=== PATIENT | male | born 1935 | race Caucasian/White ===

== ENCOUNTER 2018-05-24 00:33 | Emergency (ER) | payer MEDICARE, OTHER ==
[~2018-05-24] VITALS: Ht 180.3 cm; Wt 68.0 kg
[2018-05-24 01:12] LABS: HEMATOCRIT 34 % (40-54); HEMOGLOBIN 10.8 G/DL (13.3-17.7); MEAN CORPUSCULAR HEMOGLOBIN 31 PG (25-34); MEAN CORPUSCULAR VOLUME 98 FL (80-99); WHITE BLOOD COUNT 6.6 10^3/uL (4.3-11.0)
[2018-05-24 01:13] LABS: MEAN CORPUSCULAR HGB CONC 32 G/DL (32-36); MEAN PLATELET VOLUME 9.7 FL (7.4-10.4); PLATELET COUNT 209 10^3/uL (130-400); RED CELL DISTRIBUTION WIDTH 14.1 % (10.0-14.5)
[2018-05-24 01:14] LABS: BASOPHILS % (AUTO) 1 % (0-10); EOSINOPHILS % (AUTO) 1 % (0-10); LYMPHOCYTES % (AUTO) 7 % (12-44); MONOCYTES % (AUTO) 6 % (0-12); NEUTROPHILS % (AUTO) 86 % (42-75)
[2018-05-24 01:15] LABS: LYMPHOCYTES # (AUTO) 0.5 X 10^3 (1.0-4.0); MONOCYTES # (AUTO) 0.4 X 10^3 (0.0-1.0); NEUTROPHILS # (AUTO) 5.7 X 10^3 (1.8-7.8)
--- NOTE | 2018-05-24 01:26 | ED General ---
General Chief Complaint: Cough/Cold/Flu Symptoms Stated Complaint: SHAKY Nursing Sepsis Screen: No Definite Risk Source of Information: Patient History of Present Illness Date Seen by Provider: May 24, 2018 Time Seen by Provider: 01:25 Initial Comments 82-year-old male presenting with increasing cough and shortness of breath. He has had worsening symptoms over the last 2-3 weeks. He had gone to urgent care and they gave him a 10 day course of doxycycline presuming it was a respiratory infection. He has not had any fever or chills. he has had worsening cough and dyspnea with exertion. He states that despite the antibiotics he never felt like he improved. He has also been having to sleep on more pillows because of shortness of breath with laying down. He has been feeling dizzy and lightheaded at times. He also has been noticing that his heart feels like it is racing when he is coughing. He feels like his chest is full at times. He has noticed that he is feeling more fatigued and run down. He denies having any nausea or vomiting. Allergies and Home Medications Allergies Coded Allergies: No Known Drug Allergies (Unverified , 05/24/18) Patient Home Medication List Home Medication List Reviewed: Yes Review of Systems Review of Systems Constitutional: No chills; dizziness; No fever; malaise EENTM: No epistaxis, No nose congestion Respiratory: cough, dyspnea on exertion; No hemoptysis; orthopnea; No phlegm; short of breath; No stridor; wheezing Gastrointestinal: No abdominal pain, No nausea, No vomiting Genitourinary: no symptoms reported Musculoskeletal: no symptoms reported Skin: no symptoms reported Psychiatric/Neurological: Anxiety Hematologic/Lymphatic: Easy Bleeding, Easy Bruising Past Rixtbfp-Lqyuzq-Eosnyn Hx Past Med/Social Hx: Reviewed Nursing Past Med/Soc Hx Patient Social History Recent Foreign Travel: No Contact w/Someone Who Travel: No Recent Infectious Disease Expo: No Past Medical History Surgeries: Yes Valve Replacement (Aortic valve replacement 2004) Atrial Fibrillation, Heart Murmur, High Cholesterol, Hypertension Diabetes, Non-Insulin dep Physical Exam Vital Signs Vital Signs - First Documented 05/24/18 05/24/18 01:02 01:09 Temp 98.0 Pulse 117 Resp 20 B/P (MAP) 149/88 (108) Pulse Ox 93 O2 Delivery Room Air O2 Flow Rate 2.00 FiO2 95 Capillary Refill : Less Than 3 Seconds Height, Weight, BMI Height: 5'11.00" Weight: 150lbs. oz. 68.520917uc; BMI Method:Stated General Appearance: No Apparent Distress, WD/WN HEENT: PERRL/EOMI, Normal ENT Inspection, Pharynx Normal Neck: Full Range of Motion, Normal Inspection, Non Tender, Supple; No Carotid Bruit Respiratory: Chest Non Tender, No Accessory Muscle Use, No Respiratory Distress , Crackles, Decreased Breath Sounds Cardiovascular: Normal Peripheral Pulses, Systolic Murmur, Irregularly Irregular, Tachycardia Gastrointestinal: Normal Bowel Sounds, No Organomegaly, No Pulsatile Mass, Non Tender, Soft Extremity: Normal Capillary Refill, Normal Inspection, Normal Range of Motion, Non Tender, No Calf Tenderness Neurologic/Psychiatric: Alert, Oriented x3, Normal Mood/Affect, 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-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 Norm as Tested Skin: Normal Color, Warm/Dry Progress/Results/Core Measures Suspected Sepsis Recent Fever Within 48 Hours: No Infection Criteria Present: None New/Unexplained Altered Menta: No Sepsis Screen: No Definite Risk SIRS Temperature:98.0 Pulse: 117 Respiratory Rate: 20 Laboratory Tests 05/24/18 01:00: White Blood Count 6.6 Blood Pressure 149 /88 Mean: 108 Laboratory Tests 05/24/18 01:00: Creatinine 0.80, INR Comment 4.8H, Platelet Count 209, Total Bilirubin 1.1H Results/Orders Lab Results Laboratory Tests Test 05/24/18 01:00 Range/Units White Blood Count 6.6 4.3-11.0 10^3/uL Red Blood Count 3.50 L 4.35-5.85 10^6/uL Hemoglobin 10.8 L 13.3-17.7 G/DL Hematocrit 34 L 40-54 % Mean Corpuscular Volume 98 80-99 FL Mean Corpuscular Hemoglobin 31 25-34 PG Mean Corpuscular Hemoglobin Concent 32 32-36 G/DL Red Cell Distribution Width 14.1 10.0-14.5 % Platelet Count 209 130-400 10^3/uL Mean Platelet Volume 9.7 7.4-10.4 FL Neutrophils (%) (Auto) 86 H 42-75 % Lymphocytes (%) (Auto) 7 L 12-44 % Monocytes (%) (Auto) 6 0-12 % Eosinophils (%) (Auto) 1 0-10 % Basophils (%) (Auto) 1 0-10 % Neutrophils # (Auto) 5.7 1.8-7.8 X 10^3 Lymphocytes # (Auto) 0.5 L 1.0-4.0 X 10^3 Monocytes # (Auto) 0.4 0.0-1.0 X 10^3 Eosinophils # (Auto) 0.0 0.0-0.3 10^3/uL Basophils # (Auto) 0.0 0.0-0.1 10^3/uL Neutrophils % (Manual) 79 % Lymphocytes % (Manual) 11 % Monocytes % (Manual) 3 % Eosinophils % (Manual) 1 % Basophils % (Manual) 0 % Band Neutrophils 6 % Prothrombin Time 45.5 *H 12.2-14.7 SEC INR Comment 4.8 H 0.8-1.4 Sodium Level 142 135-145 MMOL/L Potassium Level 3.5 L 3.6-5.0 MMOL/L Chloride Level 102 98-107 MMOL/L Carbon Dioxide Level 25 21-32 MMOL/L Anion Gap 15 H 5-14 MMOL/L Blood Urea Nitrogen 11 7-18 MG/DL Creatinine 0.80 0.60-1.30 MG/DL Estimat Glomerular Filtration Rate > 60 BUN/Creatinine Ratio 14 Glucose Level 117 H 70-105 MG/DL Calcium Level 9.4 8.5-10.1 MG/DL Corrected Calcium 9.4 8.5-10.1 MG/DL Total Bilirubin 1.1 H 0.1-1.0 MG/DL Aspartate Amino Transf (AST/SGOT) 26 5-34 U/L Alanine Aminotransferase (ALT/SGPT) 12 0-55 U/L Alkaline Phosphatase 64 40-136 U/L Troponin T 18 H <=15 NG/L Pro-B-Type Natriuretic Peptide 4463.0 H <75.0 PG/ML Total Protein 7.5 6.4-8.2 GM/DL Albumin 4.0 3.2-4.5 GM/DL My Orders Orders - ANGELICA FLOWERS MD Cbc With Automated Diff (05/24/18 00:56) Comprehensive Metabolic Panel (05/24/18 00:56) Chest 1 View Ap/Pa Only (05/24/18 00:56) Ekg Tracing (05/24/18 00:56) O2 (05/24/18 00:56) Monitor-Rhythm Ecg Trace Only (05/24/18 00:56) Manual Differential (05/24/18 01:00) Troponin T (05/24/18 01:30) Probnp Fs (05/24/18 01:30) Diltiazem Injection (Cardizem Injection) (05/24/18 02:15) Furosemide Injection (Lasix Injection) (05/24/18 02:15) Protime With Inr (05/24/18 02:10) Medications Given in ED Current Medications Medications Dose Ordered Sig/John Route Start Time Stop Time Status Last Admin Dose Admin Diltiazem HCl 10 mg ONCE ONCE IVP 05/24/18 02:15 05/24/18 02:16 DC 05/24/18 02:17 10 MG Furosemide 40 mg ONCE ONCE IVP 05/24/18 02:15 05/24/18 02:16 DC 05/24/18 02:17 40 MG Vital Signs/I&O 05/24/18 05/24/18 05/24/18 05/24/18 01:02 01:09 02:59 03:00 Temp 98.0 98.0 Pulse 117 108 Resp 20 22 B/P (MAP) 149/88 (108) 144/87 (106) Pulse Ox 93 95 95 O2 Delivery Room Air Nasal Cannula Nasal Cannula Nasal Cannula O2 Flow Rate 2.00 2.00 2.00 2.00 2.00 FiO2 95 05/24/18 03:13 Temp 98.8 Pulse 115 Resp 24 B/P (MAP) 142/94 (110) Pulse Ox 98 O2 Delivery Nasal Cannula O2 Flow Rate 2.00 Capillary Refill : Less Than 3 Seconds Blood Pressure Mean: 108 Progress Note : Progress Note check labs and ECG with CXR. ECG shows atrial fibrillation with rate at 109. This appears similar to prior tracings in the old [facility] records. CXR shows increased pulmonary vascular congestion with left sided pleural effusion. Labs show mild anemia but no elevated WBC count. Chemistry appears stable other than elevated pro BNP to go with CHF. He also has increased INR of 4.8 since he has warfarin for his valve replacement and chronic A fib. Counseled pt that he needs cardiology eval and treatment as the last echo from 2014 shows normal ejection fraction. He had me speak with his daughter, Anna Us over the phone to get her opinion and she agreed about having him go to the technical support specialist. [facility] 0[address] Dr. Cifuentes the Hospitalist accepted the patient in transfer. ECG Initial ECG Impression Date: May 24, 2018 Initial ECG Impression Time: 01:02 Initial ECG Rate: 109 Initial ECG Rhythm: A Fib/Flutter Initial ECG Intervals QT interval of 302 ms with QTc interval of [address] elevation. occasional PVC. Appears similar to prior tracings. Initial ECG Impression: Atrial Fibrillation Initial ECG Comparisson: Unchanged Departure Impression Primary Impression: New onset of congestive heart failure Additional Impressions: Atrial fibrillation with tachycardic ventricular rate Cough in adult Dyspnea on exertion Disposition: XFER SHT-TRM HOSP Condition: Stable Transfer Time Spoke to Accepting Phy: 03:00 Transfer Progress Notes 0300 D/w Dr. Cifuentes, Hospitalist at [facility], and she accepted the patient for transfer to med/tele bed so that he can see cardiology and have treatment and evaluation for new onset of CHF. Transfer Facility: [facility] Method of Transfer: EMS Departure-Patient Inst. Referrals: FACUNDO GUZMAN MD (PCP/Family) Primary Care Physician ANGELICA FLOWERS MD May 24, 2018 01:25
[2018-05-24 01:34] LABS: BAND NEUTROPHILS 6 %; BASOPHILS % (MANUAL) 0 %; EOSINOPHILS % (MANUAL) 1 %; LYMPHOCYTES % (MANUAL) 11 %; MONOCYTES % (MANUAL) 3 %; NEUTROPHILS % (MANUAL) 79 %
[2018-05-24 02:04] LABS: SODIUM 142 MMOL/L (135-145)
[2018-05-24 02:05] LABS: ALANINE AMINOTRANSFERASE 12 U/L (0-55); ALKALINE PHOSPHATASE 64 U/L (40-136); BILIRUBIN,TOTAL 1.1 MG/DL (0.1-1.0); BUN/CREATININE RATIO 14; CALCIUM 9.4 MG/DL (8.5-10.1); CARBON DIOXIDE 25 MMOL/L (21-32); CHLORIDE 102 MMOL/L (98-107); GFR ESTIMATED > 60; GLUCOSE 117 MG/DL (70-105); POTASSIUM 3.5 MMOL/L (3.6-5.0); TOTAL PROTEIN 7.5 GM/DL (6.4-8.2)
--- NOTE | 2018-05-24 02:10 | NUR ---
pt. is unable to give accurate information on medications, and history. the patient gives bits and pieces of information.
[2018-05-24] MEDS ORDERED: FUROSEMIDE 40 MG/4 ML INJ (LASIX) IVP ONE (02:15)
[2018-05-24] MEDS ORDERED: DILTIAZEM 25 MG/5 ML INJ (CARDIZEM) VIAL IVP ONE (02:15)
[2018-05-24 02:24] LABS: INR 4.8 (0.8-1.4); PROTHROMBIN TIME PATIENT 45.5 SEC (12.2-14.7)
--- NOTE | 2018-05-24 02:37 | NUR ---
DOCTOR LIONEL TALKED TO THE PATIENTS DAUGHTER CORTES AND INFORMED HER ABOUT THE PATIENT NEEDING TRANSFERED TO [facility] AND SHE WAS OK WITH THE TRANSFER.
--- NOTE | 2018-05-24 02:58 | NUR ---
PT. UP TO THE BATHROOM. VOIDED AND STOOLED.
[2018-05-24 02:59] VITALS: BP 144/87
[2018-05-24 03:13] VITALS: BP 142/94
--- NOTE | 2018-05-24 07:12 | Diagnostic Imaging Report ---
EXAMINATION: Chest radiograph, portable AP view. DATE: May 24, 2018] at 0056 hours. INDICATION: 82-year-old male, cough. COMPARISON: None. FINDINGS: There are median sternotomy wires. There is valvular hardware. Heart size and mediastinal contours are grossly unremarkable. There are aortic calcifications. There is no identified pneumothorax. There is no identified large pleural effusion. There are bilateral interstitial opacities. There are areas of opacity along the right lateral lung margin which potentially could be artifactual versus related to peripheral consolidation. IMPRESSION: 1. Bilateral predominantly interstitial opacities which may relate to pulmonary interstitial edema. Atypical infection would also be in the differential diagnosis. Comparison imaging not available to assess for possible stability and chronic lung changes. . 2. Peripheral opacities along the right lateral lung margin which potentially could be artifactual versus relating to peripheral consolidation and/or pleural fluid/thickening. Dictated by: Dictated on workstation # [id number]
== END 2018-05-24 03:38 | disposition other institution (70) ==
LOC: ER FS 00:38
DX: I11.0 Hypertensive heart disease with heart failure (principal); I50.9 Heart failure, unspecified; I48.91 Unspecified atrial fibrillation; R06.09 Other forms of dyspnea; R05 Cough; E78.00 Pure hypercholesterolemia, unspecified; E11.9 Type 2 diabetes mellitus without complications; Z95.2 Presence of prosthetic heart valve
CPT/HCPCS: 36415; 71045; 80053; 83880; 84484; 85007; 85027; 85610; 93005; 93041; 96374; 96375

== ENCOUNTER → 2018-06-01 | Outpatient (CLI) | payer MEDICARE, OTHER ==
--- NOTE | 2018-06-01 15:17 | Diagnostic Imaging Report ---
Indication: Cough. Comparison made with prior examination of 05/24/2018. Findings: There is cardiomegaly. There is venous congestion. There are patchy bibasilar atelectasis and/or pneumonitis. No pleural effusion or pneumothorax. Mediastinum unremarkable. There has been a previous median sternotomy. Impression: Patchy bibasilar atelectasis and/or pneumonitis. Cardiomegaly and some central pulmonary venous congestion. Dictated by: Dictated on workstation # [id number]
== END ==
LOC: RAD FS 14:53
PROVIDERS: ATTEND Nurse Practitioner Family
DX: J90 Pleural effusion, not elsewhere classified (principal); I51.7 Cardiomegaly; I87.8 Other specified disorders of veins
CPT/HCPCS: 71046

== ENCOUNTER 2018-09-01 11:05 | Inpatient (IN) | payer MEDICARE ==
[~2018-09-01] VITALS: Ht 180.3 cm; Wt 74.0 kg
[2018-09-01] VITALS (9 sets, daily range): BP systolic 102–124; BP diastolic 73–102
--- NOTE | 2018-09-01 11:33 | ED Cardiac General ---
History of Present Illness General Chief Complaint: Cardiac/General Problems Stated Complaint: A-FIB; RBR Source: patient, RN notes reviewed, old records Exam Limitations: no limitations History of Present Illness Date Seen by Provider: Sep 01, 2018 Time Seen by Provider: 11:33 Initial Comments Patient sent over here from [facility] clinic p/ noted to be tachycardic. Reports not feeling well for the last week. (+) N/V. (+) worsening weakness. Not aware of any fever. Denies any diarrhea. States he has had a couple episodes of chest discomfort the last couple days. Timing/Duration: 1 week Severity: moderate Location: substernal Activities at Onset: none Modifying Factors: improves with other (none) NTG SL BUSINESS ATTORNEY: No ASA po BUSINESS ATTORNEY: No Associated Systoms: Denies Symptoms (x/ as noted. ), Chest Pain (episodic), Nausea/Vomiting, Weakness Allergies and Home Medications Allergies Coded Allergies: No Known Drug Allergies (Unverified , 05/24/18) Patient Home Medication List Home Medication List Reviewed: Yes Review of Systems Review of Systems Constitutional: see HPI, weakness Gastrointestinal: Abdominal Pain, Nausea, Vomiting All Other Systems Reviewed Negative Unless Noted: Yes (Negative excepted noted.) Past Qmxnixo-Ikpruw-Cqghxy Hx Patient Social History Recent Hopitalizations: No Seasonal Allergies Seasonal Allergies: No Past Medical History Surgeries: Yes Valve Replacement Respiratory: No Currently Using CPAP: No Currently Using BIPAP: No Cardiac: Yes Atrial Fibrillation, Heart Murmur, High Cholesterol, Hypertension Neurological: Yes Stroke Sexually Transmitted Disease: No HIV/AIDS: No Gastrointestinal: No Diabetes, Non-Insulin dep Cancer: No Psychosocial: No Integumentary: No Blood Disorders: No Adverse Reaction/Blood Tranf: No Physical Exam Vital Signs Vital Signs - First Documented 09/01/18 11:08 Temp 98.4 Pulse 133 Resp 21 B/P (MAP) 99/78 (85) Pulse Ox 98 Capillary Refill : Height, Weight, BMI Height: 5'11.00" Weight: 150lbs. oz. 68.603722gf; BMI Method:Stated General Appearance: Thin HEENT: Other (oropharynx is dry) Neck: Non Tender Respiratory: No Respiratory Distress, Decreased Breath Sounds Cardiovascular: Irregularly Irregular, Tachycardia Gastrointestinal: No Rebound; Tenderness (epigastric/RUQ/LUQ) Rectal: Deferred Neurologic/Psychiatric: Alert, Oriented x3, No Motor/Sensory Deficits, Depressed Affect Skin: Warm/Dry Focused Exam Lactate Level 09/01/18 12:07: Lactic Acid Level 3.31*H Lactic Acid Level Laboratory Tests Test 09/01/18 12:07 Lactic Acid Level 3.31 MMOL/L (0.50-2.00) *H Progress/Results/Core Measures Results/Orders Lab Results Laboratory Tests Test 09/01/18 11:19 09/01/18 12:07 09/01/18 14:12 Range/Units White Blood Count 6.0 4.3-11.0 10^3/uL Red Blood Count 3.84 L 4.35-5.85 10^6/uL Hemoglobin 11.4 L 13.3-17.7 G/DL Hematocrit 37 L 40-54 % Mean Corpuscular Volume 96 80-99 FL Mean Corpuscular Hemoglobin 30 25-34 PG Mean Corpuscular Hemoglobin Concent 31 L 32-36 G/DL Red Cell Distribution Width 15.2 H 10.0-14.5 % Platelet Count 74 L 130-400 10^3/uL Mean Platelet Volume 12.6 H 7.4-10.4 FL Neutrophils (%) (Auto) 82 H 42-75 % Lymphocytes (%) (Auto) 11 L 12-44 % Monocytes (%) (Auto) 6 0-12 % Eosinophils (%) (Auto) 0 0-10 % Basophils (%) (Auto) 1 0-10 % Neutrophils # (Auto) 4.9 1.8-7.8 X 10^3 Lymphocytes # (Auto) 0.7 L 1.0-4.0 X 10^3 Monocytes # (Auto) 0.4 0.0-1.0 X 10^3 Eosinophils # (Auto) 0.0 0.0-0.3 10^3/uL Basophils # (Auto) 0.0 0.0-0.1 10^3/uL Prothrombin Time 61.3 *H 12.2-14.7 SEC INR Comment 6.7 *H 0.8-1.4 Activated Partial Thromboplast Time 42 H 24-35 SEC Sodium Level 137 135-145 MMOL/L Potassium Level 3.7 3.6-5.0 MMOL/L Chloride Level 97 L 98-107 MMOL/L Carbon Dioxide Level 23 21-32 MMOL/L Anion Gap 17 H 5-14 MMOL/L Blood Urea Nitrogen 45 H 7-18 MG/DL Creatinine 1.02 0.60-1.30 MG/DL Estimat Glomerular Filtration Rate > 60 BUN/Creatinine Ratio 44 Glucose Level 119 H 70-105 MG/DL Calcium Level 9.2 8.5-10.1 MG/DL Corrected Calcium 9.6 8.5-10.1 MG/DL Magnesium Level 1.8 1.8-2.4 MG/DL Total Bilirubin 3.2 H 0.1-1.0 MG/DL Aspartate Amino Transf (AST/SGOT) 2083 H 5-34 U/L Alanine Aminotransferase (ALT/SGPT) 1393 H 0-55 U/L Alkaline Phosphatase 83 40-136 U/L Troponin I < 0.30 <0.30 NG/ML Pro-B-Type Natriuretic Peptide 4359.0 H <75.0 PG/ML Total Protein 6.6 6.4-8.2 GM/DL Albumin 3.5 3.2-4.5 GM/DL Lipase 62 8-78 U/L Thyroid Stimulating Hormone (TSH) 2.04 0.35-4.94 UIU/ML Urine Color YELLOW Urine Clarity CLEAR Urine pH 6.0 5-9 Urine Specific [place] 1.025 H 1.016-1.022 Urine Protein 1+ H NEGATIVE Urine Glucose (UA) NEGATIVE NEGATIVE Urine Ketones TRACE H NEGATIVE Urine Nitrite NEGATIVE NEGATIVE Urine Bilirubin NEGATIVE NEGATIVE Urine Urobilinogen 0.2 NORMAL MG/DL Urine Leukocyte Esterase NEGATIVE NEGATIVE Urine RBC (Auto) NEGATIVE NEGATIVE Urine RBC NONE /HPF Urine WBC RARE /HPF Urine Squamous Epithelial Cells 2-5 /HPF Urine Crystals NONE /LPF Urine Bacteria NEGATIVE /HPF Urine Casts PRESENT /LPF Urine Hyaline Casts 2-5 H /LPF Urine Mucus SMALL H /LPF Urine Culture Indicated NO Lactic Acid Level 3.31 *H 0.50-2.00 MMOL/L Urine Opiates Screen NEGATIVE NEGATIVE Urine Oxycodone Screen NEGATIVE NEGATIVE Urine Methadone Screen NEGATIVE NEGATIVE Urine Propoxyphene Screen NEGATIVE NEGATIVE Urine Barbiturates Screen NEGATIVE NEGATIVE Ur Tricyclic Antidepressants Screen NEGATIVE NEGATIVE Urine Phencyclidine Screen NEGATIVE NEGATIVE Urine Amphetamines Screen NEGATIVE NEGATIVE Urine Methamphetamines Screen NEGATIVE NEGATIVE Urine Benzodiazepines Screen NEGATIVE NEGATIVE Urine Cocaine Screen NEGATIVE NEGATIVE Urine Cannabinoids Screen NEGATIVE NEGATIVE My Orders Orders - JANY PERAZA DO Ed Iv/Invasive Line Start (09/01/18 11:33) Ekg Tracing (09/01/18 11:33) Cbc With Automated Diff (09/01/18 11:33) Comprehensive Metabolic Panel (09/01/18 11:33) Lactic Acid Analyzer (09/01/18 11:33) Lipase (09/01/18 11:33) Magnesium (09/01/18 11:33) Protime With Inr (09/01/18 11:33) Partial Thromboplastin Time (09/01/18 11:33) Troponin I (09/01/18 11:33) Ua Culture If Indicated (09/01/18 11:33) Probnp Fs (09/01/18 11:33) Chest 1 View Ap/Pa Only (09/01/18 11:33) Lactated Ringers (Lr 1000 Ml Iv Solution (09/01/18 11:45) Thyroid Stimulating Hormone (09/01/18 11:19) Ct Abdomen/Pelvis W (09/01/18 12:22) Diltiazem Injection (Cardizem Injection) (09/01/18 12:30) Iohexol Injection (Omnipaque 350 Mg/Ml 1 (09/01/18 12:45) Received Contrast (Hold Metformin- Contr (09/01/18 12:45) Ns (Ivpb) (Sodium Chloride 0.9% Ivpb Bag (09/01/18 12:45) Sodium Chloride Flush (Catheter Flush Sy (09/01/18 12:45) Blood Culture (09/01/18 12:47) Ed Iv/Invasive Line Start (09/01/18 12:52) Ns Iv 1000 Ml (Sodium Chloride 0.9%) (09/01/18 12:52) Piperacillin/Tazobactam (Bulk) (Zosyn In (09/01/18 13:15) Piperacillin Sodium/Tazobactam (Zosyn Vi (09/01/18 13:10) Ns (Ivpb) (Sodium Chloride 0.9% Ivpb Bag (09/01/18 13:11) Hepatitis Panel Acute (09/01/18 13:48) Ammonia (09/01/18 14:03) Medications Given in ED Current Medications Medications Dose Ordered Sig/John Route Start Time Stop Time Status Last Admin Dose Admin Diltiazem HCl 10 mg ONCE ONCE IVP 09/01/18 12:30 7/2/19 12:31 DC 09/01/18 12:33 10 MG Iohexol 100 ml ONCE ONCE IV 09/01/18 12:45 09/01/18 13:14 DC 09/01/18 13:15 100 ML Piperacillin Sod/ Tazobactam Sod 4.5 gm/Sodium Chloride 120 ml @ 240 mls/hr ONCE ONCE IV 09/01/18 13:15 09/01/18 13:44 DC 09/01/18 13:36 240 MLS/HR Sodium Chloride 10 ml NEEDED PRN IV 09/01/18 12:45 09/01/18 13:15 10 ML Sodium Chloride 100 ml ONCE ONCE IV 09/01/18 12:45 09/01/18 13:14 DC 09/01/18 13:15 100 ML Vital Signs/I&O 09/01/18 11:08 Temp 98.4 Pulse 133 Resp 21 B/P (MAP) 99/78 (85) Pulse Ox 98 Progress Progress Note : Progress Note Does feel a little better p/ the IV fluids. Initial ECG Impression Date: Sep 01, 2018 Initial ECG Impression Time: 11:15 Initial ECG Rate: 138 Initial ECG Rhythm: A Fib/Flutter Initial ECG Impression: Nonspecific Changes (PVC; Anteroseptal infarct, old; Prolonged QT; Nonspecific T abnormal lateral leads), Atrial Fibrillation w/RVR Initial ECG Comparisson: No Previous ECG Available Diagnostic Imaging Diagonstic Imaging: Xray, CT Plain Films/CT/US/NM/MRI: chest (nothing acute), abdomen, pelvis (see report) Departure Impression Primary Impression: Elevated LFT (? shocked liver) Additional Impressions: Elevated lactic acid level Dehydration Atrial fibrillation with RVR Elevated PT/INR N&V (nausea and vomiting) Disposition: ADMITTED INPATIENT Condition: Stable Admissions Decision to Admit Reason: Admit from ER (General) Decision to Admit/Date: Sep 01, 2018 Time/Decision to Admit Time: 14:25 Transfer Time Spoke to Accepting Phy: 14:05 Transfer Progress Notes Discussed the patient c/ both Dr. Orozco and Dr. Suero. Will work on getting him an ICU bed. Transfer Facility: [facility] Method of Transfer: EMS Departure-Patient Inst. Referrals: SELFFACUNDO MD (PCP/Family) Primary Care Physician JANY PERAZA 2, 2019 11:33
--- OUTSIDE RECORDS SUMMARY | 2018-09-01 11:37 | XMS REPORT | Continuity of Care Document ---
Demographics Preferred Language Unknown Marital Status Unknown Hoahaoism Affiliation Unknown Race Unknown Ethnic Group Unknown Author Organization Unknown Address Unknown Allergies There is no data. Medications There is no data. Problems There is no data. Procedures There is no data. Results Test Result Range MICROALBUMIN/CREATININE RATIO, URINE - 06/15/18 12:54 CREATININE, RANDOM URINE 117 mg/dL 20-320 MICROALBUMIN 1.4 mg/dL See Note: MICROALBUMIN/CREATININE RATIO, RANDOM URINE 12 mcg/mg creat <30 CMP - 06/15/18 12:54 GLUCOSE 102 mg/dL 65-99 UREA NITROGEN (BUN) 20 mg/dL 7-25 CREATININE 0.83 mg/dL 0.70-1.11 eGFR NON-AFR. [place] 81 mL/min/1.73m2 > OR=60 eGFR 94 mL/min/1.73m2 > OR=60 BUN/CREATININE RATIO NOT APPLICABLE (calc) 6-22 SODIUM 140 mmol/L 135-146 POTASSIUM 4.0 mmol/L 3.5-5.3 CHLORIDE 104 mmol/L 98-110 CARBON DIOXIDE 30 mmol/L 20-32 CALCIUM 9.3 mg/dL 8.6-10.3 PROTEIN, TOTAL 6.8 g/dL 6.1-8.1 ALBUMIN 3.7 g/dL 3.6-5.1 GLOBULIN 3.1 g/dL (calc) 1.9-3.7 ALBUMIN/GLOBULIN RATIO 1.2 (calc) 1.0-2.5 BILIRUBIN, TOTAL 1.3 mg/dL 0.2-1.2 ALKALINE PHOSPHATASE 64 U/L 40-115 AST 18 U/L 10-35 ALT 14 U/L 9-46 A1C - 06/15/18 12:54 HEMOGLOBIN A1c 6.1 % of total Hgb <5.7 Encounters ACCT No. Visit Date/Time Discharge Status Pt. Type Provider Facility Loc./Unit Complaint [id number] 08/20/2018 16:40:00 08/20/2018 23:59:59 [facility] Outpatient [facility] IN [facility] [id number] 06/15/2018 13:45:00 Document Registration
[2018-09-01 11:45] LABS: BASOPHILS % (AUTO) 1 % (0-10); EOSINOPHILS % (AUTO) 0 % (0-10); HEMATOCRIT 37 % (40-54); HEMOGLOBIN 11.4 G/DL (13.3-17.7); LYMPHOCYTES % (AUTO) 11 % (12-44); MEAN CORPUSCULAR HEMOGLOBIN 30 PG (25-34); MEAN CORPUSCULAR HGB CONC 31 G/DL (32-36); MEAN CORPUSCULAR VOLUME 96 FL (80-99); MEAN PLATELET VOLUME 12.6 FL (7.4-10.4); MONOCYTES % (AUTO) 6 % (0-12); PLATELET COUNT 74 10^3/uL (130-400); RED CELL DISTRIBUTION WIDTH 15.2 % (10.0-14.5)
[2018-09-01] MEDS ORDERED: LACTATED RINGERS 1,000 ML IV SCH (11:45)
[2018-09-01 11:46] LABS: LYMPHOCYTES # (AUTO) 0.7 X 10^3 (1.0-4.0); MONOCYTES # (AUTO) 0.4 X 10^3 (0.0-1.0); NEUTROPHILS # (AUTO) 4.9 X 10^3 (1.8-7.8); NEUTROPHILS % (AUTO) 82 % (42-75)
[2018-09-01 11:55] LABS: PROTHROMBIN TIME PATIENT 61.3 SEC (12.2-14.7)
[2018-09-01 11:56] LABS: INR 6.7 (0.8-1.4)
--- NOTE | 2018-09-01 11:57 | Diagnostic Imaging Report ---
Indication: Shortness of breath, nausea and vomiting. Comparison made with prior examination of 06/01/2018. Findings: There is cardiomegaly. There is mild central venous congestion. There are patchy chronic appearing interstitial infiltrates in the right lung bases. No pneumothorax. Mediastinum is unremarkable. There has been a previous median sternotomy. Impression: Chronic appearing bibasilar interstitial infiltrates. Cardiomegaly. There is mild central pulmonary venous congestion. Dictated by: Dictated on workstation # [id number]
[2018-09-01] MEDS ORDERED: METF500T8 PO (11:59)
[2018-09-01] MEDS ORDERED: WARF7.5T49 PO (11:59)
[2018-09-01 12:15] LABS: SODIUM 137 MMOL/L (135-145)
[2018-09-01 12:16] LABS: ALANINE AMINOTRANSFERASE 1393 U/L (0-55); ALKALINE PHOSPHATASE 83 U/L (40-136); BILIRUBIN,TOTAL 3.2 MG/DL (0.1-1.0); BUN/CREATININE RATIO 44; CALCIUM 9.2 MG/DL (8.5-10.1); CARBON DIOXIDE 23 MMOL/L (21-32); CHLORIDE 97 MMOL/L (98-107); CREATININE SERUM 1.02 MG/DL (0.60-1.30); GFR ESTIMATED > 60; GLUCOSE 119 MG/DL (70-105); MAGNESIUM 1.8 MG/DL (1.8-2.4); POTASSIUM 3.7 MMOL/L (3.6-5.0)
[2018-09-01 12:17] LABS: ALBUMIN 3.5 GM/DL (3.2-4.5); LIPASE 62 U/L (8-78); TOTAL PROTEIN 6.6 GM/DL (6.4-8.2)
[2018-09-01 12:23] LABS: BACTERIA,URINE NEGATIVE /HPF; BILIRUBIN,URINE NEGATIVE (NEGATIVE); CLARITY,URINE CLEAR; COLOR,URINE YELLOW; GLUCOSE, URINE (UA) NEGATIVE (NEGATIVE); KETONES,URINE TRACE (NEGATIVE); LEUKOCYTE ESTERASE ,URINE NEGATIVE (NEGATIVE); NITRITE,URINE NEGATIVE (NEGATIVE); PROTEIN,URINE 1+ (NEGATIVE); UROBILINOGEN,URINE 0.2 MG/DL (NORMAL); WBC,URINE RARE /HPF
[2018-09-01] MEDS ORDERED: DILTIAZEM 25 MG/5 ML INJ (CARDIZEM) VIAL IVP ONE ×2 (12:30→14:30)
[2018-09-01] MEDS ORDERED: CATHETER FLUSH 10 ML SYR IV PRN ×2 (12:45→17:45)
[2018-09-01] MEDS ORDERED: IOHEXOL 350 MG/ML 100 ML (OMNIPAQUE 350) VIAL IV ONE (12:45)
[2018-09-01] MEDS ORDERED: HOLD METFORMIN - RECEIVED CONTRAST 20 ML VIAL IV SCH (12:45)
[2018-09-01] MEDS ORDERED: NS 100 ML (IVPB) BAG IV ONE (12:45)
[2018-09-01] MEDS ORDERED: NS IV 1000 ML 1,000 ML IV STA (12:52)
[2018-09-01] MEDS ORDERED: PIPERACILLIN/TAZO 4.5 GM VIAL (ZOSYN) IV ONE (13:10)
[2018-09-01] MEDS ORDERED: NS (IVPB) 100 ML ONE (13:11)
[2018-09-01] MEDS ORDERED: PIPERACILLIN/TAZOBACTAM (BULK) 4.5 GM in NS (IVPB) 100 ML IV ONE (13:15)
--- NOTE | 2018-09-01 13:26 | Diagnostic Imaging Report ---
PROCEDURE: CT abdomen and pelvis with contrast. TECHNIQUE: Multiple contiguous axial images were obtained through the abdomen and pelvis after administration of intravenous contrast. Auto Exposure Controls were utilized during the CT exam to meet ALARA standards for radiation dose reduction. INDICATION: Nausea and vomiting. FINDINGS: There are bilateral pleural effusions. There is some chronic interstitial scarring in both lung bases. There is cardiomegaly. The liver is normal in size and without focal lesions. There is some perihepatic ascites. Gallbladder is unremarkable. There is no biliary ductal dilatation. Spleen is normal. The pancreas and adrenal glands are unremarkable. The kidneys are normal in appearance. The aorta is nonaneurysmal. Bowel gas pattern is nonspecific. Bladder is normal. There is enlargement of the prostate. There is no pelvic mass or adenopathy. There are moderate degenerative changes in the spine. IMPRESSION: Cardiomegaly and small bilateral pleural effusions with chronic appearing bibasilar interstitial infiltrates. Small amount of perihepatic and perisplenic ascites. Nonspecific bowel gas pattern. Enlargement of the prostate. Degenerative changes in the spine. Dictated by: Dictated on workstation # [id number]
[2018-09-01] MEDS ORDERED: DILTIAZEM IV FOR DRIP 125 MG in NS (IVPB) 100 ML IV SCH (14:30)
[2018-09-01 15:14] LABS: ABG PCO2 34 MMHG (35-45); ABG PH 7.44 (7.37-7.43); ABG PO2 77 MMHG (79-93)
[2018-09-01 15:16] LABS: ABG BASE EXCESS -0.6 MMOL/L (-2.5-2.5); ABG OXYGEN SATURATION 96 % (94-100); ALLENS TEST YES-POS
[2018-09-01 15:17] LABS: INSPIRED O2 ROOM AIR; PATIENT TEMP 98.5; VENTILATOR NO
[2018-09-01 15:21] LABS: AMPHETAMINE SCREEN, URINE NEGATIVE (NEGATIVE); BARBITURATE SCREEN URINE NEGATIVE (NEGATIVE); BENZODIAZEPINES SCREEN URINE NEGATIVE (NEGATIVE); CANNABINOID SCREEN, URINE NEGATIVE (NEGATIVE); COCAINE SCREEN URINE NEGATIVE (NEGATIVE); METHADONE STAT NEGATIVE (NEGATIVE); METHAMPHETAMINE SCREEN URINE S NEGATIVE (NEGATIVE); OPIATE SCREEN URINE NEGATIVE (NEGATIVE); OXYCODONE STAT NEGATIVE (NEGATIVE); PROPOXYPHENE STAT NEGATIVE (NEGATIVE); TRICYCLIC ANTIDEPRESSANTS SCRE NEGATIVE (NEGATIVE)
[2018-09-01] MEDS ORDERED: NS IV 1000 ML 1,000 ML IV SCH (16:15)
--- OUTSIDE RECORDS SUMMARY | 2018-09-01 16:19 | XMS REPORT | Continuity of Care Document ---
Demographics Preferred Language Unknown Marital Status Unknown Anabaptist Affiliation Unknown Race Unknown Ethnic Group Unknown [...] 7-25 CREATININE 0.83 mg/dL 0.70-1.11 eGFR NON-AFR. [place] 81 mL/min/1.73m2 > OR=60 eGFR 94 mL/min/1.73m2 [...] Status Pt. Type Provider Facility Loc./Unit Complaint [id number] 08/20/2018 16:40:00 08/20/2018 23:59:59 [facility] Outpatient [facility] IN [facility] [id number] 06/15/2018 13:45:00 Document Registration
--- NOTE | 2018-09-01 18:31 | Consultation-Cardiology ---
HPI-Cardiology Cardiology Consultation: Date of Consultation 09/01/18 Time Seen by a Provider: 18:20 Date of Admission Attending Physician Taylor Orozco DO Admitting Physician Warren Martinez MD Consulting Physician CORINA ISAAC MD, MA, FACP, FACC, FSCAI, CCDS Physician requesting consult: Dr Orozco HPI: Chief Complaint: Reason for consultation: Atrial fibrillation HPI 83 yo man admitted to Dr Orozco after found to have ac hepatic failure and probable sepsis. We have been asked to see him for A Fib with RVR. He notes slowly progressive exertional shortness of breath for the last several weeks. Has had nausea and vomiting for the past one week. Does not report diarrhea or hematemesis of blood in stools or black stools. Does not report any significant chest pain. Denies fever or chills Review of Systems-Cardiology Review of Systems Constitutional: malaise, tiredness, weight loss (he's not sure if he has recent wgt loss after he has not been able to keep anything down for a week prior to admission); No weight gain Eyes: No vision change Ears/Nose/Throat: No ear discharge, No nasal drainage, No recent hearing loss Respiratory: As described under HPI Cardiovascular: As described under HPI Gastrointestinal: As described under HPI Genitourinary: No dysuria, No hematuria, No urine frequency changes Musculoskeletal: back pain (chronic) Skin: No rash, No ulcerations Psychiatric/Neurological: No seizure, No focal weakness, No syncope Hematologic: No bleeding abnormalities All Other Systems Reviewed Negative Unless Noted: Yes (Negative excepted noted.) YFU-Dfdbzy-Riwitc Hx Patient Social History Alcohol Use: Denies Use Recreational Drug Use: No Smoking Status: Former Smoker 2nd Hand Smoke Exposure: No Recent Foreign Travel: No Recent Infectious Disease Expo: No Hospitalization with Isolation: Unknown Past Medical History PMH As described under Assessment. Family Medical History Family Medical History: He does not report fam h/o early CAD He quit smoking in the 1960s Allergies and Home Medications Allergies Coded Allergies: No Known Drug Allergies (Unverified , 05/24/18) Patient Home Medication List Home Medication List Reviewed: Yes Physical Exam-Cardiology Physical Exam Vital Signs/I&O 09/01/18 09/01/18 09/01/18 09/01/18 11:08 14:47 15:45 16:32 Temp 98.4 98.8 Pulse 133 105 104 110 Resp 21 13 20 B/P (MAP) 99/78 (85) 99/75 110/73 (85) 111/81 (91) Pulse Ox 98 97 98 O2 Delivery Room Air 09/01/18 09/01/18 18:02 18:07 Pulse 117 Pulse Ox 99 O2 Delivery Room Air Capillary Refill : Less Than 3 Seconds Constitutional: AAO x 3, well-developed, well-nourished HEENT: EOMI, hearing is well preserved; No xanthelasmas are seen Neck: carotid pulses are 2 + bilaterally, with good upstrokes Respiratory: No accessory muscle use; other (good bilat air entry) Cardiovascular: regular rate-rhythm, S1 and S2, systolic murmur (2/6 DIANNE at card base) Gastrointestinal: No tender; soft; No guarding, No rebound; audible bowel sounds Extremities: No clubbing, No cyanosis, No significant edema Neurologic/Psychiatric: other (able to move all limbs equally), grossly intact Skin: No rash on exposed areas, No ulcerations on exposed areas Data Review Labs Laboratory Tests 09/01/18 11:19: White Blood Count 6.0, Red Blood Count 3.84L, Hemoglobin 11.4L, Hematocrit 37L, Mean Corpuscular Volume 96, Mean Corpuscular Hemoglobin 30, Mean Corpuscular Hemoglobin Concent 31L, Red Cell Distribution Width 15.2H, Platelet Count 74L, Mean Platelet Volume 12.6H, Neutrophils (%) (Auto) 82H, Lymphocytes (%) (Auto) 11L, Monocytes (%) (Auto) 6, Eosinophils (%) (Auto) 0, Basophils (%) (Auto) 1, Neutrophils # (Auto) 4.9, Lymphocytes # (Auto) 0.7L, Monocytes # (Auto) 0.4, Eosinophils # (Auto) 0.0, Basophils # (Auto) 0.0, Prothrombin Time 61.3*H, INR Comment 6.7*H, Activated Partial Thromboplast Time 42H, Sodium Level 137, Potassium Level 3.7, Chloride Level 97L, Carbon Dioxide Level 23, Anion Gap 17H, Blood Urea Nitrogen 45H, Creatinine 1.02, Estimat Glomerular Filtration Rate > 60, BUN/Creatinine Ratio 44, Glucose Level 119H, Calcium Level 9.2, Corrected Calcium 9.6, Magnesium Level 1.8, Total Bilirubin 3.2H, Aspartate Amino Transf (AST/SGOT) 2083H, Alanine Aminotransferase (ALT/SGPT) 1393H, Alkaline Phosphatase 83, Troponin I < 0.30, Pro-B-Type Natriuretic Peptide 4359.0H, Total Protein 6.6, Albumin 3.5, Lipase 62, Thyroid Stimulating Hormone (TSH) 2.04 09/01/18 12:07: Urine Color YELLOW, Urine Clarity CLEAR, Urine pH 6.0, Urine Specific [place] 1.025H, Urine Protein 1+H, Urine Glucose (UA) NEGATIVE, Urine Ketones TRACEH, Urine Nitrite NEGATIVE, Urine Bilirubin NEGATIVE, Urine Urobilinogen 0.2, Urine Leukocyte Esterase NEGATIVE, Urine RBC (Auto) NEGATIVE, Urine RBC NONE, Urine WBC RARE, Urine Squamous Epithelial Cells 2-5, Urine Crystals NONE, Urine Bacteria NEGATIVE, Urine Casts PRESENT, Urine Hyaline Casts 2-5H, Urine Mucus SMALLH, Urine Culture Indicated NO, Lactic Acid Level 3.31*H, Urine Opiates Screen NEGATIVE, Urine Oxycodone Screen NEGATIVE, Urine Methadone Screen NEGATIVE, Urine Propoxyphene Screen NEGATIVE, Urine Barbiturates Screen NEGATIVE, Ur Tricyclic Antidepressants Screen NEGATIVE, Urine Phencyclidine Screen NEGATIVE, Urine Amphetamines Screen NEGATIVE, Urine Methamphetamines Screen NEGATIVE, Urine Benzodiazepines Screen NEGATIVE, Urine Cocaine Screen NEGATIVE, Urine Cannabinoids Screen NEGATIVE 09/01/18 14:12: 09/01/18 14:55: Blood Gas Puncture Site L WRIST, Blood Gas Patient Temperature 98.5, Arterial Blood pH 7.44H, Arterial Blood Partial Pressure CO2 34L, Arterial Blood Partial Pressure O2 77L, Arterial Blood HCO3 23, Arterial Blood Total CO2 24.0, Arterial Blood Oxygen Saturation 96, Arterial Blood Base Excess -0.6, Sandor Test YES-POS, Blood Gas Ventilator Setting NO, Blood Gas Inspired Oxygen ROOM AIR 09/01/18 15:05: Lactic Acid Level 2.73*H, Acetaminophen Level < 10L Laboratory Tests 09/01/18 11:19 A/P-Cardiology Assessment/Admission Diagnosis Ac hepatic failure and probable sepsis, managed by Dr Orozco Atrial fibrillation, probably chronic, with a somewhat rapid ventricular response Chronic warfarin anticoagulation, currently supra-therapeutic INR H/o bioprosthetic cardiac valve by Dr Matson at [place], [place], several years ago. Pt does not know any details and has not followed with Cardiology Discussion and Recomendations * iv dilt for vent rate control * Hold warfarin until INR falls into the therapeutic range * Management of hepatic failure and sepsis is with Dr Orozco * Echo to eval LVEF and valve status * Monitor labs * Prognosis guarded Clinical Quality Measures AMI/AHF: ASA po Prior to arrival: No DVT/VTE Risk/Contraindication: Risk Factor Score Per Nursin RFS Level Per Nursing on Admit: 2=Moderate CORINA ISAAC MD FACP FAC CCDS Sep 01, 2018 18:31
--- NOTE | 2018-09-01 18:34 | NUR ---
KAYLA MCKAY admitted to room CU1-1, with an admitting diagnosis of N/V, dehydration, on 09/01/18 from ED via [stretcher, accompanied by [EMS]. KAYLA MCKAY introduced to surroundings, call light, bed controls, phone, TV, temperature control, lights, meal times, smoking policy, visitor policy, side rail policy, bathrooms and showers. Patient Rights given to patient in the handbook. KAYLA MCKAY verbalizes understanding that [facility] is not responsible for the loss or damage to any personal effects or valuables that are kept in the patients possession during their hospitalization. The following Patient Care Plans were discussed with the [patient]: Discharge Planning, [medications],[pain management], and [dehydration]. KYALA MCKAY verbalizes understanding of Interdisciplinary Patient Education. Patient and/or family were informed about the Rapid Response Team and its purpose.
[2018-09-01] MEDS: NS IV 1000 ML 1,000 ML IV SCH ×2 (19:47→23:30)
[2018-09-01] MEDS: DILTIAZEM 125 MG/NS 100 ML IV SCH ×2 (19:47)
[2018-09-02] VITALS (23 sets, daily range): BP systolic 86–144; BP diastolic 44–128
[2018-09-02] MEDS: NS IV 1000 ML 1,000 ML IV SCH ×3 (01:22→22:43)
[2018-09-02 03:29] LABS: BASOPHILS % (AUTO) 0 % (0-10); EOSINOPHILS % (AUTO) 1 % (0-10); HEMATOCRIT 34 % (40-54); HEMOGLOBIN 10.7 G/DL (13.3-17.7); LYMPHOCYTES # (AUTO) 0.7 X 10^3 (1.0-4.0); LYMPHOCYTES % (AUTO) 14 % (12-44); MEAN CORPUSCULAR HEMOGLOBIN 30 PG (25-34); MEAN CORPUSCULAR HGB CONC 32 G/DL (32-36); MEAN CORPUSCULAR VOLUME 96 FL (80-99); MEAN PLATELET VOLUME 12.7 FL (7.4-10.4); MONOCYTES # (AUTO) 0.6 X 10^3 (0.0-1.0); MONOCYTES % (AUTO) 11 % (0-12); NEUTROPHILS # (AUTO) 3.8 X 10^3 (1.8-7.8); NEUTROPHILS % (AUTO) 74 % (42-75); PLATELET COUNT 62 10^3/uL (130-400); RED CELL DISTRIBUTION WIDTH 15.4 % (10.0-14.5); WHITE BLOOD COUNT 5.1 10^3/uL (4.3-11.0)
[2018-09-02 03:33] LABS: BUN/CREATININE RATIO 40; CALCIUM 8.1 MG/DL (8.5-10.1); CARBON DIOXIDE 20 MMOL/L (21-32); CHLORIDE 108 MMOL/L (98-107); CREATININE SERUM 0.77 MG/DL (0.60-1.30); GFR ESTIMATED > 60; GLUCOSE 139 MG/DL (70-105); MAGNESIUM 1.4 MG/DL (1.8-2.4); PHOSPHORUS 2.2 MG/DL (2.3-4.7); POTASSIUM 3.4 MMOL/L (3.6-5.0); SODIUM 138 MMOL/L (135-145)
[2018-09-02] MEDS: DILTIAZEM 125 MG/NS 100 ML IV SCH ×4 (03:51→15:47)
[2018-09-02] MEDS: KCL 20 MEQ TAB (K-DUR) PO SCH (04:22)
[2018-09-02] MEDS: MAGNESIUM 1 GM/100 ML IVPB 100 ML IV SCH ×3 (04:22→06:00)
[2018-09-02] MEDS: POTASSIUM CL 10MEQ/50ML IVPB 50 ML IV SCH ×3 (04:22→08:37)
[2018-09-02] MEDS ORDERED: POTASSIUM PHOSPHATE INJ 30 MM in NS (IVPB) 250 ML IV ONE (05:30)
--- NOTE | 2018-09-02 05:30 | Pulmonary Consultation ---
History of Present Illness History of Present Illness Date of Consultation 09/02/18 05:27 Time Seen by Provider: 09:13 Date of Admission History of Present Illness 83yo presented to [facility] ED seocndary to palpitations, fatigue, N/V, and weakness. Denies diarrhea. While in the ED he was noted to have coumadin coagulopathy, hypotension, and shock liver. He was give aggressive IVF and tr ansferred here for ICU care. No prior episodes like this. I am consulted for ICU management. Allergies and Home Medications Allergies Coded Allergies: No Known Drug Allergies (Unverified , 05/24/18) Past Svcvyya-Kxeecl-Eufaac Hx Patient Social History Alcohol Use: Denies Use Recreational Drug Use: No Smoking Status: Former Smoker Former Smoker, Quit: Mar 03, 1959 2nd Hand Smoke Exposure: No Recent Foreign Travel: No Contact w/Someone Who Travel: No Recent Infectious Disease Expo: No Recent Hopitalizations: No Physical Abuse: No Sexual Abuse: No Mistreated: No Fear: No Seasonal Allergies Seasonal Allergies: No Past Medical History Surgeries: Yes (aortic valve replacement; colonoscopy) Valve Replacement Respiratory: No Currently Using CPAP: No Currently Using BIPAP: No Cardiac: Yes Atrial Fibrillation, Heart Murmur, High Cholesterol, Hypertension Neurological: Yes Neuropathy, Stroke, TIA Sexually Transmitted Disease: No HIV/AIDS: No Genitourinary: No Gastrointestinal: No Musculoskeletal: Yes Arthritis Diabetes, Non-Insulin dep HEENT: No Cancer: No Psychosocial: No Integumentary: No 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 Dyspnea, Edema, Other Gastrointestinal: Nausea, Vomiting; No: Diarrhea, Constipation Genitourinary: Dysuria, Retention Sepsis Event Evaluation Height, Weight, BMI Height: 5'11.00" Weight: 149lbs. 7.0oz. 67.329272ep; 20.8 BMI Method:Stated Exam Exam Vital Signs Date Time Temp Pulse Resp B/P (MAP) Pulse Ox O2 Delivery O2 Flow Rate FiO2 09/02/18 04:00 92 105/84 (91) 94 Room Air 09/02/18 04:00 96 Room Air 09/02/18 03:51 97.4 09/02/18 03:51 106/93 09/02/18 03:00 98 22 111/99 (103) 94 Room Air 09/02/18 02:00 90 24 105/72 (83) 92 Room Air 09/02/18 01:00 109 09/02/18 01:00 109 24 105/73 (84) 95 Room Air 09/02/18 00:00 99 Room Air 09/02/18 00:00 106 23 99/62 (74) 93 Room Air 09/01/18 23:37 98.6 09/01/18 23:00 124 16 103/80 (88) 97 Room Air 09/01/18 22:00 101 25 102/77 (85) 91 Room Air 09/01/18 21:00 104 17 108/81 (90) 95 Room Air 09/01/18 20:00 120 24 124/102 (109) 95 Room Air 09/01/18 20:00 99 Room Air 09/01/18 20:00 97.0 09/01/18 19:01 124 23 119/80 (93) 96 Room Air 09/01/18 19:00 112 20 95 Room Air 09/01/18 19:00 112 09/01/18 18:30 125 23 103/78 (86) 94 Room Air 09/01/18 18:13 103 13 103/93 (96) 95 Room Air 09/01/18 18:07 99 Room Air 09/01/18 18:02 117 09/01/18 17:35 100 23 110/73 (85) 98 Room Air 09/01/18 16:32 98.8 110 20 111/81 (91) 98 09/01/18 15:45 104 13 110/73 (85) 97 Room Air 09/01/18 14:47 105 99/75 09/01/18 11:08 98.4 133 21 99/78 (85) 98 I & O 09/02/18 07:00 Intake Total 4645 ml Output Total 851 ml Balance 3794 ml Height & Weight Height: 5'11.00" Weight: 149lbs. 7.0oz. 67.237594sw; 20.8 BMI Method:Stated General Appearance: Anxious, Chronically ill, Thin HEENT: PERRL/EOMI, Pharynx Normal, Other (oropharynx is dry) Neck: Non Tender Respiratory: No Respiratory Distress, Decreased Breath Sounds Cardiovascular: Irregularly Irregular, Tachycardia Capillary Refill: Less Than 3 Seconds Neurologic/Psychiatric: Alert, Oriented x3, No Motor/Sensory Deficits, Depressed Affect Skin: Warm/Dry Results Lab Laboratory Tests 09/01/18 11:19 09/02/18 02:55 Assessment/Plan Assessment/Plan Hepatic shock -Monitor, IVF -Hepatitis panel -UDS is negative -Acetaminophen is negative --Hold Metformin -US of abdomen -Start Zosyn for now -Repeat amylase lipase and LFTs Metabolic lactic acidosis -Hold metformin -IVF-- give liter bolus of LR Hypotension -IVF -GIve a liter bolus of LR Urinary retention -Romero placed Hypomag/hypophos -replace Elevated BNP -Echocardiogram pending Afib RVR -Cardizem gtt -Cardiology following DM Coumadin coagulopathy -Coumadin on hold -Monitor H/o bioprosthetic cardiac valve LUISA CONNOR DO Sep 02, 2018 05:30
--- NOTE | 2018-09-02 08:07 | Diagnostic Imaging Report ---
Portable erect AP chest at 312 hours. INDICATION: Dyspnea. FINDINGS: The cardiomegaly and the sternal wires and surgical clips noted on the prior exam of 09/01/2018 are again evident and not significantly changed. However, the central pulmonary vascularity does seem somewhat more prominent than on the prior study and a small amount of fluid has developed in the right lung base. These findings suggest that there is an element of mild pulmonary congestion present. The mediastinum is not widened. The osseous structures are intact. IMPRESSION: The appearance of the chest has worsened somewhat since the prior study as the central pulmonary vascularity does seem more prominent and there is now small amount of fluid in the right lung base. These findings do suggest that there is now pulmonary congestion present. A followup exam would be recommended for continued evaluation. Dictated by: Dictated on workstation # [id number]
--- NOTE | 2018-09-02 08:32 | Progress Note - Cardiology ---
Cardiology SOAP Progress Note Subjective: Persistent gen malaise and weakness No cp or palp or syncope No shortness of breath at rest. Does have exertional shortness of breath Objective: I&O/Vital Signs 09/01/18 09/01/18 09/01/18 09/01/18 21:00 22:00 23:00 23:37 Temp 98.6 Pulse 104 101 124 Resp 17 25 16 B/P (MAP) 108/81 (90) 102/77 (85) 103/80 (88) Pulse Ox 95 91 97 O2 Delivery Room Air Room Air Room Air 09/02/18 09/02/18 09/02/18 09/02/18 00:00 00:00 01:00 01:00 Pulse 106 109 109 Resp 23 24 B/P (MAP) 99/62 (74) 105/73 (84) Pulse Ox 93 99 95 O2 Delivery Room Air Room Air Room Air 09/02/18 09/02/18 09/02/18 09/02/18 02:00 03:00 03:51 03:51 Temp 97.4 Pulse 90 98 Resp 24 22 B/P (MAP) 105/72 (83) 111/99 (103) 106/93 Pulse Ox 92 94 O2 Delivery Room Air Room Air 09/02/18 09/02/18 09/02/18 09/02/18 04:00 04:00 05:00 06:00 Pulse 92 98 96 B/P (MAP) 105/84 (91) 104/85 (91) 114/89 (97) Pulse Ox 96 94 93 91 O2 Delivery Room Air Room Air Room Air Room Air 09/02/18 09/02/18 09/02/18 09/02/18 07:00 07:00 07:45 08:00 Pulse 89 96 85 B/P (MAP) 117/67 (84) 98/73 (81) Pulse Ox 93 96 94 O2 Delivery Room Air Room Air Room Air 09/02/18 00:00 Intake Total 4520 ml Output Total 51 ml Balance 4469 ml Weight (Pounds): 154 Weight (Ounces): 5.0 Weight (Calculated Kilograms): 69.553242 Constitutional: AAO x 3, well-developed, well-nourished Respiratory: No accessory muscle use; other (good bilat air entry) Cardiovascular: regular rate-rhythm, S1 and S2, systolic murmur (2/6 DIANNE at card base) Gastrointestional: No tender; soft; No guarding, No rebound; audible bowel sounds Extremities: No clubbing, No cyanosis, No significant edema Neurologic/Psychiatric: other (able to move all limbs equally), grossly intact Skin: No rash on exposed areas, No ulcerations on exposed areas Results/Procedures: Labs Laboratory Tests 09/01/18 11:19: White Blood Count 6.0, Red Blood Count 3.84L, Hemoglobin 11.4L, Hematocrit 37L, Mean Corpuscular Volume 96, Mean Corpuscular Hemoglobin 30, Mean Corpuscular Hemoglobin Concent 31L, Red Cell Distribution Width 15.2H, Platelet Count 74L, Mean Platelet Volume 12.6H, Neutrophils (%) (Auto) 82H, Lymphocytes (%) (Auto) 11L, Monocytes (%) (Auto) 6, Eosinophils (%) (Auto) 0, Basophils (%) (Auto) 1, Neutrophils # (Auto) 4.9, Lymphocytes # (Auto) 0.7L, Monocytes # (Auto) 0.4, Eosinophils # (Auto) 0.0, Basophils # (Auto) 0.0, Prothrombin Time 61.3*H, INR Comment 6.7*H, Activated Partial Thromboplast Time 42H, Sodium Level 137, Potassium Level 3.7, Chloride Level 97L, Carbon Dioxide Level 23, Anion Gap 17H, Blood Urea Nitrogen 45H, Creatinine 1.02, Estimat Glomerular Filtration Rate > 60, BUN/Creatinine Ratio 44, Glucose Level 119H, Calcium Level 9.2, Corrected Calcium 9.6, Magnesium Level 1.8, Total Bilirubin 3.2H, Aspartate Amino Transf (AST/SGOT) 2083H, Alanine Aminotransferase (ALT/SGPT) 1393H, Alkaline Phosphatase 83, Troponin I < 0.30, Pro-B-Type Natriuretic Peptide 4359.0H, Total Protein 6.6, Albumin 3.5, Lipase 62, Thyroid Stimulating Hormone (TSH) 2.04 09/01/18 12:07: Urine Color YELLOW, Urine Clarity CLEAR, Urine pH 6.0, Urine Specific [place] 1.025H, Urine Protein 1+H, Urine Glucose (UA) NEGATIVE, Urine Ketones TRACEH, Urine Nitrite NEGATIVE, Urine Bilirubin NEGATIVE, Urine Urobilinogen 0.2, Urine Leukocyte Esterase NEGATIVE, Urine RBC (Auto) NEGATIVE, Urine RBC NONE, Urine WBC RARE, Urine Squamous Epithelial Cells 2-5, Urine Crystals NONE, Urine Bacteria NEGATIVE, Urine Casts PRESENT, Urine Hyaline Casts 2-5H, Urine Mucus SMALLH, Urine Culture Indicated NO, Lactic Acid Level 3.31*H, Urine Opiates Screen NEGATIVE, Urine Oxycodone Screen NEGATIVE, Urine Methadone Screen NEGATIVE, Urine Propoxyphene Screen NEGATIVE, Urine Barbiturates Screen NE GATIVE, Ur Tricyclic Antidepressants Screen NEGATIVE, Urine Phencyclidine Screen NEGATIVE, Urine Amphetamines Screen NEGATIVE, Urine Methamphetamines Screen NEGATIVE, Urine Benzodiazepines Screen NEGATIVE, Urine Cocaine Screen NEGATIVE, Urine Cannabinoids Screen NEGATIVE 09/01/18 14:12: 09/01/18 14:55: Blood Gas Puncture Site L WRIST, Blood Gas Patient Temperature 98.5, Arterial Blood pH 7.44H, Arterial Blood Partial Pressure CO2 34L, Arterial Blood Partial Pressure O2 77L, Arterial Blood HCO3 23, Arterial Blood Total CO2 24.0, Arterial Blood Oxygen Saturation 96, Arterial Blood Base Excess -0.6, Sandor Test YES-POS, Blood Gas Ventilator Setting NO, Blood Gas Inspired Oxygen ROOM AIR 09/01/18 15:05: Lactic Acid Level 2.73*H, Acetaminophen Level < 10L 09/02/18 02:55: Lactic Acid Level 2.33*H, White Blood Count 5.1, Red Blood Count 3.54L, Hemoglobin 10.7L, Hematocrit 34L, Mean Corpuscular Volume 96, Mean Corpuscular Hemoglobin 30, Mean Corpuscular Hemoglobin Concent 32, Red Cell Distribution Width 15.4H, Platelet Count 62L, Mean Platelet Volume 12.7H, Neutrophils (%) (Auto) 74, Lymphocytes (%) (Auto) 14, Monocytes (%) (Auto) 11, Eosinophils (%) (Auto) 1, Basophils (%) (Auto) 0, Neutrophils # (Auto) 3.8, Lymphocytes # (Auto) 0.7L, Monocytes # (Auto) 0.6, Eosinophils # (Auto) 0.0, Basophils # (Auto) 0.0, Sodium Level 138, Potassium Level 3.4L, Chloride Level 108H, Carbon Dioxide Level 20L, Anion Gap 10, Blood Urea Nitrogen 31H, Creatinine 0.77, Estimat Glomerular Filtration Rate > 60, BUN/Creatinine Ratio 40, Glucose Level 139H, Calcium Level 8.1L, Phosphorus Level 2.2L, Magnesium Level 1.4L 09/02/18 04:55: Lactic Acid Level 2.27*H Laboratory Tests 09/01/18 11:19 09/02/18 02:55 A/P: Assessment: Ac hepatic failure and probable sepsis, managed by Dr Orozco Atrial fibrillation, probably chronic, with a somewhat rapid ventricular response Chronic warfarin anticoagulation, currently supra-therapeutic INR H/o bioprosthetic cardiac valve by Dr Matson at [place], [place], several years ago. Pt does not know any details and has not followed with Cardiology Plan: * iv dilt for vent rate control * Hold warfarin until INR falls into the therapeutic range * Management of hepatic failure and sepsis is with Dr Orozco * Echo to eval LVEF and valve status * Replenish lytes and monitor labs * Prognosis guarded Clinical Quality Measures AMI/AHF: ASA po Prior to arrival: CORINA Jarrett MD FACP FAC CCDS Sep 02, 2018 08:32
[2018-09-02] MEDS ORDERED: PIPERACILLIN/TAZOBACTAM (BULK) 4.5 GM in NS (IVPB) 100 ML IV NR (09:10)
[2018-09-02] MEDS ORDERED: LACTATED RINGERS 1,000 ML IV SCH ×2 (09:15→21:00)
--- NOTE | 2018-09-02 09:28 | NUR ---
SPOKE WITH PATIENT ABOUT HIS MEDS ALONG WITH GOING THROUGH THE EXTERNAL HISTORY TO COMPLETE THE MED REC. PATIENT STATES HE IS ONLY ON 2 MEDICATIONS NOW AND ALL THE OTHER MEDICATIONS HAVE BEEN DISCONTINUED BY HIS DR. THE MEDICATIONS THAT THE PT STATES ARE DC'D ARE FOLLOWS: LISINOPRIL POTASSIUM METOPROLOL FUROSEMIDE CARTIA TAMSULOSIN LOVASTATIN OTCS MEDICATIONS: NONE
[2018-09-02 09:51] LABS: ALANINE AMINOTRANSFERASE 1002 U/L (0-55); ALBUMIN 3.2 GM/DL (3.2-4.5); ALKALINE PHOSPHATASE 78 U/L (40-136); AMYLASE 29 U/L (25-125); BILIRUBIN,TOTAL 2.8 MG/DL (0.1-1.0); BUN/CREATININE RATIO 37; CALCIUM 8.3 MG/DL (8.5-10.1); CARBON DIOXIDE 20 MMOL/L (21-32); CHLORIDE 108 MMOL/L (98-107); CREATININE SERUM 0.79 MG/DL (0.60-1.30); GFR ESTIMATED > 60; GLUCOSE 165 MG/DL (70-105); LIPASE 54 U/L (8-78); POTASSIUM 3.6 MMOL/L (3.6-5.0); SODIUM 140 MMOL/L (135-145)
[2018-09-02 10:03] LABS: PROTHROMBIN TIME PATIENT 77.6 SEC (12.2-14.7)
[2018-09-02] MEDS ORDERED: VITAMIN K 1 MG/ML ORAL SOLN 1 ML SYRINGE PO NR (10:15)
[2018-09-02] MEDS: PANTOPRAZOLE 40 MG (PROTONIX) TAB PO SCH (10:35)
--- NOTE | 2018-09-02 11:42 | History & Physical-Hospitalist ---
History of Present Illness HPI/Chief Complaint Chief complaint: Nausea and vomiting with lethargy History of present illness: This is a patient of Dr. rodriguez who has a past medical history of valve replacement in 2004 and maintained on Coumadin for anticoagulation who presented to the [place] [facility] after sent from Dr. rodriguez office due to lethargy and nausea and vomiting. Patient was found to have hypotension and atrial fibrillation with rapid ventricular response requiring Cardizem drip and aggressive IV fluid due to hypotension. Renal insufficiency noted but significantly elevated liver enzymes with coagulopathy from warfarin anticoagulation that he has been taking chronically since [address] scan showed bilateral pleural effusions no evidence of any type of liver mass so he was admitted placed on Cardizem drip and pulmonology and cardiology were both consulted. Abdominal ultrasound was revealed as abnormal gallbladder with a large amount of sludge consistent with the causation of the elevated liver enzymes and total bilirubin. INR is being managed by vitamin K given today. Patient has no pain no shortness of breath at this current time and feels overall very weak but improved. Source: patient, RN/MD Exam Limitations: no limitations Date Seen 09/02/18 Time Seen by a Provider: 10:00 Attending Physician Taylor Matta Maxwell MD Referring Physician Date of Admission Sep 01, 2018 at 14:13 Home Medications & Allergies Home Medications Reviewed patient Home Medication Reconciliation performed by pharmacy medication reconciliations commercial maintenance technician and/or nursing. Patients Allergies have been reviewed. Allergies Allergies Coded Allergies No Known Drug Allergies (Unverified05/24/18) Past Qshntpp-Kcevqf-Pckvlv Hx Past Med/Social Hx: Reviewed Nursing Past Med/Soc Hx, Reviewed and Corrections made Patient Social History Marrital Status: Employed/Student: retired Alcohol Use: Denies Use Recreational Drug Use: No Smoking Status: Former Smoker Former Smoker, Quit: Mar 03, 1959 2nd Hand Smoke Exposure: No Recent Foreign Travel: No Contact w/other who traveled: No Recent Hopitalizations: No Recent Infectious Disease Expo: No Seasonal Allergies Seasonal Allergies: No Past Medical History Surgeries: Valve Replacement Currently Using CPAP: No Currently Using BIPAP: No Cardiac: Atrial Fibrillation, Heart Murmur, High Cholesterol, Hypertension Neurological: Neuropathy, Stroke, TIA Sexually Transmitted Disease: No HIV/AIDS: No Musculoskeletal: Arthritis Endocrine: Diabetes, 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) Adverse Reaction to Blood Winters: No Review of Systems Constitutional: see HPI, dizziness, fever, malaise, weakness EENTM: no symptoms reported Respiratory: dyspnea on exertion Cardiovascular: palpitations Gastrointestinal: abdominal pain Genitourinary: no symptoms reported Musculoskeletal: back pain Skin: no symptoms reported Psychiatric/Neurological: No Symptoms Reported All Other Systems Reviewed Negative Unless Noted: Yes Physical Exam Physical Exam Vital Signs Vital Signs - First Documented 09/01/18 09/01/18 09/02/18 11:08 15:45 15:00 Temp 98.4 Pulse 133 Resp 21 B/P (MAP) 99/78 (85) Pulse Ox 98 O2 Delivery Room Air O2 Flow Rate 1.00 Capillary Refill : Less Than 3 Seconds Height, Weight, BMI Height: 5'11.00" Weight: 154lbs. 5.0oz. [id number]; 20.8 BMI Method:Stated General Appearance: WD/WN, Anxious, Chronically ill, Mild Distress Eyes: Right Eye Normal Inspection, Right Eye PERRL HEENT: PERRL/EOMI, Normal ENT Inspection, Pharynx Normal, Moist Mucous Membranes Neck: Full Range of Motion, Normal Inspection, Non Tender Respiratory: Chest Non Tender, Lungs Clear, Normal Breath Sounds, No Accessory Muscle Use, No Respiratory Distress Cardiovascular: No Edema, No Gallop, No JVD, No Murmur, Normal Peripheral Pulses, Irregularly Irregular, Tachycardia Gastrointestinal: Normal Bowel Sounds, No Organomegaly, No Pulsatile Mass, Soft, Tenderness (generalized) Back: Normal Inspection, No CVA Tenderness, No Vertebral Tenderness Extremity: Normal Capillary Refill, Normal Inspection, Normal Range of Motion, Non Tender, No Calf Tenderness, No Pedal Edema Neurologic/Psychiatric: Alert, Oriented x3, No Motor/Sensory Deficits, Normal Mood/Affect Skin: Normal Color, Warm/Dry Lymphatic: No Adenopathy Results Results/Procedures Labs Laboratory Tests 09/01/18 11:19 09/02/18 02:55 09/02/18 09:25 Patient resulted labs reviewed. Assessment/Plan Admission Diagnosis Assessment: Critical illness AF w/RVR Liver shock Coagulopathy INR 9.0 Valve replacement status 2004 Plan: Dr Valenzuela consultation S[facility] amador Cardiology and Pulmonology appreciated Complex case Supportive care Admission Status: Inpatient Order (span 2 midnights) Reason for Inpatient Admission: Critical illness with AF w/RVR , liver shock, coagulopathy INR 9.0 and now large gallbladder sludge with valve replacement hx Diagnosis/Problems Diagnosis/Problems (1) Atrial fibrillation with RVR Status: Acute (2) Coagulopathy Status: Acute (3) Gallbladder sludge Status: Acute (4) Elevated lactic acid level Status: Acute (5) N&V (nausea and vomiting) Status: Acute Qualifiers: Vomiting Intractability: unspecified (6) Dehydration Status: Acute (7) New onset of congestive heart failure Status: Acute (8) Dyspnea on exertion Status: Acute (9) Shock liver Status: Acute (10) Elevated liver enzymes Status: Acute (11) 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 (12) Warfarin anticoagulation Status: Chronic Clinical Quality Measures AMI/AHF: ASA po Prior to arrival: No DVT/VTE Risk/Contraindication: Risk Factor Score Per Nursin RFS Level Per Nursing on Admit: 2=Moderate TAYLOR MATTA DO Sep 02, 2018 11:42
--- NOTE | 2018-09-02 11:50 | Diagnostic Imaging Report ---
PROCEDURE: US abdomen complete. TECHNIQUE: Multiple real-time grayscale images were obtained over the abdomen in various projections. INDICATION: Liver failure. FINDINGS: Liver has increased echogenicity consistent with fatty infiltration. Bile ducts are not dilated. There is large amount of sludge in the gallbladder. The common duct does not appear dilated. Pancreas is obscured by bowel gas. Right kidney appears normal. Left kidney appears normal. Spleen is not enlarged. Aorta is obscured by bowel gas. IVC is patent. There is ascites present. IMPRESSION: Large amount of sludge within the gallbladder with gallbladder wall thickening. There is a small amount of ascites present. Hepatic steatosis. Dictated by: Dictated on workstation # [id number]
[2018-09-02] MEDS ORDERED: RT-ALBUTEROL/IPRATROPIUM 3 ML (DUONEB) VIAL INH PRN (14:30)
[2018-09-02] MEDS: PIPERACILLIN/TAZOBACTAM (BULK) 4.5 GM in NS (IVPB) 100 ML IV SCH ×2 (14:34→23:34)
--- NOTE | 2018-09-02 14:53 | Diagnostic Imaging Report ---
INDICATION: Shortness of breath. Frontal chest obtained at 2:39 p.m. and compared to same day at 3:12 a.m. FINDINGS: There is post-sternotomy change with cardiomegaly. There is central vascular congestion with diffuse interstitial prominence appearing similar to the prior study. There is some minimal patchy infiltrate in the lung bases laterally. There is no pneumothorax. There appears to be a small right pleural effusion. IMPRESSION: Stable appearance. Cardiomegaly and central vascular congestion with post-sternotomy change. Unchanged diffuse interstitial prominence with some mild patchy bibasilar infiltrates. Minimal right pleural effusion. Dictated by: Dictated on workstation # [id number]
--- NOTE | 2018-09-02 15:11 | NUR ---
1420 PT NOTED TO HAVE AUDIBLE WHEEZING, AND INCREASED SOA, SA02 ON ROOM AIR NOTED AT 91-92% WHEN PT SPEAKS SA02 NOTED TO DECREASE AND TAKES PT A FEW MINUTES TO RECOVER. DR CONNOR NOTIFIED AND NEW ORDERS RECEIVED.
[2018-09-02] MEDS ORDERED: LACTATED RINGERS 1,000 ML IV ONE (17:19)
[2018-09-02] MEDS ORDERED: FUROSEMIDE 40 MG/4 ML INJ (LASIX) IVP NR (18:45)
[2018-09-02] MEDS ORDERED: KCL 20 MEQ TAB (K-DUR) PO NR (18:45)
[2018-09-02] MEDS: RT-ALBUTEROL/IPRATROPIUM 3 ML (DUONEB) VIAL INH SCH (19:00)
[2018-09-03] VITALS (24 sets, daily range): BP systolic 85–135; BP diastolic 41–109
[2018-09-03] MEDS: RT-ALBUTEROL/IPRATROPIUM 3 ML (DUONEB) VIAL INH SCH ×7 (00:15→22:51)
[2018-09-03] MEDS: NS IV 1000 ML 1,000 ML IV SCH (01:34)
[2018-09-03] MEDS: DILTIAZEM 125 MG/NS 100 ML IV SCH ×4 (03:16→14:57)
[2018-09-03 03:24] LABS: BASOPHILS % (AUTO) 0 % (0-10); EOSINOPHILS % (AUTO) 1 % (0-10); HEMATOCRIT 35 % (40-54); HEMOGLOBIN 10.8 G/DL (13.3-17.7); LYMPHOCYTES # (AUTO) 0.8 X 10^3 (1.0-4.0); LYMPHOCYTES % (AUTO) 13 % (12-44); MEAN CORPUSCULAR HEMOGLOBIN 30 PG (25-34); MEAN CORPUSCULAR HGB CONC 31 G/DL (32-36); MEAN CORPUSCULAR VOLUME 95 FL (80-99); MEAN PLATELET VOLUME 11.9 FL (7.4-10.4); MONOCYTES # (AUTO) 0.7 X 10^3 (0.0-1.0); MONOCYTES % (AUTO) 11 % (0-12); NEUTROPHILS # (AUTO) 4.5 X 10^3 (1.8-7.8); NEUTROPHILS % (AUTO) 75 % (42-75); PLATELET COUNT 54 10^3/uL (130-400); RED CELL DISTRIBUTION WIDTH 15.8 % (10.0-14.5)
[2018-09-03 03:45] LABS: INR 7.2 (0.8-1.4); PROTHROMBIN TIME PATIENT 65.3 SEC (12.2-14.7)
[2018-09-03 03:49] LABS: ALANINE AMINOTRANSFERASE 756 U/L (0-55); ALKALINE PHOSPHATASE 73 U/L (40-136); BILIRUBIN,TOTAL 2.7 MG/DL (0.1-1.0); BUN/CREATININE RATIO 31; CALCIUM 8.1 MG/DL (8.5-10.1); CARBON DIOXIDE 20 MMOL/L (21-32); CHLORIDE 106 MMOL/L (98-107); CREATININE SERUM 0.81 MG/DL (0.60-1.30); GFR ESTIMATED > 60; GLUCOSE 115 MG/DL (70-105); MAGNESIUM 1.5 MG/DL (1.8-2.4); PHOSPHORUS 2.5 MG/DL (2.3-4.7); POTASSIUM 3.3 MMOL/L (3.6-5.0); SODIUM 137 MMOL/L (135-145); TOTAL PROTEIN 5.6 GM/DL (6.4-8.2)
[2018-09-03] MEDS: POTASSIUM CL 10MEQ/50ML IVPB 50 ML IV SCH ×5 (04:31→10:40)
[2018-09-03] MEDS: KCL 20 MEQ TAB (K-DUR) PO SCH (04:31)
[2018-09-03] MEDS: MAGNESIUM 1 GM/100 ML IVPB 100 ML IV SCH ×3 (04:31→06:01)
--- NOTE | 2018-09-03 05:09 | Pulmonary Progress Note ---
Subjective Time Seen by a Provider: 05:08 Sepsis Event Evaluation Height, Weight, BMI Height: 5'11.00" Weight: 154lbs. 5.0oz. 69.923630jb; 20.8 BMI Method:Stated Focused Exam Lactate Level 09/02/18 14:37: Lactic Acid Level 4.43*H 09/02/18 16:44: Lactic Acid Level 3.20*H 09/03/18 03:10: Lactic Acid Level 1.78 Lactic Acid Level Laboratory Tests Test 09/03/18 03:10 Lactic Acid Level 1.78 MMOL/L (0.50-2.00) Exam Exam Vital Signs Date Time Temp Pulse Resp B/P (MAP) Pulse Ox O2 Delivery O2 Flow Rate FiO2 09/03/18 05:00 93 18 134/75 (94) 98 Nasal Cannula 2.00 09/03/18 04:00 95 Nasal Cannula 2.00 09/03/18 04:00 92 20 107/41 (63) 96 Nasal Cannula 2.00 09/03/18 03:26 96 Nasal Cannula 2.00 09/03/18 03:16 107/84 09/03/18 03:00 96 16 113/68 (83) 94 Nasal Cannula 2.00 09/03/18 02:00 87 18 119/74 (89) 92 Nasal Cannula 2.00 09/03/18 01:43 Nasal Cannula 2.00 09/03/18 01:00 87 20 112/91 (98) 91 Nasal Cannula 1.00 09/03/18 01:00 90 09/03/18 00:00 95 Nasal Cannula 2.00 09/03/18 00:00 101 32 94/56 (69) 95 Nasal Cannula 1.00 09/03/18 00:00 97.2 09/02/18 23:00 89 27 93/73 (80) 94 Nasal Cannula 1.00 09/02/18 22:00 98 19 115/82 (93) 96 Nasal Cannula 1.00 09/02/18 21:00 103 26 95/79 (84) 98 Nasal Cannula 1.00 09/02/18 20:00 98 22 105/82 (90) 96 Nasal Cannula 1.00 09/02/18 20:00 95 Nasal Cannula 2.00 09/02/18 19:30 98.6 09/02/18 19:00 104 28 134/79 (97) 95 Nasal Cannula 1.00 09/02/18 19:00 104 09/02/18 18:00 107 28 113/97 (102) 96 Nasal Cannula 1.00 09/02/18 17:00 105 25 124/87 (99) 97 Nasal Cannula 1.00 09/02/18 16:25 94 Nasal Cannula 1.50 09/02/18 16:00 112 23 100/61 (74) 94 Nasal Cannula 1.00 09/02/18 15:47 97.6 109 29 126/72 96 Nasal Cannula 1.00 09/02/18 15:30 97.8 09/02/18 15:00 105 29 128/83 (98) 96 Nasal Cannula 1.00 09/02/18 14:00 105 86/44 (58) 95 Room Air 09/02/18 13:00 109 127/62 (83) 94 Room Air 09/02/18 12:59 102 09/02/18 12:35 94 Room Air 09/02/18 12:00 104 127/62 (83) 95 Room Air 09/02/18 12:00 97.6 09/02/18 11:00 102 37 118/48 (71) 98 Room Air 09/02/18 10:00 102 33 144/128 (133) 97 Room Air 09/02/18 09:00 92 21 99 Room Air 09/02/18 08:00 85 98/73 (81) 94 Room Air 09/02/18 07:45 96 Room Air 09/02/18 07:00 96 117/67 (84) 93 Room Air 09/02/18 07:00 89 09/02/18 06:00 96 114/89 (97) 91 Room Air I & O 09/03/18 07:00 Intake Total 4835 ml Output Total 3600 ml Balance 1235 ml Height & Weight Height: 5'11.00" Weight: 154lbs. 5.0oz. 69.353116cu; 20.8 BMI Method:Stated General Appearance: WD/WN, Anxious, Chronically ill, Mild Distress HEENT: PERRL/EOMI, Normal ENT Inspection, Pharynx Normal, Moist Mucous Membranes Neck: Full Range of Motion, Normal Inspection, Non Tender Respiratory: Chest Non Tender, Lungs Clear, Normal Breath Sounds, No Accessory Muscle Use, No Respiratory Distress Cardiovascular: No Edema, No Gallop, No JVD, No Murmur, Normal Peripheral Pulses, Irregularly Irregular, Tachycardia Capillary Refill: Less Than 3 Seconds Extremity: Normal Capillary Refill, Normal Inspection, Normal Range of Motion, Non Tender, No Calf Tenderness, No Pedal Edema Neurologic/Psychiatric: Alert, Oriented x3, No Motor/Sensory Deficits, Normal Mood/Affect Skin: Normal Color, Warm/Dry Lymphatic: No Adenopathy Results Lab Laboratory Tests 09/01/18 11:19 09/02/18 02:55 09/02/18 09:25 09/03/18 03:10 Assessment/Plan Assessment/Plan Hepatic shock -Monitor, IVF -Hepatitis panel -UDS is negative -Acetaminophen is negative --Hold Metformin -US of abdomen -Start Zosyn for now -Repeat amylase lipase and LFTs Metabolic lactic acidosis -Hold metformin -IVF-- give liter bolus of LR Hypotension -IVF -GIve a liter bolus of LR Urinary retention -Romero placed Hypomag/hypophos -replace Elevated BNP -Echocardiogram pending Afib RVR -Cardizem gtt -Cardiology following DM Coumadin coagulopathy -Coumadin on hold -Monitor H/o bioprosthetic cardiac valve LUISA CONNOR DO Sep 03, 2018 05:09
--- NOTE | 2018-09-03 05:15 | Pulmonary Progress Note ---
Subjective Time Seen by a Provider: 05:15 Subjective/Events-last exam No complications noted. Sepsis Event Evaluation Height, Weight, BMI Height: 5'11.00" Weight: 154lbs. 5.0oz. 69.247837mn; 20.8 BMI Method:Stated Focused Exam Lactate Level 09/02/18 14:37: Lactic Acid Level 4.43*H 09/02/18 16:44: Lactic Acid Level 3.20*H 09/03/18 03:10: Lactic Acid Level 1.78 Lactic Acid Level Laboratory Tests Test 09/03/18 03:10 Lactic Acid Level 1.78 MMOL/L (0.50-2.00) Exam Exam Vital Signs Date Time Temp Pulse Resp B/P (MAP) Pulse Ox O2 Delivery O2 Flow Rate FiO2 09/03/18 05:00 93 18 134/75 (94) 98 Nasal Cannula 2.00 09/03/18 04:00 95 Nasal Cannula 2.00 09/03/18 04:00 92 20 107/41 (63) 96 Nasal Cannula 2.00 09/03/18 03:26 96 Nasal Cannula 2.00 09/03/18 03:16 107/84 09/03/18 03:00 96 16 113/68 (83) 94 Nasal Cannula 2.00 09/03/18 02:00 87 18 119/74 (89) 92 Nasal Cannula 2.00 09/03/18 01:43 Nasal Cannula 2.00 09/03/18 01:00 87 20 112/91 (98) 91 Nasal Cannula 1.00 09/03/18 01:00 90 09/03/18 00:00 95 Nasal Cannula 2.00 09/03/18 00:00 101 32 94/56 (69) 95 Nasal Cannula 1.00 09/03/18 00:00 97.2 09/02/18 23:00 89 27 93/73 (80) 94 Nasal Cannula 1.00 09/02/18 22:00 98 19 115/82 (93) 96 Nasal Cannula 1.00 09/02/18 21:00 103 26 95/79 (84) 98 Nasal Cannula 1.00 09/02/18 20:00 98 22 105/82 (90) 96 Nasal Cannula 1.00 09/02/18 20:00 95 Nasal Cannula 2.00 09/02/18 19:30 98.6 09/02/18 19:00 104 28 134/79 (97) 95 Nasal Cannula 1.00 09/02/18 19:00 104 09/02/18 18:00 107 28 113/97 (102) 96 Nasal Cannula 1.00 09/02/18 17:00 105 25 124/87 (99) 97 Nasal Cannula 1.00 09/02/18 16:25 94 Nasal Cannula 1.50 09/02/18 16:00 112 23 100/61 (74) 94 Nasal Cannula 1.00 09/02/18 15:47 97.6 109 29 126/72 96 Nasal Cannula 1.00 09/02/18 15:30 97.8 09/02/18 15:00 105 29 128/83 (98) 96 Nasal Cannula 1.00 09/02/18 14:00 105 86/44 (58) 95 Room Air 09/02/18 13:00 109 127/62 (83) 94 Room Air 09/02/18 12:59 102 09/02/18 12:35 94 Room Air 09/02/18 12:00 104 127/62 (83) 95 Room Air 09/02/18 12:00 97.6 09/02/18 11:00 102 37 118/48 (71) 98 Room Air 09/02/18 10:00 102 33 144/128 (133) 97 Room Air 09/02/18 09:00 92 21 99 Room Air 09/02/18 08:00 85 98/73 (81) 94 Room Air 09/02/18 07:45 96 Room Air 09/02/18 07:00 96 117/67 (84) 93 Room Air 09/02/18 07:00 89 09/02/18 06:00 96 114/89 (97) 91 Room Air I & O 09/03/18 07:00 Intake Total 4835 ml Output Total 3600 ml Balance 1235 ml Height & Weight Height: 5'11.00" Weight: 154lbs. 5.0oz. 69.151767oi; 20.8 BMI Method:Stated General Appearance: No Apparent Distress, WD/WN, Anxious, Chronically ill HEENT: PERRL/EOMI, Normal ENT Inspection, Pharynx Normal, Moist Mucous Membranes Neck: Full Range of Motion, Normal Inspection, Non Tender Respiratory: Chest Non Tender, Lungs Clear, Normal Breath Sounds, No Accessory Muscle Use, No Respiratory Distress Cardiovascular: No Edema, No Gallop, No JVD, No Murmur, Normal Peripheral Pulses, Irregularly Irregular, Tachycardia Capillary Refill: Less Than 3 Seconds Extremity: Normal Capillary Refill, Normal Inspection, Normal Range of Motion, Non Tender, No Calf Tenderness, No Pedal Edema Neurologic/Psychiatric: Alert, Oriented x3, No Motor/Sensory Deficits, Normal Mood/Affect Skin: Normal Color, Warm/Dry Lymphatic: No Adenopathy Results Lab Laboratory Tests 09/01/18 11:19 09/02/18 02:55 09/02/18 09:25 09/03/18 03:10 Assessment/Plan Assessment/Plan Cardiomyopathy EF 15% -20% -Pt is getting lasix -Will D/C IVF Hepatic shock -Monitor, -Hepatitis panel -UDS is negative -Acetaminophen is negative --Hold Metformin -US of abdomen -Zosyn for now -Repeat amylase lipase and LFTs Metabolic lactic acidosis - improved -Hold metformin Urinary retention -Romero placed Hypomag/hypophos -Replace Afib RVR -Cardizem gtt -Cardiology following DM Coumadin coagulopathy -Coumadin on hold -Monitor H/o bioprosthetic cardiac valve LUISA CONNOR DO Sep 03, 2018 05:15
[2018-09-03] MEDS: PIPERACILLIN/TAZOBACTAM (BULK) 4.5 GM in NS (IVPB) 100 ML IV SCH ×3 (06:01→23:39)
[2018-09-03] MEDS ORDERED: KCL 20 MEQ TAB (K-DUR) PO SCH (07:00)
[2018-09-03] MEDS: FUROSEMIDE 40 MG/4 ML INJ (LASIX) IVP SCH (08:07)
[2018-09-03] MEDS: PANTOPRAZOLE 40 MG (PROTONIX) TAB PO SCH (08:07)
--- NOTE | 2018-09-03 09:53 | Diagnostic Imaging Report ---
EXAM: Portable erect AP chest at 3:42 a.m. INDICATION: Dyspnea FINDINGS: The cardiomegaly, pulmonary congestion and patchy bibasilar alveolar/interstitial infiltrates seen on the prior study of 09/02/2018 are again visualized and no different. As on the previous study, there appears to a small amount of fluid in each lung base, as well. The mediastinum is not widened. The osseous structures are intact. The sternotomy wires and surgical clips are again evident and no different. IMPRESSION: Stable chest. There has been no adverse change since the prior exam. A followup study would be recommended for continued evaluation. Dictated by: Dictated on workstation # [id number]
--- NOTE | 2018-09-03 10:47 | Progress Note - Cardiology ---
Cardiology SOAP Progress Note Subjective: Gen malaise No cp Exertional shortness of breath No palp or syncope Objective: I&O/Vital Signs 09/02/18 09/03/18 09/03/18 09/03/18 23:00 00:00 00:00 00:00 Temp 97.2 Pulse 89 101 Resp 27 32 B/P (MAP) 93/73 (80) 94/56 (69) Pulse Ox 94 95 95 O2 Delivery Nasal Cannula Nasal Cannula Nasal Cannula O2 Flow Rate 1.00 1.00 2.00 09/03/18 09/03/18 09/03/18 09/03/18 01:00 01:00 01:43 02:00 Pulse 90 87 87 Resp 20 18 B/P (MAP) 112/91 (98) 119/74 (89) Pulse Ox 91 92 O2 Delivery Nasal Cannula Nasal Cannula Nasal Cannula O2 Flow Rate 1.00 2.00 2.00 09/03/18 09/03/18 09/03/18 09/03/18 03:00 03:16 03:26 04:00 Pulse 96 92 Resp 16 20 B/P (MAP) 113/68 (83) 107/84 107/41 (63) Pulse Ox 94 96 96 O2 Delivery Nasal Cannula Nasal Cannula Nasal Cannula O2 Flow Rate 2.00 2.00 2.00 09/03/18 09/03/18 09/03/18 09/03/18 04:00 05:00 06:00 07:00 Pulse 93 90 86 Resp 18 17 B/P (MAP) 134/75 (94) 122/85 (97) Pulse Ox 95 98 96 O2 Delivery Nasal Cannula Nasal Cannula Nasal Cannula O2 Flow Rate 2.00 2.00 2.00 09/03/18 09/03/18 09/03/18 09/03/18 07:00 07:05 07:52 07:55 Temp 98.0 Pulse 92 Resp 15 B/P (MAP) 101/83 (89) Pulse Ox 97 94 95 O2 Delivery Room Air Nasal Cannula Room Air O2 Flow Rate 2.00 09/03/18 09/03/18 09/03/18 08:00 09:00 10:00 Pulse 96 100 100 Resp 20 24 16 B/P (MAP) 135/98 (110) 119/86 (97) 111/80 (90) Pulse Ox 96 97 94 O2 Delivery Room Air Room Air Room Air 09/03/18 00:00 Intake Total 520 ml Output Total 2725 ml Balance -2205 ml Weight (Pounds): 163 Weight (Ounces): 0.0 Weight (Calculated Kilograms): 73.940603 Constitutional: AAO x 3, well-developed, well-nourished Respiratory: No accessory muscle use; other (good bilat air entry) Cardiovascular: regular rate-rhythm, S1 and S2, systolic murmur (2/6 DIANNE at card base) Gastrointestional: No tender; soft; No guarding, No rebound; audible bowel soun ds Extremities: No clubbing, No cyanosis, No significant edema Neurologic/Psychiatric: other (able to move all limbs equally), grossly intact Skin: No rash on exposed areas, No ulcerations on exposed areas Results/Procedures: Labs Laboratory Tests 09/02/18 14:37: Lactic Acid Level 4.43*H 09/02/18 16:44: Lactic Acid Level 3.20*H 09/03/18 03:10: Lactic Acid Level 1.78, White Blood Count 6.0, Red Blood Count 3.65L, Hemoglobin 10.8L, Hematocrit 35L, Mean Corpuscular Volume 95, Mean Corpuscular Hemoglobin 30, Mean Corpuscular Hemoglobin Concent 31L, Red Cell Distribution Width 15.8H, Platelet Count 54L, Mean Platelet Volume 11.9H, Neutrophils (%) (Auto) 75, Lymphocytes (%) (Auto) 13, Monocytes (%) (Auto) 11, Eosinophils (%) (Auto) 1, Basophils (%) (Auto) 0, Neutrophils # (Auto) 4.5, Lymphocytes # (Auto) 0.8L, Monocytes # (Auto) 0.7, Eosinophils # (Auto) 0.0, Basophils # (Auto) 0.0, Prothrombin Time 65.3*H, INR Comment 7.2*H, Sodium Level 137, Potassium Level 3.3L, Chloride Level 106, Carbon Dioxide Level 20L, Anion Gap 11, Blood Urea Nitrogen 25H, Creatinine 0.81, Estimat Glomerular Filtration Rate > 60, BUN/Creatinine Ratio 31, Glucose Level 115H, Calcium Level 8.1L, Corrected Calcium 8.9, Phosphorus Level 2.5, Magnesium Level 1.5L, Total Bilirubin 2.7H, Aspartate Amino Transf (AST/SGOT) 542H, Alanine Aminotransferase (ALT/SGPT) 756#H, Alkaline Phosphatase 73, Total Protein 5.6L, Albumin 3.0L Microbiology 09/01/18 Blood Culture - Preliminary, Resulted Probable Coag Negative Staph See Comments 09/01/18 MRSA Screen - Final, Complete MRSA not isolated Laboratory Tests 09/01/18 11:19 09/02/18 02:55 09/02/18 09:25 09/03/18 03:10 A/P: Assessment: Acute systolic CHF due to dilated cardiomyopathy Echo of 09/02/18: LVEF 15-20%, biatrial enlargement, mod to sev MR, mod (probably a bioprosthetic valve), RVSP 38 mmHg, markedly dilated IVC Atrial fibrillation, probably chronic, with a somewhat rapid ventricular response Ac hepatic failure vs passive hepatic congestion Probable sepsis, managed by Dr Orozco Chronic warfarin anticoagulation, currently supra-therapeutic INR H/o bioprosthetic cardiac valve by Dr Matson at [place], [place], several years ago. Pt does not know any details and has not followed with Cardiology Plan: * Diuretics added yesterday * Add carvedilol and Entresto * Hold warfarin until INR falls into the therapeutic range * Management of hepatic failure and sepsis is with Dr Orozco * Replenish lytes and monitor labs * Prognosis guarded Clinical Quality Measures AMI/AHF: ASA po Prior to arrival: CORINA Jarrett MD FACP [facility] Sep 03, 2018 10:47
[2018-09-03] MEDS ORDERED: SACUBITRIL/VALSARTAN 24/26 MG (ENTRESTO) TABLET PO ONE (11:00)
[2018-09-03] MEDS ORDERED: CARVEDILOL 3.125 MG (COREG) TABLET PO ONE (11:00)
--- NOTE | 2018-09-03 11:41 | Progress Note - Hospitalist ---
Subjective HPI/CC On Admission Date Seen by Provider: Sep 03, 2018 Time Seen by Provider: 10:00 Chief complaint: Nausea and vomiting with lethargy History of present illness: This is a patient of Dr. rodriguez who has a past medical history of valve replacement in 2004 and maintained on Coumadin for anticoagulation who presented to the [place] [facility] after sent from Dr. rodriguez office due to lethargy and nausea and vomiting. Patient was found to have hypotension and atrial fibrillation with rapid ventricular response requiring Ca rdizem drip and aggressive IV fluid due to hypotension. Renal insufficiency noted but significantly elevated liver enzymes with coagulopathy from warfarin anticoagulation that he has been taking chronically since [address] scan showed bilateral pleural effusions no evidence of any type of liver mass so he was admitted placed on Cardizem drip and pulmonology and cardiology were both consulted. Abdominal ultrasound was revealed as abnormal gallbladder with a large amount of sludge consistent with the causation of the elevated liver enzymes and total bilirubin. INR is being managed by vitamin K given today. Patient has no pain no shortness of breath at this current time and feels overall very weak but improved. Subjective/Events-last exam Patient much better Up in a chair today Social work consult for help with his animals Liver enzymes much improved General surgery consultation for gallbladder sludge INR still elevated no evidence of any bleeding currently Cardiology evaluated the patient to have systolic dysfunction Patient denies any pain Lasix given with good urinary output since he is overloaded Denies any other new issues Review of Systems General: Fatigue Pulmonary: Dyspnea Focused Exam Lactate Level 09/02/18 14:37: Lactic Acid Level 4.43*H 09/02/18 16:44: Lactic Acid Level 3.20*H 09/03/18 03:10: Lactic Acid Level 1.78 Objective Exam Vital Signs Vital Signs Date Time Temp Pulse Resp B/P (MAP) Pulse Ox O2 Delivery O2 Flow Rate FiO2 09/03/18 12:25 97 Room Air 09/03/18 12:00 101 41 120/109 (113) 09/03/18 07:52 98.0 09/03/18 07:05 2.00 Capillary Refill : Less Than 3 Seconds General Appearance: No Apparent Distress, WD/WN, Anxious, Chronically ill HEENT: PERRL/EOMI, Normal ENT Inspection, Pharynx Normal, Moist Mucous M embranes Neck: Full Range of Motion, Normal Inspection, Non Tender Respiratory: Chest Non Tender, No Accessory Muscle Use, No Respiratory Distress, Crackles, Decreased Breath Sounds, Wheezing Cardiovascular: No Edema, No Gallop, No JVD, No Murmur, Normal Peripheral Pulses, Irregularly Irregular, Tachycardia Gastrointestinal: Normal Bowel Sounds, No Organomegaly, No Pulsatile Mass, Soft, Tenderness (generalized) Rectal: Deferred Back: Normal Inspection, No CVA Tenderness, No Vertebral Tenderness Extremity: Normal Capillary Refill, Normal Inspection, Normal Range of Motion, Non Tender, No Calf Tenderness, No Pedal Edema Neurologic/Psychiatric: Alert, Oriented x3, No Motor/Sensory Deficits, Normal Mood/Affect Skin: Normal Color, Warm/Dry Lymphatic: No Adenopathy Results/Procedures Lab Laboratory Tests 09/03/18 03:10 Patient resulted labs reviewed. Assessment/Plan Assessment and Plan Assess & Plan/Chief Complaint Assessment: Critical illness AF w/RVR Liver shock Coagulopathy INR severely elevated Valve replacement status 2004 Gallbladder sludge large amount prompting Dr Valenzuela consultation Plan: Dr Valenzuela consultation Saba amador Cardiology and Pulmonology appreciated Complex case Supportive care Diagnosis/Problems Diagnosis/Problems (1) Atrial fibrillation with RVR Status: Acute (2) Coagulopathy Status: Acute (3) Gallbladder sludge Status: Acute (4) Elevated lactic acid level Status: Acute (5) N&V (nausea and vomiting) Status: Acute Qualifiers: Vomiting Intractability: unspecified (6) Dehydration Status: Acute (7) New onset of congestive heart failure Status: Acute (8) Dyspnea on exertion Status: Acute (9) Shock liver Status: Acute (10) Elevated liver enzymes Status: Acute (11) 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
--- NOTE | 2018-09-03 14:48 | Consultation - Surgery ---
History of Present Illness History of Present Illness Patient Consulted On(jennifer/time) 09/03/18 14:43 Time Seen by Provider: 10:40 History of Present Illness Surgery asked to consult regarding Cholelithiasis possible Cholecystitis. HPI per IM: History of present illness: This is a patient of Dr. rodriguez who has a past medical history of valve replacement in 2004 and maintained on Coumadin for anticoagulation who presented to the [place] ER after sent from Dr. rodriguez office due to lethargy and nausea and vomiting. Patient was found to have hy potension and atrial fibrillation with rapid ventricular response requiring Cardizem drip and aggressive IV fluid due to hypotension. Renal insufficiency noted but significantly elevated liver enzymes with coagulopathy from warfarin anticoagulation that he has been taking chronically since [address] scan showed bilateral pleural effusions no evidence of any type of liver mass so he was admitted placed on Cardizem drip and pulmonology and cardiology were both consulted. Abdominal ultrasound was revealed as abnormal gallbladder with a large amount of sludge consistent with the causation of the elevated liver enzymes and total bilirubin. INR is being managed by vitamin K given today. Patient has no pain no shortness of breath at this current time and feels overall very weak but improved. When I saw pt he denied any abdominal pain, thinks in the pain he might have occasionally had some upper abdominal pain (he points to subxyphoid area). He is not sure if anything really brings the pain on, has been rare and not really associated with food. He stated "maybe this liver and gallbladder thing are why I was admitted to [facility] recently". His main complaint has been lethargy. Denies nausea or vomiting. Allergies and Home Medications Allergies Coded Allergies: No Known Drug Allergies (Unverified , 05/24/18) Home Medications Metformin HCl 500 Mg Tab.er.24h, 500 MG PO 1800, (Reported) Warfarin Sodium 7.5 Mg Tablet, 7.5 MG PO HS, (Reported) Patient Home Medication List Home Medication List Reviewed: Yes Past Lwnyncf-Bmyqtu-Bsiary Hx Patient Social History Alcohol Use: Denies Use Recreational Drug Use: No Smoking Status: Former Smoker Former Smoker, Quit: Mar 03, 1959 2nd Hand Smoke Exposure: No Recent Foreign Travel: No Contact w/Someone Who Travel: No Recent Infectious Disease Expo: No Recent Hopitalizations: No Seasonal Allergies Seasonal Allergies: No Surgeries History of Surgeries: Yes (aortic valve replacement; colonoscopy) Surgeries: Valve Replacement Respiratory History of Respiratory Disorde: No Cardiovascular History of Cardiac Disorders: Yes Cardiac Disorders: Atrial Fibrillation, Heart Murmur, High Cholesterol, Hypertension Neurological History of Neurological Disord: Yes Neurological Disorders: Neuropathy, Stroke, TIA Reproductive System Sexually Transmitted Disease: No HIV/AIDS: No Genitourinary History of Genitourinary Disor: No Gastrointestinal History of Gastrointestinal Di: No Musculoskeletal History of Musculoskeletal Dis: Yes Musculoskeletal Disorders: Arthritis Endocrine Endocrine Disorders: Diabetes, Non-Insulin dep HEENT History of HEENT Disorders: No Cancer History of Cancer: No Psychosocial History of Psychiatric Problem: No Integumentary History of Skin or Integumenta: No Blood Transfusions History of Blood Disorders: 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) Adverse Reaction to a Blood Tr: No Family Medical History Significant Family History: Diabetes, Other Conditions/Hx (His son also has GB problems) Review of Systems-General Constitutional: No chills; malaise, weakness; No weight gain EENTM: No blurred vision, No mouth pain, No mouth swelling, No epistaxis, No throat swelling Respiratory: No cough; dyspnea on exertion; No hemoptysis; short of breath Cardiovascular: No chest pain; Hx of Intervention, palpitations Gastrointestinal: No abdominal pain, No constipation; diarrhea; No dysphagia, No hematemesis, No jaundice Genitourinary: No dysuria; frequency; No hematuria; hesitancy, nocturia Musculoskeletal: joint pain, joint swelling, muscle stiffness Skin: No change in color, No change in hair/nails Psychiatric/Neurological: Denies Anxiety, Denies Depressed, Denies Seizure; Weakness Other pt is on Coumadin and occasionally sees some bruising and/or bleeding. Pt denies heat or cold intolerance Physical Exam-General Problems Physical Exam Vital Signs Vital Signs - First Documented 09/01/18 09/01/18 09/02/18 11:08 15:45 15:00 Temp 98.4 Pulse 133 Resp 21 B/P (MAP) 99/78 (85) Pulse Ox 98 O2 Delivery Room Air O2 Flow Rate 1.00 Capillary Refill : Less Than 3 Seconds General Appearance: no apparent distress, cachetic Eyes: Bilateral Eye PERRL, Bilateral Eye EOMI HEENT: pharynx normal; No scleral icterus (R), No scleral icterus (L); other (poor dentition) Neck: supple, normal inspection; No thyromegaly Respiratory: lungs clear, decreased breath sounds (at the bases), accessory muscle use, other (speech related dyspnea) Cardiovascular: tachycardia, systolic murmur, irregularly irregular Gastrointestinal: normal bowel sounds, non tender, soft, no pulsatile mass; No rebound; hepatomegaly; No spleenomegaly Rectal: deferred Back: no CVA tenderness, no vertebral tenderness Extremities: normal range of motion, non-tender, normal inspection, no pedal edema, no calf tenderness, normal capillary refill Neurologic/Psychiatric: track grinder II-XII nml as tested, no motor/sensory deficits, alert, normal mood/affect, oriented x 3 Skin: normal color, warm/dry Lymphatic: no adenopathy (neck, axilla or groin) Data Review Labs Laboratory Tests 09/02/18 16:44: Lactic Acid Level 3.20*H 09/03/18 03:10: Lactic Acid Level 1.78, White Blood Count 6.0, Red Blood Count 3.65L, Hemoglobin 10.8L, Hematocrit 35L, Mean Corpuscular Volume 95, Mean Corpuscular Hemoglobin 30, Mean Corpuscular Hemoglobin Concent 31L, Red Cell Distribution Width 15.8H, Platelet Count 54L, Mean Platelet Volume 11.9H, Neutrophils (%) (Auto) 75, Lymphocytes (%) (Auto) 13, Monocytes (%) (Auto) 11, Eosinophils (%) (Auto) 1, Basophils (%) (Auto) 0, Neutrophils # (Auto) 4.5, Lymphocytes # (Auto) 0.8L, Monocytes # (Auto) 0.7, Eosinophils # (Auto) 0.0, Basophils # (Auto) 0.0, Prothrombin Time 65.3*H, INR Comment 7.2*H, Sodium Level 137, Potassium Level 3.3L, Chloride Level 106, Carbon Dioxide Level 20L, Anion Gap 11, Blood Urea Nitrogen 25H, Creatinine 0.81, Estimat Glomerular Filtration Rate > 60, BUN/Creatinine Ratio 31, Glucose Level 115H, Calcium Level 8.1L, Corrected Calcium 8.9, Phosphorus Level 2.5, Magnesium Level 1.5L, Total Bilirubin 2.7H, Aspartate Amino Transf (AST/SGOT) 542H, Alanine Aminotransferase (ALT/SGPT) 756#H, Alkaline Phosphatase 73, Total Protein 5.6L, Albumin 3.0L Microbiology 09/01/18 Blood Culture - Preliminary, Resulted Staph, 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 He has multiple medical problems and lab studies we have to correct first; like Abnormal Coagulation and electrolyte abnormalities. However, he may benefit from having his Gallbladder removed. I think he is correct it is possible this was same reason he was admitted to [facility]; if he had more abdominal pain I would probably more strongly recommend surgery. I gave him his options of surgery vs no surgery and discussed the procedure. His first instinct is to say no to surgery (which is not wrong), but he wants to talk to the rest of his kids. I told him we couldn't move forward with anything until his INR is under control anyway. I will talk again with him tomorrow. In the meantime he is getting fluids and has Cardiology managing his heart and Pulmonary on consult as well. Clinical Quality Measures AMI/AHF: ASA po Prior to arrival: No DVT/VTE Risk/Contraindication: Risk Factor Score Per Nursin RFS Level Per Nursing on Admit: 2=Moderate SHASHI NICHOLS DO Sep 03, 2018 14:48
[2018-09-03 15:43] LABS: HEPATITIS C ANTIBODY C Non-Reactive (Non-Reactive)
[2018-09-03] MEDS: SACUBITRIL/VALSARTAN 24/26 MG (ENTRESTO) TABLET PO SCH (20:31)
[2018-09-03] MEDS: CARVEDILOL 3.125 MG (COREG) TABLET PO SCH (20:32)
[2018-09-04] VITALS (12 sets, daily range): BP systolic 87–125; BP diastolic 46–91
[2018-09-04] MEDS: RT-ALBUTEROL/IPRATROPIUM 3 ML (DUONEB) VIAL INH SCH ×6 (02:21→21:45)
[2018-09-04 03:24] LABS: BASOPHILS % (AUTO) 0 % (0-10); EOSINOPHILS # (AUTO) 0.2 10^3/uL (0.0-0.3); EOSINOPHILS % (AUTO) 4 % (0-10); HEMATOCRIT 34 % (40-54); HEMOGLOBIN 10.5 G/DL (13.3-17.7); LYMPHOCYTES # (AUTO) 0.8 X 10^3 (1.0-4.0); LYMPHOCYTES % (AUTO) 14 % (12-44); MEAN CORPUSCULAR HEMOGLOBIN 30 PG (25-34); MEAN CORPUSCULAR HGB CONC 31 G/DL (32-36); MEAN CORPUSCULAR VOLUME 95 FL (80-99); MEAN PLATELET VOLUME 12.5 FL (7.4-10.4); MONOCYTES # (AUTO) 0.6 X 10^3 (0.0-1.0); MONOCYTES % (AUTO) 10 % (0-12); NEUTROPHILS # (AUTO) 4.1 X 10^3 (1.8-7.8); NEUTROPHILS % (AUTO) 72 % (42-75); PLATELET COUNT 47 10^3/uL (130-400); RED CELL DISTRIBUTION WIDTH 15.5 % (10.0-14.5); WHITE BLOOD COUNT 5.6 10^3/uL (4.3-11.0)
[2018-09-04 03:41] LABS: BUN/CREATININE RATIO 29; CALCIUM 8.1 MG/DL (8.5-10.1); CARBON DIOXIDE 23 MMOL/L (21-32); CHLORIDE 102 MMOL/L (98-107); CREATININE SERUM 0.95 MG/DL (0.60-1.30); GFR ESTIMATED > 60; GLUCOSE 132 MG/DL (70-105); MAGNESIUM 1.5 MG/DL (1.8-2.4); PHOSPHORUS 2.6 MG/DL (2.3-4.7); POTASSIUM 3.5 MMOL/L (3.6-5.0); SODIUM 136 MMOL/L (135-145)
[2018-09-04 03:51] LABS: INR 7.9 (0.8-1.4); PROTHROMBIN TIME PATIENT 69.8 SEC (12.2-14.7)
[2018-09-04] MEDS: POTASSIUM CL 10MEQ/50ML IVPB 50 ML IV SCH (04:20)
[2018-09-04] MEDS: MAGNESIUM 1 GM/100 ML IVPB 100 ML IV SCH ×3 (04:20→05:57)
--- NOTE | 2018-09-04 05:55 | Pulmonary Progress Note ---
Subjective Time Seen by a Provider: 05:54 Subjective/Events-last exam Pt is still on Cardizem gtt. Sepsis Event Evaluation Height, Weight, BMI Height: 5'11.00" Weight: 163lbs. 0.0oz. 73.374480xi; 20.8 BMI Method:Stated Focused Exam Lactate Level 09/02/18 14:37: Lactic Acid Level 4.43*H 09/02/18 16:44: Lactic Acid Level 3.20*H 09/03/18 03:10: Lactic Acid Level 1.78 Exam Exam Vital Signs Date Time Temp Pulse Resp B/P (MAP) Pulse Ox O2 Delivery O2 Flow Rate FiO2 09/04/18 05:00 80 114/78 (90) 94 Room Air 09/04/18 04:00 82 91/73 (79) 93 Room Air 09/04/18 04:00 92 Room Air 09/04/18 03:00 92 96/66 (76) 96 Room Air 09/04/18 02:21 93 Room Air 09/04/18 02:00 90 19 119/74 (89) 94 Room Air 09/04/18 01:00 82 15 112/91 (98) 92 Room Air 09/04/18 01:00 85 09/04/18 00:00 91 107/65 (79) 92 Room Air 09/04/18 00:00 92 Room Air 09/03/18 23:39 97.1 09/03/18 23:00 84 24 91/63 (72) 95 Room Air 09/03/18 22:51 94 Room Air 09/03/18 22:00 87 22 114/76 (89) 95 Room Air 09/03/18 21:00 82 23 85/65 (72) 95 Room Air 09/03/18 20:00 97 Room Air 09/03/18 20:00 87 23 113/95 (101) 95 Room Air 09/03/18 19:55 98.3 09/03/18 19:18 96 Room Air 09/03/18 19:00 87 09/03/18 19:00 90 23 92/68 (76) 96 Room Air 09/03/18 18:00 82 29 89/56 (67) 98 Room Air 09/03/18 17:00 85 25 112/75 (87) 93 Room Air 09/03/18 16:39 97 Room Air 09/03/18 16:00 92 17 117/76 (90) 94 Room Air 09/03/18 15:45 97.5 09/03/18 15:00 107 15 104/94 (97) 96 Room Air 09/03/18 14:57 97.6 96 20 104/94 96 Room Air 09/03/18 14:05 96 Room Air 09/03/18 14:00 107 20 120/73 (89) 95 Room Air 09/03/18 13:00 112 30 125/67 (86) 97 Room Air 09/03/18 12:56 105 09/03/18 12:25 97 Room Air 09/03/18 12:00 101 41 120/109 (113) 98 Room Air 09/03/18 11:30 97.6 09/03/18 11:00 103 24 124/105 (111) 97 Room Air 09/03/18 10:39 97 Room Air 09/03/18 10:00 100 16 111/80 (90) 94 Room Air 09/03/18 09:00 100 24 119/86 (97) 97 Room Air 09/03/18 08:00 96 20 135/98 (110) 96 Room Air 09/03/18 07:55 95 Room Air 09/03/18 07:52 98.0 09/03/18 07:05 94 Nasal Cannula 2.00 09/03/18 07:00 92 15 101/83 (89) 97 Room Air 09/03/18 07:00 86 09/03/18 06:00 90 17 122/85 (97) 96 Nasal Cannula 2.00 I & O 09/04/18 07:00 Intake Total 1360 ml Output Total 3825 ml Balance -2465 ml Height & Weight Height: 5'11.00" Weight: 163lbs. 0.0oz. 73.885382up; 20.8 BMI Method:Stated General Appearance: No Apparent Distress, WD/WN, Anxious, Chronically ill HEENT: PERRL/EOMI, Normal ENT Inspection, Pharynx Normal, Moist Mucous Membranes Neck: Full Range of Motion, Normal Inspection, Non Tender Respiratory: Chest Non Tender, No Accessory Muscle Use, No Respiratory Distress, Crackles, Decreased Breath Sounds, Wheezing Cardiovascular: No Edema, No Gallop, No JVD, No Murmur, Normal Peripheral Pulses, Irregularly Irregular, Tachycardia Capillary Refill: Less Than 3 Seconds Gastrointestinal: normal bowel sounds, non tender, soft, no pulsatile mass; No rebound; hepatomegaly; No spleenomegaly Extremity: Normal Capillary Refill, Normal Inspection, Normal Range of Motion, Non Tender, No Calf Tenderness, No Pedal Edema Neurologic/Psychiatric: Alert, Oriented x3, No Motor/Sensory Deficits, Normal Mood/Affect Skin: Normal Color, Warm/Dry Lymphatic: No Adenopathy Results Lab Laboratory Tests 09/02/18 09:25 09/03/18 03:10 09/04/18 02:55 Assessment/Plan Assessment/Plan Cardiomyopathy EF 15% -20% -Pt is getting lasix -Will D/C IVF Hepatic shock - improving -Monitor, -Hepatitis panel -UDS is negative -Acetaminophen is negative --Hold Metformin -Zosyn- Will D/C -Repeat amylase lipase and LFTs Cholelithiasis with possible Chronic Cholecystitis -Surgery following Metabolic lactic acidosis - improved -Hold metformin Urinary retention -Romero placed Afib RVR -Cardizem gtt -Cardiology following DM Coumadin coagulopathy -Coumadin on hold -Monitor H/o bioprosthetic cardiac valve To 4th floor when pt is off Cardizem gtt. LUISA CONNOR DO Sep 04, 2018 05:54
[2018-09-04] MEDS: PIPERACILLIN/TAZOBACTAM (BULK) 4.5 GM in NS (IVPB) 100 ML IV SCH (06:33)
[2018-09-04] MEDS: KCL 20 MEQ TAB (K-DUR) PO SCH (06:33)
[2018-09-04] MEDS ORDERED: KCL 20 MEQ TAB (K-DUR) PO ONE (07:00)
--- NOTE | 2018-09-04 07:58 | Diagnostic Imaging Report ---
Indication: Shortness of breath, nausea, vomiting and dehydration. Comparison made with prior examination of 09/03/2018. Findings: There is cardiomegaly. There is moderate central pulmonary venous congestion. There are patchy bibasilar infiltrates. There is a right pleural effusion. No pneumothorax. Mediastinum is unremarkable. There has been a previous median sternotomy. Impression: Bibasilar infiltrates and right pleural effusion. Cardiomegaly and moderate central pulmonary venous congestion. Dictated by: Dictated on workstation # [id number]
--- NOTE | 2018-09-04 08:35 | Progress Note - Cardiology ---
Cardiology SOAP Progress Note Subjective: Sitting up in a chair at the bedside. States he feels "a little better" today. No c/o CP, palpitations, syncope or near syncope. Feels his breathing is better today. Objective: I&O/Vital Signs 09/04/18 09/04/18 09/04/18 09/04/18 07:00 07:00 08:00 08:00 Pulse 92 86 74 Resp 22 B/P (MAP) 105/46 (65) Pulse Ox 98 92 94 O2 Delivery Room Air Room Air Room Air 09/04/18 09/04/18 09/04/18 09/04/18 09:00 09:00 11:18 12:00 Temp 96.8 Pulse 81 Resp 21 B/P (MAP) 87/63 (71) Pulse Ox 97 93 92 O2 Delivery Room Air Room Air Room Air 09/04/18 09/04/18 09/04/18 09/04/18 12:00 12:37 14:51 16:00 Pulse 112 77 Resp 30 B/P (MAP) 125/67 (86) Pulse Ox 97 94 92 O2 Delivery Room Air Room Air Room Air 09/04/18 16:00 Temp 97.6 Pulse 76 Resp 20 B/P (MAP) 96/79 (85) Pulse Ox 98 O2 Delivery Room Air 09/04/18 00:00 Intake Total 480 ml Output Total 2450 ml Balance -1970 ml Weight (Pounds): 160 Weight (Ounces): 0.0 Weight (Calculated Kilograms): 72.305966 Constitutional: AAO x 3, well-developed, well-nourished Respiratory: No accessory muscle use; crackles (bi-basilar crackles), other (good bilat air entry) Cardiovascular: regular rate-rhythm, S1 and S2, systolic murmur (2/6 DIANNE at card base) Gastrointestional: No tender; soft; No guarding, No rebound; audible bowel sounds Extremities: No clubbing, No cyanosis, No significant edema Neurologic/Psychiatric: other (able to move all limbs equally), grossly intact Skin: No rash on exposed areas, No ulcerations on exposed areas Results/Procedures: Labs Laboratory Tests 09/04/18 02:55: White Blood Count 5.6, Red Blood Count 3.56L, Hemoglobin 10.5L, Hematocrit 34L, Mean Corpuscular Volume 95, Mean Corpuscular Hemoglobin 30, Mean Corpuscular Hemoglobin Concent 31L, Red Cell Distribution Width 15.5H, Platelet Count 47L, Mean Platelet Volume 12.5H, Neutrophils (%) (Auto) 72, Lymphocytes (%) (Auto) 14, Monocytes (%) (Auto) 10, Eosinophils (%) (Auto) 4, Basophils (%) (Auto) 0, Neutrophils # (Auto) 4.1, Lymphocytes # (Auto) 0.8L, Monocytes # (Auto) 0.6, Eosinophils # (Auto) 0.2, Basophils # (Auto) 0.0, Prothrombin Time 69.8*H, INR Comment 7.9*H, Sodium Level 136, Potassium Level 3.5L, Chloride Level 102, Carbon Dioxide Level 23, Anion Gap 11, Blood Urea Nitrogen 28H, Creatinine 0.95, Estimat Glomerular Filtration Rate > 60, BUN/Creatinine Ratio 29, Glucose Level 132H, Calcium Level 8.1L, Phosphorus Level 2.6, Magnesium Level 1.5L Microbiology 09/01/18 Blood Culture - Preliminary, Resulted Staph, 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 Comparison made with prior examination of 09/03/2018. Findings: There is cardiomegaly. There is moderate central pulmonary venous congestion. There are patchy bibasilar infiltrates. There is a right pleural effusion. No pneumothorax. Mediastinum is unremarkable. There has been a previous median sternotomy. Impression: Bibasilar infiltrates and right pleural effusion. Cardiomegaly and moderate central pulmonary venous congestion. Dictated by: Dictated on workstation # [id number] Dict: 09/04/18 0714 Trans: 09/04/18 0821 Interpreted by: SAAD MATSON MD Electronically signed by: SAAD MATSON MD 09/04/18 0821 A/P: Assessment: Acute systolic CHF due to dilated cardiomyopathy Echo of 09/02/18: LVEF 15-20%, biatrial enlargement, mod to sev MR, mod (probably a bioprosthetic valve), RVSP 38 mmHg, markedly dilated IVC Atrial fibrillation, probably chronic, with a somewhat rapid ventricular response Ac hepatic failure vs passive hepatic congestion Probable sepsis, managed by Dr Matta Chronic warfarin anticoagulation, currently supra-therapeutic INR H/o bioprosthetic cardiac valve by Dr Matson at [place], [place], several years ago. Pt does not know any details and has not followed with Cardiology Plan: * Continue diuretics * Continue carvedilol and Entresto * Hold warfarin until INR falls into the therapeutic range * Thrombocytopenia - management per medical services * Management of hepatic failure and sepsis is with Dr Matta * Change IV Cardizem to p.o. * Replenish lytes and monitor labs * Prognosis guarded Physician Assessment Physician Assessment Please refer to my separate note of the same date Clinical Quality Measures AMI/AHF: ASA po Prior to arrival: ROLANDO Matos [facility] Sep 04, 2018 08:35 CORINA ISAAC MD [facility] Sep 04, 2018 18:02
[2018-09-04] MEDS: CARVEDILOL 3.125 MG (COREG) TABLET PO SCH ×2 (08:59→20:22)
[2018-09-04] MEDS: PANTOPRAZOLE 40 MG (PROTONIX) TAB PO SCH (08:59)
[2018-09-04] MEDS: SACUBITRIL/VALSARTAN 24/26 MG (ENTRESTO) TABLET PO SCH ×2 (08:59→20:22)
[2018-09-04] MEDS: FUROSEMIDE 40 MG/4 ML INJ (LASIX) IVP SCH (08:59)
[2018-09-04] MEDS: DILTIAZEM 240 MG (CARDIZEM CD) CAP PO SCH (09:00)
--- NOTE | 2018-09-04 11:24 | Progress Note - Hospitalist ---
Subjective HPI/CC On Admission Date Seen by Provider: Sep 04, 2018 Time Seen by Provider: 10:30 Chief complaint: Nausea and vomiting with lethargy History of present illness: This is a patient of Dr. rodriguez who has a past medical history of valve replacement in 2004 and maintained on Coumadin for anticoagulation who presented to the [facility] after sent from Dr. rodriguez office due to lethargy and nausea and vomiting. Patient was found to have hypotension and atrial fibrillation with rapid ventricular response requiring Ca rdizem drip and aggressive IV fluid due to hypotension. Renal insufficiency noted but significantly elevated liver enzymes with coagulopathy from warfarin anticoagulation that he has been taking chronically since [address] scan showed bilateral pleural effusions no evidence of any type of liver mass so he was admitted placed on Cardizem drip and pulmonology and cardiology were both consulted. Abdominal ultrasound was revealed as abnormal gallbladder with a large amount of sludge consistent with the causation of the elevated liver enzymes and total bilirubin. INR is being managed by vitamin K given today. Patient has no pain no shortness of breath at this current time and feels overall very weak but improved. 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 Valenzuela in his consultation since he really needs a cholecystectomy once stable Maintain on Zosyn Bowels are moving Beginning to eat a little bit Cardiology wants him in stepdown so we will transition orders for that Overall has very complex cardiac issues Review of Systems General: Fatigue Pulmonary: Dyspnea Focused Exam Lactate Level 09/02/18 14:37: Lactic Acid Level 4.43*H 09/02/18 16:44: Lactic Acid Level 3.20*H 09/03/18 03:10: Lactic Acid Level 1.78 Objective Exam Vital Signs Vital Signs Date Time Temp Pulse Resp B/P (MAP) Pulse Ox O2 Delivery O2 Flow Rate FiO2 09/04/18 14:51 94 Room Air 09/04/18 12:37 77 09/04/18 12:00 30 125/67 (86) 09/04/18 09:00 96.8 09/03/18 07:05 2.00 Capillary Refill : Less Than 3 Seconds General Appearance: No Apparent Distress, WD/WN, Anxious, Chronically ill HEENT: PERRL/EOMI, Normal ENT Inspection, Pharynx Normal, Moist Mucous Membranes Neck: Full Range of Motion, Normal Inspection, Non Tender Respiratory: Chest Non Tender, Lungs Clear, No Accessory Muscle Use, No Respiratory Distress, Decreased Breath Sounds Cardiovascular: No Edema, No Gallop, No JVD, No Murmur, Normal Peripheral Pulses, Irregularly Irregular, Tachycardia Gastrointestinal: Normal Bowel Sounds, No Organomegaly, No Pulsatile Mass, Soft, Tenderness (generalized) Rectal: Deferred Back: Normal Inspection, No CVA Tenderness, No Vertebral Tenderness Extremity: Normal Capillary Refill, Normal Inspection, Normal Range of Motion, Non Tender, No Calf Tenderness, No Pedal Edema Neurologic/Psychiatric: Alert, Oriented x3, No Motor/Sensory Deficits, Normal Mood/Affect Skin: Normal Color, Warm/Dry Lymphatic: No Adenopathy Results/Procedures Lab Laboratory Tests 09/04/18 02:55 Patient resulted labs reviewed. Assessment/Plan Assessment and Plan Assess & Plan/Chief Complaint Assessment: Critical illness AF w/RVR Liver shock Dilated cardiomyopathy EF 20% Coagulopathy INR severely elevated Valve replacement status 2004 Gallbladder sludge large amount prompting Dr Valenzuela consultation Plan: Dr Valenzuela consultation is appreciated [facility] for rate control Cardiology and Pulmonology appreciated Complex case Supportive care Diagnosis/Problems Diagnosis/Problems (1) Atrial fibrillation with RVR Status: Acute (2) Coagulopathy Status: Acute (3) Gallbladder sludge Status: Acute (4) Elevated lactic acid level Status: Acute (5) N&V (nausea and vomiting) Status: Acute Qualifiers: Vomiting Intractability: unspecified (6) Dehydration Status: Acute (7) New onset of congestive heart failure Status: Acute (8) Dyspnea on exertion Status: Acute (9) Shock liver Status: Acute (10) Elevated liver enzymes Status: Acute (11) 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 (12) Warfarin anticoagulation Status: Chronic (13) Dilated cardiomyopathy Status: Acute Clinical Quality Measures AMI/AHF: ASA po Prior to arrival: No DVT/VTE Risk/Contraindication: Risk Factor Score Per Nursin RFS Level Per Nursing on Admit: 2=Moderate BEN MATTA DO Sep 04, 2018 11:24
--- NOTE | 2018-09-04 13:48 | Physical Therapy Evaluation ---
PT Evaluation-General Medical Diagnosis Admission Date Sep 01, 2018 at 14:13 Medical Diagnosis: N/V/dehydration/elevated liver enzymes Onset Date: Sep 01, 2018 Therapy Diagnosis Therapy Diagnosis: debility/weakness Height/Weight Height (Feet): 5 Height (Inches): 11.00 Weight (Pounds): 160 Weight (Ounces): 0.0 Precautions Precautions/Isolations: Fall Prevention, Standard Precautions Referral Physician: Ernesto Reason for Referral: Evaluation/Treatment Medical History Pertinent Medical History: Atrial Fib, DM, HTN Current History EMS from [facility] secondary to tachycardia and weakness Reviewed History: Yes Social History Home: Single Level Current Living Status: Alone Entry Into Home: Stairs With Railing PT Steps Into Home: 2 Prior/Core FIM Prior Level of Function Therapy Code Descriptions/Definitions Functional [place] Measure: 0=Not Assessed/NA 4=Minimal Assistance 1=Total Assistance 5=Supervision or Setup 2=Maximal Assistance 6=Modified [place] 3=Moderate Assistance 7=Complete [place] Therapy Quality Codes: 6 Independent with activity with or without an assistive device 5 Patient requires set up or clean up by helper. Patient completes activity by themselves 4 Supervision or touching assist (CGA). [place] provide cues , steadying assist 3 The helper provides less than half the effort to complete the activity 2 The helper provides more than half the effort to complete the activity 1 Dependent. The helper does all the effort to complete an activity 7 Patient refused to complete or attempt activity 9 The patient did not perform the activity before the current illness or injury 88 Not attempted due to Medical conditions or safety concerns Functional Abilities and Goals: Independent: Patient completed the activities by him/herself, with or without an assistive device, with no assistance from a helper. Needed Some Help: Patient needed partial assistance from another person to complete activities. Dependent: A helper completed the activities for the patient. Unknown: Not Applicable: Bed Mobility: 7 Transfers (B,C,W/C) (FIM): 7 Gait: 7 Stairs: 7 Indoor Mobility (Ambulation): Independent Stairs: Independent Prior Devices Use: None PT Evaluation-Current Subjective Patient agrees to PT. No c/o. Pain Numeric Pain Scale: 0-No Pain Location: No Pain Reported Objective Patient Orientation: Normal For Age Problem Solving: Fair Attachments: Romero Catheter ROM/Strength ROM Lower Extremities bilateral LE WFL Strength Lower Extremities 4-/5 grossly bilaterally Integumentary/Posture Integumentary refer to nursing notes Bowel Incontinence: No Bladder Incontinence: Romero Cath Posture WFL Neuromuscular (Tone, Coordination, Reflexes) grossly intact Sensory Vision: Functional Hearing: Functional Sensation Right Lower Extremit: Impaired Sensation Left Lower Extremity: Impaired Transfers Therapy Code Descriptions/Definitions Functional [place] Measure: 0=Not Assessed/NA 4=Minimal Assistance 1=Total Assistance 5=Supervision or Setup 2=Maximal Assistance 6=Modified [place] 3=Moderate Assistance 7=Complete [place] Transfers (B, C, W/C) (FIM): 7 Scootin Rollin Supine to/from Sit: 7 Sit to/from Stand: 7 Gait Mode of Locomotion: Walk Anticipated Mode of Locomotion: Walk Gait (FIM): 7 Distance (FIM): 3=150 ft Distance: 325' Gait Level of Assist: 7 Gait Assistive Device: None Comments/Gait Description functional,safe, steady Balance Sitting Static: Normal Sitting Dynamic: Normal Standing Static: Good Standing Dynamic: Good Assessment/Needs 83 y.o. male, is currently at [facility] with all gross motor skills and does not require skilled therapy intervention. Rehab Potential: Fair PT Plan Treatment/Plan Treatment Plan: Discontinue PT, goals met Treatment Plan: Other Treatment Duration: Sep 04, 2018 Frequency: 1 time per week Estimated Hrs Per Day: .25 hour per day Patient and/or Family Agrees t: Yes Discharge Recommendations Therapy D/C Recommendations: Home Independently Time/GCodes Time In: 1317 Time Out: 1335 Total Billed Treatment Time: 18 Total Billed Treatment 1 visit EVModC 18 min SUSHIL AYOUB PT Sep 04, 2018 13:47
--- NOTE | 2018-09-04 14:00 | NUR ---
Pastoral care visit.
--- NOTE | 2018-09-04 14:41 | Occupational Therapy Eval ---
OT Evaluation-General/PLF Medical Diagnosis Admission Date Sep 01, 2018 at 14:13 Medical Diagnosis: N/V/dehydration/elevated liver enzymes Onset Date: Sep 01, 2018 Therapy Diagnosis Therapy Diagnosis: IMPAIRED ADLs AND FUNCTIONAL TRANSFERS Height/Weight Height (Feet): 5 Height (Inches): 11.00 Weight (Pounds): 160 Weight (Ounces): 0.0 Precautions Precautions/Isolations: Fall Prevention, Standard Precautions Safety Interventions: None Weight Bear Status Weight Bearing Restriction: Weight Bearing/Tolerated Referral Physician: Ernesto Referral Reason: Activity Tolerance, Evaluation/Treatment, Strengthening/ROM Medical History Pertinent Medical History: Atrial Fib, DM, HTN Additional Medical History Atrial Fib, DM, HTN Current History per H&P: "History of present illness: This is a patient of Dr. rodriguez who has a past medical history of valve replacement in 2004 and maintained on Coumadin for anticoagulation who presented to the [place] ER after sent from Dr. rodriguez office due to lethargy and nausea and vomiting. Patient was found to have hypotension and atrial fibrillation with rapid ventricular response requiring Cardizem drip and aggressive IV fluid due to hypotension. Renal insufficiency noted but significantly elevated liver enzymes with coagulopathy from warfarin anticoagulation that he has been taking chronically since [address] scan showed bilateral pleural effusions no evidence of any type of liver mass so he was admitted placed on Cardizem drip and pulmonology and cardiology were both consulted. Abdominal ultrasound was revealed as abnormal gallbladder with a large amount of sludge consistent with the causation of the elevated liver enzymes and total bilirubin. INR is being managed by vitamin K given today. Patient has no pain no shortness of breath at this current time and feels overall very weak but improved." Reviewed History: Yes Social History Home: Single Level Current Living Status: Alone Entry Into Home: Stairs With Railing Steps Into Home: 2 ADL-Prior Level of Function Therapy Code Descriptions/Definitions Functional [place] Measure: 0=Not Assessed/NA 4=Minimal Assistance 1=Total Assistance 5=Supervision or Setup 2=Maximal Assistance 6=Modified [place] 3=Moderate Assistance 7=Complete [place] Therapy Quality Codes: 6 Independent with activity with or without an assistive device 5 Patient requires set up or clean up by helper. Patient completes activity by themselves 4 Supervision or touching assist (CGA). [place] provide cues , steadying assist 3 The helper provides less than half the effort to complete the activity 2 The helper provides more than half the effort to complete the activity 1 Dependent. The helper does all the effort to complete an activity 7 Patient refused to complete or attempt activity 9 The patient did not perform the activity before the current illness or injury 88 Not attempted due to Medical conditions or safety concerns Functional Abilities and Goals: Independent: Patient completed the activities by him/herself, with or without an assistive device, with no assistance from a helper. Needed Some Help: Patient needed partial assistance from another person to complete activities. Dependent: A helper completed the activities for the patient. Unknown: Not Applicable: ADL PLOF Comments independent PLOF using no AD Self Care: Independent Functional Cognition: Independent DME/Equipment: Bath Chair, Tub/Shower Drive Self: Yes OT Current Status Subjective pt sitting in recliner chair upon OT arrival in no apparent distress. pt agreed to OT evaluation session. pt reports no pain. Pain Numeric Pain Scale: 0-No Pain Mental Status/Objective Patient Orientation: Person, Place, Time, Situation Attachments: Romero Catheter Current Glasses/Contacts: Yes Hearing Aids: No Dentures/Partials: Yes Hand Dominance: Right Upper Extremity ROM WFL Upper Extremity Coordination WFL finger to nose and opposition test Upper Extremity Sensation WFL Upper Extremity Strength 5/5 MMT Edema: noted slight edema in emili LE ADL-Treatment Therapy Code Descriptions/Definitions Functional [place] Measure: 0=Not Assessed/NA 4=Minimal Assistance 1=Total Assistance 5=Supervision or Setup 2=Maximal Assistance 6=Modified [place] 3=Moderate Assistance 7=Complete [place] Therapy Quality Codes: 6 Independent with activity with or without an assistive device 5 Patient requires set up or clean up by helper. Patient completes activity by themselves 4 Supervision or touching assist (CGA). [place] provide cues , steadying assist 3 The helper provides less than half the effort to complete the activity 2 The helper provides more than half the effort to complete the activity 1 Dependent. The helper does all the effort to complete an activity 7 Patient refused to complete or attempt activity 9 The patient did not perform the activity before the current illness or injury 88 Not attempted due to Medical conditions or safety concerns OT Short Term Goals Short Term Goals 1=Demonstrate adherence to instructed precautions during ADL tasks. 2=Patient will verbalize/demonstrate understanding of assistive devices/modifications for ADL. 3=Patient will improve strength/tolerance for activity to enable patient to perform ADL's. OT Mcfp Goals Information Technology Security Manager Goals 1=Demonstrate adherence to instructed precautions during ADL tasks. 2=Patient will verbalize/demonstrate understanding of assistive devices/modifications for ADL. 3=Patient will improve strength/tolerance for activity to enable patient to perform ADL's. OT Education/Plan Problem List/Assessment Assessment: No Skilled OT Needs ID'd pt demo ability to perform ADLS (LB dressing, toileting, grooming, bathing) and functional transfer including picking items up from floor maintaining good balance independently using no AD. OT services no indicated secondary to pt being at [facility]. pt agreed he is at [facility] and does not required therapy intervention. d/c OT orders at this time Discharge Recommendations Plan/Recommendations: Discontinue OT Therapy D/C Recommendations: Home w/ Family Support Equpiment Recommendations-D/C: None Treatment Plan/Plan of Care Treatment,Training & Education: Yes Patient would benefit from OT for education, treatment and training to promote independence in ADL's, mobility, safety and/or upper extremity function for ADL's. Treatment Duration: Sep 04, 2018 Frequency: 1 time per week Estimated Hrs Per Day: .25 hour per day Agreement: Yes Rehab Potential: Fair Time/GCodes Start Time: 13:46 Stop Time: 14:00 Billed Treatment Time EVL 14 minutes ANTOINETTE DAUGHERTY OT Sep 04, 2018 14:41
--- NOTE | 2018-09-04 15:13 | Progress Note - Surgery ---
Subjective Time Seen by a Provider: 14:34 Subjective/Events-last exam Pt seen and examined, sitting up in chair and doing breathing treatment. Pt appears very comfortable, denies abdominal pain. He states he has talked to his family and is still deciding about surgery; although, he didn't realize it could be done "with small incisions". Review of Systems Pulmonary: Dyspnea Cardiovascular: Palpitations; No: Chest Pain Gastrointestinal: No: Nausea, Vomiting, Abdominal Pain Focused Exam Lactate Level 09/02/18 14:37: Lactic Acid Level 4.43*H 09/02/18 16:44: Lactic Acid Level 3.20*H 09/03/18 03:10: Lactic Acid Level 1.78 Objective Exam Vital Signs Date Time Temp Pulse Resp B/P (MAP) Pulse Ox O2 Delivery O2 Flow Rate FiO2 09/04/18 14:51 94 Room Air 09/04/18 12:37 77 09/04/18 12:00 112 30 125/67 (86) 97 Room Air 09/04/18 12:00 92 Room Air 09/04/18 11:18 93 Room Air 09/04/18 09:00 96.8 09/04/18 09:00 81 21 87/63 (71) 97 Room Air 09/04/18 08:00 74 22 94 Room Air 09/04/18 08:00 92 Room Air 09/04/18 07:00 86 105/46 (65) 98 Room Air 09/04/18 07:00 92 09/04/18 06:00 84 117/73 (88) 96 Room Air 09/04/18 05:00 80 114/78 (90) 94 Room Air 09/04/18 04:00 82 91/73 (79) 93 Room Air 09/04/18 04:00 92 Room Air 09/04/18 03:00 92 96/66 (76) 96 Room Air 09/04/18 02:21 93 Room Air 09/04/18 02:00 90 19 119/74 (89) 94 Room Air 09/04/18 01:00 82 15 112/91 (98) 92 Room Air 09/04/18 01:00 85 09/04/18 00:00 91 107/65 (79) 92 Room Air 09/04/18 00:00 92 Room Air 09/03/18 23:39 97.1 09/03/18 23:00 84 24 91/63 (72) 95 Room Air 09/03/18 22:51 94 Room Air 09/03/18 22:00 87 22 114/76 (89) 95 Room Air 09/03/18 21:00 82 23 85/65 (72) 95 Room Air 09/03/18 20:00 97 Room Air 09/03/18 20:00 87 23 113/95 (101) 95 Room Air 09/03/18 19:55 98.3 09/03/18 19:18 96 Room Air 09/03/18 19:00 87 09/03/18 19:00 90 23 92/68 (76) 96 Room Air 09/03/18 18:00 82 29 89/56 (67) 98 Room Air 09/03/18 17:00 85 25 112/75 (87) 93 Room Air 09/03/18 16:39 97 Room Air 09/03/18 16:00 92 17 117/76 (90) 94 Room Air 09/03/18 15:45 97.5 I & O 09/04/18 07:00 Intake Total 1360 ml Output Total 4100 ml Balance -2740 ml Capillary Refill : Less Than 3 Seconds General Appearance: No Apparent Distress, WD/WN, Anxious, Chronically ill HEENT: PERRL/EOMI, Normal ENT Inspection, Pharynx Normal, Moist Mucous Membranes Neck: Full Range of Motion, Normal Inspection, Non Tender Respiratory: Chest Non Tender, No Accessory Muscle Use, No Respiratory Distress, Crackles, Decreased Breath Sounds, Wheezing Cardiovascular: No Edema, No Gallop, No JVD, No Murmur, Normal Peripheral Pulses, Irregularly Irregular, Tachycardia Gastrointestinal: normal bowel sounds, non tender, soft, no pulsatile mass; No rebound; hepatomegaly; No spleenomegaly Extremity: Normal Capillary Refill, Normal Inspection, Normal Range of Motion, Non Tender, No Calf Tenderness, No Pedal Edema Neurologic/Psychiatric: Alert, Oriented x3, No Motor/Sensory Deficits, Normal Mood/Affect Skin: Normal Color, Warm/Dry Lymphatic: No Adenopathy Results Lab Laboratory Tests 09/04/18 02:55: White Blood Count 5.6, Red Blood Count 3.56L, Hemoglobin 10.5L, Hematocrit 34L, Mean Corpuscular Volume 95, Mean Corpuscular Hemoglobin 30, Mean Corpuscular Hemoglobin Concent 31L, Red Cell Distribution Width 15.5H, Platelet Count 47L, Mean Platelet Volume 12.5H, Neutrophils (%) (Auto) 72, Lymphocytes (%) (Auto) 14, Monocytes (%) (Auto) 10, Eosinophils (%) (Auto) 4, Basophils (%) (Auto) 0, Neutrophils # (Auto) 4.1, Lymphocytes # (Auto) 0.8L, Monocytes # (Auto) 0.6, Eosinophils # (Auto) 0.2, Basophils # (Auto) 0.0, Prothrombin Time 69.8*H, INR Comment 7.9*H, Sodium Level 136, Potassium Level 3.5L, Chloride Level 102, Carbon Dioxide Level 23, Anion Gap 11, Blood Urea Nitrogen 28H, Creatinine 0.95, Estimat Glomerular Filtration Rate > 60, BUN/Creatinine Ratio 29, Glucose Level 132H, Calcium Level 8.1L, Phosphorus Level 2.6, Magnesium Level 1.5L Microbiology 09/01/18 Blood Culture - Preliminary, Resulted Staph, Coag Neg (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 He will continue discussing with his family; we still can't move forward with anything until his INR is under control. I will talk again with him tomorrow. In the meantime he is getting fluids, replacing electrolytes and has Cardiology managing his heart and a Pulmonary consult. Clinical Quality Measures AMI/AHF: ASA po Prior to arrival: No DVT/VTE Risk/Contraindication: Risk Factor Score Per Nursin RFS Level Per Nursing on Admit: 2=Moderate SHASHI NICHOLS DO Sep 04, 2018 15:13
--- NOTE | 2018-09-04 16:54 | Progress Note - Cardiology ---
Cardiology SOAP Progress Note Subjective: Shortness of breath better Malaise persistent No cp or palp or syncope Objective: I&O/Vital Signs 09/04/18 09/04/18 09/04/18 09/04/18 05:00 06:00 07:00 07:00 Pulse 80 84 92 86 B/P (MAP) 114/78 (90) 117/73 (88) 105/46 (65) Pulse Ox 94 96 98 O2 Delivery Room Air Room Air Room Air 09/04/18 09/04/18 09/04/18 09/04/18 08:00 08:00 09:00 09:00 Temp 96.8 Pulse 74 81 Resp 22 21 B/P (MAP) 87/63 (71) Pulse Ox 92 94 97 O2 Delivery Room Air Room Air Room Air 09/04/18 09/04/18 09/04/18 09/04/18 11:18 12:00 12:00 12:37 Pulse 112 77 Resp 30 B/P (MAP) 125/67 (86) Pulse Ox 93 92 97 O2 Delivery Room Air Room Air Room Air 09/04/18 09/04/18 09/04/18 14:51 16:00 16:00 Temp 97.6 Pulse 76 Resp 20 B/P (MAP) 96/79 (85) Pulse Ox 94 92 98 O2 Delivery Room Air Room Air Room Air 09/04/18 00:00 Intake Total 480 ml Output Total 2450 ml Balance -1970 ml Weight (Pounds): 160 Weight (Ounces): 0.0 Weight (Calculated Kilograms): 72.912181 Constitutional: AAO x 3, well-developed, well-nourished Respiratory: No accessory muscle use; crackles (bi-basilar crackles), other (good bilat air entry) Cardiovascular: regular rate-rhythm, S1 and S2, systolic murmur (2/6 DIANNE at card base) Gastrointestional: No tender; soft; No guarding, No rebound; audible bowel sounds Extremities: No clubbing, No cyanosis, No significant edema Neurologic/Psychiatric: other (able to move all limbs equally), grossly intact Skin: No rash on exposed areas, No ulcerations on exposed areas Results/Procedures: Labs Laboratory Tests 09/04/18 02:55: White Blood Count 5.6, Red Blood Count 3.56L, Hemoglobin 10.5L, Hematocrit 34L, Mean Corpuscular Volume 95, Mean Corpuscular Hemoglobin 30, Mean Corpuscular Hemoglobin Concent 31L, Red Cell Distribution Width 15.5H, Platelet Count 47L, Mean Platelet Volume 12.5H, Neutrophils (%) (Auto) 72, Lymphocytes (%) (Auto) 14, Monocytes (%) (Auto) 10, Eosinophils (%) (Auto) 4, Basophils (%) (Auto) 0, Neutrophils # (Auto) 4.1, Lymphocytes # (Auto) 0.8L, Monocytes # (Auto) 0.6, Eosinophils # (Auto) 0.2, Basophils # (Auto) 0.0, Prothrombin Time 69.8*H, INR Comment 7.9*H, Sodium Level 136, Potassium Level 3.5L, Chloride Level 102, Carbon Dioxide Level 23, Anion Gap 11, Blood Urea Nitrogen 28H, Creatinine 0.95, Estimat Glomerular Filtration Rate > 60, BUN/Creatinine Ratio 29, Glucose Level 132H, Calcium Level 8.1L, Phosphorus Level 2.6, Magnesium Level 1.5L Microbiology 09/01/18 Blood Culture - Preliminary, Resulted Staph, Coag Neg ([employer]) 09/01/18 MRSA Screen - Final, Complete MRSA not isolated A/P: Assessment: Acute systolic CHF due to dilated cardiomyopathy Echo of 09/02/18: LVEF 15-20%, biatrial enlargement, mod to sev MR, mod (probably a bioprosthetic valve), RVSP 38 mmHg, markedly dilated IVC Atrial fibrillation, probably chronic, with a somewhat rapid ventricular response Ac hepatic failure vs passive hepatic congestion Probable sepsis, managed by Dr Orozco Chronic warfarin anticoagulation, currently supra-therapeutic INR Thrombocytopenia H/o bioprosthetic cardiac valve by Dr Matson at [place], [place], several years ago. Pt does not know any details and has not followed with Cardiology Cholelithiasis with possible chronic cholecystitis, being managed by Dr Valenzuela Plan: * Keep on cardiac stepdown, given markedly elevated INR and thrombocytopenia * Hematology consult recommended * Continue heart-failure meds that have been initiated during this hospitalization * Replenish lytes and monitor labs * Prognosis guarded Clinical Quality Measures AMI/AHF: ASA po Prior to arrival: CORINA Jarrett MD [facility] CCDS Sep 04, 2018 16:54
[2018-09-05] VITALS (7 sets, daily range): BP systolic 96–115; BP diastolic 49–75
[2018-09-05] MEDS: RT-ALBUTEROL/IPRATROPIUM 3 ML (DUONEB) VIAL INH SCH ×6 (01:54→21:58)
[2018-09-05 03:24] LABS: BASOPHILS % (AUTO) 0 % (0-10); EOSINOPHILS # (AUTO) 0.5 10^3/uL (0.0-0.3); EOSINOPHILS % (AUTO) 8 % (0-10); HEMATOCRIT 35 % (40-54); HEMOGLOBIN 10.7 G/DL (13.3-17.7); LYMPHOCYTES # (AUTO) 1.2 X 10^3 (1.0-4.0); LYMPHOCYTES % (AUTO) 21 % (12-44); MEAN CORPUSCULAR HEMOGLOBIN 29 PG (25-34); MEAN CORPUSCULAR HGB CONC 31 G/DL (32-36); MEAN CORPUSCULAR VOLUME 94 FL (80-99); MEAN PLATELET VOLUME 12.7 FL (7.4-10.4); MONOCYTES # (AUTO) 0.6 X 10^3 (0.0-1.0); MONOCYTES % (AUTO) 10 % (0-12); NEUTROPHILS # (AUTO) 3.3 X 10^3 (1.8-7.8); NEUTROPHILS % (AUTO) 60 % (42-75); PLATELET COUNT 58 10^3/uL (130-400); RED CELL DISTRIBUTION WIDTH 15.6 % (10.0-14.5); WHITE BLOOD COUNT 5.5 10^3/uL (4.3-11.0)
[2018-09-05 03:35] LABS: INR 4.9 (0.8-1.4)
[2018-09-05 03:40] LABS: PROTHROMBIN TIME PATIENT 48.3 SEC (12.2-14.7)
[2018-09-05 03:50] LABS: ALANINE AMINOTRANSFERASE 458 U/L (0-55); ALBUMIN 2.8 GM/DL (3.2-4.5); ALKALINE PHOSPHATASE 94 U/L (40-136); BILIRUBIN,TOTAL 2.2 MG/DL (0.1-1.0); BUN/CREATININE RATIO 28; CALCIUM 8.3 MG/DL (8.5-10.1); CARBON DIOXIDE 23 MMOL/L (21-32); CHLORIDE 103 MMOL/L (98-107); CREATININE SERUM 0.81 MG/DL (0.60-1.30); GFR ESTIMATED > 60; GLUCOSE 154 MG/DL (70-105); POTASSIUM 3.6 MMOL/L (3.6-5.0); SODIUM 135 MMOL/L (135-145); TOTAL PROTEIN 5.3 GM/DL (6.4-8.2)
[2018-09-05] MEDS ORDERED: KCL 20 MEQ TAB (K-DUR) PO ONE (06:30)
--- NOTE | 2018-09-05 06:32 | Pulmonary Progress Note ---
Subjective Time Seen by a Provider: 06:29 Subjective/Events-last exam Pt is off cardizem gtt now. HR and BP is stable. Sepsis Event Evaluation Height, Weight, BMI Height: 5'11.00" Weight: 160lbs. 0.0oz. 72.084641xz; 20.8 BMI Method:Stated Focused Exam Lactate Level 09/02/18 14:37: Lactic Acid Level 4.43*H 09/02/18 16:44: Lactic Acid Level 3.20*H 09/03/18 03:10: Lactic Acid Level 1.78 Exam Exam Vital Signs Date Time Temp Pulse Resp B/P (MAP) Pulse Ox O2 Delivery O2 Flow Rate FiO2 09/05/18 04:15 Room Air 09/05/18 04:05 97.4 87 20 113/75 (88) 96 Room Air 09/05/18 01:54 Room Air 09/05/18 01:00 92 09/05/18 00:13 Room Air 09/05/18 00:12 98.0 94 22 115/60 (78) 95 Room Air 09/04/18 21:45 93 Room Air 09/04/18 20:20 98.0 83 20 106/71 (83) 96 Room Air 09/04/18 20:00 Room Air 09/04/18 19:00 96 09/04/18 16:00 97.6 76 20 96/79 (85) 98 Room Air 09/04/18 16:00 92 Room Air 09/04/18 14:51 94 Room Air 09/04/18 12:37 77 09/04/18 12:00 112 30 125/67 (86) 97 Room Air 09/04/18 12:00 92 Room Air 09/04/18 11:18 93 Room Air 09/04/18 09:00 96.8 09/04/18 09:00 81 21 87/63 (71) 97 Room Air 09/04/18 08:00 74 22 94 Room Air 09/04/18 08:00 92 Room Air 09/04/18 07:00 86 105/46 (65) 98 Room Air 09/04/18 07:00 92 I & O 09/05/18 07:00 Intake Total 2770 ml Output Total 2175 ml Balance 595 ml Height & Weight Height: 5'11.00" Weight: 160lbs. 0.0oz. 72.554882ks; 20.8 BMI Method:Stated General Appearance: No Apparent Distress, WD/WN, Anxious, Chronically ill HEENT: PERRL/EOMI, Normal ENT Inspection, Pharynx Normal, Moist Mucous Membranes Neck: Full Range of Motion, Normal Inspection, Non Tender Respiratory: Chest Non Tender, Lungs Clear, No Accessory Muscle Use, No Respiratory Distress, Decreased Breath Sounds Cardiovascular: No Edema, No Gallop, No JVD, No Murmur, Normal Peripheral Pulses, Irregularly Irregular, Tachycardia Capillary Refill: Less Than 3 Seconds Gastrointestinal: normal bowel sounds, non tender, soft, no pulsatile mass; No rebound; hepatomegaly; No spleenomegaly Extremity: Normal Capillary Refill, Normal Inspection, Normal Range of Motion, Non Tender, No Calf Tenderness, No Pedal Edema Neurologic/Psychiatric: Alert, Oriented x3, No Motor/Sensory Deficits, Normal Mood/Affect Skin: Normal Color, Warm/Dry Lymphatic: No Adenopathy Results Lab Laboratory Tests 09/04/18 02:55 09/05/18 02:55 Assessment/Plan Assessment/Plan Cardiomyopathy EF 15% -20% -Pt is getting lasix Atelectasis and bilateral small pleural effusions - secondary to CHF -- NO PNEUMONIA COPD/emphysema -Pt needs out pt testing Hepatic shock - improving -Monitor, -Hepatitis panel -- neg -UDS is negative -Acetaminophen is negative --Hold Metformin -Zosyn- d/c'd yesterday -Repeat amylase lipase and LFTs -- normal -TSH normal Cholelithiasis with possible Chronic Cholecystitis -Surgery following -I initially started pt on Zosyn until acute cholangitis and SBP was r/o. I d/c'd Zosyn yesterday Metabolic lactic acidosis - improved -- secondary to decreased perfusion and dehydration on admission . Now improved -Hold metformin -No signs of sepsis. No leukocytosis, no fever Hypokalemia -replace Urinary retention -Romero placed Afib RVR -Cardizem gtt -Cardiology following DM Coumadin coagulopathy -Coumadin on hold -Monitor H/o bioprosthetic cardiac valve Pt is off cardizem gtt. Transfer to 4th floor when ok with Cardiology. Plan is for ECF placement. LUISA CONNOR DO Sep 05, 2018 06:32
[2018-09-05 06:50] LABS: MAGNESIUM 1.5 MG/DL (1.8-2.4); PHOSPHORUS 2.4 MG/DL (2.3-4.7)
[2018-09-05] MEDS: KCL 20 MEQ TAB (K-DUR) PO SCH (07:09)
[2018-09-05] MEDS: FUROSEMIDE 40 MG/4 ML INJ (LASIX) IVP SCH (08:02)
[2018-09-05] MEDS: DILTIAZEM 240 MG (CARDIZEM CD) CAP PO SCH (08:03)
[2018-09-05] MEDS: PANTOPRAZOLE 40 MG (PROTONIX) TAB PO SCH (08:03)
[2018-09-05] MEDS: SACUBITRIL/VALSARTAN 24/26 MG (ENTRESTO) TABLET PO SCH ×2 (08:03→19:48)
[2018-09-05] MEDS: CARVEDILOL 3.125 MG (COREG) TABLET PO SCH ×2 (08:03→19:48)
[2018-09-05] MEDS: inSUlin ASPART (NovoLOG) 1 UNIT/0.01 ML (CHARGE PER UNIT) SC SCH ×3 (11:31→21:34)
--- NOTE | 2018-09-05 12:34 | Progress Note - Cardiology ---
Cardiology SOAP Progress Note Subjective: Feels much better compared to time of admission Shortness of breath improved No cp or palp or syncope Objective: I&O/Vital Signs 09/05/18 09/05/18 09/05/18 09/05/18 01:00 01:54 04:05 04:15 Temp 97.4 Pulse 92 87 Resp 20 B/P (MAP) 113/75 (88) Pulse Ox 96 O2 Delivery Room Air Room Air Room Air 09/05/18 09/05/18 09/05/18 09/05/18 07:00 07:14 08:00 08:00 Temp 97.6 Pulse 91 92 Resp 18 B/P (MAP) 96/49 (65) Pulse Ox 93 97 O2 Delivery Room Air Room Air Room Air 09/05/18 09/05/18 10:47 11:30 Temp 97.4 Pulse 68 Resp 14 B/P (MAP) 98/70 (79) Pulse Ox 96 93 O2 Delivery Room Air Room Air 09/05/18 00:00 Intake Total 1850 ml Output Total 1500 ml Balance 350 ml Weight (Pounds): 166 Weight (Ounces): 1.0 Weight (Calculated Kilograms): 75.138464 Constitutional: AAO x 3, well-developed, well-nourished Respiratory: No accessory muscle use; crackles (bi-basilar crackles), other (good bilat air entry) Cardiovascular: regular rate-rhythm, S1 and S2, systolic murmur (2/6 DIANNE at card base) Gastrointestional: No tender; soft; No guarding, No rebound; audible bowel sounds Extremities: No clubbing, No cyanosis, No significant edema Neurologic/Psychiatric: other (able to move all limbs equally), grossly intact Skin: No rash on exposed areas, No ulcerations on exposed areas Results/Procedures: Labs Laboratory Tests 09/05/18 02:55: White Blood Count 5.5, Red Blood Count 3.70L, Hemoglobin 10.7L, Hematocrit 35L, Mean Corpuscular Volume 94, Mean Corpuscular Hemoglobin 29, Mean Corpuscular Hemoglobin Concent 31L, Red Cell Distribution Width 15.6H, Platelet Count 58L, Mean Platelet Volume 12.7H, Neutrophils (%) (Auto) 60, Lymphocytes (%) (Auto) 21, Monocytes (%) (Auto) 10, Eosinophils (%) (Auto) 8, Basophils (%) (Auto) 0, Neutrophils # (Auto) 3.3, Lymphocytes # (Auto) 1.2, Monocytes # (Auto) 0.6, Eosinophils # (Auto) 0.5H, Basophils # (Auto) 0.0, Prothrombin Time 48.3*H, INR Comment 4.9H, Sodium Level 135, Potassium Level 3.6, Chloride Level 103, Carbon Dioxide Level 23, Anion Gap 9, Blood Urea Nitrogen 23H, Creatinine 0.81, Estimat Glomerular Filtration Rate > 60, BUN/Creatinine Ratio 28, Glucose Level 154H, Calcium Level 8.3L, Corrected Calcium 9.3, Phosphorus Level 2.4, Magnesium Level 1.5L, Total Bilirubin 2.2H, Aspartate Amino Transf (AST/SGOT) 238H, Alanine Aminotransferase (ALT/SGPT) 458H, Alkaline Phosphatase 94, Total Protein 5.3L, A lbumin 2.8L 09/05/18 11:11: Glucometer 170H Microbiology 09/01/18 Blood Culture - Preliminary, Resulted Staph, Coag Neg ([employer]ER) 09/01/18 MRSA Screen - Final, Complete MRSA not isolated Laboratory Tests 09/04/18 02:55 09/05/18 02:55 A/P: Assessment: Acute systolic CHF due to dilated cardiomyopathy Echo of 09/02/18: LVEF 15-20%, biatrial enlargement, mod to sev MR, mod (probably a bioprosthetic valve), RVSP 38 mmHg, markedly dilated IVC Atrial fibrillation, probably chronic, with a somewhat rapid ventricular response Ac hepatic failure vs passive hepatic congestion Probable sepsis, managed by Dr Orozco Chronic warfarin anticoagulation, currently supra-therapeutic INR Thrombocytopenia, managed by Dr Orozco H/o bioprosthetic cardiac valve by Dr Matson at [place], [place], several years ago. Pt does not know any details and has not followed with Cardiology Cholelithiasis with possible chronic cholecystitis, being managed by Dr Valenzuela Plan: * Hematology consult recommended * Continue heart-failure meds that have been initiated during this hospitalization * Replenish lytes as needed and monitor labs * Ok to transfer to floor with tele * Prognosis guarded Clinical Quality Measures AMI/AHF: ASA po Prior to arrival: CORINA Jarrett MD FACP [facility] CCDS Sep 05, 2018 12:34
--- NOTE | 2018-09-05 12:46 | Progress Note - Hospitalist ---
Subjective HPI/CC On Admission Date Seen by Provider: Sep 05, 2018 Time Seen by Provider: 11:00 Chief complaint: Nausea and vomiting with lethargy History of present illness: This is a patient of Dr. rodriguez who has a past medical history of valve replacement in 2004 and maintained on Coumadin for anticoagulation who presented to the [facility] after sent from Dr. rodriguez office due to lethargy and nausea and vomiting. Patient was found to have hypotension and atrial fibrillation with rapid ventricular response requiring Ca rdizem drip and aggressive IV fluid due to hypotension. Renal insufficiency noted but significantly elevated liver enzymes with coagulopathy from warfarin anticoagulation that he has been taking chronically since [address] scan showed bilateral pleural effusions no evidence of any type of liver mass so he was admitted placed on Cardizem drip and pulmonology and cardiology were both consulted. Abdominal ultrasound was revealed as abnormal gallbladder with a large amount of sludge consistent with the causation of the elevated liver enzymes and total bilirubin. INR is being managed by vitamin K given today. Patient has no pain no shortness of breath at this current time and feels overall very weak but improved. Subjective/Events-last exam Patient is much improved Overall eating and drinking much better Metformin was discontinued due to acidosis And cardiac stepdown status Atrial fibrillation seems to be stable Liver enzymes dramatically improved INR is 4.2 dramatic improvement Ultimately needs cholecystectomy Review of Systems General: Fatigue Focused Exam Lactate Level 09/03/18 03:10: Lactic Acid Level 1.78 Objective Exam Vital Signs Vital Signs Date Time Temp Pulse Resp B/P (MAP) Pulse Ox O2 Delivery O2 Flow Rate FiO2 09/05/18 16:07 97.8 60 20 105/61 (76) 96 Room Air 09/03/18 07:05 2.00 Capillary Refill : Less Than 3 Seconds General Appearance: No Apparent Distress, WD/WN, Anxious, Chronically ill HEENT: PERRL/EOMI, Normal ENT Inspection, Pharynx Normal, Moist Mucous Membranes Neck: Full Range of Motion, Normal Inspection, Non Tender Respiratory: Chest Non Tender, Lungs Clear, No Accessory Muscle Use, No Respiratory Distress, Decreased Breath Sounds Cardiovascular: No Edema, No Gallop, No JVD, No Murmur, Normal Peripheral Pulses, Irregularly Irregular, Tachycardia Gastrointestinal: Normal Bowel Sounds, No Organomegaly, No Pulsatile Mass, Soft, Tenderness (generalized) Rectal: Deferred Back: Normal Inspection, No CVA Tenderness, No Vertebral Tenderness Extremity: Normal Capillary Refill, Normal Inspection, Normal Range of Motion, Non Tender, No Calf Tenderness, No Pedal Edema Neurologic/Psychiatric: Alert, Oriented x3, No Motor/Sensory Deficits, Normal Mood/Affect Skin: Normal Color, Warm/Dry Lymphatic: No Adenopathy Results/Procedures Lab Laboratory Tests 09/05/18 02:55 Patient resulted labs reviewed. Assessment/Plan Assessment and Plan Assess & Plan/Chief Complaint Assessment: Critical illness AF w/RVR Liver shock Dilated cardiomyopathy EF 20% Coagulopathy INR severely elevated Valve replacement status 2004 Gallbladder sludge large amount prompting Dr Valenzuela consultation Plan: Dr Valenzuela consultation is appreciated [facility] for rate control Cardiology and Pulmonology appreciated Complex case Supportive care Diagnosis/Problems Diagnosis/Problems (1) Atrial fibrillation with RVR Status: Acute (2) Coagulopathy Status: Acute (3) Gallbladder sludge Status: Acute (4) Elevated lactic acid level Status: Acute (5) N&V (nausea and vomiting) Status: Acute Qualifiers: Vomiting Intractability: unspecified (6) Dehydration Status: Acute (7) New onset of congestive heart failure Status: Acute (8) Dyspnea on exertion Status: Acute (9) Shock liver Status: Acute (10) Elevated liver enzymes Status: Acute (11) 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 (12) Warfarin anticoagulation Status: Chronic (13) Dilated cardiomyopathy Status: Acute Clinical Quality Measures AMI/AHF: ASA po Prior to arrival: No DVT/VTE Risk/Contraindication: Risk Factor Score Per Nursin RFS Level Per Nursing on Admit: 2=Moderate BEN MATTA DO Sep 05, 2018 12:46
--- NOTE | 2018-09-05 13:38 | Progress Note - Surgery ---
Subjective Time Seen by a Provider: 12:24 Subjective/Events-last exam Pt seen and examined, denies abdominal pain. He states he just feels weak, but was told he may get to go home friday. Review of Systems General: No Chills, No Night Sweats; Fatigue, Malaise Pulmonary: Dyspnea Cardiovascular: No: Chest Pain, Palpitations Gastrointestinal: No: Nausea, Vomiting, Abdominal Pain Focused Exam Lactate Level 09/02/18 14:37: Lactic Acid Level 4.43*H 09/02/18 16:44: Lactic Acid Level 3.20*H 09/03/18 03:10: Lactic Acid Level 1.78 Objective Exam Vital Signs Date Time Temp Pulse Resp B/P (MAP) Pulse Ox O2 Delivery O2 Flow Rate FiO2 09/05/18 11:30 97.4 68 14 98/70 (79) 93 Room Air 09/05/18 10:47 96 Room Air 09/05/18 08:00 Room Air 09/05/18 08:00 97.6 92 18 96/49 (65) 97 Room Air 09/05/18 07:14 93 Room Air 09/05/18 07:00 91 09/05/18 04:15 Room Air 09/05/18 04:05 97.4 87 20 113/75 (88) 96 Room Air 09/05/18 01:54 Room Air 09/05/18 01:00 92 09/05/18 00:13 Room Air 09/05/18 00:12 98.0 94 22 115/60 (78) 95 Room Air 09/04/18 21:45 93 Room Air 09/04/18 20:20 98.0 83 20 106/71 (83) 96 Room Air 09/04/18 20:00 Room Air 09/04/18 19:00 96 09/04/18 16:00 97.6 76 20 96/79 (85) 98 Room Air 09/04/18 16:00 92 Room Air 09/04/18 14:51 94 Room Air I & O 09/05/18 07:00 Intake Total 2870 ml Output Total 2450 ml Balance 420 ml Capillary Refill : Less Than 3 Seconds General Appearance: No Apparent Distress, Chronically ill HEENT: PERRL/EOMI, Moist Mucous Membranes, Other (poor dentition) Respiratory: Chest Non Tender, Lungs Clear, No Accessory Muscle Use, No Respiratory Distress, Decreased Breath Sounds Cardiovascular: No Edema, Irregularly Irregular, Tachycardia Gastrointestinal: normal bowel sounds, non tender, soft, no pulsatile mass; No rebound; hepatomegaly; No spleenomegaly Extremity: No Calf Tenderness, No Pedal Edema Neurologic/Psychiatric: Alert, Oriented x3, Depressed Affect Results Lab Laboratory Tests 09/05/18 02:55: White Blood Count 5.5, Red Blood Count 3.70L, Hemoglobin 10.7L, Hematocrit 35L, Mean Corpuscular Volume 94, Mean Corpuscular Hemoglobin 29, Mean Corpuscular Hemoglobin Concent 31L, Red Cell Distribution Width 15.6H, Platelet Count 58L, Mean Platelet Volume 12.7H, Neutrophils (%) (Auto) 60, Lymphocytes (%) (Auto) 21, Monocytes (%) (Auto) 10, Eosinophils (%) (Auto) 8, Basophils (%) (Auto) 0, Neutrophils # (Auto) 3.3, Lymphocytes # (Auto) 1.2, Monocytes # (Auto) 0.6, Eosinophils # (Auto) 0.5H, Basophils # (Auto) 0.0, Prothrombin Time 48.3*H, INR Comment 4.9H, Sodium Level 135, Potassium Level 3.6, Chloride Level 103, Carbon Dioxide Level 23, Anion Gap 9, Blood Urea Nitrogen 23H, Creatinine 0.81, Estimat Glomerular Filtration Rate > 60, BUN/Creatinine Ratio 28, Glucose Level 154H, Calcium Level 8.3L, Corrected Calcium 9.3, Phosphorus Level 2.4, Magnesium Level 1.5L, Total Bilirubin 2.2H, Aspartate Amino Transf (AST/SGOT) 238H, Alanine Aminotransferase (ALT/SGPT) 458H, Alkaline Phosphatase 94, Total Protein 5.3L, Albumin 2.8L 09/05/18 11:11: Glucometer 170H Microbiology 09/01/18 Blood Culture - Preliminary, Resulted Staph, Coag Neg ([employer]) 09/01/18 MRSA Screen - Final, Complete MRSA not isolated Assessment/Plan Assessment/Plan Assessment/Plan Cholelithiasis with possible Chronic Cholecystitis Hepatic shock with Elevated LFT's Afib with RVR Hypomagnesemia Hyperbilirubinemia Anemia Pt still has Abnormal Coagulation; INR down to 4.9 today. He is most likely in Hepatic shock and not having abdominal pain; he does not want surgery. I will sign off and can reconsult if anything changes or pt changes his mind. Clinical Quality Measures AMI/AHF: ASA po Prior to arrival: No DVT/VTE Risk/Contraindication: Risk Factor Score Per Nursin RFS Level Per Nursing on Admit: 2=Moderate SHASHI NICHOLS DO Sep 05, 2018 13:38
--- NOTE | 2018-09-05 16:00 | NUR ---
PT TRANSFERRED TO ROOM 422 VIA WC ACCOMPANIED BY PT FAMILY AND STAFF. REPORT GIVEN TO STACIE FOR CONTINUING CARE.
[2018-09-05] MEDS: TAMSULOSIN 0.4 MG (FLOMAX) CAP PO SCH (18:10)
[2018-09-06] VITALS: BP 97/68
[2018-09-06] MEDS: RT-ALBUTEROL/IPRATROPIUM 3 ML (DUONEB) VIAL INH SCH ×6 (02:06→21:53)
[2018-09-06 04:00] VITALS: BP 83/53
[2018-09-06 05:28] LABS: BASOPHILS % (AUTO) 0 % (0-10); EOSINOPHILS # (AUTO) 0.3 10^3/uL (0.0-0.3); EOSINOPHILS % (AUTO) 5 % (0-10); HEMATOCRIT 36 % (40-54); HEMOGLOBIN 11.1 G/DL (13.3-17.7); LYMPHOCYTES # (AUTO) 1.3 X 10^3 (1.0-4.0); LYMPHOCYTES % (AUTO) 21 % (12-44); MEAN CORPUSCULAR HEMOGLOBIN 29 PG (25-34); MEAN CORPUSCULAR HGB CONC 31 G/DL (32-36); MEAN CORPUSCULAR VOLUME 94 FL (80-99); MEAN PLATELET VOLUME 12.3 FL (7.4-10.4); MONOCYTES # (AUTO) 0.5 X 10^3 (0.0-1.0); MONOCYTES % (AUTO) 9 % (0-12); NEUTROPHILS # (AUTO) 3.9 X 10^3 (1.8-7.8); NEUTROPHILS % (AUTO) 65 % (42-75); PLATELET COUNT 63 10^3/uL (130-400); RED CELL DISTRIBUTION WIDTH 15.2 % (10.0-14.5)
[2018-09-06 05:38] LABS: INR 3.2 (0.8-1.4); PROTHROMBIN TIME PATIENT 34.5 SEC (12.2-14.7)
[2018-09-06 05:45] LABS: ALANINE AMINOTRANSFERASE 356 U/L (0-55); ALBUMIN 2.8 GM/DL (3.2-4.5); ALKALINE PHOSPHATASE 100 U/L (40-136); BILIRUBIN,TOTAL 1.7 MG/DL (0.1-1.0); BUN/CREATININE RATIO 25; CALCIUM 8.8 MG/DL (8.5-10.1); CARBON DIOXIDE 21 MMOL/L (21-32); CHLORIDE 103 MMOL/L (98-107); CREATININE SERUM 0.81 MG/DL (0.60-1.30); GFR ESTIMATED > 60; GLUCOSE 152 MG/DL (70-105); MAGNESIUM 1.5 MG/DL (1.8-2.4); PHOSPHORUS 3.4 MG/DL (2.3-4.7); POTASSIUM 4.4 MMOL/L (3.6-5.0); SODIUM 134 MMOL/L (135-145); TOTAL PROTEIN 5.6 GM/DL (6.4-8.2)
[2018-09-06] MEDS: inSUlin ASPART (NovoLOG) 1 UNIT/0.01 ML (CHARGE PER UNIT) SC SCH ×4 (06:10→20:51)
[2018-09-06] MEDS: KCL 20 MEQ TAB (K-DUR) PO SCH (06:18)
--- NOTE | 2018-09-06 07:56 | Pulmonary Progress Note ---
Subjective Time Seen by a Provider: 14:19 Subjective/Events-last exam SOB improved Sepsis Event Evaluation Height, Weight, BMI Height: 5'11.00" Weight: 180lbs. 0.0oz. 81.213928nj; 20.8 BMI Method:Stated Exam Exam Vital Signs Date Time Temp Pulse Resp B/P (MAP) Pulse Ox O2 Delivery O2 Flow Rate FiO2 09/06/18 07:00 86 09/06/18 06:54 94 Room Air 09/06/18 04:00 98.3 64 18 83/53 (63) 95 Room Air 09/06/18 02:06 92 Room Air 09/06/18 01:00 90 09/06/18 00:00 97.9 93 20 97/68 (78) 95 Room Air 09/05/18 21:58 94 Room Air 09/05/18 20:24 Room Air 09/05/18 19:23 98.4 66 20 106/59 (75) 96 Room Air 09/05/18 19:00 92 09/05/18 16:07 97.8 60 20 105/61 (76) 96 Room Air 09/05/18 15:52 97.4 71 14 102/67 (79) 96 Room Air 09/05/18 14:59 95 Room Air 09/05/18 13:00 81 09/05/18 12:00 Room Air 09/05/18 11:30 97.4 68 14 98/70 (79) 93 Room Air 09/05/18 10:47 96 Room Air 09/05/18 08:00 Room Air 09/05/18 08:00 97.6 92 18 96/49 (65) 97 Room Air I & O 09/06/18 07:00 Intake Total 1740 ml Output Total 2525 ml Balance -785 ml Height & Weight Height: 5'11.00" Weight: 180lbs. 0.0oz. 81.047005sl; 20.8 BMI Method:Stated General Appearance: No Apparent Distress, WD/WN, Anxious, Chronically ill HEENT: PERRL/EOMI, Normal ENT Inspection, Pharynx Normal, Moist Mucous Membranes Neck: Full Range of Motion, Normal Inspection, Non Tender Respiratory: Chest Non Tender, Lungs Clear, No Accessory Muscle Use, No Respiratory Distress, Decreased Breath Sounds Cardiovascular: No Edema, No Gallop, No JVD, No Murmur, Normal Peripheral Pulses, Irregularly Irregular, Tachycardia Capillary Refill: Less Than 3 Seconds Gastrointestinal: normal bowel sounds, non tender, soft, no pulsatile mass; No rebound; hepatomegaly; No spleenomegaly Extremity: Normal Capillary Refill, Normal Inspection, Normal Range of Motion, Non Tender, No Calf Tenderness, No Pedal Edema Neurologic/Psychiatric: Alert, Oriented x3, No Motor/Sensory Deficits, Normal Mood/Affect Skin: Normal Color, Warm/Dry Lymphatic: No Adenopathy Results Lab Laboratory Tests 09/05/18 02:55 09/06/18 05:14 Assessment/Plan Assessment/Plan Cardiomyopathy EF 15% -20% -Pt is getting lasix Atelectasis and bilateral small pleural effusions - secondary to CHF -- NO PNEUMONIA COPD/emphysema -Pt needs out pt testing Hepatic shock - improving -Monitor, -Hepatitis panel -- neg -UDS is negative -Acetaminophen is negative --Hold Metformin -Zosyn- d/c'd yesterday -Repeat amylase lipase and LFTs -- normal -TSH normal Cholelithiasis with possible Chronic Cholecystitis -Surgery following -I initially started pt on Zosyn until acute cholangitis and SBP was r/o. I d/c'd Zosyn yesterday Metabolic lactic acidosis - improved -- secondary to decreased perfusion and dehydration on admission . Now improved -Hold metformin -No signs of sepsis. No leukocytosis, no fever Hypokalemia -replace Urinary retention -Romero placed Afib RVR -Cardizem gtt -Cardiology following DM Coumadin coagulopathy -Coumadin on hold -Monitor H/o bioprosthetic cardiac valve LUISA CONNOR DO Sep 06, 2018 07:56
[2018-09-06 08:00] VITALS: BP 114/76
[2018-09-06] MEDS: FUROSEMIDE 40 MG/4 ML INJ (LASIX) IVP SCH (10:00)
[2018-09-06] MEDS: CARVEDILOL 3.125 MG (COREG) TABLET PO SCH ×2 (10:00→19:29)
[2018-09-06] MEDS: DILTIAZEM 240 MG (CARDIZEM CD) CAP PO SCH (10:00)
[2018-09-06] MEDS: SACUBITRIL/VALSARTAN 24/26 MG (ENTRESTO) TABLET PO SCH ×2 (10:00→19:28)
[2018-09-06] MEDS: PANTOPRAZOLE 40 MG (PROTONIX) TAB PO SCH (10:00)
[2018-09-06 12:00] VITALS: BP 114/70
--- NOTE | 2018-09-06 13:31 | Progress Note - Hospitalist ---
Subjective HPI/CC On Admission Date Seen by Provider: Sep 06, 2018 Time Seen by Provider: 12:45 Chief complaint: Nausea and vomiting with lethargy History of present illness: This is a patient of Dr. rodriguez who has a past medical history of valve replacement in 2004 and maintained on Coumadin for anticoagulation who presented to the [facility] after sent from Dr. rodriguez office due to lethargy and nausea and vomiting. Patient was found to have hypotension and atrial fibrillation with rapid ventricular response requiring Ca rdizem drip and aggressive IV fluid due to hypotension. Renal insufficiency noted but significantly elevated liver enzymes with coagulopathy from warfarin anticoagulation that he has been taking chronically since [address] scan showed bilateral pleural effusions no evidence of any type of liver mass so he was admitted placed on Cardizem drip and pulmonology and cardiology were both consulted. Abdominal ultrasound was revealed as abnormal gallbladder with a large amount of sludge consistent with the causation of the elevated liver enzymes and total bilirubin. INR is being managed by vitamin K given today. Patient has no pain no shortness of breath at this current time and feels overall very weak but improved. Subjective/Events-last exam Patient doing much better No BM yet so we will aggressively start treating that We will discontinue the catheter No pain is reported Out of bed with physical therapy has been ordered Liver enzymes much improved INR 3.2 Review of Systems General: Fatigue Objective Exam Vital Signs Vital Signs Date Time Temp Pulse Resp B/P (MAP) Pulse Ox O2 Delivery O2 Flow Rate FiO2 09/06/18 18:54 97 Room Air 09/06/18 16:16 96.8 109 20 119/72 (88) 09/03/18 07:05 2.00 Capillary Refill : Less Than 3 Seconds General Appearance: No Apparent Distress, WD/WN, Anxious, Chronically ill HEENT: PERRL/EOMI, Normal ENT Inspection, Pharynx Normal, Moist Mucous Membranes Neck: Full Range of Motion, Normal Inspection, Non Tender Respiratory: Chest Non Tender, Lungs Clear, No Accessory Muscle Use, No Respiratory Distress, Decreased Breath Sounds Cardiovascular: No Edema, No Gallop, No JVD, No Murmur, Normal Peripheral Pulses, Irregularly Irregular, Tachycardia Gastrointestinal: Normal Bowel Sounds, No Organomegaly, No Pulsatile Mass, Soft, Tenderness (generalized) Rectal: Deferred Back: Normal Inspection, No CVA Tenderness, No Vertebral Tenderness Extremity: Normal Capillary Refill, Normal Inspection, Normal Range of Motion, Non Tender, No Calf Tenderness, No Pedal Edema Neurologic/Psychiatric: Alert, Oriented x3, No Motor/Sensory Deficits, Normal Mood/Affect Skin: Normal Color, Warm/Dry Lymphatic: No Adenopathy Results/Procedures Lab Laboratory Tests 09/06/18 05:14 Patient resulted labs reviewed. Assessment/Plan Assessment and Plan Assess & Plan/Chief Complaint Assessment: Critical illness AF w/RVR Liver shock Dilated cardiomyopathy EF 20% Coagulopathy INR severely elevated Valve replacement status 2004 Gallbladder sludge large amount prompting Dr Valenzuela consultation Plan: Dr Valenzuela consultation is appreciated [facility] for rate control Cardiology and Pulmonology appreciated Complex case Supportive care Diagnosis/Problems Diagnosis/Problems (1) Atrial fibrillation with RVR Status: Acute (2) Coagulopathy Status: Acute (3) Gallbladder sludge Status: Acute (4) Elevated lactic acid level Status: Acute (5) N&V (nausea and vomiting) Status: Acute Qualifiers: Vomiting Intractability: unspecified (6) Dehydration Status: Acute (7) New onset of congestive heart failure Status: Acute (8) Dyspnea on exertion Status: Acute (9) Shock liver Status: Acute (10) Elevated liver enzymes Status: Acute (11) 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 (12) Warfarin anticoagulation Status: Chronic (13) Dilated cardiomyopathy Status: Acute Clinical Quality Measures AMI/AHF: ASA po Prior to arrival: No DVT/VTE Risk/Contraindication: Risk Factor Score Per Nursin RFS Level Per Nursing on Admit: 2=Moderate BEN MATTA DO Sep 06, 2018 13:31
--- NOTE | 2018-09-06 16:12 | Progress Note - Cardiology ---
Cardiology SOAP Progress Note Subjective: Feels better compared to time of admission Much less short of breath Gen malaise No cp or palp or syncope Objective: I&O/Vital Signs 09/06/18 09/06/18 09/06/18 09/06/18 06:54 07:00 08:00 08:00 Temp 98.2 Pulse 86 79 Resp 20 B/P (MAP) 114/76 (89) Pulse Ox 94 97 O2 Delivery Room Air Room Air Room Air 09/06/18 09/06/18 09/06/18 10:57 12:00 13:00 Temp 99.0 Pulse 81 95 Resp 20 B/P (MAP) 114/70 (85) Pulse Ox 96 96 O2 Delivery Room Air Room Air 09/06/18 00:00 Intake Total 790 ml Output Total 1025 ml Balance -235 ml Weight (Pounds): 180 Weight (Ounces): 0.0 Weight (Calculated Kilograms): 81.785317 Constitutional: AAO x 3, well-developed, well-nourished Respiratory: No accessory muscle use; crackles (bi-basilar crackles), other (good bilat air entry) Cardiovascular: regular rate-rhythm, S1 and S2, systolic murmur (2/6 DIANNE at card base) Gastrointestional: No tender; soft; No guarding, No rebound; audible bowel sounds Extremities: No clubbing, No cyanosis, No significant edema Neurologic/Psychiatric: other (able to move all limbs equally), grossly intact Skin: No rash on exposed areas, No ulcerations on exposed areas Results/Procedures: Labs Laboratory Tests 09/05/18 20:48: Glucometer 135H 09/06/18 05:14: White Blood Count 6.0, Red Blood Count 3.82L, Hemoglobin 11.1L, Hematocrit 36L, Mean Corpuscular Volume 94, Mean Corpuscular Hemoglobin 29, Mean Corpuscular Hemoglobin Concent 31L, Red Cell Distribution Width 15.2H, Platelet Count 63L, Mean Platelet Volume 12.3H, Neutrophils (%) (Auto) 65, Lymphocytes (%) (Auto) 21, Monocytes (%) (Auto) 9, Eosinophils (%) (Auto) 5, Basophils (%) (Auto) 0, Neutrophils # (Auto) 3.9, Lymphocytes # (Auto) 1.3, Monocytes # (Auto) 0.5, Eosinophils # (Auto) 0.3, Basophils # (Auto) 0.0, Prothrombin Time 34.5H, INR Comment 3.2H, Sodium Level 134L, Potassium Level 4.4, Chloride Level 103, Carbon Dioxide Level 21, Anion Gap 10, Blood Urea Nitrogen 20H, Creatinine 0.81, Estimat Glomerular Filtration Rate > 60, BUN/Creatinine Ratio 25, Glucose Level 152H, Calcium Level 8.8, Corrected Calcium 9.8, Phosphorus Level 3.4, Magnesium Level 1.5L, Total Bilirubin 1.7H, Aspartate Amino Transf (AST/SGOT) 151H, Alanine Aminotransferase (ALT/SGPT) 356H, Alkaline Phosphatase 100, Total Pr otein 5.6L, Albumin 2.8L 09/06/18 11:20: Glucometer 196H Microbiology 09/01/18 Blood Culture - Preliminary, Resulted Staph, Coag Neg (PATHOLOGY LABORATORY TECHNOLOGIST) 09/01/18 MRSA Screen - Final, Complete MRSA not isolated Laboratory Tests 09/05/18 02:55 09/06/18 05:14 A/P: Assessment: Acute systolic CHF due to dilated cardiomyopathy Echo of 09/02/18: LVEF 15-20%, biatrial enlargement, mod to sev MR, mod (probably a bioprosthetic valve), RVSP 38 mmHg, markedly dilated IVC Atrial fibrillation, probably chronic, with a somewhat rapid ventricular response Passive hepatic congestion, improving Probable sepsis, managed by Dr Orozco Chronic warfarin anticoagulation, currently supra-therapeutic INR Thrombocytopenia, managed by Dr Orozco H/o bioprosthetic cardiac valve by Dr Matson at [place], [place], several years ago. Pt does not know any details and has not followed with Cardiology Cholelithiasis with possible chronic cholecystitis, being managed by Dr Valenzuela Plan: * Hematology consult recommended * Continue heart-failure meds that have been initiated during this hospitalization * Replenish Mg and monitor labs * Resume warfarin after it falls back into the therapeutic range Clinical Quality Measures AMI/AHF: ASA po Prior to arrival: CORINA Jarrett MD FACP [facility] CCDS Sep 06, 2018 16:12
[2018-09-06 16:16] VITALS: BP 119/72
[2018-09-06] MEDS: MAGNESIUM 1 GM/100 ML IVPB 100 ML IV SCH ×2 (17:15→18:44)
[2018-09-06] MEDS: DOCUSATE SODIUM 100 MG (COLACE) CAP PO SCH ×2 (17:17→22:15)
[2018-09-06] MEDS: SENNA W/DOCUSATE (SENOKOT S) TABLET PO SCH ×2 (17:17→22:15)
[2018-09-06] MEDS: POLYETHYLENE GLYCOL 17 GM (MIRALAX) PACK PO SCH ×2 (17:18→22:15)
[2018-09-06] MEDS: LACTULOSE SYRUP 10GM/15ML (ENULOSE) 30ML UDC PO SCH ×2 (17:18→22:15)
[2018-09-06] MEDS: TAMSULOSIN 0.4 MG (FLOMAX) CAP PO SCH (18:44)
[2018-09-06 19:50] VITALS: BP 110/74
[2018-09-07] VITALS: BP 96/52
[2018-09-07 04:00] VITALS: BP 109/57
[2018-09-07] MEDS: RT-ALBUTEROL/IPRATROPIUM 3 ML (DUONEB) VIAL INH SCH ×6 (04:19→22:14)
[2018-09-07 05:59] LABS: BASOPHILS % (AUTO) 0 % (0-10); EOSINOPHILS # (AUTO) 0.2 10^3/uL (0.0-0.3); EOSINOPHILS % (AUTO) 3 % (0-10); HEMATOCRIT 37 % (40-54); HEMOGLOBIN 11.3 G/DL (13.3-17.7); LYMPHOCYTES # (AUTO) 0.9 X 10^3 (1.0-4.0); LYMPHOCYTES % (AUTO) 15 % (12-44); MEAN CORPUSCULAR HEMOGLOBIN 29 PG (25-34); MEAN CORPUSCULAR HGB CONC 31 G/DL (32-36); MEAN CORPUSCULAR VOLUME 95 FL (80-99); MEAN PLATELET VOLUME 11.7 FL (7.4-10.4); MONOCYTES # (AUTO) 0.7 X 10^3 (0.0-1.0); MONOCYTES % (AUTO) 12 % (0-12); NEUTROPHILS # (AUTO) 4.1 X 10^3 (1.8-7.8); NEUTROPHILS % (AUTO) 70 % (42-75); PLATELET COUNT 90 10^3/uL (130-400); RED CELL DISTRIBUTION WIDTH 15.5 % (10.0-14.5); WHITE BLOOD COUNT 5.8 10^3/uL (4.3-11.0)
[2018-09-07] MEDS: KCL 20 MEQ TAB (K-DUR) PO SCH (06:12)
[2018-09-07] MEDS: inSUlin ASPART (NovoLOG) 1 UNIT/0.01 ML (CHARGE PER UNIT) SC SCH ×4 (06:13→21:00)
[2018-09-07 06:15] LABS: INR 2.1 (0.8-1.4); PROTHROMBIN TIME PATIENT 24.3 SEC (12.2-14.7)
[2018-09-07 06:28] LABS: ALANINE AMINOTRANSFERASE 284 U/L (0-55); ALBUMIN 2.9 GM/DL (3.2-4.5); ALKALINE PHOSPHATASE 121 U/L (40-136); BILIRUBIN,TOTAL 1.9 MG/DL (0.1-1.0); BUN/CREATININE RATIO 22; CALCIUM 8.9 MG/DL (8.5-10.1); CARBON DIOXIDE 25 MMOL/L (21-32); CHLORIDE 102 MMOL/L (98-107); CREATININE SERUM 0.88 MG/DL (0.60-1.30); GFR ESTIMATED > 60; GLUCOSE 196 MG/DL (70-105); MAGNESIUM 1.6 MG/DL (1.8-2.4); PHOSPHORUS 3.2 MG/DL (2.3-4.7); POTASSIUM 4.2 MMOL/L (3.6-5.0); SODIUM 137 MMOL/L (135-145); TOTAL PROTEIN 6.1 GM/DL (6.4-8.2)
[2018-09-07 08:00] VITALS: BP 107/66
[2018-09-07] MEDS: FUROSEMIDE 40 MG/4 ML INJ (LASIX) IVP SCH (08:47)
[2018-09-07] MEDS: SACUBITRIL/VALSARTAN 24/26 MG (ENTRESTO) TABLET PO SCH ×2 (08:47→21:23)
[2018-09-07] MEDS: SENNA W/DOCUSATE (SENOKOT S) TABLET PO SCH ×2 (08:48→21:22)
[2018-09-07] MEDS: PANTOPRAZOLE 40 MG (PROTONIX) TAB PO SCH (08:48)
[2018-09-07] MEDS: DOCUSATE SODIUM 100 MG (COLACE) CAP PO SCH ×2 (08:48→21:22)
[2018-09-07] MEDS: DILTIAZEM 240 MG (CARDIZEM CD) CAP PO SCH (08:48)
[2018-09-07] MEDS: POLYETHYLENE GLYCOL 17 GM (MIRALAX) PACK PO SCH ×2 (08:52→21:23)
[2018-09-07] MEDS: LACTULOSE SYRUP 10GM/15ML (ENULOSE) 30ML UDC PO SCH ×2 (08:53→21:22)
[2018-09-07] MEDS: CARVEDILOL 3.125 MG (COREG) TABLET PO SCH ×2 (09:03→21:23)
[2018-09-07 12:00] VITALS: BP 104/69
--- NOTE | 2018-09-07 14:20 | NUR ---
Notified Dr. Dave's office of consultation in for this patient
--- NOTE | 2018-09-07 14:21 | Progress Note ---
Subjective Subjective/Events-last exam Initially patient appeared very uncomfortable and stated that he has not been able to pee. Bladder scan ordered and patient had >999 present. Straight cath ordered. After cath patient felt much better. States that he has been breathing and feeling better every day. Still has some abdominal pain but it has improved. Tolerating PO diet and ambulation. Review of Systems Date Seen by Provider: Sep 07, 2018 Time Seen by Provider: 12:35 Pulmonary: Dyspnea; No Cough Gastrointestinal: Abdominal Pain; No: Nausea, Vomiting Genitourinary: Retention Objective Exam Last Set of Vital Signs Vital Signs Date Time Temp Pulse Resp B/P (MAP) Pulse Ox O2 Delivery O2 Flow Rate FiO2 09/07/18 12:56 88 09/07/18 12:00 97.0 20 104/69 (81) 97 Room Air 09/03/18 07:05 2.00 Capillary Refill : Less Than 3 Seconds I&O Intake and Output 09/07/18 00:00 Intake Total 2160 ml Output Total 5950 ml Balance -3790 ml Intake Oral 2060 ml IV Total 100 ml Output Urine Total 5950 ml # Bowel Movements 1 General: Alert, Oriented X3, Cooperative, No Acute Distress Lungs: Clear to Auscultation, Normal Air Movement Heart: Regular Rate, No Murmurs Abdomen: Normal Bowel Sounds, Soft, Other (+supra pubic tenderness and able to palpate bladder prior to cath) Extremities: No Edema, No Tenderness/Swelling Neuro: Normal Speech, Strength at 5/5 X4 Ext, Cranial Nerves 3-12 NL Psych/Mental Status: Mental Status NL, Mood NL Results/Procedures Lab Laboratory Tests 09/06/18 16:18: Glucometer 198H 09/06/18 20:50: Glucometer 162H 09/07/18 05:05: White Blood Count 5.8, Red Blood Count 3.87L, Hemoglobin 11.3L, Hematocrit 37L, Mean Corpuscular Volume 95, Mean Corpuscular Hemoglobin 29, Mean Corpuscular Hemoglobin Concent 31L, Red Cell Distribution Width 15.5H, Platelet Count 90L, Mean Platelet Volume 11.7H, Neutrophils (%) (Auto) 70, Lymphocytes (%) (Auto) 15, Monocytes (%) (Auto) 12, Eosinophils (%) (Auto) 3, Basophils (%) (Auto) 0, Neutrophils # (Auto) 4.1, Lymphocytes # (Auto) 0.9L, Monocytes # (Auto) 0.7, Eosinophils # (Auto) 0.2, Basophils # (Auto) 0.0, Prothrombin Time 24.3H, INR Comment 2.1H, Sodium Level 137, Potassium Level 4.2, Chloride Level 102, Carbon Dioxide Level 25, Anion Gap 10, Blood Urea Nitrogen 19H, Creatinine 0.88, Estimat Glomerular Filtration Rate > 60, BUN/Creatinine Ratio 22, Glucose Level 196H, Calcium Level 8.9, Corrected Calcium 9.8, Phosphorus Level 3.2, Magnesium Level 1.6L, Total Bilirubin 1.9H, Aspartate Amino Transf (AST/SGOT) 104H, Alanine Aminotransferase (ALT/SGPT) 284H, Alkaline Phosphatase 121, Total Protein 6.1L, Albumin 2.9L 09/07/18 05:59: Glucometer 191H 09/07/18 11:29: Glucometer 166H Microbiology 09/01/18 Blood Culture - Final, Complete Staph, Coag Neg (DECORATING EQUIPMENT SETTER) 09/01/18 MRSA Screen - Final, Complete MRSA not isolated Assessment/Plan Assessment/Plan (1) Acute systolic congestive heart failure Status: Acute Assessment & Plan: 09/07: Cardiology consulted, patient on Lasix 80 mg IV, Maximize medical management, started on Entresto, EF 15-20% (2) Acute urinary retention Status: Acute Assessment & Plan: 09/07: Continue flomax, Straight cath x1 with 1100cc out, consult for Dr Dave in AM (3) Atrial fibrillation with RVR Status: Acute Assessment & Plan: 09/07: Rate controlled, Cardiology managing (4) Shock liver Status: Acute Assessment & Plan: 09/07: Improving with Diuresis, Will continue to monitor (5) Elevated liver enzymes Status: Acute (6) Warfarin anticoagulation Status: Chronic Assessment & Plan: 09/07: Restart Warfarin today at lower dose 5 mg daily, INR 2.1 (7) Gallbladder sludge Status: Acute Assessment & Plan: 09/07: Dr Valenzuela consulted, patient does not desire surgery at this time (8) Dilated cardiomyopathy Status: Acute (9) 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
[2018-09-07 16:11] VITALS: BP 113/69
--- NOTE | 2018-09-07 17:21 | Pulmonary Progress Note ---
Subjective Time Seen by a Provider: 14:18 Subjective/Events-last exam No complications noted. Sepsis Event Evaluation Height, Weight, BMI Height: 5'11.00" Weight: 175lbs. 0.0oz. 79.407175pk; 20.8 BMI Method:Stated Exam Exam Vital Signs Date Time Temp Pulse Resp B/P (MAP) Pulse Ox O2 Delivery O2 Flow Rate FiO2 09/07/18 16:11 98.4 70 18 113/69 (84) 98 Room Air 09/07/18 15:01 96 Room Air 09/07/18 12:56 88 09/07/18 12:00 97.0 79 20 104/69 (81) 97 Room Air 09/07/18 08:00 97.2 93 20 107/66 (80) 93 Room Air 09/07/18 08:00 Room Air 09/07/18 07:54 96 Room Air 09/07/18 07:00 70 09/07/18 04:00 98.6 96 18 109/57 (74) 94 Room Air 09/07/18 01:00 87 09/07/18 00:00 99.2 92 20 96/52 (67) 92 Room Air 09/06/18 20:07 Room Air 09/06/18 19:50 98.9 85 20 110/74 (86) 96 Room Air 09/06/18 19:00 93 09/06/18 18:54 97 Room Air I & O 09/07/18 06:59 Intake Total 1560 ml Output Total 5425 ml Balance -3865 ml Height & Weight Height: 5'11.00" Weight: 175lbs. 0.0oz. 79.910819sl; 20.8 BMI Method:Stated General Appearance: No Apparent Distress, WD/WN, Anxious, Chronically ill HEENT: PERRL/EOMI, Normal ENT Inspection, Pharynx Normal, Moist Mucous Membranes Neck: Full Range of Motion, Normal Inspection, Non Tender Respiratory: Chest Non Tender, Lungs Clear, No Accessory Muscle Use, No Respiratory Distress, Decreased Breath Sounds Cardiovascular: No Edema, No Gallop, No JVD, No Murmur, Normal Peripheral Pul ses, Irregularly Irregular, Tachycardia Capillary Refill: Less Than 3 Seconds Gastrointestinal: normal bowel sounds, non tender, soft, no pulsatile mass, he patomegaly Extremity: Normal Capillary Refill, Normal Inspection, Normal Range of Motion, Non Tender, No Calf Tenderness, No Pedal Edema Neurologic/Psychiatric: Alert, Oriented x3, No Motor/Sensory Deficits, Normal Mood/Affect Skin: Normal Color, Warm/Dry Lymphatic: No Adenopathy Results Lab Laboratory Tests 09/06/18 05:14 09/07/18 05:05 Assessment/Plan Assessment/Plan Cardiomyopathy EF 15% -20% -Pt is getting lasix Atelectasis and bilateral small pleural effusions - secondary to CHF -- NO PNEUMONIA COPD/emphysema -Pt needs out pt testing Hepatic shock - improving -Monitor, -Hepatitis panel -- neg -UDS is negative -Acetaminophen is negative -Zosyn- d/c'd yesterday -Repeat amylase lipase and LFTs -- normal -TSH normal Cholelithiasis with possible Chronic Cholecystitis -Surgery following -I initially started pt on Zosyn until acute cholangitis and SBP was r/o. I d/c'd Zosyn yesterday Metabolic lactic acidosis - improved -- secondary to decreased perfusion and dehydration on admission . Now improved -No signs of sepsis. No leukocytosis, no fever Hypokalemia -replace Urinary retention -Romero placed Afib RVR -Cardizem gtt -Cardiology following DM Coumadin coagulopathy -Coumadin on hold -Monitor H/o bioprosthetic cardiac valve LUISA CONNOR DO Sep 07, 2018 17:21
[2018-09-07] MEDS: TAMSULOSIN 0.4 MG (FLOMAX) CAP PO SCH (17:22)
[2018-09-07] MEDS: warFARin 5 MG (COUMADIN) TAB PO SCH (17:22)
--- NOTE | 2018-09-07 18:50 | NUR ---
Pt c/o bladder pain, has voided 150 ml this afternoon, bladder scan shows >999 ml, received order from Dr. Marie to place indwelling shanks
[2018-09-07 20:02] VITALS: BP 107/68
--- NOTE | 2018-09-07 20:23 | Progress Note - Cardiology ---
Cardiology SOAP Progress Note Subjective: Couldn't urinate today. This caused a lot of discomfort and pain. Improved after Romero No cp or palp or syncope Shortness of breath has improved Objective: I&O/Vital Signs 09/07/18 09/07/18 09/07/18 09/07/18 12:00 12:56 15:01 16:11 Temp 97.0 98.4 Pulse 79 88 70 Resp 20 18 B/P (MAP) 104/69 (81) 113/69 (84) Pulse Ox 97 96 98 O2 Delivery Room Air Room Air Room Air 09/07/18 09/07/18 19:25 20:02 Temp 98.5 Pulse 80 Resp 22 B/P (MAP) 107/68 (81) Pulse Ox 95 95 O2 Delivery Room Air Room Air 09/07/18 00:00 Intake Total 1460 ml Output Total 5100 ml Balance -3640 ml Weight (Pounds): 175 Weight (Ounces): 0.0 Weight (Calculated Kilograms): 79.866466 Constitutional: AAO x 3, well-developed, well-nourished Respiratory: No accessory muscle use; crackles (bi-basilar crackles), other (good bilat air entry) Cardiovascular: regular rate-rhythm, S1 and S2, systolic murmur (2/6 DIANNE at card base) Gastrointestional: No tender; soft; No guarding, No rebound; audible bowel sounds Extremities: No clubbing, No cyanosis, No significant edema Neurologic/Psychiatric: other (able to move all limbs equally), grossly intact Skin: No rash on exposed areas, No ulcerations on exposed areas Results/Procedures: Labs Laboratory Tests 09/06/18 20:50: Glucometer 162H 09/07/18 05:05: White Blood Count 5.8, Red Blood Count 3.87L, Hemoglobin 11.3L, Hematocrit 37L, Mean Corpuscular Volume 95, Mean Corpuscular Hemoglobin 29, Mean Corpuscular Hemoglobin Concent 31L, Red Cell Distribution Width 15.5H, Platelet Count 90L, Mean Platelet Volume 11.7H, Neutrophils (%) (Auto) 70, Lymphocytes (%) (Auto) 15, Monocytes (%) (Auto) 12, Eosinophils (%) (Auto) 3, Basophils (%) (Auto) 0, Neutrophils # (Auto) 4.1, Lymphocytes # (Auto) 0.9L, Monocytes # (Auto) 0.7, Eosinophils # (Auto) 0.2, Basophils # (Auto) 0.0, Prothrombin Time 24.3H, INR Comment 2.1H, Sodium Level 137, Potassium Level 4.2, Chloride Level 102, Carbon Dioxide Level 25, Anion Gap 10, Blood Urea Nitrogen 19H, Creatinine 0.88, Estimat Glomerular Filtration Rate > 60, BUN/Creatinine Ratio 22, Glucose Level 196H, Calcium Level 8.9, Corrected Calcium 9.8, Phosphorus Level 3.2, Magnesium Level 1.6L, Total Bilirubin 1.9H, Aspartate Amino Transf (AST/SGOT) 104H, Alanine Aminotransferase (ALT/SGPT) 284H, Alkaline Phosphatase 121, Total Protein 6.1L, Albumin 2.9L 09/07/18 05:59: Glucometer 191H 09/07/18 11:29: Glucometer 166H 09/07/18 15:53: Glucometer 158H Microbiology 09/01/18 Blood Culture - Final, Complete Staph, Coag Neg (PRESS READER) 09/01/18 MRSA Screen - Final, Complete MRSA not isolated A/P: Assessment: Ac urinary retention on 09/07/18 Acute systolic CHF due to dilated cardiomyopathy, improved Echo of 09/02/18: LVEF 15-20%, biatrial enlargement, mod to sev MR, mod (probably a bioprosthetic valve), RVSP 38 mmHg, markedly dilated IVC Atrial fibrillation, probably chronic, with a somewhat rapid ventricular response Passive hepatic congestion, improving Probable sepsis, managed by the Med Svce Chronic warfarin anticoagulation, currently supra-therapeutic INR Thrombocytopenia, improving H/o bioprosthetic cardiac valve by Dr Matson at [place], [place], several years ago. Pt does not know any details and has not followed with Cardiology Cholelithiasis with possible chronic cholecystitis, being managed by Dr Valenzuela Plan: * Continue heart-failure meds that have been initiated during this hospitalization * Resume warfarin after the issue of urinary retention has been addressed * Monitor labs Clinical Quality Measures AMI/AHF: ASA po Prior to arrival: CORINA Jarrett MD [facility] CCDS Sep 07, 2018 20:23
[2018-09-08] VITALS (7 sets, daily range): BP systolic 94–114; BP diastolic 47–68
--- NOTE | 2018-09-08 01:30 | NUR ---
ASSUMED CARE OF PT AT THIS TIME. PT RESTING COMFORTABLE. WILL CONTINUE TO MONITOR.
[2018-09-08] MEDS: RT-ALBUTEROL/IPRATROPIUM 3 ML (DUONEB) VIAL INH SCH ×6 (02:15→21:59)
[2018-09-08 03:57] LABS: BASOPHILS % (AUTO) 0 % (0-10); EOSINOPHILS # (AUTO) 0.1 10^3/uL (0.0-0.3); EOSINOPHILS % (AUTO) 2 % (0-10); HEMATOCRIT 38 % (40-54); HEMOGLOBIN 11.4 G/DL (13.3-17.7); LYMPHOCYTES # (AUTO) 0.7 X 10^3 (1.0-4.0); LYMPHOCYTES % (AUTO) 14 % (12-44); MEAN CORPUSCULAR HEMOGLOBIN 29 PG (25-34); MEAN CORPUSCULAR HGB CONC 30 G/DL (32-36); MEAN CORPUSCULAR VOLUME 94 FL (80-99); MEAN PLATELET VOLUME 11.4 FL (7.4-10.4); MONOCYTES # (AUTO) 0.6 X 10^3 (0.0-1.0); MONOCYTES % (AUTO) 11 % (0-12); NEUTROPHILS # (AUTO) 3.8 X 10^3 (1.8-7.8); NEUTROPHILS % (AUTO) 73 % (42-75); PLATELET COUNT 99 10^3/uL (130-400); RED CELL DISTRIBUTION WIDTH 15.2 % (10.0-14.5); WHITE BLOOD COUNT 5.3 10^3/uL (4.3-11.0)
[2018-09-08 04:09] LABS: INR 1.7 (0.8-1.4); PROTHROMBIN TIME PATIENT 20.8 SEC (12.2-14.7)
[2018-09-08 04:18] LABS: BUN/CREATININE RATIO 18; CALCIUM 9.3 MG/DL (8.5-10.1); CARBON DIOXIDE 26 MMOL/L (21-32); CHLORIDE 103 MMOL/L (98-107); CREATININE SERUM 0.83 MG/DL (0.60-1.30); GFR ESTIMATED > 60; GLUCOSE 119 MG/DL (70-105); MAGNESIUM 1.5 MG/DL (1.8-2.4); PHOSPHORUS 3.7 MG/DL (2.3-4.7); POTASSIUM 4.1 MMOL/L (3.6-5.0); SODIUM 140 MMOL/L (135-145)
[2018-09-08] MEDS: KCL 20 MEQ TAB (K-DUR) PO SCH (06:26)
[2018-09-08] MEDS: inSUlin ASPART (NovoLOG) 1 UNIT/0.01 ML (CHARGE PER UNIT) SC SCH ×4 (06:26→21:52)
[2018-09-08] MEDS: SENNA W/DOCUSATE (SENOKOT S) TABLET PO SCH ×2 (08:17→21:52)
[2018-09-08] MEDS: DOCUSATE SODIUM 100 MG (COLACE) CAP PO SCH ×2 (08:17→21:52)
[2018-09-08] MEDS: SACUBITRIL/VALSARTAN 24/26 MG (ENTRESTO) TABLET PO SCH ×2 (08:17→21:51)
[2018-09-08] MEDS: PANTOPRAZOLE 40 MG (PROTONIX) TAB PO SCH (08:17)
[2018-09-08] MEDS: CARVEDILOL 3.125 MG (COREG) TABLET PO SCH ×2 (08:17→21:51)
[2018-09-08] MEDS: DILTIAZEM 240 MG (CARDIZEM CD) CAP PO SCH (08:17)
[2018-09-08] MEDS: POLYETHYLENE GLYCOL 17 GM (MIRALAX) PACK PO SCH ×2 (08:18→21:52)
[2018-09-08] MEDS: FUROSEMIDE 40 MG/4 ML INJ (LASIX) IVP SCH (08:18)
[2018-09-08] MEDS: LACTULOSE SYRUP 10GM/15ML (ENULOSE) 30ML UDC PO SCH ×2 (08:18→21:52)
[2018-09-08] MEDS ORDERED: SACU1TAB PO (12:01)
[2018-09-08] MEDS ORDERED: POTA10CA43 PO (12:01)
[2018-09-08] MEDS ORDERED: CARV3.122 PO (12:01)
[2018-09-08] MEDS ORDERED: DILT240C97 PO (12:01)
[2018-09-08] MEDS ORDERED: FURO80TA83 PO (12:01)
--- NOTE | 2018-09-08 12:28 | Progress Note - Cardiology ---
Cardiology SOAP Progress Note Subjective: Sitting up in bed. Reports urinary catheter placed yesterday d/t urinary retention. No c/o CP, palpitations, syncope, dyspnea or near syncope. Objective: I&O/Vital Signs 09/08/18 09/08/18 09/08/18 09/08/18 08:00 08:00 12:00 12:26 Temp 97.9 97.9 Pulse 90 63 86 Resp 18 18 B/P (MAP) 102/53 (69) 100/47 (64) Pulse Ox 94 94 O2 Delivery Room Air Room Air Room Air 09/08/18 09/08/18 14:50 16:11 Temp 99.3 Pulse 67 Resp 22 B/P (MAP) 100/58 (72) Pulse Ox 95 96 O2 Delivery Room Air Room Air 09/08/18 00:00 Intake Total 1450 ml Output Total 4825 ml Balance -3375 ml Weight (Pounds): 175 Weight (Ounces): 0.0 Weight (Calculated Kilograms): 79.694671 Constitutional: AAO x 3, well-developed, well-nourished Respiratory: No accessory muscle use; crackles (bi-basilar crackles), other (good bilat air entry) Cardiovascular: regular rate-rhythm, S1 and S2, systolic murmur (2/6 DIANNE at card base) Gastrointestional: No tender; soft; No guarding, No rebound; audible bowel sounds Genital/Rectal: other (indwelling urinary catheter to DD; clear yellow) Extremities: No clubbing, No cyanosis, No significant edema Neurologic/Psychiatric: other (able to move all limbs equally), grossly intact Skin: No rash on exposed areas, No ulcerations on exposed areas Results/Procedures: Labs Laboratory Tests 09/07/18 21:54: Glucometer 152H 09/08/18 03:30: White Blood Count 5.3, Red Blood Count 3.99L, Hemoglobin 11.4L, Hematocrit 38L, Mean Corpuscular Volume 94, Mean Corpuscular Hemoglobin 29, Mean Corpuscular Hemoglobin Concent 30L, Red Cell Distribution Width 15.2H, Platelet Count 99L, Mean Platelet Volume 11.4H, Neutrophils (%) (Auto) 73, Lymphocytes (%) (Auto) 14, Monocytes (%) (Auto) 11, Eosinophils (%) (Auto) 2, Basophils (%) (Auto) 0, Neutrophils # (Auto) 3.8, Lymphocytes # (Auto) 0.7L, Monocytes # (Auto) 0.6, Eosinophils # (Auto) 0.1, Basophils # (Auto) 0.0 09/08/18 03:50: Prothrombin Time 20.8H, INR Comment 1.7H, Sodium Level 140, Potassium Level 4.1, Chloride Level 103, Carbon Dioxide Level 26, Anion Gap 11, Blood Urea Nitrogen 1 5, Creatinine 0.83, Estimat Glomerular Filtration Rate > 60, BUN/Creatinine Ratio 18, Glucose Level 119H, Calcium Level 9.3, Phosphorus Level 3.7, Magnesium Level 1.5L 09/08/18 06:18: Glucometer 108 09/08/18 11:12: Glucometer 228H 09/08/18 16:01: Glucometer 124H Microbiology 09/01/18 Blood Culture - Final, Complete Staph, Coag Neg (INFORMATION TECHNOLOGY SECURITY ANALYST) 09/01/18 MRSA Screen - Final, Complete MRSA not isolated A/P: Assessment: Ac urinary retention on 09/07/18, managed by Dr Dave Acute systolic CHF due to dilated cardiomyopathy, improved Echo of 09/02/18: LVEF 15-20%, biatrial enlargement, mod to sev MR, mod (probably a bioprosthetic valve), RVSP 38 mmHg, markedly dilated IVC Atrial fibrillation, probably chronic - rate controlled Passive hepatic congestion, improving Probable sepsis, managed by the Med Svce Chronic warfarin anticoagulation, currently sub-therapeutic INR Thrombocytopenia, improving H/o bioprosthetic cardiac valve by Dr Matson at [place], [place], several years ago. Pt does not know any details and has not followed with Cardiology Cholelithiasis with possible chronic cholecystitis, being managed by Dr Valenzuela Plan: * Continue heart-failure meds that have been initiated during this hospitalization * Resume warfarin after the issue of urinary retention has been addressed * Change IV Lasix to oral * Replace Mag * Sub-therapeutic INR * Social service consult * Monitor labs Physician Assessment Physician Assessment Feels better. Much less short of breath. No cp or palp or syncope. Wishes to go home Lungs: good bilat air entry Cor: irreg Ext: no c/c/e A&R * As documented in our note above that I updated (italics) and as noted below * Resume warfarin * Ok to d/c to home from cardiac standpoint * Outpt f/u is advised * Continue current cardiac regimen * Dr Marin covering Card Svce beginning tomorrow Clinical Quality Measures AMI/AHF: ASA po Prior to arrival: ROLANDO Matos [facility] Sep 08, 2018 12:28 CORINA ISAAC MD [facility] Sep 08, 2018 19:08
[2018-09-08] MEDS: MAGNESIUM 1 GM/100 ML IVPB 100 ML IV SCH ×2 (12:34→13:45)
--- NOTE | 2018-09-08 12:40 | CONSULTATION REPORT ---
DATE OF SERVICE: 09/08/2018 ATTENDING PHYSICIAN: Dr. Katie Marie and Taylor Orozco DO SUMMARY: This is an 83-year-old white man transferred from [facility] where he was seen and referred by Dr. Martinez's office because of dehydration, lethargy and weakness. He was subsequently admitted here and has done much better. He was also found to have some gallbladder problems that is being managed by Dr. Valenzuela. He was doing okay until a day or so ago he started having some abdominal discomfort and inability to void. Bladder scan showed over 1000 mL of urine and catheter was inserted with recovery of 1800 mL of urine. A CT scan of the abdomen and pelvis revealed some distention of the bladder, but enlarged prostate. I started him yesterday on Flomax, but he seems to have been on that already, which is good. The patient admits no voiding symptoms at home, but never had urinary retention. PHYSICAL EXAMINATION GENITOURINARY: Deferred at the time of cystoscopy. IMPRESSION: Urinary retention, benign prostatic hyperplasia and/or neurogenic bladder. PLAN: Tomorrow at bedside we will perform a flexible cystoscopy and examine the patient at that time. The procedure was fully explained to the patient, consent was ordered. Job ID: [id number] DocumentID: [id number] Dictated Date: 09/08/2018 11:18:08 [employer] Date: 09/08/2018 12:39:18 Dictated By: ZEKE ANDRES MD
--- NOTE | 2018-09-08 13:18 | NUR ---
CM/SS responded to consult. Patient would like meals on wheels called, [facility] at [phone], provided information for referral. director zone asked that patient call that number when he is discharged from the hospital to set time for her to meet with him and then set up home delivery of meals. Patient is aware of this. Patient also asked about someone to come to the home and set with him or visit. Discussed that he could apply for [employer], though, usually a wait list.
--- NOTE | 2018-09-08 14:22 | Pulmonary Progress Note ---
Subjective Time Seen by a Provider: 14:22 Subjective/Events-last exam Pt complaining of SOB. Sepsis Event Evaluation Height, Weight, BMI Height: 5'11.00" Weight: 175lbs. 0.0oz. 79.478889zt; 20.8 BMI Method:Stated Exam Exam Vital Signs Date Time Temp Pulse Resp B/P (MAP) Pulse Ox O2 Delivery O2 Flow Rate FiO2 09/08/18 12:26 86 09/08/18 12:00 97.9 63 18 100/47 (64) 94 Room Air 09/08/18 08:00 97.9 90 18 102/53 (69) 94 Room Air 09/08/18 08:00 Room Air 09/08/18 07:00 81 09/08/18 04:22 99.3 61 20 94/57 (69) 96 Room Air 09/08/18 01:00 99 09/08/18 00:03 99.0 96 21 99/56 (70) 95 Room Air 09/07/18 20:02 98.5 80 22 107/68 (81) 95 Room Air 09/07/18 20:00 Room Air 09/07/18 19:25 95 Room Air 09/07/18 19:00 99 09/07/18 16:11 98.4 70 18 113/69 (84) 98 Room Air 09/07/18 15:01 96 Room Air I & O 09/08/18 07:00 Intake Total 1750 ml Output Total 5500 ml Balance -3750 ml Height & Weight Height: 5'11.00" Weight: 175lbs. 0.0oz. 79.413812lf; 20.8 BMI Method:Stated General Appearance: No Apparent Distress, WD/WN, Anxious, Chronically ill HEENT: PERRL/EOMI, Normal ENT Inspection, Pharynx Normal, Moist Mucous Membranes Neck: Full Range of Motion, Normal Inspection, Non Tender Respiratory: Chest Non Tender, Lungs Clear, No Accessory Muscle Use, No Respiratory Distress, Decreased Breath Sounds Cardiovascular: No Edema, No Gallop, No JVD, No Murmur, Normal Peripheral Pulses, Irregularly Irregular, Tachycardia Capillary Refill: Less Than 3 Seconds Gastrointestinal: normal bowel sounds, non tender, soft, no pulsatile mass; No rebound; hepatomegaly; No spleenomegaly Extremity: Normal Capillary Refill, Normal Inspection, Normal Range of Motion, Non Tender, No Calf Tenderness, No Pedal Edema Neurologic/Psychiatric: Alert, Oriented x3, No Motor/Sensory Deficits, Normal Mood/Affect Skin: Normal Color, Warm/Dry Lymphatic: No Adenopathy Results Lab Laboratory Tests 09/07/18 05:05 09/08/18 03:30 09/08/18 03:50 Assessment/Plan Assessment/Plan Cardiomyopathy EF 15% -20% -Pt is getting lasix Atelectasis and bilateral small pleural effusions - secondary to CHF -- NO PNEUMONIA COPD/emphysema -Pt needs out pt testing Hepatic shock - improving -Monitor, -Hepatitis panel -- neg -UDS is negative -Acetaminophen is negative -Repeat amylase lipase and LFTs -- normal -TSH normal Cholelithiasis with possible Chronic Cholecystitis -Surgery following Metabolic lactic acidosis - improved -- secondary to decreased perfusion and dehydration on admission . Now improved -No signs of sepsis. No leukocytosis, no fever Hypokalemia -replace Urinary retention -Romero placed Afib RVR -Cardizem gtt -Cardiology following DM Coumadin coagulopathy -Monitor H/o bioprosthetic cardiac valve LUISA CONNOR DO Sep 08, 2018 14:22
[2018-09-08] MEDS ORDERED: ONDANSETRON 4 MG/2 ML (SDV) Z0FRAN IVP PRN (17:15)
[2018-09-08] MEDS: warFARin 5 MG (COUMADIN) TAB PO SCH (17:54)
[2018-09-08] MEDS: TAMSULOSIN 0.4 MG (FLOMAX) CAP PO SCH (17:54)
--- NOTE | 2018-09-08 19:36 | Progress Note ---
Subjective Subjective/Events-last exam Patient states that he feels much better since getting shanks. Will have scope by Jolie. Tolerating PO diet. BM yesterday. Review of Systems Date Seen by Provider: Sep 08, 2018 Time Seen by Provider: 12:35 Pulmonary: Dyspnea Cardiovascular: No: Chest Pain, Palpitations Gastrointestinal: Nausea, Abdominal Pain Genitourinary: Retention Objective Exam Last Set of Vital Signs Vital Signs Date Time Temp Pulse Resp B/P (MAP) Pulse Ox O2 Delivery O2 Flow Rate FiO2 09/08/18 18:59 94 Room Air 09/08/18 16:11 99.3 67 22 100/58 (72) 09/03/18 07:05 2.00 Capillary Refill : Less Than 3 Seconds I&O Intake and Output 09/08/18 00:00 Intake Total 1550 ml Output Total 5150 ml Balance -3600 ml Intake Oral 1550 ml Output Urine Total 5150 ml Bladder Scan Volume Amount 999 ml # Voids 8 # Bowel Movements 1 General: Alert, Cooperative, No Acute Distress Lungs: Clear to Auscultation, Normal Air Movement Heart: Regular Rate, No Murmurs Abdomen: Normal Bowel Sounds, Soft, No Tenderness, No Masses Extremities: No Edema, No Tenderness/Swelling Results/Procedures Lab Laboratory Tests 09/07/18 21:54: Glucometer 152H 09/08/18 03:30: White Blood Count 5.3, Red Blood Count 3.99L, Hemoglobin 11.4L, Hematocrit 38L, Mean Corpuscular Volume 94, Mean Corpuscular Hemoglobin 29, Mean Corpuscular Hemoglobin Concent 30L, Red Cell Distribution Width 15.2H, Platelet Count 99L, Mean Platelet Volume 11.4H, Neutrophils (%) (Auto) 73, Lymphocytes (%) (Auto) 14, Monocytes (%) (Auto) 11, Eosinophils (%) (Auto) 2, Basophils (%) (Auto) 0, Neutrophils # (Auto) 3.8, Lymphocytes # (Auto) 0.7L, Monocytes # (Auto) 0.6, Eosinophils # (Auto) 0.1, Basophils # (Auto) 0.0 09/08/18 03:50: Prothrombin Time 20.8H, INR Comment 1.7H, Sodium Level 140, Potassium Level 4.1, Chloride Level 103, Carbon Dioxide Level 26, Anion Gap 11, Blood Urea Nitrogen 15, Creatinine 0.83, Estimat Glomerular Filtration Rate > 60, BUN/Creatinine Ratio 18, Glucose Level 119H, Calcium Level 9.3, Phosphorus Level 3.7, Magnesium Level 1.5L 09/08/18 06:18: Glucometer 108 09/08/18 11:12: Glucometer 228H 09/08/18 16:01: Glucometer 124H Microbiology 09/01/18 Blood Culture - Final, Complete Staph, Coag Neg (BLAST SETTER) 09/01/18 MRSA Screen - Final, Complete MRSA not isolated Assessment/Plan Assessment/Plan (1) Acute systolic congestive heart failure Status: Acute Assessment & Plan: 09/07: Cardiology consulted, patient on Lasix 80 mg IV, Maximize medical management, started on Entresto, EF 15-20% 09/08: Lasix switched to PO (2) Acute urinary retention Status: Acute Assessment & Plan: 09/07: Continue flomax, Straight cath x1 with 1100cc out, consult for Dr Dave in AM 09/08: Seen by Dr Dave, will get scope (3) Atrial fibrillation with RVR Status: Acute Assessment & Plan: 09/07: Rate controlled, Cardiology managing (4) Shock liver Status: Acute Assessment & Plan: 09/07: Improving with Diuresis, Will continue to monitor 09/08: Will recheck CMP in AM (5) Elevated liver enzymes Status: Acute (6) Warfarin anticoagulation Status: Chronic Assessment & Plan: 09/07: Restart Warfarin today at lower dose 5 mg daily, INR 2.1 09/08: Daily INR's, subtherapeutic today (7) Gallbladder sludge Status: Acute Assessment & Plan: 09/07: Dr Valenzuela consulted, patient does not desire surgery at this time (8) Dilated cardiomyopathy Status: Acute (9) 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 Clinical Quality Measures AMI/AHF: ASA po Prior to arrival: No DVT/VTE Risk/Contraindication: Risk Factor Score Per Nursin RFS Level Per Nursing on Admit: 2=Moderate JACQUES DEL RIO MD Sep 08, 2018 19:35
[2018-09-09 00:20] VITALS: BP 100/67
[2018-09-09] MEDS: RT-ALBUTEROL/IPRATROPIUM 3 ML (DUONEB) VIAL INH SCH ×5 (03:12→22:45)
[2018-09-09 04:00] VITALS: BP 104/71
[2018-09-09] MEDS: inSUlin ASPART (NovoLOG) 1 UNIT/0.01 ML (CHARGE PER UNIT) SC SCH ×4 (06:13→21:20)
[2018-09-09] MEDS: KCL 20 MEQ TAB (K-DUR) PO SCH (06:16)
[2018-09-09 06:40] LABS: BASOPHILS % (AUTO) 0 % (0-10); EOSINOPHILS # (AUTO) 0.1 10^3/uL (0.0-0.3); EOSINOPHILS % (AUTO) 1 % (0-10); HEMATOCRIT 36 % (40-54); HEMOGLOBIN 10.7 G/DL (13.3-17.7); LYMPHOCYTES # (AUTO) 1.1 X 10^3 (1.0-4.0); LYMPHOCYTES % (AUTO) 18 % (12-44); MEAN CORPUSCULAR HEMOGLOBIN 29 PG (25-34); MEAN CORPUSCULAR HGB CONC 30 G/DL (32-36); MEAN CORPUSCULAR VOLUME 95 FL (80-99); MEAN PLATELET VOLUME 11.4 FL (7.4-10.4); MONOCYTES # (AUTO) 0.9 X 10^3 (0.0-1.0); MONOCYTES % (AUTO) 15 % (0-12); NEUTROPHILS # (AUTO) 3.8 X 10^3 (1.8-7.8); NEUTROPHILS % (AUTO) 66 % (42-75); PLATELET COUNT 110 10^3/uL (130-400); RED CELL DISTRIBUTION WIDTH 15.3 % (10.0-14.5); WHITE BLOOD COUNT 5.7 10^3/uL (4.3-11.0)
[2018-09-09 06:54] LABS: INR 1.6 (0.8-1.4); PROTHROMBIN TIME PATIENT 19.3 SEC (12.2-14.7)
[2018-09-09] MEDS ORDERED: LIDOCAINE UROJET 2% GEL 10 ML PKG ONE (07:09)
--- NOTE | 2018-09-09 07:12 | Progress Note-Pre Operative ---
Pre-Operative Progress Note H&P Reviewed The H&P was reviewed, patient examined and no changes noted. Date Seen by Provider: Sep 09, 2018 Time Seen by Provider: 07:12 Date H&P Reviewed: Sep 09, 2018 Time H&P Reviewed: 07:12 Pre-Operative Diagnosis: URINE RETENTION ZEKE ANDRES MD Sep 09, 2018 07:12
--- NOTE | 2018-09-09 07:15 | Progress Note-Post Operative ---
Post-Operative Progess Note Surgeon (s)/[employer] (s) Surgeon ZEKE ANDRES MD [employer]: NONE Pre-Operative Diagnosis URINE RETENTION Post-Operative Diagnosis SAME Procedure & Operative Findings Date of Procedure 09/09/18 Procedure Performed/Findings CYSTOSCOPY Anesthesia Type LOCAL Estimated Blood Loss Estimated blood loss (mL): NONE Specimens/Packing Specimens Removed NONE Packing: NONE ZEKE ANDRES MD Sep 09, 2018 07:15
[2018-09-09 08:00] VITALS: BP 100/64
[2018-09-09] MEDS ORDERED: FUROSEMIDE 40 MG (LASIX) TAB PO SCH (09:00)
--- NOTE | 2018-09-09 09:08 | Physician Query Clarification ---
PQ-Conflicting Diagnosis Admission/Discharge Admission Date: Sep 01, 2018 at 14:13 Discharge Date: The medical record reflects the following clinical scenario: History/Risk Factors: Shock Liver Cholelithiasis Atrial Fib Clinical Findings:WBC-6.0, T-98.4, pulse 133, Resp 21, BP 99/78. Lactic acid 3.31 7/2 blood culture- Staph, Coag Neg Isolated. Treatment:IV Zosyn Question: Do you agree with the impression of the Probable Sepsis per Dr. Chen's consult and progress notes? Please document a response in Progress Note or Discharge Summary. 1. Yes 2. No 3. Other, with explanation of clinical findings 4. Clinically undetermined, no explanation for clinical findings. PHYSICIAN RESPONSE Do you agree w/Consulting Dx?: Yes Please remember a lack of response to the above will prompt a phone page by CDI/Coding staff. In responding to this query, please exercise your independent professional judgment. The purpose of this communication is to more accurately reflect the complexity of your patients condition. The fact that a question is asked does not imply that any particular answer is desired or expected. Thank you for your timely response to this clarification. Requestors name: Rina Valencia [facility] Phone # ext [phone] or [phone] THIS PHYSICIAN QUERY FORM IS A PERMANENT PART OF THE MEDICAL RECORD RINA VALENCIA Sep 09, 2018 09:08 BEN MATTA DO Sep 09, 2018 11:07
[2018-09-09] MEDS: CARVEDILOL 3.125 MG (COREG) TABLET PO SCH ×2 (09:13→22:00)
[2018-09-09] MEDS: PANTOPRAZOLE 40 MG (PROTONIX) TAB PO SCH (09:13)
[2018-09-09] MEDS: DILTIAZEM 240 MG (CARDIZEM CD) CAP PO SCH (09:13)
[2018-09-09] MEDS: SACUBITRIL/VALSARTAN 24/26 MG (ENTRESTO) TABLET PO SCH ×2 (09:13→22:47)
[2018-09-09] MEDS: LACTULOSE SYRUP 10GM/15ML (ENULOSE) 30ML UDC PO SCH ×2 (09:13→21:21)
[2018-09-09] MEDS: SENNA W/DOCUSATE (SENOKOT S) TABLET PO SCH ×2 (09:13→21:21)
[2018-09-09] MEDS: DOCUSATE SODIUM 100 MG (COLACE) CAP PO SCH ×2 (09:14→21:22)
[2018-09-09] MEDS: POLYETHYLENE GLYCOL 17 GM (MIRALAX) PACK PO SCH ×2 (09:14→21:21)
[2018-09-09] MEDS: ENOXAPARIN 80 MG/0.8 ML (LOVENOX) SYR SC SCH ×2 (11:11→21:21)
[2018-09-09 12:00] VITALS: BP 82/53
--- NOTE | 2018-09-09 12:30 | OPERATIVE REPORT ---
DATE OF SERVICE: 09/09/2018 PREOPERATIVE DIAGNOSIS: Urinary retention. POSTOPERATIVE DIAGNOSIS: Urinary retention. OPERATION PERFORMED: Cystoscopy. SURGEON: Don Andres MD ANESTHESIA: Local. COMPLICATIONS: None. DESCRIPTION OF PROCEDURE: With the patient is supine in his bed, catheter was discontinued, it was removed and the genitalia were prepped and draped in the usual sterile fashion. The urethra was infiltrated with 2% lidocaine gel. A penile clamp was applied. This was removed and a flexible cystoscope introduced under vision. Anterior urethra was normal. The prostate was enlarged in lateral lobe and the median lobe. The bladder neck obstruction, 4+ trabeculation of the bladder with cellules and some bladder stones. No bladder tumor. Cystoscopy was confirmed in an antegrade fashion and the cystoscope was removed. He tolerated the procedure and anesthesia well and remained in his bed in stable condition. I went ahead and examined the genitalia, the phallus, adequate meatus, testes down the scrotum, decreased in size. Rectal exam, 1+ benign, nontender, elastic prostate. PLAN: Continue the Flomax and Proscar. We will do bladder scan postvoid residual daily and p.r.n. and straight catheterization of over 400 mL or uncomfortable. The plan was fully explained to the patient. Job ID: [id number] DocumentID: [id number] Dictated Date: 09/09/2018 09:14:11 [employer] Date: 09/09/2018 12:29:51 Dictated By: DON ANDRES MD
--- NOTE | 2018-09-09 15:26 | Pulmonary Progress Note ---
Subjective Time Seen by a Provider: 08:13 Subjective/Events-last exam c/o SOB no productive cough. Sepsis Event Evaluation Height, Weight, BMI Height: 5'11.00" Weight: 161lbs. 8.0oz. 73.293496rx; 20.8 BMI Method:Stated Exam Exam Vital Signs Date Time Temp Pulse Resp B/P (MAP) Pulse Ox O2 Delivery O2 Flow Rate FiO2 09/09/18 14:20 95 Room Air 09/09/18 13:00 101 09/09/18 12:00 97.5 94 16 82/53 (63) 100 Room Air 09/09/18 08:00 98.0 65 20 100/64 (76) 99 Room Air 09/09/18 08:00 Room Air 09/09/18 07:26 97 Room Air 09/09/18 07:00 103 09/09/18 04:00 99.1 94 16 104/71 (82) 98 Room Air 09/09/18 01:00 101 09/09/18 00:20 98.8 106 18 100/67 (78) 96 Room Air 09/08/18 21:59 90 Room Air 09/08/18 21:45 92 20 114/68 (83) 94 Room Air 09/08/18 20:19 99.3 95 20 104/61 (75) 95 Room Air 09/08/18 20:00 Room Air 09/08/18 19:00 118 09/08/18 18:59 94 Room Air 09/08/18 16:11 99.3 67 22 100/58 (72) 96 Room Air I & O 09/09/18 07:00 Intake Total 2440 ml Output Total 3400 ml Balance -960 ml Height & Weight Height: 5'11.00" Weight: 161lbs. 8.0oz. 73.065292ly; 20.8 BMI Method:Stated General Appearance: No Apparent Distress, WD/WN, Anxious, Chronically ill HEENT: PERRL/EOMI, Normal ENT Inspection, Pharynx Normal, Moist Mucous Membranes Neck: Full Range of Motion, Normal Inspection, Non Tender Respiratory: Chest Non Tender, Lungs Clear, No Accessory Muscle Use, No Respiratory Distress, Decreased Breath Sounds Cardiovascular: No Edema, No Gallop, No JVD, No Murmur, Normal Peripheral P ulses, Irregularly Irregular, Tachycardia Capillary Refill: Less Than 3 Seconds Gastrointestinal: normal bowel sounds, non tender, soft, no pulsatile mass; No rebound; hepatomegaly; No spleenomegaly Extremity: Normal Capillary Refill, Normal Inspection, Normal Range of Motion, Non Tender, No Calf Tenderness, No Pedal Edema Neurologic/Psychiatric: Alert, Oriented x3, No Motor/Sensory Deficits, Normal Mood/Affect Skin: Normal Color, Warm/Dry Lymphatic: No Adenopathy Results Lab Laboratory Tests 09/08/18 03:30 09/08/18 03:50 09/09/18 06:00 Assessment/Plan Assessment/Plan Cardiomyopathy EF 15% -20% -lasix Atelectasis and bilateral small pleural effusions - secondary to CHF -- NO PNEUMONIA COPD/emphysema -Pt needs out pt testing Hepatic shock - improving -Monitor, -Hepatitis panel -- neg -UDS is negative -Acetaminophen is negative -Repeat amylase lipase and LFTs -- normal -TSH normal Cholelithiasis with possible Chronic Cholecystitis -Surgery following Metabolic lactic acidosis - improved -- secondary to decreased perfusion and dehydration on admission . Now improved -No signs of sepsis. No leukocytosis, no fever Hypokalemia -replace Urinary retention -Romero placed Afib RVR -Cardizem gtt -Cardiology following DM Coumadin coagulopathy -Monitor H/o bioprosthetic cardiac valve LUISA CONNOR DO Sep 09, 2018 15:26
[2018-09-09 16:00] VITALS: BP 87/52
[2018-09-09] MEDS: TAMSULOSIN 0.4 MG (FLOMAX) CAP PO SCH (18:14)
[2018-09-09] MEDS: warFARin 7.5 MG (COUMADIN) TAB PO SCH (18:14)
[2018-09-09 20:00] VITALS: BP 88/59
--- NOTE | 2018-09-09 22:18 | Progress Note ---
Subjective Subjective/Events-last exam Had bedside cysto this AM. States that he was told he had BPH. Otherwise no other concerns. Had 1 episode of vomiting yesterday but tolerated breakfast this AM Review of Systems Date Seen by Provider: Sep 09, 2018 Time Seen by Provider: 09:50 Pulmonary: No Dyspnea, No Cough Cardiovascular: No: Chest Pain, Palpitations Gastrointestinal: Vomiting, Abdominal Pain Genitourinary: Frequency, Incontinence Neurological: Weakness Objective Exam Last Set of Vital Signs Vital Signs Date Time Temp Pulse Resp B/P (MAP) Pulse Ox O2 Delivery O2 Flow Rate FiO2 09/09/18 20:00 97.3 88 20 88/59 (69) 99 Room Air 09/03/18 07:05 2.00 Capillary Refill : Less Than 3 Seconds I&O Intake and Output 09/09/18 00:00 Intake Total 2620 ml Output Total 3775 ml Balance -1155 ml Intake Oral 2620 ml Output Urine Total 3775 ml # Bowel Movements 2 # Emeses 1 General: Alert, Oriented X3, Cooperative, No Acute Distress HEENT: Mucous Memb Moist/[place] Lungs: Clear to Auscultation, Normal Air Movement Heart: Regular Rate, No Murmurs Abdomen: Normal Bowel Sounds, Soft, No Tenderness, No Masses Extremities: No Edema, No Tenderness/Swelling Results/Procedures Lab Laboratory Tests 09/09/18 05:58: Glucometer 85 09/09/18 06:00: White Blood Count 5.7, Red Blood Count 3.73L, Hemoglobin 10.7L, Hematocrit 36L, Mean Corpuscular Volume 95, Mean Corpuscular Hemoglobin 29, Mean Corpuscular Hemoglobin Concent 30L, Red Cell Distribution Width 15.3H, Platelet Count 110L, Mean Platelet Volume 11.4H, Neutrophils (%) (Auto) 66, Lymphocytes (%) (Auto) 18, Monocytes (%) (Auto) 15H, Eosinophils (%) (Auto) 1, Basophils (%) (Auto) 0, Neutrophils # (Auto) 3.8, Lymphocytes # (Auto) 1.1, Monocytes # (Auto) 0.9, Eosinophils # (Auto) 0.1, Basophils # (Auto) 0.0, Prothrombin Time 19.3H, INR Comment 1.6H 09/09/18 11:05: Glucometer 179H 09/09/18 16:30: Glucometer 124H 09/09/18 20:54: Glucometer 156H Microbiology 09/01/18 Blood Culture - Final, Complete Staph, 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) 09/08/18 MRSA Screen - Final, Complete MRSA not isolated Assessment/Plan Assessment/Plan (1) Acute systolic congestive heart failure Status: Acute Assessment & Plan: 09/07: Cardiology consulted, patient on Lasix 80 mg IV, Maximize medical management, started on Entresto, EF 15-20% 09/08: Lasix switched to PO 09/09: Decreased to 40 mg daily given hypotension (2) Acute urinary retention Status: Acute Assessment & Plan: 09/07: Continue flomax, Straight cath x1 with 1100cc out, consult for Dr Dave in AM 09/08: Seen by Dr Dave, will get scope 09/09: Scope this AM, shanks removed, voiding trial (3) Atrial fibrillation with RVR Status: Acute Assessment & Plan: 09/07: Rate controlled, Cardiology managing (4) Shock liver Status: Acute Assessment & Plan: 09/07: Improving with Diuresis, Will continue to monitor 09/08: Will recheck CMP in AM (5) Elevated liver enzymes Status: Acute (6) Warfarin anticoagulation Status: Chronic Assessment & Plan: 09/07: Restart Warfarin today at lower dose 5 mg daily, INR 2.1 09/08: Daily INR's, subtherapeutic today 09/09: On Lovenox while we are titrating warfarin (7) Gallbladder sludge Status: Acute Assessment & Plan: 09/07: Dr Valenzuela consulted, patient does not desire surgery at this time (8) Dilated cardiomyopathy Status: Acute (9) 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 Clinical Quality Measures AMI/AHF: ASA po Prior to arrival: No DVT/VTE Risk/Contraindication: Risk Factor Score Per Nursin RFS Level Per Nursing on Admit: 2=Moderate JACQUES DEL RIO MD Sep 09, 2018 22:18
--- NOTE | 2018-09-09 23:05 | Cardiology Progress Note ---
Cardiology SOAP Progress Note Subjective: Not feeling well. However denies shortness of breath. Objective: I&O/Vital Signs 09/10/18 09/10/18 09/10/18 09/10/18 12:00 13:00 16:00 19:00 Temp 97.5 98.0 Pulse 101 93 108 104 Resp 20 18 B/P (MAP) 110/64 (79) 99/67 (78) Pulse Ox 99 100 O2 Delivery Room Air Room Air 09/10/18 09/10/18 19:39 20:00 Temp 98.9 Pulse 58 Resp 20 B/P (MAP) 95/64 (74) Pulse Ox 99 O2 Delivery Room Air Room Air 09/10/18 00:00 Intake Total 1940 ml Output Total 1700 ml Balance 240 ml Weight (Pounds): 161 Weight (Ounces): 8.0 Weight (Calculated Kilograms): 73.138157 Constitutional: AAO x 3, well-developed, well-nourished Respiratory: No accessory muscle use; crackles (bi-basilar crackles), other (good bilat air entry) Cardiovascular: regular rate-rhythm, S1 and S2, systolic murmur (2/6 DIANNE at card base) Gastrointestional: No tender; soft; No guarding, No rebound; audible bowel sounds Genital/Rectal: other (indwelling urinary catheter to DD; clear yellow) Extremities: No clubbing, No cyanosis, No significant edema Neurologic/Psychiatric: other (able to move all limbs equally), grossly intact Skin: No rash on exposed areas, No ulcerations on exposed areas Results/Procedures: Labs Laboratory Tests 09/10/18 06:02: Glucometer 95 09/10/18 06:30: White Blood Count 4.5, Red Blood Count 3.93L, Hemoglobin 11.4L, Hematocrit 38L, Mean Corpuscular Volume 96, Mean Corpuscular Hemoglobin 29, Mean Corpuscular Hemoglobin Concent 30L, Red Cell Distribution Width 15.2H, Platelet Count 107L, Mean Platelet Volume 11.2H, Neutrophils (%) (Auto) 68, Lymphocytes (%) (Auto) 16 , Monocytes (%) (Auto) 15H, Eosinophils (%) (Auto) 2, Basophils (%) (Auto) 0, Neutrophils # (Auto) 3.1, Lymphocytes # (Auto) 0.7L, Monocytes # (Auto) 0.7, Eosinophils # (Auto) 0.1, Basophils # (Auto) 0.0, Prothrombin Time 21.9H, INR Comment 1.8H, Phosphorus Level 2.9, Magnesium Level 1.5L 09/10/18 11:43: Glucometer 122H 09/10/18 15:47: Glucometer 174H 09/10/18 20:51: Glucometer 190H Microbiology 09/01/18 Blood Culture - Final, Complete Staph, 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) 09/08/18 MRSA Screen - Final, Complete MRSA not isolated A/P: Assessment/Dx: Ac urinary retention on 09/07/18, managed by Dr Dave Acute systolic CHF due to dilated cardiomyopathy, improved Echo of 09/02/18: LVEF 15-20%, biatrial enlargement, mod to sev MR, mod (probably a bioprosthetic valve), RVSP 38 mmHg, markedly dilated IVC Atrial fibrillation, probably chronic - rate controlled Passive hepatic congestion, improving Probable sepsis, managed by the Med Svce Chronic warfarin anticoagulation, currently sub-therapeutic INR Thrombocytopenia, improving H/o bioprosthetic cardiac valve by Dr Matson at [place], [place], several years ago. Pt does not know any details and has not followed with Cardiology Cholelithiasis with possible chronic cholecystitis, being managed by Dr Valenzuela Plan: * Continue heart-failure meds that have been initiated during this hospitalization * Resume warfarin after the issue of urinary retention has been addressed * Change IV Lasix to oral * Replace Mag * Sub-therapeutic INR * Social service consult * Monitor labs Thank you for your consultation. Please call me if you have any questions. Monroe Marin MD, FACP, FACC, FSCAI, FHRS, CCDS Interventional Cardiology Cardiac Electrophysiology Vascular Medicine and Endovascular Interventions Clinical Quality Measures AMI/AHF: ASA po Prior to arrival: Ana Davis MD Sep 09, 2018 23:05
[2018-09-10 00:34] VITALS: BP 96/54
[2018-09-10] MEDS: RT-ALBUTEROL/IPRATROPIUM 3 ML (DUONEB) VIAL INH SCH ×3 (02:41→10:11)
[2018-09-10 04:13] VITALS: BP 104/61
[2018-09-10] MEDS: inSUlin ASPART (NovoLOG) 1 UNIT/0.01 ML (CHARGE PER UNIT) SC SCH ×4 (06:05→21:57)
[2018-09-10] MEDS: KCL 20 MEQ TAB (K-DUR) PO SCH (06:09)
[2018-09-10 06:57] LABS: BASOPHILS % (AUTO) 0 % (0-10); EOSINOPHILS # (AUTO) 0.1 10^3/uL (0.0-0.3); EOSINOPHILS % (AUTO) 2 % (0-10); HEMATOCRIT 38 % (40-54); HEMOGLOBIN 11.4 G/DL (13.3-17.7); LYMPHOCYTES # (AUTO) 0.7 X 10^3 (1.0-4.0); LYMPHOCYTES % (AUTO) 16 % (12-44); MEAN CORPUSCULAR HEMOGLOBIN 29 PG (25-34); MEAN CORPUSCULAR HGB CONC 30 G/DL (32-36); MEAN CORPUSCULAR VOLUME 96 FL (80-99); MEAN PLATELET VOLUME 11.2 FL (7.4-10.4); MONOCYTES # (AUTO) 0.7 X 10^3 (0.0-1.0); MONOCYTES % (AUTO) 15 % (0-12); NEUTROPHILS # (AUTO) 3.1 X 10^3 (1.8-7.8); NEUTROPHILS % (AUTO) 68 % (42-75); PLATELET COUNT 107 10^3/uL (130-400); RED CELL DISTRIBUTION WIDTH 15.2 % (10.0-14.5); WHITE BLOOD COUNT 4.5 10^3/uL (4.3-11.0)
[2018-09-10 07:25] LABS: MAGNESIUM 1.5 MG/DL (1.8-2.4); PHOSPHORUS 2.9 MG/DL (2.3-4.7)
[2018-09-10 08:00] VITALS: BP 90/57
[2018-09-10] MEDS: SENNA W/DOCUSATE (SENOKOT S) TABLET PO SCH ×2 (10:00→21:57)
[2018-09-10] MEDS: DILTIAZEM 240 MG (CARDIZEM CD) CAP PO SCH (10:00)
[2018-09-10] MEDS: DOCUSATE SODIUM 100 MG (COLACE) CAP PO SCH ×2 (10:00→21:51)
[2018-09-10] MEDS: CARVEDILOL 3.125 MG (COREG) TABLET PO SCH ×2 (10:00→21:56)
[2018-09-10] MEDS: SACUBITRIL/VALSARTAN 24/26 MG (ENTRESTO) TABLET PO SCH ×2 (10:00→21:56)
[2018-09-10] MEDS: POLYETHYLENE GLYCOL 17 GM (MIRALAX) PACK PO SCH ×2 (10:00→21:51)
[2018-09-10] MEDS: LACTULOSE SYRUP 10GM/15ML (ENULOSE) 30ML UDC PO SCH ×2 (10:00→21:51)
--- NOTE | 2018-09-10 10:15 | NUR ---
SPOKE WITH DR CONNOR AND NOTIFIED THAT PT IS REFUSING TX AND ORDERS RECEIVED TO CHANGE BREATHING TX TO PRN.
[2018-09-10] MEDS: ENOXAPARIN 80 MG/0.8 ML (LOVENOX) SYR SC SCH ×2 (11:00→21:57)
[2018-09-10 11:07] LABS: INR 1.8 (0.8-1.4); PROTHROMBIN TIME PATIENT 21.9 SEC (12.2-14.7)
[2018-09-10] MEDS: FUROSEMIDE 40 MG (LASIX) TAB PO SCH (11:38)
[2018-09-10] MEDS: PANTOPRAZOLE 40 MG (PROTONIX) TAB PO SCH (11:38)
[2018-09-10] MEDS: FINASTERIDE (PROSCAR) 5 MG TAB PO SCH (11:38)
[2018-09-10 12:00] VITALS: BP 110/64
--- NOTE | 2018-09-10 12:00 | Progress Note - Urology ---
Progress Note-Urology Progress Notes/Assess & Plan Progress/Assessment & Plan UNABLE TO VOID. SCOTT BACK IN. PLAN INCREASE FLOMAX TO BID. PATIENT NOT MEDICALLY WELL FOR TURP YET OR UROLIFT. Final Diagnosis URINE RETENTION ZEKE ANDRES MD Sep 10, 2018 12:00
--- NOTE | 2018-09-10 14:17 | Physical Therapy Evaluation ---
PT Evaluation-General Medical Diagnosis Admission Date Sep 01, 2018 at 14:13 Medical Diagnosis: N/V/dehydration/elevated liver enzymes Onset Date: Sep 01, 2018 Therapy Diagnosis Therapy Diagnosis: debility Height/Weight Height (Feet): 5 Height (Inches): 11.00 Weight (Pounds): 164 Weight (Ounces): 6.0 Precautions Precautions/Isolations: Fall Prevention, Standard Precautions Weight Bear Status Right Lower Extremity: Right Weight Bearing/Tolerated Left Lower Extremity: Left Weight Bearing/Tolerated Referral Physician: Cnythia Reason for Referral: Evaluation/Treatment Medical History Pertinent Medical History: Atrial Fib, DM, HTN Current History per physician, patient has not been OOB x 6 days Reviewed History: Yes Social History Home: Single Level Current Living Status: Alone Entry Into Home: Stairs With Railing PT Steps Into Home: 2 Prior/Core FIM Prior Level of Function Therapy Code Descriptions/Definitions Functional [place] Measure: 0=Not Assessed/NA 4=Minimal Assistance 1=Total Assistance 5=Supervision or Setup 2=Maximal Assistance 6=Modified [place] 3=Moderate Assistance 7=Complete [place] Therapy Quality Codes: 6 Independent with activity with or without an assistive device 5 Patient requires set up or clean up by helper. Patient completes activity by themselves 4 Supervision or touching assist (CGA). [place] provide cues , steadying assist 3 The helper provides less than half the effort to complete the activity 2 The helper provides more than half the effort to complete the activity 1 Dependent. The helper does all the effort to complete an activity 7 Patient refused to complete or attempt activity 9 The patient did not perform the activity before the current illness or injury 88 Not attempted due to Medical conditions or safety concerns Functional Abilities and Goals: Independent: Patient completed the activities by him/herself, with or without an assistive device, with no assistance from a helper. Needed Some Help: Patient needed partial assistance from another person to complete activities. Dependent: A helper completed the activities for the patient. Unknown: Not Applicable: Bed Mobility: 7 Transfers (B,C,W/C) (FIM): 7 Gait: 7 Stairs: 7 Indoor Mobility (Ambulation): Independent Stairs: Independent Prior Devices Use: None PT Evaluation-Current Subjective Patient agrees to PT. No c/o. Objective Patient Orientation: Person, Time, Situation Problem Solving: Good Attachments: Shanks Catheter ROM/Strength ROM Lower Extremities bilateral LE WFL Strength Lower Extremities 4+/5 grossly bilaterally Integumentary/Posture Integumentary refer to nursing notes Bowel Incontinence: No Bladder Incontinence: Shanks Cath Posture WFL Neuromuscular (Tone, Coordination, Reflexes) grossly intact Sensory Vision: Functional Hearing: Functional Hand Dominance: Right Sensation Right Lower Extremit: Impaired Sensation Left Lower Extremity: Impaired Transfers Therapy Code Descriptions/Definitions Functional [place] Measure: 0=Not Assessed/NA 4=Minimal Assistance 1=Total Assistance 5=Supervision or Setup 2=Maximal Assistance 6=Modified [place] 3=Moderate Assistance 7=Complete [place] Transfers (B, C, W/C) (FIM): 7 Scootin Rollin Supine to/from Sit: 7 Sit to/from Stand: 7 Gait Mode of Locomotion: Walk Anticipated Mode of Locomotion: Walk Gait (FIM): 7 Distance (FIM): 3=150 ft Distance: 500' Gait Level of Assist: 7 Gait Assistive Device: None Comments/Gait Description safe and functional/patient carried his shanks Balance Sitting Static: Normal Sitting Dynamic: Normal Standing Static: Normal Standing Dynamic: Normal Assessment/Needs 83 y.o. male, is currently at [facility] with all gross motor skills and does not require skilled therapy intervention. PT instructed patient and RN on ambulating PRN in hallway independently during day. Rehab Potential: Fair PT Plan Treatment/Plan Treatment Plan: Discontinue PT, goals met Treatment Plan: Other Treatment Duration: Sep 10, 2018 Frequency: 1 time per week Estimated Hrs Per Day: .25 hour per day Patient and/or Family Agrees t: Yes Time/GCodes Time In: 1315 Time Out: 1330 Total Billed Treatment Time: 15 Total Billed Treatment 1 visit RE-Eval 15 min SUSHIL AYOUB PT Sep 10, 2018 14:17
[2018-09-10 16:00] VITALS: BP 99/67
[2018-09-10] MEDS: warFARin 7.5 MG (COUMADIN) TAB PO SCH (18:04)
--- NOTE | 2018-09-10 18:23 | Progress Note ---
Subjective Subjective/Events-last exam Doing well this AM. Shanks was replaced due to retention. Tolerating PO diet and ambulation Review of Systems Date Seen by Provider: Sep 10, 2018 Time Seen by Provider: 10:15 Pulmonary: No Dyspnea, No Cough Cardiovascular: No: Chest Pain, Palpitations Gastrointestinal: No: Nausea, Vomiting, Abdominal Pain Genitourinary: Incontinence, Retention Neurological: Weakness Objective Exam Last Set of Vital Signs Vital Signs Date Time Temp Pulse Resp B/P (MAP) Pulse Ox O2 Delivery O2 Flow Rate FiO2 09/10/18 16:00 98.0 108 18 99/67 (78) 100 Room Air Capillary Refill : Less Than 3 Seconds I&O Intake and Output 09/10/18 00:00 Intake Total 2060 ml Output Total 2000 ml Balance 60 ml Intake Oral 2060 ml Output Urine Total 2000 ml Bladder Scan Volume Amount 930 ml 778 ml 800 ml # Bowel Movements 1 General: Alert, Cooperative, No Acute Distress HEENT: Mucous Memb Moist/Young Lungs: Clear to Auscultation, Normal Air Movement Heart: No Murmurs Abdomen: Normal Bowel Sounds, Soft, No Tenderness, No Masses Extremities: No Edema, No Tenderness/Swelling Neuro: Normal Speech, Sensation Intact Results/Procedures Lab Laboratory Tests 09/09/18 20:54: Glucometer 156H 09/10/18 06:02: Glucometer 95 09/10/18 06:30: White Blood Count 4.5, Red Blood Count 3.93L, Hemoglobin 11.4L, Hematocrit 38L, Mean Corpuscular Volume 96, Mean Corpuscular Hemoglobin 29, Mean Corpuscular Hemoglobin Concent 30L, Red Cell Distribution Width 15.2H, Platelet Count 107L, Mean Platelet Volume 11.2H, Neutrophils (%) (Auto) 68, Lymphocytes (%) (Auto) 16, Monocytes (%) (Auto) 15H, Eosinophils (%) (Auto) 2, Basophils (%) (Auto) 0, Neutrophils # (Auto) 3.1, Lymphocytes # (Auto) 0.7L, Monocytes # (Auto) 0.7, Eosinophils # (Auto) 0.1, Basophils # (Auto) 0.0, Prothrombin Time 21.9H, INR Comment 1.8H, Phosphorus Level 2.9, Magnesium Level 1.5L 09/10/18 11:43: Glucometer 122H 09/10/18 15:47: Glucometer 174H Microbiology 09/01/18 Blood Culture - Final, Complete Staph, Coag Neg (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) 09/08/18 MRSA Screen - Final, Complete MRSA not isolated Assessment/Plan Assessment/Plan (1) Acute systolic congestive heart failure Status: Acute Assessment & Plan: 09/07: Cardiology consulted, patient on Lasix 80 mg IV, Maximize medical management, started on Entresto, EF 15-20% 09/08: Lasix switched to PO 09/09: Decreased to 40 mg daily given hypotension (2) Acute urinary retention Status: Acute Assessment & Plan: 09/07: Continue flomax, Straight cath x1 with 1100cc out, consult for Dr Dave in AM 09/08: Seen by Dr Dave, will get scope 09/09: Scope this AM, shanks removed, voiding trial 09/10: Shanks replaced, flomax BID per Dr Dave (3) Atrial fibrillation with RVR Status: Acute Assessment & Plan: 09/07: Rate controlled, Cardiology managing (4) Shock liver Status: Acute Assessment & Plan: 09/07: Improving with Diuresis, Will continue to monitor 09/08: Will recheck CMP in AM (5) Elevated liver enzymes Status: Acute (6) Warfarin anticoagulation Status: Chronic Assessment & Plan: 09/07: Restart Warfarin today at lower dose 5 mg daily, INR 2.1 09/08: Daily INR's, subtherapeutic today 09/09: On Lovenox while we are titrating warfarin 09/10: Subtherapeutic, continue lovenox (7) Gallbladder sludge Status: Acute Assessment & Plan: 09/07: Dr Valenzuela consulted, patient does not desire surgery at this time (8) Dilated cardiomyopathy Status: Acute (9) 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 Clinical Quality Measures AMI/AHF: ASA po Prior to arrival: No DVT/VTE Risk/Contraindication: Risk Factor Score Per Nursin RFS Level Per Nursing on Admit: 2=Moderate JACQUES DEL RIO MD Sep 10, 2018 18:23
[2018-09-10 20:00] VITALS: BP 95/64
[2018-09-10] MEDS: TAMSULOSIN 0.4 MG (FLOMAX) CAP PO SCH (21:56)
--- NOTE | 2018-09-10 23:04 | Cardiology Progress Note ---
Cardiology SOAP Progress Note Subjective: No cardiac symptoms. Objective: I&O/Vital Signs 09/10/18 09/10/18 09/10/18 09/10/18 12:00 13:00 16:00 19:00 Temp 97.5 98.0 Pulse 101 93 108 104 Resp 20 18 B/P (MAP) 110/64 (79) 99/67 (78) Pulse Ox 99 100 O2 Delivery Room Air Room Air 09/10/18 09/10/18 19:39 20:00 Temp 98.9 Pulse 58 Resp 20 B/P (MAP) 95/64 (74) Pulse Ox 99 O2 Delivery Room Air Room Air 09/10/18 00:00 Intake Total 1940 ml Output Total 1700 ml Balance 240 ml Weight (Pounds): 164 Weight (Ounces): 6.0 Weight (Calculated Kilograms): 74.943915 Constitutional: AAO x 3, well-developed, well-nourished Respiratory: No accessory muscle use; crackles (bi-basilar crackles), other (good bilat air entry) Cardiovascular: regular rate-rhythm, S1 and S2, systolic murmur (2/6 DIANNE at card base) Gastrointestional: No tender; soft; No guarding, No rebound; audible bowel sounds Genital/Rectal: other (indwelling urinary catheter to DD; clear yellow) Extremities: No clubbing, No cyanosis, No significant edema Neurologic/Psychiatric: other (able to move all limbs equally), grossly intact Skin: No rash on exposed areas, No ulcerations on exposed areas Results/Procedures: Labs Laboratory Tests 09/10/18 06:02: Glucometer 95 09/10/18 06:30: White Blood Count 4.5, Red Blood Count 3.93L, Hemoglobin 11.4L, Hematocrit 38L, Mean Corpuscular Volume 96, Mean Corpuscular Hemoglobin 29, Mean Corpuscular Hemoglobin Concent 30L, Red Cell Distribution Width 15.2H, Platelet Count 107L, Mean Platelet Volume 11.2H, Neutrophils (%) (Auto) 68, Lymphocytes (%) (Auto) 16, Monocytes (%) (Auto) 15H, Eosinophils (%) (Auto) 2, Basophils (%) (Auto) 0, Neutrophils # (Auto) 3.1, Lymphocytes # (Auto) 0.7L, Monocytes # (Auto) 0.7, Eosinophils # (Auto) 0.1, Basophils # (Auto) 0.0, Prothrombin Time 21.9H, INR Comment 1.8H, Phosphorus Level 2.9, Magnesium Level 1.5L 09/10/18 11:43: Glucometer 122H 09/10/18 15:47: Glucometer 174H 09/10/18 20:51: Glucometer 190H Microbiology 09/01/18 Blood Culture - Final, Complete Staph, Coag Neg (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) 09/08/18 MRSA Screen - Final, Complete MRSA not isolated A/P: Assessment/Dx: Ac urinary retention on 09/07/18, managed by Dr Dave Acute systolic CHF due to dilated cardiomyopathy, improved Echo of 09/02/18: LVEF 15-20%, biatrial enlargement, mod to sev MR, mod (probably a bioprosthetic valve), RVSP 38 mmHg, markedly dilated IVC Atrial fibrillation, probably chronic - rate controlled Passive hepatic congestion, improving Probable sepsis, managed by the Med Svce Chronic warfarin anticoagulation, currently sub-therapeutic INR Thrombocytopenia, improving H/o bioprosthetic cardiac valve by Dr Matson at [place], [place], several years ago. Pt does not know any details and has not followed with Cardiology Cholelithiasis with possible chronic cholecystitis, being managed by Dr Valenzuela Plan: * Continue heart-failure meds that have been initiated during this hospitalization * Resume warfarin after the issue of urinary retention has been addressed * Change IV Lasix to oral * Replace Mag * Sub-therapeutic INR * Social service consult * Monitor labs Thank you for your consultation. Please call me if you have any questions. Monroe Marin MD, FACP, FACC, FSCAI, FHRS, CCDS Interventional Cardiology Cardiac Electrophysiology Vascular Medicine and Endovascular Interventions Clinical Quality Measures AMI/AHF: ASA po Prior to arrival: Ana Davis MD Sep 10, 2018 23:04
[2018-09-11] VITALS: BP 121/73
[2018-09-11 04:00] VITALS: BP 97/54
[2018-09-11] MEDS: inSUlin ASPART (NovoLOG) 1 UNIT/0.01 ML (CHARGE PER UNIT) SC SCH ×3 (06:00→16:00)
[2018-09-11] MEDS: KCL 20 MEQ TAB (K-DUR) PO SCH (06:31)
[2018-09-11 06:48] LABS: BASOPHILS % (AUTO) 1 % (0-10); EOSINOPHILS # (AUTO) 0.2 10^3/uL (0.0-0.3); EOSINOPHILS % (AUTO) 5 % (0-10); HEMATOCRIT 38 % (40-54); HEMOGLOBIN 11.6 G/DL (13.3-17.7); LYMPHOCYTES % (AUTO) 24 % (12-44); MEAN CORPUSCULAR HEMOGLOBIN 29 PG (25-34); MEAN CORPUSCULAR HGB CONC 30 G/DL (32-36); MEAN CORPUSCULAR VOLUME 96 FL (80-99); MEAN PLATELET VOLUME 11.3 FL (7.4-10.4); MONOCYTES # (AUTO) 0.6 X 10^3 (0.0-1.0); MONOCYTES % (AUTO) 15 % (0-12); NEUTROPHILS # (AUTO) 2.3 X 10^3 (1.8-7.8); NEUTROPHILS % (AUTO) 56 % (42-75); PLATELET COUNT 115 10^3/uL (130-400); RED CELL DISTRIBUTION WIDTH 15.2 % (10.0-14.5)
[2018-09-11 07:00] LABS: INR 2.4 (0.8-1.4); PROTHROMBIN TIME PATIENT 26.8 SEC (12.2-14.7)
[2018-09-11 07:08] LABS: ALANINE AMINOTRANSFERASE 115 U/L (0-55); ALBUMIN 3.1 GM/DL (3.2-4.5); ALKALINE PHOSPHATASE 77 U/L (40-136); BILIRUBIN,TOTAL 1.2 MG/DL (0.1-1.0); BUN/CREATININE RATIO 16; CALCIUM 8.8 MG/DL (8.5-10.1); CARBON DIOXIDE 26 MMOL/L (21-32); CHLORIDE 101 MMOL/L (98-107); GFR ESTIMATED > 60; GLUCOSE 102 MG/DL (70-105); MAGNESIUM 1.6 MG/DL (1.8-2.4); PHOSPHORUS 3.1 MG/DL (2.3-4.7); POTASSIUM 3.6 MMOL/L (3.6-5.0); SODIUM 138 MMOL/L (135-145); TOTAL PROTEIN 6.4 GM/DL (6.4-8.2)
--- NOTE | 2018-09-11 07:23 | Pulmonary Progress Note ---
Subjective Time Seen by a Provider: 07:23 Subjective/Events-last exam Pt is doing better. Sepsis Event Evaluation Height, Weight, BMI Height: 5'11.00" Weight: 163lbs. 4.0oz. 74.156965az; 20.8 BMI Method:Stated Exam Exam Vital Signs Date Time Temp Pulse Resp B/P (MAP) Pulse Ox O2 Delivery O2 Flow Rate FiO2 09/11/18 04:00 98.7 91 20 97/54 (68) 94 Room Air 09/11/18 00:54 99 09/11/18 00:00 99.5 109 20 121/73 (89) 97 Room Air 09/10/18 20:00 Room Air 09/10/18 20:00 98.9 58 20 95/64 (74) 99 Room Air 09/10/18 19:39 Room Air 09/10/18 19:00 104 09/10/18 16:00 98.0 108 18 99/67 (78) 100 Room Air 09/10/18 13:00 93 09/10/18 12:00 97.5 101 20 110/64 (79) 99 Room Air 09/10/18 09:00 Room Air 09/10/18 08:00 97.6 93 20 90/57 (68) 98 Room Air I & O 09/11/18 07:00 Intake Total 3487 ml Output Total 5100 ml Balance -1613 ml Height & Weight Height: 5'11.00" Weight: 163lbs. 4.0oz. 74.287052pz; 20.8 BMI Method:Stated General Appearance: No Apparent Distress, WD/WN, Anxious, Chronically ill HEENT: PERRL/EOMI, Normal ENT Inspection, Pharynx Normal, Moist Mucous Membranes Neck: Full Range of Motion, Normal Inspection, Non Tender Respiratory: Chest Non Tender, Lungs Clear, No Accessory Muscle Use, No Respiratory Distress, Decreased Breath Sounds Cardiovascular: No Edema, No Gallop, No JVD, No Murmur, Normal Peripheral Pulses, Irregularly Irregular, Tachycardia Capillary Refill: Less Than 3 Seconds Gastrointestinal: normal bowel sounds, non tender, soft, no pulsatile mass; No rebound; hepatomegaly; No spleenomegaly Extremity: Normal Capillary Refill, Normal Inspection, Normal Range of Motion, Non Tender, No Calf Tenderness, No Pedal Edema Neurologic/Psychiatric: Alert, Oriented x3, No Motor/Sensory Deficits, Normal Mood/Affect Skin: Normal Color, Warm/Dry Lymphatic: No Adenopathy Results Lab Laboratory Tests 09/10/18 06:30 09/11/18 05:39 09/11/18 05:59 Assessment/Plan Assessment/Plan Cardiomyopathy EF 15% -20% -lasix Atelectasis and bilateral small pleural effusions - secondary to CHF -- NO PNEUMONIA COPD/emphysema -Pt needs out pt testing Hepatic shock - improving -Monitor, -Hepatitis panel -- neg -UDS is negative -Repeat amylase lipase and LFTs -- normal -TSH normal Cholelithiasis with possible Chronic Cholecystitis -Surgery following Metabolic lactic acidosis - improved -- Urinary retention -Romero placed Afib RVR -Cardizem gtt -Cardiology following DM Coumadin coagulopathy -Monitor H/o bioprosthetic cardiac valve LUISA CONNOR DO Sep 11, 2018 07:23
[2018-09-11 08:35] VITALS: BP 105/66
[2018-09-11] MEDS: CARVEDILOL 3.125 MG (COREG) TABLET PO SCH (09:02)
[2018-09-11] MEDS: FINASTERIDE (PROSCAR) 5 MG TAB PO SCH (09:02)
[2018-09-11] MEDS: FUROSEMIDE 40 MG (LASIX) TAB PO SCH (09:02)
[2018-09-11] MEDS: DILTIAZEM 240 MG (CARDIZEM CD) CAP PO SCH (09:02)
[2018-09-11] MEDS: PANTOPRAZOLE 40 MG (PROTONIX) TAB PO SCH (09:02)
[2018-09-11] MEDS: TAMSULOSIN 0.4 MG (FLOMAX) CAP PO SCH (09:02)
[2018-09-11] MEDS: DOCUSATE SODIUM 100 MG (COLACE) CAP PO SCH (09:02)
[2018-09-11] MEDS: SENNA W/DOCUSATE (SENOKOT S) TABLET PO SCH (09:03)
[2018-09-11] MEDS: POLYETHYLENE GLYCOL 17 GM (MIRALAX) PACK PO SCH (09:03)
[2018-09-11] MEDS: ENOXAPARIN 80 MG/0.8 ML (LOVENOX) SYR SC SCH (09:03)
[2018-09-11] MEDS: LACTULOSE SYRUP 10GM/15ML (ENULOSE) 30ML UDC PO SCH (09:03)
--- NOTE | 2018-09-11 09:42 | Progress Note - Urology ---
Progress Note-Urology Progress Notes/Assess & Plan Progress/Assessment & Plan TOLERATES FLOMAX BID. NO A.E. TOV POSSIBLY FRIDAY Final Diagnosis URINE RETENTION ZEKE ANDRES MD Sep 11, 2018 09:42
[2018-09-11] MEDS: SACUBITRIL/VALSARTAN 24/26 MG (ENTRESTO) TABLET PO SCH (10:10)
[2018-09-11 11:48] LABS: INR 2.5 (0.8-1.4); PROTHROMBIN TIME PATIENT 28.4 SEC (12.2-14.7)
[2018-09-11 11:59] VITALS: BP 108/55
--- NOTE | 2018-09-11 12:26 | Cardiology Progress Note ---
Cardiology SOAP Progress Note Subjective: No cardiac symptoms Objective: I&O/Vital Signs 09/11/18 09/11/18 09/11/18 09/11/18 00:54 04:00 07:00 08:00 Temp 98.7 Pulse 99 91 117 Resp 20 B/P (MAP) 97/54 (68) Pulse Ox 94 O2 Delivery Room Air Room Air 09/11/18 09/11/18 09/11/18 08:35 10:57 11:59 Temp 99.0 99.8 Pulse 107 101 Resp 20 20 B/P (MAP) 105/66 (79) 108/55 (72) Pulse Ox 97 98 O2 Delivery Room Air Room Air Room Air 09/11/18 00:00 Intake Total 2727 ml Output Total 3950 ml Balance -1223 ml Weight (Pounds): 163 Weight (Ounces): 4.0 Weight (Calculated Kilograms): 74.557354 Constitutional: AAO x 3, well-developed, well-nourished Respiratory: No accessory muscle use; crackles (bi-basilar crackles), other (good bilat air entry) Cardiovascular: regular rate-rhythm, S1 and S2, systolic murmur (2/6 DIANNE at card base) Gastrointestional: No tender; soft; No guarding, No rebound; audible bowel sounds Genital/Rectal: other (indwelling urinary catheter to DD; clear yellow) Extremities: No clubbing, No cyanosis, No significant edema Neurologic/Psychiatric: other (able to move all limbs equally), grossly intact Skin: No rash on exposed areas, No ulcerations on exposed areas Results/Procedures: Labs Laboratory Tests 09/10/18 15:47: Glucometer 174H 09/10/18 20:51: Glucometer 190H 09/11/18 00:48: Glucometer 71 09/11/18 05:39: White Blood Count 4.0L, Red Blood Count 3.99L, Hemoglobin 11.6L, Hematocrit 38L, Mean Corpuscular Volume 96, Mean Corpuscular Hemoglobin 29, Mean Corpuscular Hemoglobin Concent 30L, Red Cell Distribution Width 15.2H, Platelet Count 115L, Mean Platelet Volume 11.3H, Neutrophils (%) (Auto) 56, Lymphocytes (%) (Auto) 24, Monocytes (%) (Auto) 15H, Eosinophils (%) (Auto) 5, Basophils (%) (Auto) 1, Neutrophils # (Auto) 2.3, Lymphocytes # (Auto) 1.0, Monocytes # (Auto) 0.6, Eosinophils # (Auto) 0.2, Basophils # (Auto) 0.0 09/11/18 05:59: Prothrombin Time 26.8H, INR Comment 2.4H, Sodium Level 138, Potassium Level 3.6, Chloride Level 101, Carbon Dioxide Level 26, Anion Gap 11, Blood Urea Nitrogen 13, Creatinine 0.80, Estimat Glomerular Filtration Rate > 60, BUN/Creatinine Ratio 16, Glucose Level 102, Calcium Level 8.8, Corrected Calcium 9.5, Phosphorus Level 3.1, Magnesium Level 1.6L, Total Bilirubin 1.2H, Aspartate Amino Transf (AST/SGOT) 37H, Alanine Aminotransferase (ALT/SGPT) 115H, Alkaline Phosphatase 77, Total Protein 6.4, Albumin 3.1L 09/11/18 06:53: Glucometer 143H 09/11/18 11:10: Prothrombin Time 28.4H, INR Comment 2.5H 09/11/18 12:02: Glucometer 194H Microbiology 09/01/18 Blood Culture - Final, Complete Staph, Coag Neg (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) 09/08/18 MRSA Screen - Final, Complete MRSA not isolated A/P: Assessment/Dx: Ac urinary retention on 09/07/18, managed by Dr Dave Acute systolic CHF due to dilated cardiomyopathy, improved Echo of 09/02/18: LVEF 15-20%, biatrial enlargement, mod to sev MR, mod (probably a bioprosthetic valve), RVSP 38 mmHg, markedly dilated IVC Atrial fibrillation, probably chronic - rate controlled Passive hepatic congestion, improving Probable sepsis, managed by the Med Svce Chronic warfarin anticoagulation, currently sub-therapeutic INR Thrombocytopenia, improving H/o bioprosthetic cardiac valve by Dr Matson at [place], [place], several years ago. Pt does not know any details and has not followed with Cardiology Cholelithiasis with possible chronic cholecystitis, being managed by Dr Valenzuela Plan: * Continue heart-failure meds that have been initiated during this hospitalization * Resume warfarin after the issue of urinary retention has been addressed * Change IV Lasix to oral * Replace Mag * INR on target * Social service consult * Monitor labs Thank you for your consultation. Please call me if you have any questions. Monroe Marin MD, FACP, FACC, FSCAI, FHRS, CCDS Interventional Cardiology Cardiac Electrophysiology Vascular Medicine and Endovascular Interventions Clinical Quality Measures AMI/AHF: ASA po Prior to arrival: Ana Davis MD Sep 11, 2018 12:26
--- NOTE | 2018-09-11 12:27 | Discharge Summary ---
Diagnosis/Chief Complaint Date of Admission Sep 01, 2018 at 14:13 Date of Discharge 09/11/2018 Admission Diagnosis Admission Diagnosis See problem list Discharge Diagnosis See below Problems/Diagnosis: (1) Acute systolic congestive heart failure Assessment & Plan: 09/07: Cardiology consulted, patient on Lasix 80 mg IV, Maximize medical management, started on Entresto, EF 15-20% 09/08: Lasix switched to PO 09/09: Decreased to 40 mg daily given hypotension 09/11: Maximize medical management, will need f.u with cardiology Status: Acute (2) Acute urinary retention Assessment & Plan: 09/07: Continue flomax, Straight cath x1 with 1100cc out, consult for Dr Dave in AM 09/08: Seen by Dr Dave, will get scope 09/09: Scope this AM, shanks removed, voiding trial 09/10: Shanks replaced, flomax BID per Dr Dave 09/11: D/donte on flomax BID and Finasteride, shanks in place, will see Dr Dave need week Status: Acute (3) Atrial fibrillation with RVR Assessment & Plan: 09/07: Rate controlled, Cardiology managing Status: Acute (4) Shock liver Assessment & Plan: 09/07: Improving with Diuresis, Will continue to monitor 09/08: Will recheck CMP in AM Status: Acute (5) Elevated liver enzymes Status: Acute (6) Warfarin anticoagulation Assessment & Plan: 09/07: Restart Warfarin today at lower dose 5 mg daily, INR 2.1 09/08: Daily INR's, subtherapeutic today 09/09: On Lovenox while we are titrating warfarin 09/10: Subtherapeutic, continue lovenox 09/11: In range, D/c Lovenox, Decreased dose to 5 mg daily, INR check by on Friday Status: Chronic (7) Gallbladder sludge Assessment & Plan: 09/07: Dr Valenzuela consulted, patient does not desire surgery at this time Status: Acute (8) Dilated cardiomyopathy Status: Acute (9) 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 Discharge Summary-Simple/Stand Consultations Dr Chen: Cardiology Dr Dave: Urology Discharge Physical Examination Allergies: Coded Allergies: No Known Drug Allergies (Unverified , 05/24/18) Vitals & I&Os Vital Sign - Last 12Hours Date Time Temp Pulse Resp B/P (MAP) Pulse Ox O2 Delivery O2 Flow Rate FiO2 09/11/18 11:59 99.8 101 20 108/55 (72) 98 Room Air Intake and Output 09/11/18 00:00 Intake Total 2727 ml Output Total 3950 ml Balance -1223 ml General Appearance: Alert, Cooperative, No Acute Distress HEENT: Mucous Memb Moist/[place] Respiratory: Clear to Auscultation, Normal Air Movement Cardiovascular: Regular Rate, No Murmurs Abdominal: Normal Bowel Sounds, Soft, No Tenderness, No Masses Extremities: No Edema, No Tenderness/Swelling Skin: No Rashes, No Breakdown Neuro: Strength at 5/5 X4 Ext, Cranial Nerves 3-12 NL Psych/Mental Status: Mental Status NL, Mood NL Hospital Course Was the Problem List Reviewed?: Yes See final discharge diagnosis. Other pending tests WILL GET INR FROM ON FRIDAY Discussion & Recommendations 83 yo chronically ill male that presented with increased shortness of breath. Found to have systolic CHF with EF 15-20%. Patient was seen by cardiology and placed on Entresto and metoprolol for medical management. He was also found to have shock liver from CHF and possibly cholecystitis. Patient did not want to have any surgical intervention at this time. After extensive diuresis patient's shanks was removed and he severe urinary retention. A bedside cysto was completed by Dr Dave and he was found to have obstructing prostate. Flomax was increased to BID and finasteride was added. He was unable to pass voiding trial and was sent home with shanks in place. Dr Dave believes this patient will need surgical intervention for BPH and will see patient in clinic. Patient will have close f.u with PCP Dr guzman and urology Dr Dave. Discharge Condition at discharge stable Instructions to patient/family Please see electronic discharge instructions given to patient. Discharge Medications Reviewed and agree with Discharge Medication list on patient's Discharge Instruction sheet Clinical Quality Measures AMI/AHF: ASA po Prior to arrival: No DVT/VTE Risk/Contraindication: Risk Factor Score Per Nursin RFS Level Per Nursing on Admit: 2=Moderate Copy Copies To 1: FACUNDO GUZMAN MD, HOLLY R MD Sep 11, 2018 12:27
[2018-09-11] MEDS ORDERED: WARF5TAB PO (12:33)
[2018-09-11] MEDS ORDERED: TAMS0.4C98 PO (12:33)
[2018-09-11] MEDS ORDERED: FURO40TA4 PO (12:33)
[2018-09-11] MEDS ORDERED: Finasteride PO (12:33)
--- NOTE | 2018-09-11 12:59 | D/C HH Face to Face Order ---
D/C Face to Face Orders Instructions for Patient [facility], Patient Instructions/FollowUp: F/u with Dr Martinez Next week for Hospial f.u and INR Appt on September 15 @ [id number] Martinez Physician to follow Patient: Self Discharge Diet for Home: Cardiac Diet Patient Problems: Acute Systolic CHF Lower Urinary Obstruction Urinary Retention Elevated LFTs Cholecyctitis Goals for Patient: - Increased Strength - Low salt meals Patient Data-Allergies,Ht & Wt Patient Allergies: Coded Allergies: No Known Drug Allergies (Unverified , 05/24/18) Height (Feet): 5 Height (Inches): 11.00 Weight (Pounds): 163 Weight (Ounces): 4.0 New Medications: Potassium Chloride (Potassium Chloride) 10 Meq Capsule.er 10 MEQ PO DAILY, #30 CAP 3 Refills Carvedilol (Carvedilol) 3.125 Mg Tablet 3.125 MG PO BID, #60 TAB 5 Refills Diltiazem HCl (Diltiazem 24Hr Cd) 240 Mg Cap.er.24h 240 MG PO DAILY, #30 CAP 5 Refills [Finasteride] () 5 MG TAB 5 MG PO DAILY, #30 TAB Furosemide (Furosemide) 40 Mg Tablet 40 MG PO DAILY, #30 TAB Sacubitril/Valsartan (Entresto 24 mg-26 mg Tablet) 1 Each Tablet 1 TAB PO BID, #60 TAB 5 Refills Tamsulosin HCl (Flomax) 0.4 Mg Cap 0.4 MG PO BID, #60 CAP Warfarin Sodium (Coumadin) 5 Mg Tablet 5 MG PO DAILY@1800, #30 TAB Continued Medications: Metformin HCl (Metformin HCl ER) 500 Mg Tab.er.24h 500 MG PO 1800 Discontinued Medications: Warfarin Sodium (Warfarin Sodium) 7.5 Mg Tablet 7.5 MG PO Home Health Need/Face to Face Date of Face to Face: Sep 11, 2018 Clinical Findings: Generalized weakness and fatigue, Instability, Shortness of breath, Unsteady gait I have seen Pt [id number]: Yes Discharged To: Home Diagnosis/Conditions: See Problem List Patient is Homebound due to: Taye fall risk due to instabilty, Shortness of br eath/distress Homebound Status Due to the above stated illness, injury or surgical procedure (medical condition or diagnosis) and associated clinical findings, the patient is homebound because of his/her inability to leave home except with aid of a supportive device and/or person AND leaving the home requires a considerable and taxing effort or is medically contraindicated. Pt req the following assistanc: Aid of another person, [facility] Nursing Orders Home Health Services Order: Nursing Services - Daily Weight for CHF monitoring - [facility] Infusion Therapy Line Start Date: Sep 01, 2018 Home Health Lab Orders PT/INR (times/week): INR on Friday Goal INR Range: 2.5-3.5 Certify Stmt I certify that this patient is under my care and that I, a nurse practitioner or a physician; a practice assistant working with me, had a face to face encounter that - meets the physician face to face encounter requirements with this patient as kendall [place]. JAQCUES DEL RIO MD Sep 11, 2018 12:38
--- NOTE | 2018-09-11 13:38 | NUR ---
PALLIATIVE CARE RN spoke to Dr. Marie who reports that she is discharging the patient with [facility] and follow-up appt with Dr. Martinez and Dr. Dave for next week. I then spoke with the patient who is reluctantly in agreement with discharge today and his youngest daughter will take him home. Patient had chosen [facility] for [facility] but they do not take his insurance so when to second choice of [facility]. Dr. Xie fis his attending and if he is not agreeable to covering the [facility], Dr. Katie Marie will cover. Spoke with Leah at [facility] and they will take care of the details. Patients catheter will remain until he has follow-up with David. He needs education on how to empty the catheter himself.
--- NOTE | 2018-09-11 14:20 | NUR ---
Important Message from Medicare presented, reviewed, signed and charted. Patient voiced no intention to appeal and deny any needs or further questions at this time.
[2018-09-11 15:48] VITALS: BP 90/56
[2018-09-11] MEDS ORDERED: warFARin 5 MG (COUMADIN) TAB PO SCH (18:00)
--- NOTE | 2018-09-14 11:51 | Physician Query Clarification ---
PQ-Conflicting Diagnosis Admission/Discharge Admission Date: Sep 01, 2018 at 14:13 Discharge Date: Sep 11, 2018 at 17:05 The medical record reflects the following clinical scenario: History/Risk Factors: Acute systolic CHF, shock liver, cholelithiasis with cholecystitis Clinical Findings: T98.4, P 133, R 21, BP 99/78, WBC 6.0, Lactic acid 3.31, Blood - 1 or 2 bottles grew out staph coag neg Treatment: IV Zosyn DC'd 09/02. Question: Do you agree with the impression of the sepsis per Dr. Chen and Dr. Orozco? Diagnosis not given in Discharge Summary. Please document a response in Progress Note or Discharge Summary. 1. Yes, patient had staph sepsis (positive blood culture confirmed) 2. No, sepsis ruled out blood culture contaminant 3. Sepsis due to cholecystitis with cholelithiasis 4. Sepsis due to acute systolic heart failure 5. Other, with explanation of clinical findings 6. Clinically undetermined, no explanation for clinical findings. PHYSICIAN RESPONSE Do you agree w/Consulting Dx?: Yes Explanation of clincal finding Sepsis 2/2 CHF Please remember a lack of response to the above will prompt a phone page by CDI/Coding staff. In responding to this query, please exercise your independent professional judgment. The purpose of this communication is to more accurately reflect the complexity of your patients condition. The fact that a question is asked does not imply that any particular answer is desired or expected. Thank you for your timely response to this clarification. Requestors name: Maritza THIS PHYSICIAN QUERY FORM IS A PERMANENT PART OF THE MEDICAL RECORD MARITZA WALLS Sep 14, 2018 11:51 JACQUES DEL RIO MD Oct 05, 2018 09:15
== END 2018-09-11 17:05 | disposition home health service (06) | DRG 871 ==
LOC: EDUNIT# 11:05 → ER FS 11:07 → ICU 14:13 → 4TH 09-05 15:58
PROVIDERS: ADMIT Internal Medicine; ATTEND Family Medicine
PROC: 0TJB8ZZ Inspection of Bladder, Via Natural or Artificial Opening Endoscopic (ICD-10-PCS; principal; 2018-09-09 09:00)
DX: A41.9 Sepsis, unspecified organism (principal); R65.20 Severe sepsis without septic shock; K72.00 Acute and subacute hepatic failure without coma; I11.0 Hypertensive heart disease with heart failure; I50.21 Acute systolic (congestive) heart failure; K80.20 Calculus of gallbladder without cholecystitis without obstruction; I42.0 Dilated cardiomyopathy; E87.2 Acidosis; R64 Cachexia; E86.0 Dehydration; I48.2 Chronic atrial fibrillation; R79.1 Abnormal coagulation profile; R33.9 Retention of urine, unspecified; R01.1 Cardiac murmur, unspecified; E78.00 Pure hypercholesterolemia, unspecified; E11.9 Type 2 diabetes mellitus without complications; M54.9 Dorsalgia, unspecified; I95.9 Hypotension, unspecified; E83.42 Hypomagnesemia; E83.39 Other disorders of phosphorus metabolism; M19.91 Primary osteoarthritis, unspecified site; D64.9 Anemia, unspecified; Z95.2 Presence of prosthetic heart valve; E87.6 Hypokalemia; N40.1 Benign prostatic hyperplasia with lower urinary tract symptoms; Z87.891 Personal history of nicotine dependence; I08.0 Rheumatic disorders of both mitral and aortic valves; D69.6 Thrombocytopenia, unspecified; J43.9 Emphysema, unspecified
CPT/HCPCS: 36415; 71045; 74177; 76700; 80048; 80053; 80074; 80306; 80329; 81000; 82140; 82150; 82805; 82962; 83605; 83690; 83735; 83880; 84100; 84443; 84484; 85025; 85610; 85730; 87040; 87081; 93005; 93306; 94640; 94760; 96361; 96365; 96366; 96367; 99291

== ENCOUNTER 2018-10-20 11:27 | Outpatient (CLI) | payer MEDICARE ==
[~2018-10-20] VITALS: Ht 180.3 cm; Wt 68.2 kg
[~2018-10-20 11:27] MED LIST: CARV3.122 PO; DILT240C97 PO; FURO40TA4 PO; FURO80TA83 PO; Finasteride PO; METF500T8 PO; POTA10CA43 PO; SACU1TAB PO; TAMS0.4C98 PO; WARF5TAB PO; WARF7.5T49 PO
[2018-10-20] MEDS ORDERED: TAMS0.4C98 PO (11:38)
== END 2018-10-20 12:36 | disposition home or self-care (01) ==
LOC: PREOP 11:27
PROVIDERS: ATTEND Urology
DX: Z01.818 Encounter for other preprocedural examination (principal)

== ENCOUNTER → 2018-11-06 | Outpatient (CLI) | payer OTHER ==
[2018-11-06 11:34] LABS: BILIRUBIN,URINE NEGATIVE (NEGATIVE); CLARITY,URINE CLEAR; COLOR,URINE YELLOW; GLUCOSE, URINE (UA) NEGATIVE (NEGATIVE); KETONES,URINE NEGATIVE (NEGATIVE); LEUKOCYTE ESTERASE ,URINE 3+ (NEGATIVE); NITRITE,URINE NEGATIVE (NEGATIVE); PH,URINE 5 (5-9); PROTEIN,URINE 3+ (NEGATIVE); UROBILINOGEN,URINE NORMAL (NORMAL)
[2018-11-06 11:52] LABS: BACTERIA,URINE NEGATIVE /HPF; RBC,URINE 25-50 /HPF; WBC,URINE TNTC /HPF
== END ==
LOC: LAB 11:11
PROVIDERS: ATTEND Urology
DX: N40.1 Benign prostatic hyperplasia with lower urinary tract symptoms (principal)
CPT/HCPCS: 81000; 87088

== ENCOUNTER 2018-11-28 19:57 | Emergency (ER) | payer MEDICARE, OTHER ==
[~2018-11-28] VITALS: Ht 168 cm; Wt 68.6 kg
[2018-11-28] MEDS ORDERED: KETOROLAC 60 MG/2 ML VIAL IM ONE (20:15)
[2018-11-28] MEDS ORDERED: ORPHENADRINE 60 MG/2 ML (NORFLEX) AMP IM ONE (20:15)
--- NOTE | 2018-11-28 20:18 | ED Neck-Back Pain/Injury ---
General Chief Complaint: Head/Cervical Problems Stated Complaint: NECK PAIN Nursing Triage Note: Patient states that he is having right sided neck pain. Patient states that it began 2 days ago. Patient has had this issue before but states it has "never been this bad before". Patient rates his pain at a 10. Patient denies any injury to the area. Nursing Sepsis Screen: No Definite Risk Source of Information: Patient History of Present Illness Date Seen by Provider: Nov 28, 2018 Time Seen by Provider: 20:05 Initial Comments 83-year-old male presents with right lateral neck pain. Patient reports this started 2 days ago. I gets worse with movement. He thinks that maybe it was because his been sleeping on 2 pillows and senna 1. Reports that he's had this issue occasional in the past that this is a worse his been. He denies any acute injury. He denies any headache. Pain better with rest and worse with movement. Allergies and Home Medications Allergies Coded Allergies: No Known Drug Allergies (Unverified , 05/24/18) Home Medications Carvedilol 3.125 Mg Tablet, 3.125 MG PO BID Prescribed by: ROLANDO PAGE on 09/08/18 1201 Diltiazem HCl 240 Mg Cap.er.24h, 240 MG PO DAILY Prescribed by: ROLANDO PAGE on 09/08/18 1201 Metformin HCl 500 Mg Tab.er.24h, 500 MG PO 1800, (Reported) Potassium Chloride 10 Meq Capsule.er, 10 MEQ PO DAILY Prescribed by: ROLANDO PAGE on 09/08/18 1201 Sacubitril/Valsartan 1 Each Tablet, 1 TAB PO BID Prescribed by: ROLANDO PAGE on 09/08/18 1201 Patient Home Medication List Home Medication List Reviewed: Yes Review of Systems Constitutional: no symptoms reported Respiratory: no symptoms reported Cardiovascular: no symptoms reported Gastrointestinal: no symptoms reported Musculoskeletal: see HPI Skin: no symptoms reported Psychiatric/Neurological: No Symptoms Reported Past Amvkblp-Wtwdwl-Wfjpag Hx Past Med/Social Hx: Reviewed Nursing Past Med/Soc Hx Patient Social History Former Smoker, Quit: Mar 03, 1959 2nd Hand Smoke Exposure: No Recent Foreign Travel: No Contact w/Someone Who Travel: No Recent Infectious Disease Expo: No Recent Hopitalizations: Yes (sepsis pneumonia August 2018) Immunizations Up To Date Date of Pneumonia Vaccine: Aug 31, 2018 Seasonal Allergies Seasonal Allergies: No Past Medical History Surgeries: Yes (aortic valve replacement) Valve Replacement Respiratory: No Currently Using CPAP: No Currently Using BIPAP: No Cardiac: Yes Atrial Fibrillation, Heart Murmur, High Cholesterol, Hypertension Neurological: No Neuropathy, Stroke, TIA Sexually Transmitted Disease: No HIV/AIDS: No Genitourinary: Yes Benign Prostatic Hyperpl, Prostate Problems Gastrointestinal: No Musculoskeletal: Yes Arthritis Endocrine: Yes Diabetes, Non-Insulin dep HEENT: Yes (GLASSES) Loss of Vision: Denies Hearing Impairment: Denies Cancer: No Psychosocial: No Integumentary: No Blood Disorders: No Adverse Reaction/Blood Tranf: No Family Medical History Asthma 19 MOTHER Bone cancer Congenital heart disease 19 MOTHER Hypertension 19 MOTHER Lung cancer Myocardial infarction 19 MOTHER Diabetes, Other Conditions/Hx Physical Exam Vital Signs Vital Signs - First Documented 11/28/18 20:00 Temp 37.0 Pulse 100 Resp 16 B/P (MAP) 107/67 (80) Pulse Ox 97 O2 Delivery Room Air Capillary Refill : Less Than 3 Seconds Height, Weight, BMI Height: 5'11.00" Weight: 150lbs. 4.0oz. 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 Referrals: FACUNDO GUZMAN MD (PCP/Family) Primary Care Physician Patient Instructions: Neck Sprain (DC), Generalized Neck Pain (DC) Add. Discharge Instructions: 4% lidocaine cream or gel with menthol to affected area as directed on package Warm moist heat to affected area 3-4 times a day Tylenol or ibuprofen as needed for pain All discharge instructions reviewed with patient and/or family. Voiced understanding. ISAI MOTA DO Nov 28, 2018 20:17
[2018-11-28 20:33] VITALS: BP 107/67
== END 2018-11-28 20:33 | disposition home or self-care (01) ==
LOC: EDUNIT# 19:57 → ER FS 19:58
DX: S13.9XXA Sprain of joints and ligaments of unspecified parts of neck, initial encounter (principal); I10 Essential (primary) hypertension; E11.40 Type 2 diabetes mellitus with diabetic neuropathy, unspecified; E78.00 Pure hypercholesterolemia, unspecified; I48.91 Unspecified atrial fibrillation; Z86.73 Personal history of transient ischemic attack (TIA), and cerebral infarction without residual deficits; Z79.84 Long term (current) use of oral hypoglycemic drugs; Z95.4 Presence of other heart-valve replacement; Z87.891 Personal history of nicotine dependence; Z82.49 Family history of ischemic heart disease and other diseases of the circulatory system; Z80.1 Family history of malignant neoplasm of trachea, bronchus and lung; Z80.8 Family history of malignant neoplasm of other organs or systems; X58.XXXA Exposure to other specified factors, initial encounter
CPT/HCPCS: 96372; 99284

== ENCOUNTER 2019-11-22 22:58 | Emergency (ER) | payer MEDICARE ==
[~2019-11-22] VITALS: Ht 177.8 cm; Wt 63.5 kg
[~2019-11-22 22:58] MED LIST changes: +DILT240C92 PO; -DILT240C97 PO; +METF-865 PO; -METF500T8 PO; -SACU1TAB PO; +SACU1TAB2 PO; -TAMS0.4C98 PO; +TMSL.4C PO; -WARF5TAB PO; +WARF5TAB2 PO; +WARF7.5T3 PO; -WARF7.5T49 PO
[2019-11-22 23:43] LABS: BACTERIA,URINE FEW /HPF; BILIRUBIN,URINE 1+ (NEGATIVE); CLARITY,URINE CLOUDY; COLOR,URINE RED; GLUCOSE, URINE (UA) TRACE (NEGATIVE); KETONES,URINE 1+ (NEGATIVE); LEUKOCYTE ESTERASE ,URINE 2+ (NEGATIVE); NITRITE,URINE POSITIVE (NEGATIVE); PH,URINE 6.5 (5-9); PROTEIN,URINE 3+ (NEGATIVE); RBC,URINE TNTC /HPF
--- NOTE | 2019-11-22 23:44 | ED GU-Male ---
General Chief Complaint: - Urinary Stated Complaint: BLOOD IN URINE Source: patient History of Present Illness Date Seen by Provider: Nov 22, 2019 Time Seen by Provider: 23:42 Initial Comments 84 yo male presents to the emergency department with complaints of blood in urine. He states that he was getting ready for bed and went to urinate prior to laying down. He denies any pain and had no difficulty with urinating. He has no dizziness or lightheadedness. He denies any nausea or vomiting. He has no burning with urination. He denies any fever or chills. When he saw that the urine was pretty much straight blood he decided to come be evaluated in the ED. He had another bloody urine specimen here in the ED. He denies any retention or difficulty urinating. He does take Xarelto for a blood thinner due to atrial fibrillation. Allergies and Home Medications Allergies Coded Allergies: No Known Drug Allergies (Unverified , 05/24/18) Home Medications Carvedilol 3.125 Mg Tablet, 3.125 MG PO BID Prescribed by: ROLANDO PAGE on 09/08/18 1201 Ciprofloxacin HCl 500 Mg Tablet, 500 MG PO BID Prescribed by: ANGELICA FLOWERS on 11/23/19 0113 Metformin HCl 500 Mg Tab.er.24h, 500 MG PO 1800, (Reported) Potassium Chloride 10 Meq Capsule.er, 10 MEQ PO DAILY Prescribed by: ROLANDO PAGE on 09/08/18 1201 Sacubitril/Valsartan 1 Each Tablet, 1 TAB PO BID Prescribed by: ROLANDO PAGE on 09/08/18 1201 Tamsulosin HCl 0.4 Mg Cap, 0.4 MG PO DAILY, (Reported) Patient Home Medication List Home Medication List Reviewed: Yes Review of Systems Review of Systems Constitutional: No chills; dizziness (occasional episodes but none tonight since having blood in urine); No fever, No malaise EENTM: no symptoms reported Respiratory: no symptoms reported Cardiovascular: no symptoms reported Gastrointestinal: no symptoms reported Genitourinary: see HPI Musculoskeletal: no symptoms reported Skin: no symptoms reported Psychiatric/Neurological: No Symptoms Reported Hematologic/Lymphatic: Easy Bleeding (on xarelto), Easy Bruising (on xarelto) Past Chlkoiz-Imedab-Xpbtps Hx Past Med/Social Hx: Reviewed Nursing Past Med/Soc Hx Patient Social History Alcohol Use: Denies Use Recreational Drug Use: No Former Smoker, Quit: Mar 03, 1959 2nd Hand Smoke Exposure: No Recent Foreign Travel: No Contact w/Someone Who Travel: No Recent Hopitalizations: Yes (sepsis pneumonia August 2018) Physical Abuse: No Sexual Abuse: No Mistreated: No Fear: No Immunizations Up To Date Tetanus Booster (TDap): Unknown Date of Pneumonia Vaccine: Aug 31, 2018 Seasonal Allergies Seasonal Allergies: No Past Medical History Surgeries: Yes (aortic valve replacement) Valve Replacement Respiratory: No Currently Using CPAP: No Currently Using BIPAP: No Cardiac: Yes Atrial Fibrillation, Heart Murmur, High Cholesterol, Hypertension Neurological: No Neuropathy, Stroke, TIA Sexually Transmitted Disease: No HIV/AIDS: No Genitourinary: Yes Benign Prostatic Hyperpl, Prostate Problems Gastrointestinal: No Musculoskeletal: Yes Arthritis Endocrine: Yes Diabetes, Non-Insulin dep HEENT: Yes (GLASSES) Loss of Vision: Denies Hearing Impairment: Denies Cancer: No Psychosocial: No Integumentary: No Blood Disorders: No Adverse Reaction/Blood Tranf: No Family Medical History Asthma 19 MOTHER Bone cancer Congenital heart disease 19 MOTHER Hypertension 19 MOTHER Lung cancer Myocardial infarction 19 MOTHER Diabetes, Other Conditions/Hx Physical Exam Vital Signs Vital Signs - First Documented 11/22/19 11/23/19 23:25 01:21 Temp 36.5 Pulse 89 Resp 16 B/P (MAP) 111/73 (86) Pulse Ox 98 O2 Delivery Room Air Capillary Refill : Height, Weight, BMI Height: 5'11.00" Weight: 150lbs. 4.0oz. 68.220961is; 24.00 BMI Method:Stated General Appearance: WD/WN, no apparent distress Neck: supple, normal inspection Cardiovascular: normal peripheral pulses, irregularly irregular Respiratory: chest non-tender, lungs clear, normal breath sounds, no respiratory distress, no accessory muscle use Gastrointestinal: normal bowel sounds, non tender, soft, no pulsatile mass Rectal: deferred Extremities: normal range of motion, normal capillary refill Neurologic/Psychiatric: alert, normal mood/affect Skin: normal color, warm/dry Progress/Results/Core Measures Suspected Sepsis SIRS Temperature: Pulse: Respiratory Rate: Laboratory Tests 11/23/19 00:05: White Blood Count 5.3 Blood Pressure / Mean: Laboratory Tests 11/23/19 00:05: Creatinine 1.04, INR Comment 2.4H, Platelet Count 145, Total Bilirubin 0.7 Results/Orders Lab Results Laboratory Tests Test 11/22/19 21:28 11/23/19 00:05 Range/Units Urine Color RED H Urine Clarity CLOUDY Urine pH 6.5 5-9 Urine Specific [place] 1.010 L 1.016-1.022 Urine Protein 3+ H NEGATIVE Urine Glucose (UA) TRACE H NEGATIVE Urine Ketones 1+ H NEGATIVE Urine Nitrite POSITIVE H NEGATIVE Urine Bilirubin 1+ H NEGATIVE Urine Urobilinogen 4.0 < = 1.0 MG/DL Urine Leukocyte Esterase 2+ H NEGATIVE Urine RBC (Auto) 3+ H NEGATIVE Urine RBC TNTC H /HPF Urine WBC 10-25 H /HPF Urine Crystals NONE /LPF Urine Bacteria FEW H /HPF Urine Casts NONE /LPF Urine Mucus NEGATIVE /LPF Urine Culture Indicated YES White Blood Count 5.3 4.3-11.0 10^3/uL Red Blood Count 3.68 L 4.35-5.85 10^6/uL Hemoglobin 11.7 L 13.3-17.7 G/DL Hematocrit 37 L 40-54 % Mean Corpuscular Volume 99 80-99 FL Mean Corpuscular Hemoglobin 32 25-34 PG Mean Corpuscular Hemoglobin Concent 32 32-36 G/DL Red Cell Distribution Width 12.6 10.0-14.5 % Platelet Count 145 130-400 10^3/uL Mean Platelet Volume 9.6 7.4-10.4 FL Neutrophils (%) (Auto) 69 42-75 % Lymphocytes (%) (Auto) 20 12-44 % Monocytes (%) (Auto) 7 0-12 % Eosinophils (%) (Auto) 3 0-10 % Basophils (%) (Auto) 0 0-10 % Neutrophils # (Auto) 3.7 1.8-7.8 X 10^3 Lymphocytes # (Auto) 1.1 1.0-4.0 X 10^3 Monocytes # (Auto) 0.4 0.0-1.0 X 10^3 Eosinophils # (Auto) 0.2 0.0-0.3 10^3/uL Basophils # (Auto) 0.0 0.0-0.1 10^3/uL Prothrombin Time 26.5 H 12.2-14.7 SEC INR Comment 2.4 H 0.8-1.4 Activated Partial Thromboplast Time 55 H 24-35 SEC Sodium Level 140 135-145 MMOL/L Potassium Level 4.0 3.6-5.0 MMOL/L Chloride Level 103 98-107 MMOL/L Carbon Dioxide Level 27 21-32 MMOL/L Anion Gap 10 5-14 MMOL/L Blood Urea Nitrogen 17 7-18 MG/DL Creatinine 1.04 0.60-1.30 MG/DL Estimat Glomerular Filtration Rate > 60 BUN/Creatinine Ratio 16 Glucose Level 108 H 70-105 MG/DL Calcium Level 9.4 8.5-10.1 MG/DL Corrected Calcium 9.6 8.5-10.1 MG/DL Total Bilirubin 0.7 0.1-1.0 MG/DL Aspartate Amino Transf (AST/SGOT) 15 5-34 U/L Alanine Aminotransferase (ALT/SGPT) 6 0-55 U/L Alkaline Phosphatase 85 40-136 U/L Total Protein 7.1 6.4-8.2 GM/DL Albumin 3.7 3.2-4.5 GM/DL My Orders Orders - ANGELICA FLOWERS MD Ua Culture If Indicated (11/22/19 23:02) Urine Culture (11/22/19 21:28) Ed Iv/Invasive Line Start (11/23/19 00:05) Cbc With Automated Diff (11/23/19 00:05) Comprehensive Metabolic Panel (11/23/19 00:05) Partial Thromboplastin Time (11/23/19 00:05) Protime With Inr (11/23/19 00:05) Ceftriaxone For Iv Use (Rocephin For I (11/23/19 00:52) Vital Signs/I&O 11/22/19 11/23/19 23:25 01:21 Temp 36.5 36.5 Pulse 89 85 Resp 16 14 B/P (MAP) 111/73 (86) 113/76 (86) Pulse Ox 98 99 O2 Delivery Room Air Capillary Refill : Progress Note #1: Progress Note UA shows large amount of blood and signs for possible urine infection. Will obtain basic labs to look at his blood count and chemistry with electrolytes Progress Note #2: Time: 00:31 Progress Note Labs show mild anemia which is chronic. INR 2.4 from being on Xarelto. Chemistry stable without acute renal failure. Page placed to Dr. Andres and voice mail left for him to call me back in the ED. Progress Note #3: Time: 00:53 Progress Note d/w Dr. Andres and he agrees with recommendation to stop Xarelto. will have pt check with pcp about replacement medicine for this. He advised him to take a glass of water every 15-20 minutes to help clear the blood from urine. If he develops retention then he will need [address] shanks and CBI to clear that. Treat with Rocephin and continue Cipro or Bactrim at home. If he wants to be admitted now for 3 way shanks and CBI now then can do that and let the admitting doctor know and they can consult Dr. Andres during the day. Reviewed this with the pt and he wants to try things at home. Given Rocephin 1 gm IV here and discharge on cipro. Counseled on plan and follow up and return precautions per discussion with Dr. Andres. Departure Impression Primary Impression: Hematuria, gross Additional Impressions: On rivaroxaban therapy Cystitis with hematuria Disposition: HOME, SELF-CARE Condition: Stable Departure-Patient Inst. Decision time for Depature: 01:05 Referrals: FACUNDO MARTINEZ MD (PCP/Family) Primary Care Physician ZEKE ANDRES MD Patient Instructions: Urinary Tract Infection, Adult (DC), Blood in the Urine (Hematuria), Adult (DC), Choosing an Oral Medicine to Prevent or Treat Blood Clots Add. Discharge Instructions: Stop taking the Rivaroxaban (Xarelto) blood thinner medicine. Check with Dr. Martinez to see what medicine he wants you taking in its place to thin your blood once you have had the bleeding stop in your urine. Take the antibiotic to treat your urine infection and help stop the blood in the urine. Make sure to drink a glass or small bottle of water every 15-20 minutes until you see the blood clear from your urine when you go to urinate. Call Dr. Andres in the morning to follow up with him from the clinic. If you have trouble urinating or the bleeding is not clearing up with drinking a glass of water every 15-20 minutes then check back with the [facility] or Dr. Andres in clinic as you may need admitted with a catheter to flush out the blood and keep your bladder draining until things heal. All discharge instructions reviewed with patient and/or family. Voiced understanding. Scripts Ciprofloxacin HCl (Ciprofloxacin HCl) 500 Mg Tablet 500 MG PO BID for UTI/Hematuria for 7 Days, #14 TAB 0 Refills Prov: ANGELICA FLOWERS MD 11/23/19 ANGELICA FLOWERS MD Nov 22, 2019 23:44
[2019-11-23] MEDS ORDERED: RIVA20TA PO (00:12)
[2019-11-23] MEDS ORDERED: TMSL.4C PO (00:12)
[2019-11-23 00:15] LABS: HEMATOCRIT 37 % (40-54); HEMOGLOBIN 11.7 G/DL (13.3-17.7); MEAN CORPUSCULAR HEMOGLOBIN 32 PG (25-34); MEAN CORPUSCULAR VOLUME 99 FL (80-99); WHITE BLOOD COUNT 5.3 10^3/uL (4.3-11.0)
[2019-11-23 00:16] LABS: BASOPHILS % (AUTO) 0 % (0-10); EOSINOPHILS # (AUTO) 0.2 10^3/uL (0.0-0.3); EOSINOPHILS % (AUTO) 3 % (0-10); LYMPHOCYTES # (AUTO) 1.1 X 10^3 (1.0-4.0); LYMPHOCYTES % (AUTO) 20 % (12-44); MEAN CORPUSCULAR HGB CONC 32 G/DL (32-36); MEAN PLATELET VOLUME 9.6 FL (7.4-10.4); MONOCYTES # (AUTO) 0.4 X 10^3 (0.0-1.0); MONOCYTES % (AUTO) 7 % (0-12); NEUTROPHILS # (AUTO) 3.7 X 10^3 (1.8-7.8); NEUTROPHILS % (AUTO) 69 % (42-75); PLATELET COUNT 145 10^3/uL (130-400)
[2019-11-23 00:24] LABS: INR 2.4 (0.8-1.4); PROTHROMBIN TIME PATIENT 26.5 SEC (12.2-14.7)
[2019-11-23 00:31] LABS: ALANINE AMINOTRANSFERASE 6 U/L (0-55); ALBUMIN 3.7 GM/DL (3.2-4.5); ALKALINE PHOSPHATASE 85 U/L (40-136); BILIRUBIN,TOTAL 0.7 MG/DL (0.1-1.0); BUN/CREATININE RATIO 16; CALCIUM 9.4 MG/DL (8.5-10.1); CARBON DIOXIDE 27 MMOL/L (21-32); CHLORIDE 103 MMOL/L (98-107); CREATININE SERUM 1.04 MG/DL (0.60-1.30); GFR ESTIMATED > 60; GLUCOSE 108 MG/DL (70-105); SODIUM 140 MMOL/L (135-145); TOTAL PROTEIN 7.1 GM/DL (6.4-8.2)
[2019-11-23] MEDS ORDERED: cefTRIAXone FOR IV USE 1,000 MG in WATER (STERILE) FOR INJECTION 10 ML IV STA (00:52)
[2019-11-23] MEDS ORDERED: CIPR500T4 PO (01:13)
[2019-11-23 01:21] VITALS: BP 113/76
== END 2019-11-23 01:21 | disposition home or self-care (01) ==
LOC: EDUNIT# 22:58 → ER FS 22:59
DX: R31.0 Gross hematuria (principal); N30.91 Cystitis, unspecified with hematuria; I10 Essential (primary) hypertension; N40.0 Benign prostatic hyperplasia without lower urinary tract symptoms; E11.9 Type 2 diabetes mellitus without complications; Z87.891 Personal history of nicotine dependence; Z82.49 Family history of ischemic heart disease and other diseases of the circulatory system; Z80.1 Family history of malignant neoplasm of trachea, bronchus and lung; Z86.73 Personal history of transient ischemic attack (TIA), and cerebral infarction without residual deficits; Z79.84 Long term (current) use of oral hypoglycemic drugs; Z79.01 Long term (current) use of anticoagulants
CPT/HCPCS: 36415; 80053; 81000; 85025; 85610; 85730; 87088

== ENCOUNTER → 2020-01-26 | Outpatient (CLI) | payer MEDICARE ==
[~2020-01-26] MED LIST changes: +CIPR500T4 PO; +RIVA20TA PO
== END ==
LOC: WOUNDCARE 14:05
PROVIDERS: ATTEND Surgery
DX: L89.153 Pressure ulcer of sacral region, stage 3 (principal); E11.622 Type 2 diabetes mellitus with other skin ulcer; R54 Age-related physical debility
CPT/HCPCS: 99213

== ENCOUNTER → 2020-01-31 | Outpatient (CLI) | payer MEDICARE | LOC: WOUNDCARE 14:27 | PROVIDERS: ATTEND Surgery | DX: L89.153 Pressure ulcer of sacral region, stage 3 (principal); E11.622 Type 2 diabetes mellitus with other skin ulcer; E11.52 Type 2 diabetes mellitus with diabetic peripheral angiopathy with gangrene; R54 Age-related physical debility | CPT/HCPCS: 99212 ==

== ENCOUNTER → 2020-02-07 | Outpatient (CLI) | payer MEDICARE | LOC: WOUNDCARE 14:20 | PROVIDERS: ATTEND Surgery | DX: I96 Gangrene, not elsewhere classified (principal); E11.622 Type 2 diabetes mellitus with other skin ulcer; L89.153 Pressure ulcer of sacral region, stage 3; R54 Age-related physical debility | CPT/HCPCS: 99212 ==

== ENCOUNTER → 2020-02-14 | Outpatient (CLI) | payer MEDICARE | LOC: WOUNDCARE 13:56 | PROVIDERS: ATTEND Surgery | DX: L89.154 Pressure ulcer of sacral region, stage 4 (principal); R54 Age-related physical debility; E11.622 Type 2 diabetes mellitus with other skin ulcer | CPT/HCPCS: 99213 ==

== ENCOUNTER → 2020-02-22 | Outpatient (CLI) | payer MEDICARE | LOC: WOUNDCARE 14:32 | PROVIDERS: ATTEND Surgery | DX: L89.153 Pressure ulcer of sacral region, stage 3 (principal); E11.622 Type 2 diabetes mellitus with other skin ulcer; E11.52 Type 2 diabetes mellitus with diabetic peripheral angiopathy with gangrene; R54 Age-related physical debility | CPT/HCPCS: 99212 ==

== ENCOUNTER 2020-07-03 11:51 | Observation (INO) | payer MEDICARE ==
[~2020-07-03] VITALS: Ht 172 cm; Wt 68.1 kg
[~2020-07-03 11:51] MED LIST changes: -CIPR500T4 PO; +CIPR500T5 PO
--- NOTE | 2020-07-03 12:18 | ED Cardiac General ---
History of Present Illness General Stated Complaint: WEAKNESS,N/V Source: patient, family Exam Limitations: no limitations History of Present Illness Date Seen by Provider: July 03, 2020 Time Seen by Provider: 12:02 Initial Comments This is a well-appearing 85-year-old male presents to the ER via POV with his spouse for complaints of intermittent shortness of breath, nausea. States he has his episodes occasionally and has had 3 this month. He [place] walking in [place] when he got to the track and felt short of breath and nauseous. Here in the ER states he is feeling better and is denying any shortness of breath or nausea at this time. States that he is currently taking antibiotics for urinary tract infection. He has follow-up with Dr. Cantu tomorrow. Denies fever, chills, cough, chest pain, abdominal pain, diarrhea. Allergies and Home Medications Allergies Coded Allergies: No Known Drug Allergies (Unverified , 05/24/18) Home Medications Carvedilol 3.125 Mg Tablet, 3.125 MG PO BID Prescribed by: ROLANDO PAGE on 09/08/18 1201 Ciprofloxacin HCl 500 Mg Tablet, 500 MG PO BID Prescribed by: ANGELICA FLOWERS on 11/23/19 0113 Metformin HCl 500 Mg Tab.er.24h, 500 MG PO 1800, (Reported) Potassium Chloride 10 Meq Capsule.er, 10 MEQ PO DAILY Prescribed by: ROLANDO PAGE on 09/08/18 1201 Sacubitril/Valsartan 1 Each Tablet, 1 TAB PO BID Prescribed by: ROLANDO PAGE on 09/08/18 1201 Tamsulosin HCl 0.4 Mg Cap, 0.4 MG PO DAILY, (Reported) Patient Home Medication List Home Medication List Reviewed: Yes Review of Systems Review of Systems Constitutional: see HPI EENTM: No Symptoms Reported Respiratory: See HPI Cardiovascular: See HPI Gastrointestinal: See HPI Genitourinary: See HPI Musculoskeletal: no symptoms reported Skin: no symptoms reported Psychiatric/Neurological: No Symptoms Reported Endocrine: No Symptoms Reported Hematologic/Lymphatic: No Symptoms Reported Past Daoxbab-Ymvlpr-Lyzcdt Hx Patient Social History Former Smoker, Quit: Mar 03, 1959 2nd Hand Smoke Exposure: No Recent Hopitalizations: Yes (sepsis pneumonia August 2018) Immunizations Up To Date Tetanus Booster (TDap): Unknown Date of Pneumonia Vaccine: Aug 31, 2018 Seasonal Allergies Seasonal Allergies: No Past Medical History Surgeries: Yes (aortic valve replacement) Valve Replacement Respiratory: No Currently Using CPAP: No Currently Using BIPAP: No Cardiac: Yes Atrial Fibrillation, Heart Murmur, High Cholesterol, Hypertension Neurological: No Neuropathy, Stroke, TIA Sexually Transmitted Disease: No HIV/AIDS: No Genitourinary: Yes Benign Prostatic Hyperpl, Prostate Problems Gastrointestinal: No Musculoskeletal: Yes Arthritis Endocrine: Yes Diabetes, Non-Insulin dep HEENT: Yes (GLASSES) Loss of Vision: Denies Hearing Impairment: Denies Cancer: No Psychosocial: No Integumentary: No Blood Disorders: No Adverse Reaction/Blood Tranf: No Family Medical History Asthma 19 MOTHER Bone cancer Congenital heart disease 19 MOTHER Hypertension 19 MOTHER Lung cancer Myocardial infarction 19 MOTHER Diabetes, Other Conditions/Hx Physical Exam Vital Signs Vital Signs - First Documented 07/03/20 12:05 Temp 36.7 Pulse 108 Resp 18 B/P (MAP) 96/65 (75) Pulse Ox 95 O2 Delivery Room Air Capillary Refill : Height, Weight, BMI Height: 5'11.00" Weight: 150lbs. 4.0oz. 68.397698lv; 20.00 BMI Method:Stated General Appearance: No Apparent Distress, WD/WN HEENT: PERRL/EOMI, Normal ENT Inspection Neck: Full Range of Motion, Normal Inspection, Supple Respiratory: Lungs Clear, Normal Breath Sounds, No Accessory Muscle Use Cardiovascular: No Edema, No Gallop, Normal Peripheral Pulses, Irregularly Irregular Gastrointestinal: Normal Bowel Sounds, Non Tender, Soft; No Distended Extremity: Normal Capillary Refill, Normal Inspection, Normal Range of Motion Neurologic/Psychiatric: Alert, Oriented x3, No Motor/Sensory Deficits, Normal Mood/Affect Skin: Normal Color, Warm/Dry Focused Exam Lactate Level 07/03/20 12:18: Lactic Acid Level 1.50 Lactic Acid Level Laboratory Tests Test 07/03/20 12:18 Lactic Acid Level 1.50 MMOL/L (0.50-2.00) Progress/Results/Core Measures Results/Orders Lab Results Laboratory Tests Test 07/03/20 12:14 07/03/20 12:18 07/03/20 12:28 Range/Units Glucometer 107 70-110 MG/DL White Blood Count 4.8 4.3-11.0 10^3/uL Red Blood Count 3.83 L 4.30-5.52 10^6/uL Hemoglobin 12.6 L 13.3-17.7 g/dL Hematocrit 39 L 40-54 % Mean Corpuscular Volume 103 H 80-99 fL Mean Corpuscular Hemoglobin 33 25-34 pg Mean Corpuscular Hemoglobin Concent 32 32-36 g/dL Red Cell Distribution Width 13.1 10.0-14.5 % Platelet Count 108 L 130-400 10^3/uL Mean Platelet Volume 10.4 9.0-12.2 fL Immature Granulocyte % (Auto) 0 % Neutrophils (%) (Auto) 65 42-75 % Lymphocytes (%) (Auto) 22 12-44 % Monocytes (%) (Auto) 10 0-12 % Eosinophils (%) (Auto) 2 0-10 % Basophils (%) (Auto) 1 0-10 % Neutrophils # (Auto) 3.1 1.8-7.8 10^3/uL Lymphocytes # (Auto) 1.1 1.0-4.0 10^3/uL Monocytes # (Auto) 0.5 0.0-1.0 10^3/uL Eosinophils # (Auto) 0.1 0.0-0.3 10^3/uL Basophils # (Auto) 0.0 0.0-0.1 10^3/uL Immature Granulocyte # (Auto) 0.0 0.0-0.1 10^3/uL Prothrombin Time 15.1 H 12.2-14.7 SEC INR Comment 1.2 0.8-1.4 Activated Partial Thromboplast Time 36 H 24-35 SEC Sodium Level 136 135-145 MMOL/L Potassium Level 6.0 H 3.6-5.0 MMOL/L Chloride Level 106 98-107 MMOL/L Carbon Dioxide Level 21 21-32 MMOL/L Anion Gap 9 5-14 MMOL/L Blood Urea Nitrogen 28 H 7-18 MG/DL Creatinine 1.75 H 0.60-1.30 MG/DL Estimat Glomerular Filtration Rate 37 BUN/Creatinine Ratio 16 Glucose Level 111 H 70-105 MG/DL Lactic Acid Level 1.50 0.50-2.00 MMOL/L Calcium Level 9.3 8.5-10.1 MG/DL Corrected Calcium 9.4 8.5-10.1 MG/DL Magnesium Level 1.8 1.6-2.4 MG/DL Total Bilirubin 0.9 0.1-1.0 MG/DL Aspartate Amino Transf (AST/SGOT) 18 5-34 U/L Alanine Aminotransferase (ALT/SGPT) 8 0-55 U/L Alkaline Phosphatase 77 40-136 U/L Myoglobin 50.9 10.0-92.0 NG/ML Troponin I < 0.028 <0.028 NG/ML B-Type Natriuretic Peptide 139.1 H <100.0 PG/ML Total Protein 7.4 6.4-8.2 GM/DL Albumin 3.9 3.2-4.5 GM/DL Urine Color YELLOW Urine Clarity CLEAR Urine pH 5.5 5-9 Urine Specific [place] >=1.030 1.016-1.022 Urine Protein TRACE H NEGATIVE Urine Glucose (UA) NEGATIVE NEGATIVE Urine Ketones NEGATIVE NEGATIVE Urine Nitrite NEGATIVE NEGATIVE Urine Bilirubin NEGATIVE NEGATIVE Urine Urobilinogen 0.2 < = 1.0 MG/DL Urine Leukocyte Esterase 2+ H NEGATIVE Urine RBC (Auto) TRACE-I NEGATIVE Urine RBC NONE /HPF Urine WBC 25-50 H /HPF Urine Squamous Epithelial Cells 2-5 /HPF Urine Renal Epithelial Cells RARE /HPF Urine Crystals NONE /LPF Urine Bacteria MODERATE H /HPF Urine Casts NONE /LPF Urine Mucus NEGATIVE /LPF Urine Culture Indicated YES My Orders Orders - MARGIE ZACARIAS MANAGER CANCER Cbc With Automated Diff (07/03/20 12:13) Magnesium (07/03/20 12:13) Chest 1 View, Ap/Pa Only (07/03/20 12:13) Ekg Tracing (07/03/20 12:13) Comprehensive Metabolic Panel (07/03/20 12:13) Myoglobin Serum (07/03/20 12:13) Protime With Inr (07/03/20 12:13) Partial Thromboplastin Time (07/03/20 12:13) O2 (07/03/20 12:13) Monitor-Rhythm Ecg Trace Only (07/03/20 12:13) Ed Iv/Invasive Line Start (07/03/20 12:13) BNP (07/03/20 12:13) Troponin I (07/03/20 12:13) Ns Iv 1000 Ml (Sodium Chloride 0.9%) (07/03/20 13:15) Lactic Acid Analyzer (07/03/20 13:13) Medications Given in ED Current Medications Medications Dose Ordered Sig/John Route Start Time Stop Time Status Last Admin Dose Admin Sodium Chloride 1,000 ml @ 999 mls/hr Q1H ONCE IV 07/03/20 13:15 07/03/20 14:15 DC 07/03/20 13:59 999 MLS/HR Vital Signs/I&O 07/03/20 12:05 Temp 36.7 Pulse 108 Resp 18 B/P (MAP) 96/65 (75) Pulse Ox 95 O2 Delivery Room Air Progress Progress Note : Progress Note Patient examined upon arrival, no acute distress noted. Placed on manager monitoring and noted to be in atrial fibrillation with initial rate of 121. States that he does have a history of atrial fibrillation and used to take anticoagulants however he was taken off of this due to excessive bleeding. States that he takes a baby aspirin daily for his atrial fibrillation. Additionally he was placed on ciprofloxacin for urinary tract infection, states that he has follow-up with Dr. Dave tomorrow. Will initiate cardiac work-up at this time. Labs and chest x-ray reviewed. Reviewed case with Dr. Orozco and she is agreeable with observation admission for acute kidney injury. Requested to have Dr. Cantu notified that patient is in the hospital. Consult with Dr. Chen at 1331. No new orders. Reviewed plan of care with patient and family they are both agreeable with plan. Initial ECG Impression Date: July 03, 2020 Initial ECG Impression Time: 12:04 Initial ECG Rate: 103 Initial ECG Rhythm: A Fib/Flutter Initial ECG Impression: Atrial Fibrillation Diagnostic Imaging Diagonstic Imaging: Xray Plain Films/CT/US/NM/MRI: chest Comments NAME: KAYLA MCKAY [facility] REC#: [id number] PT STATUS: REG ER : 1935 PHYSICIAN: MARGIE ZACARIAS MANAGER CANCER ADMIT DATE: 07/03/20/ER Draft Date of Exam:07/03/20 CHEST 1 VIEW, AP/PA ONLY INDICATION: Chest pain. COMPARISON: 09/04/2018. FINDINGS: A single frontal radiographic view of the chest was obtained and shows normal cardiac silhouette and pulmonary vasculature. The lungs show mild diffuse coarse prominence of the interstitium; however, this is improved compared to the prior exam and may be on the basis of underlying background chronic interstitial lung disease. There is no focal alveolar consolidation, large effusion, or pneumothorax. Sternotomy wires and calcified aortic atherosclerosis are noted. The osseous structures show no acute abnormalities. IMPRESSION: Probable background chronic interstitial lung disease; otherwise, no acute cardiopulmonary process. Dictated on workstation # [id number] Dict: 07/03/20 1259 Trans: 07/03/20 1302 [id number] Interpreted by: ECHO FRAGOSO MD Electronically signed by: Departure Communication (Admissions) Time/Spoke to Admitting Phy: 13:13 accepted patient for observation admission. Impression Primary Impression: Atrial fibrillation Disposition: ADMITTED INPATIENT Condition: Stable Admissions Decision to Admit Reason: Admit from ER (General) Decision to Admit/Date: July 03, 2020 Time/Decision to Admit Time: 13:00 Departure-Patient Inst. Referrals: FACUNDO GUZMAN MD (PCP/Family) Primary Care Physician MARGIE ZACARIAS MANAGER CANCER July 03, 2020 12:18
[2020-07-03 12:27] LABS: BASOPHILS % (AUTO) 1 % (0-10); EOSINOPHILS # (AUTO) 0.1 10^3/uL (0.0-0.3); EOSINOPHILS % (AUTO) 2 % (0-10); HEMATOCRIT 39 % (40-54); HEMOGLOBIN 12.6 g/dL (13.3-17.7); LYMPHOCYTES # (AUTO) 1.1 10^3/uL (1.0-4.0); LYMPHOCYTES % (AUTO) 22 % (12-44); MEAN CORPUSCULAR HEMOGLOBIN 33 pg (25-34); MEAN CORPUSCULAR HGB CONC 32 g/dL (32-36); MEAN CORPUSCULAR VOLUME 103 fL (80-99); MEAN PLATELET VOLUME 10.4 fL (9.0-12.2); MONOCYTES # (AUTO) 0.5 10^3/uL (0.0-1.0); MONOCYTES % (AUTO) 10 % (0-12); NEUTROPHILS # (AUTO) 3.1 10^3/uL (1.8-7.8); NEUTROPHILS % (AUTO) 65 % (42-75); PLATELET COUNT 108 10^3/uL (130-400); WHITE BLOOD COUNT 4.8 10^3/uL (4.3-11.0)
[2020-07-03 12:32] LABS: BILIRUBIN,URINE NEGATIVE (NEGATIVE); CLARITY,URINE CLEAR; COLOR,URINE YELLOW; GLUCOSE, URINE (UA) NEGATIVE (NEGATIVE); KETONES,URINE NEGATIVE (NEGATIVE); LEUKOCYTE ESTERASE ,URINE 2+ (NEGATIVE); NITRITE,URINE NEGATIVE (NEGATIVE); PH,URINE 5.5 (5-9); PROTEIN,URINE TRACE (NEGATIVE)
[2020-07-03 12:34] LABS: ALBUMIN 3.9 GM/DL (3.2-4.5)
[2020-07-03 12:36] LABS: CALCIUM 9.3 MG/DL (8.5-10.1)
[2020-07-03 12:37] LABS: INR 1.2 (0.8-1.4); PROTHROMBIN TIME PATIENT 15.1 SEC (12.2-14.7); TOTAL PROTEIN 7.4 GM/DL (6.4-8.2)
[2020-07-03 12:39] LABS: BILIRUBIN,TOTAL 0.9 MG/DL (0.1-1.0)
[2020-07-03 12:40] LABS: BACTERIA,URINE MODERATE /HPF; RENAL EPITHELIAL CELLS,URINE RARE /HPF; WBC,URINE 25-50 /HPF
[2020-07-03 12:41] LABS: CREATININE SERUM 1.75 MG/DL (0.60-1.30)
[2020-07-03 12:44] LABS: MAGNESIUM 1.8 MG/DL (1.6-2.4)
--- NOTE | 2020-07-03 13:03 | Diagnostic Imaging Report ---
INDICATION: Chest pain. COMPARISON: 09/04/2018. FINDINGS: A single frontal radiographic view of the chest was obtained and shows normal cardiac silhouette and pulmonary vasculature. The lungs show mild diffuse coarse prominence of the interstitium; however, this is improved compared to the prior exam and may be on the basis of underlying background chronic interstitial lung disease. There is no focal alveolar consolidation, large effusion, or pneumothorax. Sternotomy wires and calcified aortic atherosclerosis are noted. The osseous structures show no acute abnormalities. IMPRESSION: Probable background chronic interstitial lung disease; otherwise, no acute cardiopulmonary process. Dictated by: Dictated on workstation # [id number]
[2020-07-03] MEDS ORDERED: NS IV 1000 ML 1,000 ML IV ONE (13:15)
[2020-07-03 15:45] VITALS: BP 106/45
[2020-07-03] MEDS ORDERED: ONDANSETRON 4 MG/2 ML (SDV) Z0FRAN IVP PRN ×2 (16:00→20:15)
[2020-07-03] MEDS ORDERED: ACETAMINOPHEN 325 MG TABLET PO PRN (16:00)
[2020-07-03 16:25] VITALS: BP 96/65
[2020-07-03] MEDS ORDERED: RT-ALBUTEROL SULF 2.5 MG/3 ML PRE-MIX VIAL INH PRN (16:30)
[2020-07-03] MEDS: NS IV 1000 ML 1,000 ML IV SCH (16:32)
--- NOTE | 2020-07-03 17:11 | Consultation-Cardiology ---
HPI-Cardiology Cardiology Consultation: Date of Consultation 07/03/20 Time Seen by a Provider: 15:40 Date of Admission 07-03-20 Attending Physician Taylor Orozco DO Admitting Physician Warren Martinez MD Consulting Physician Huey Chen MD HPI: Chief Complaint: Acute renal insufficiency A-fib Mr. Shannon is an 85 yr old male admitted to ICU 4 from the ED with acute renal insufficiency. He is a poor historian. He reports he has been having episodes of nausea, freq diarrhea and generally feeling unwell for few days. He reports he had increasing SOB. He denies any c/o CP, palpitations, syncope or near syncope. He reports he has chronic a-fib, but is not taking OAC d/t hematuria several months ago for which he has been seeing Dr. Dave. He denies any LE swelling. He reports he is feeling well. He states he just got a month ago. Review of Systems-Cardiology Review of Systems Constitutional: No chills, No fever; lightheadedness, malaise Eyes: No vision change Ears/Nose/Throat: No epistaxis, No recent hearing loss Respiratory: As described under HPI Cardiovascular: As described under HPI Gastrointestinal: As described under HPI Genitourinary: No dysuria, No hematuria Musculoskeletal: no symptoms reported Skin: No rash on exposed areas, No ulcerations on exposed areas Psychiatric/Neurological: No anxiety, No depression, No seizure, No focal weakness, No syncope Hematologic: No bleeding abnormalities NAS-Wdkbvw-Lpafdb Hx Patient Social History Smoking Status: Former Smoker 2nd Hand Smoke Exposure: No Immunizations Up To Date Tetanus Booster (TDap): Unknown Date of Pneumonia Vaccine: Aug 31, 2018 Date of Influenza Vaccine: Dec 04, 2019 Past Medical History PMH As described under Assessment. Family Medical History Family Medical History: He does not report fam h/o early CAD He quit smoking in the 1960s Family History: Asthma 19 MOTHER Bone cancer Congenital heart disease 19 MOTHER Hypertension 19 MOTHER Lung cancer Myocardial infarction 19 MOTHER Allergies and Home Medications Allergies Coded Allergies: No Known Drug Allergies (Unverified , 05/24/18) Home Medications Carvedilol 3.125 Mg Tablet, 3.125 MG PO BID Prescribed by: ROLANDO PAGE on 09/08/18 1201 Ciprofloxacin HCl 500 Mg Tablet, 500 MG PO BID Prescribed by: ANGELICA FLOWERS on 11/23/19 0113 Metformin HCl 500 Mg Tab.er.24h, 500 MG PO 1800, (Reported) Potassium Chloride 10 Meq Capsule.er, 10 MEQ PO DAILY Prescribed by: ROLANDO PAGE on 09/08/18 1201 Sacubitril/Valsartan 1 Each Tablet, 1 TAB PO BID Prescribed by: ROLANDO PAGE on 09/08/18 1201 Tamsulosin HCl 0.4 Mg Cap, 0.4 MG PO DAILY, (Reported) Physical Exam-Cardiology Physical Exam Vital Signs/I&O 07/03/20 07/03/20 07/03/20 07/03/20 20:00 21:00 22:00 23:39 Pulse 80 77 85 Resp 20 17 16 B/P (MAP) 90/54 (66) Pulse Ox 95 91 96 95 O2 Delivery Room Air Room Air 07/04/20 07/04/20 07/04/20 07/04/20 00:00 00:00 01:00 01:00 Temp 36.7 Pulse 85 77 80 Resp 16 21 B/P (MAP) 94/57 (69) Pulse Ox 95 94 O2 Delivery Room Air Room Air 07/04/20 07/04/20 07/04/20 07/04/20 02:00 03:00 03:39 04:00 Temp 36.4 Pulse 112 96 Resp 19 18 B/P (MAP) Pulse Ox 97 96 95 O2 Delivery Room Air Room Air Room Air 07/04/20 07/04/20 07/04/20 07/04/20 04:00 05:00 06:00 07:46 Temp 36.3 Pulse 79 82 86 Resp 14 15 12 B/P (MAP) 95/74 (81) 99/74 (82) Pulse Ox 96 95 94 O2 Delivery Room Air Room Air Room Air 07/04/20 00:00 Intake Total 1600 ml Output Total 900 ml Balance 700 ml Capillary Refill : Less Than 3 Seconds Constitutional: AAO x 3, well-developed, well-nourished, other (thin) HEENT: PERRL, hearing is well preserved Neck: No carotid bruit; carotid pulses are 2 + bilaterally Respiratory: No accessory muscle use, No respiratory distress; chest expansion is symmetric, chest is bilaterally symmetric, lungs clear to auscultation Cardiovascular: irregularly irregular; No JVD; S1 and S2, systolic murmur Gastrointestinal: No tender; soft, audible bowel sounds Extremities: no lower extremity edema bilateral Neurologic/Psychiatric: grossly intact (moves all extremities) Skin: No rash on exposed areas, No ulcerations on exposed areas Data Review Labs Laboratory Tests 07/03/20 12:14: Glucometer 107 07/03/20 12:18: White Blood Count 4.8, Red Blood Count 3.83L, Hemoglobin 12.6L, Hematocrit 39L, Mean Corpuscular Volume 103H, Mean Corpuscular Hemoglobin 33, Mean Corpuscular Hemoglobin Concent 32, Red Cell Distribution Width 13.1, Platelet Count 108L, Mean Platelet Volume 10.4, Immature Granulocyte % (Auto) 0, Neutrophils (%) (Auto) 65, Lymphocytes (%) (Auto) 22, Monocytes (%) (Auto) 10, Eosinophils (%) (Auto) 2, Basophils (%) (Auto) 1, Neutrophils # (Auto) 3.1, Lymphocytes # (Auto) 1.1, Monocytes # (Auto) 0.5, Eosinophils # (Auto) 0.1, Basophils # (Auto) 0.0, Immature Granulocyte # (Auto) 0.0, Prothrombin Time 15.1H, INR Comment 1.2, Activated Partial Thromboplast Time 36H, Sodium Level 136, Potassium Level 6.0H, Chloride Level 106, Carbon Dioxide Level 21, Anion Gap 9, Blood Urea Nitrogen 28H, Creatinine 1.75H, Estimat Glomerular Filtration Rate 37, BUN/Creatinine Ratio 16, Glucose Level 111H, Lactic Acid Level 1.50, Calcium Level 9.3, Corrected Calcium 9.4, Magnesium Level 1.8, Total Bilirubin 0.9, Aspartate Amino Transf (AST/SGOT) 18, Alanine Aminotransferase (ALT/SGPT) 8, Alkaline Phosphatase 77, Myoglobin 50.9, Troponin I < 0.028, B-Type Natriuretic Peptide 139.1H, Total Protein 7.4, Albumin 3.9 07/03/20 12:28: Urine Color YELLOW, Urine Clarity CLEAR, Urine pH 5.5, Urine Specific [place] >=1.030, Urine Protein TRACEH, Urine Glucose (UA) NEGATIVE, Urine Ketones NEGATIVE, Urine Nitrite NEGATIVE, Urine Bilirubin NEGATIVE, Urine Urobilinogen 0.2, Urine Leukocyte Esterase 2+H, Urine RBC (Auto) TRACE-I, Urine RBC NONE, Urine WBC 25-50H, Urine Squamous Epithelial Cells 2-5, Urine Renal Epithelial Cells RARE, Urine Crystals NONE, Urine Bacteria MODERATEH, Urine Casts NONE, Urine Mucus NEGATIVE, Urine Culture Indicated YES 07/03/20 17:20: Potassium Level 5.8H 07/04/20 03:25: White Blood Count 4.6, Red Blood Count 3.50L, Hemoglobin 11.5L, Hematocrit 36L, Mean Corpuscular Volume 103H, Mean Corpuscular Hemoglobin 33, Mean Corpuscular Hemoglobin Concent 32, Red Cell Distribution Width 13.0, Platelet Count 95L, Mean Platelet Volume 11.0, Immature Granulocyte % (Auto) 0, Neutrophils (%) (Auto) 57, Lymphocytes (%) (Auto) 28, Monocytes (%) (Auto) 10, Eosinophils (%) (Auto) 4, Basophils (%) (Auto) 1, Neutrophils # (Auto) 2.6, Lymphocytes # (Auto) 1.3, Monocytes # (Auto) 0.5, Eosinophils # (Auto) 0.2, Basophils # (Auto) 0.0, Immature Granulocyte # (Auto) 0.0, Sodium Level 136, Potassium Level 5.8H, Chloride Level 108H, Carbon Dioxide Level 20L, Anion Gap 8, Blood Urea Nitrogen 26H, Creatinine 1.36H, Estimat Glomerular Filtration Rate 50, BUN/Creatinine Ratio 19, Glucose Level 83, Calcium Level 8.6, Corrected Calcium 8.9, Total Bilirubin 0.7, Aspartate Amino Transf (AST/SGOT) 14, Alanine Aminotransferase (ALT/SGPT) 8, Alkaline Phosphatase 66, Total Protein 6.8, Albumin 3.6 Radiology NAME: KAYLA SHANNON [facility] REC#: [id number] PT STATUS: REG ER : 1935 PHYSICIAN: MARGIE ZACARIAS MAIL HANDLER SORTER ADMIT DATE: 07/03/20/ER Draft Date of Exam:07/03/20 CHEST 1 VIEW, AP/PA ONLY INDICATION: Chest pain. COMPARISON: 09/04/2018. FINDINGS: A single frontal radiographic view of the chest was obtained and shows normal cardiac silhouette and pulmonary vasculature. The lungs show mild diffuse coarse prominence of the interstitium; however, this is improved compared to the prior exam and may be on the basis of underlying background chronic interstitial lung disease. There is no focal alveolar consolidation, large effusion, or pneumothorax. Sternotomy wires and calcified aortic atherosclerosis are noted. The osseous structures show no acute abnormalities. IMPRESSION: Probable background chronic interstitial lung disease; otherwise, no acute cardiopulmonary process. 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 Dave - therefore is not on OAC H/O TURP [place] [address] 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 Non-compliance with cardiac f/u Discussion and Recomendations Chronic a-fib with controlled rate Currently not taking OAC d/t report of hematuria months ago without reoccurrence per pt report - our rec is that he be on OAC for stroke prophylaxis d/t chronic a-fib H/O NICM We advise echocardiogram to eval structure and function We adivse MPI to eval perfusion Acute renal insufficiency of undetermined etiology Hyperkalemia likely secondary to ARIF Monitor lab closely Further recs will be based on his hospital course We would like to thank medical services for this consult ROLANDO PAGE July 03, 2020 17:11
[2020-07-03] MEDS ORDERED: REGADENOSON 0.4 MG/5 ML SYR (LEXISCAN) IV ONE (17:15)
[2020-07-03] MEDS ORDERED: SOD POLYSTERENE 15 GM/60 ML (KAYEXALATE) UNIT DOSE PO ONE (17:45)
--- NOTE | 2020-07-03 17:45 | Consultation-Cardiology ---
HPI-Cardiology Cardiology Consultation: Date of Consultation 07/03/20 Time Seen by a Provider: 17:20 Date of Admission Attending Physician Taylor Orozco DO Admitting Physician Warren Martinez MD Consulting Physician CORINA ISAAC MD, FACP, FACC HPI: Chief Complaint: Reason for consultation: A Fib HPI Mr. Shannon is an 85 yr old male admitted to ICU 4 from the ED with acute renal insufficiency. He is a poor historian. He reports he has been having episodes of nausea, freq diarrhea and generally feeling unwell for few days. He reports he had increasing SOB. He denies any c/o CP, palpitations, syncope or near syncope. He reports he has chronic a-fib, but is not taking OAC d/t hematuria several months ago for which he has been seeing Dr. Dave. He denies any LE swelling. He reports he is feeling well. He states he just got a month ago. Review of Systems-Cardiology Review of Systems Constitutional: No chills, No fever; lightheadedness, malaise Eyes: No vision change Ears/Nose/Throat: No epistaxis, No recent hearing loss Respiratory: As described under HPI Cardiovascular: As described under HPI Gastrointestinal: As described under HPI Genitourinary: No dysuria, No hematuria Musculoskeletal: no symptoms reported Skin: No rash on exposed areas, No ulcerations on exposed areas Psychiatric/Neurological: No anxiety, No depression, No seizure, No focal weakness, No syncope Hematologic: No bleeding abnormalities [id number]-[id number] Hx Patient Social History Smoking Status: Former Smoker 2nd Hand Smoke Exposure: No Immunizations Up To Date Tetanus Booster (TDap): Unknown Date of Pneumonia Vaccine: Aug 31, 2018 Date of Influenza Vaccine: Dec 04, 2019 Past Medical History PMH As described under Assessment. Family Medical History Family Medical History: He does not report fam h/o early CAD He quit smoking in the 1960s Family History: Asthma 19 MOTHER Bone cancer Congenital heart disease 19 MOTHER Hypertension 19 MOTHER Lung cancer Myocardial infarction 19 MOTHER Allergies and Home Medications Allergies Coded Allergies: No Known Drug Allergies (Unverified , 05/24/18) Home Medications Carvedilol 3.125 Mg Tablet, 3.125 MG PO BID Prescribed by: ROLANDO PAGE on 09/08/18 1201 Ciprofloxacin HCl 500 Mg Tablet, 500 MG PO BID Prescribed by: ANGELICA FLOWERS on 11/23/19 0113 Metformin HCl 500 Mg Tab.er.24h, 500 MG PO 1800, (Reported) Potassium Chloride 10 Meq Capsule.er, 10 MEQ PO DAILY Prescribed by: ROLANDO PAGE on 09/08/18 1201 Sacubitril/Valsartan 1 Each Tablet, 1 TAB PO BID Prescribed by: ROLANDO PAGE on 09/08/18 1201 Tamsulosin HCl 0.4 Mg Cap, 0.4 MG PO DAILY, (Reported) Patient Home Medication List Home Medication List Reviewed: Yes Physical Exam-Cardiology Physical Exam Vital Signs/I&O 07/03/20 07/03/20 07/03/20 07/03/20 12:05 15:26 15:45 16:25 Temp 36.7 36.7 Pulse 108 98 87 108 Resp 18 14 17 B/P (MAP) 96/65 (75) 99/55 106/45 (65) Pulse Ox 95 97 95 O2 Delivery Room Air Room Air Room Air FiO2 21 07/03/20 16:50 Pulse 95 Capillary Refill : Less Than 3 Seconds Constitutional: AAO x 3, well-developed, well-nourished, other (thin) HEENT: PERRL, hearing is well preserved Neck: No carotid bruit; carotid pulses are 2 + bilaterally Respiratory: No accessory muscle use, No respiratory distress; chest expansion is symmetric, chest is bilaterally symmetric, lungs clear to auscultation Cardiovascular: irregularly irregular; No JVD; S1 and S2, systolic murmur Gastrointestinal: No tender; soft, audible bowel sounds Extremities: no lower extremity edema bilateral Neurologic/Psychiatric: grossly intact (moves all extremities) Skin: No rash on exposed areas, No ulcerations on exposed areas Data Review Labs Laboratory Tests 07/03/20 12:14: Glucometer 107 07/03/20 12:18: White Blood Count 4.8, Red Blood Count 3.83L, Hemoglobin 12.6L, Hematocrit 39L, Mean Corpuscular Volume 103H, Mean Corpuscular Hemoglobin 33, Mean Corpuscular Hemoglobin Concent 32, Red Cell Distribution Width 13.1, Platelet Count 108L, Mean Platelet Volume 10.4, Immature Granulocyte % (Auto) 0, Neutrophils (%) (Auto) 65, Lymphocytes (%) (Auto) 22, Monocytes (%) (Auto) 10, Eosinophils (%) (Auto) 2, Basophils (%) (Auto) 1, Neutrophils # (Auto) 3.1, Lymphocytes # (Auto) 1.1, Monocytes # (Auto) 0.5, Eosinophils # (Auto) 0.1, Basophils # (Auto) 0.0, Immature Granulocyte # (Auto) 0.0, Prothrombin Time 15.1H, INR Comment 1.2, Activated Partial Thromboplast Time 36H, Sodium Level 136, Potassium Level 6.0H, Chloride Level 106, Carbon Dioxide Level 21, Anion Gap 9, Blood Urea Nitrogen 28H, Creatinine 1.75H, Estimat Glomerular Filtration Rate 37, BUN/Creatinine Ratio 16, Glucose Level 111H, Lactic Acid Level 1.50, Calcium Level 9.3, Corrected Calcium 9.4, Magnesium Level 1.8, Total Bilirubin 0.9, Aspartate Amino Transf (AST/SGOT) 18, Alanine Aminotransferase (ALT/SGPT) 8, Alkaline Phosphatase 77, Myoglobin 50.9, Troponin I < 0.028, B-Type Natriuretic Peptide 139.1H, Total Protein 7.4, Albumin 3.9 07/03/20 12:28: Urine Color YELLOW, Urine Clarity CLEAR, Urine pH 5.5, Urine Specific Jackson >=1.030, Urine Protein TRACEH, Urine Glucose (UA) NEGATIVE, Urine Ketones NEGATIVE, Urine Nitrite NEGATIVE, Urine Bilirubin NEGATIVE, Urine Urobilinogen 0.2, Urine Leukocyte Esterase 2+H, Urine RBC (Auto) TRACE-I, Urine RBC NONE, Urine WBC 25-50H, Urine Squamous Epithelial Cells 2-5, Urine Renal Epithelial Cells RARE, Urine Crystals NONE, Urine Bacteria MODERATEH, Urine Casts NONE, Urine Mucus NEGATIVE, Urine Culture Indicated YES 07/03/20 17:20: Potassium Level 5.8H Laboratory Tests 07/03/20 12:18 07/03/20 17:20 A/P-Cardiology Assessment/Admission Diagnosis Acute renal insufficiency of undetermined etiology, managed by Dr Orozco Chronic systolic CHF due to dilated cardiomyopathy - clinically compensated Echo of 09/02/18: LVEF 15-20%, biatrial enlargement, mod to sev MR, mod (probably a bioprosthetic valve), RVSP 38 mmHg, markedly dilated IVC Atrial fibrillation, chronic - rate controlled Reported episode of hematuria several months ago for which he is following with Dr. Dave - therefore is not on OAC H/O TURP [place] [address] 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 Non-compliance with cardiac f/u Discussion and Recomendations Currently not taking OAC d/t report of hematuria months ago without reoccurrence per pt report - our rec is that he be on OAC for stroke prophylaxis d/t chronic a-fib, but pt refuses H/O NICM We advise echocardiogram to eval structure and function We adivse MPI to eval perfusion Hyperkalemia likely secondary to ARIF, treat Monitor lab closely Further recs will be based on his hospital course We would like to thank Medical services for this consult CORINA ISAAC MD FACP FAC CCDS July 03, 2020 17:45
[2020-07-03 20:00] VITALS: BP 90/54
[2020-07-03] MEDS ORDERED: MELATONIN 3 MG TABLET PO PRN (20:15)
[2020-07-03] MEDS ORDERED: HYDROcodone/APAP 5 MG/325 MG (LORTAB) TAB PO PRN (20:15)
[2020-07-03] MEDS ORDERED: ALPRAZolam 0.25 MG (XANAX) TAB PO PRN (20:15)
[2020-07-03] MEDS ORDERED: morphine INJ 10 MG/ML 1ML (SYR OR VIAL) IVP PRN (20:15)
[2020-07-03] MEDS ORDERED: ACETAMINOPHEN 500 MG TAB (TYLENOL) PO PRN (20:15)
[2020-07-03] MEDS ORDERED: CALCIUM CARBONATE 500 MG (TUMS) TAB.CHEW PO PRN (20:15)
[2020-07-03] MEDS ORDERED: diphenhydrAMINE 25 MG TAB (BENADRYL) PO PRN (20:15)
[2020-07-03] MEDS: SENNA W/DOCUSATE (SENOKOT S) TABLET PO SCH (21:00)
[2020-07-03] MEDS ORDERED: APIXABAN 5 MG (ELIQUIS) TABLET PO SCH (21:00)
[2020-07-04] VITALS (8 sets, daily range): BP systolic 94–124; BP diastolic 56–91
[2020-07-04 03:59] LABS: HEMOGLOBIN 11.5 g/dL (13.3-17.7)
[2020-07-04 04:01] LABS: BASOPHILS % (AUTO) 1 % (0-10); EOSINOPHILS # (AUTO) 0.2 10^3/uL (0.0-0.3); EOSINOPHILS % (AUTO) 4 % (0-10); HEMATOCRIT 36 % (40-54); LYMPHOCYTES # (AUTO) 1.3 10^3/uL (1.0-4.0); LYMPHOCYTES % (AUTO) 28 % (12-44); MEAN CORPUSCULAR HEMOGLOBIN 33 pg (25-34); MEAN CORPUSCULAR HGB CONC 32 g/dL (32-36); MEAN CORPUSCULAR VOLUME 103 fL (80-99); MONOCYTES # (AUTO) 0.5 10^3/uL (0.0-1.0); MONOCYTES % (AUTO) 10 % (0-12); NEUTROPHILS # (AUTO) 2.6 10^3/uL (1.8-7.8); NEUTROPHILS % (AUTO) 57 % (42-75); PLATELET COUNT 95 10^3/uL (130-400); WHITE BLOOD COUNT 4.6 10^3/uL (4.3-11.0)
[2020-07-04 04:20] LABS: ALBUMIN 3.6 GM/DL (3.2-4.5); BILIRUBIN,TOTAL 0.7 MG/DL (0.1-1.0); CALCIUM 8.6 MG/DL (8.5-10.1); CREATININE SERUM 1.36 MG/DL (0.60-1.30); POTASSIUM 5.8 MMOL/L (3.6-5.0); TOTAL PROTEIN 6.8 GM/DL (6.4-8.2)
[2020-07-04] MEDS ORDERED: CATHETER FLUSH 10 ML SYR IV PRN (08:00)
--- NOTE | 2020-07-04 08:43 | History & Physical-Hospitalist ---
History of Present Illness HPI/Chief Complaint CC: Palpitations HPI: This is an 85yoWM with a PMH of AF and chronic renal insufficiency who presented to the ER with palpitations found to have AF with RVR, UTI and acute on chronic kidney disease with hyperkalemia. Pt was subsequently admitted, placed on IV fluids, placed in the ICU and cardiology has performed a cardiac stress test to further risk stratify. At this current time pt does not take any type of blood thinner except for Aspirin due to hematuria. Dr. Dave has been consulted for chronic UTI. Source: patient, family, old records Exam Limitations: no limitations Date Seen 07/04/20 Time Seen by a Provider: 09:30 Attending Physician Taylor Orozco DO PCP Self,Warren KIMBLE Referring Physician Date of Admission July 03, 2020 at 13:25 Home Medications & Allergies Home Medications Reviewed patient Home Medication Reconciliation performed by pharmacy medication reconciliations agriculture technician and/or nursing. Patients Allergies have been reviewed. Allergies Allergies Coded Allergies No Known Drug Allergies (Unverified05/24/18) Patient Social History Marrital Status: Employed/Student: retired Tobacco Use?: No Smoking Status: Former Smoker Immunizations Up To Date Influenza Vaccine Up-to-Date: Yes; Up-to-Date First/Initial COVID19 Vaccinat: none Tetanus Booster (TDap): Unknown Date of Pneumonia Vaccine: Aug 31, 2018 Current Status Primary Language: Frisian Past Medical History AF CRI HTN HLP UTI's BPH Review of Systems Constitutional: see HPI Cardiovascular: palpitations Physical Exam Physical Exam Vital Signs Vital Signs - First Documented 07/03/20 07/03/20 12:05 16:25 Temp 36.7 Pulse 108 Resp 18 B/P (MAP) 96/65 (75) Pulse Ox 95 O2 Delivery Room Air FiO2 21 Capillary Refill : Less Than 3 Seconds Height, Weight, BMI Height: 5'11.00" Weight: 150lbs. 4.0oz. 68.980818hv; 13.01 BMI Method:Stated General Appearance: No Apparent Distress, Chronically ill Eyes: Right Eye Normal Inspection, Right Eye PERRL HEENT: PERRL/EOMI, Normal ENT Inspection, Pharynx Normal, Moist Mucous Membranes Neck: Full Range of Motion, Normal Inspection, Non Tender Respiratory: Chest Non Tender, Lungs Clear, Normal Breath Sounds, No Accessory Muscle Use, No Respiratory Distress Cardiovascular: No Edema, No Gallop, No JVD, No Murmur, Normal Peripheral Pulses, Irregularly Irregular, Tachycardia Gastrointestinal: Normal Bowel Sounds, No Organomegaly, No Pulsatile Mass, Non Tender, Soft Back: Normal Inspection, No CVA Tenderness, No Vertebral Tenderness Extremity: Normal Capillary Refill, Normal Inspection, Normal Range of Motion, Non Tender, No Calf Tenderness, No Pedal Edema Neurologic/Psychiatric: Alert, Oriented x3, No Motor/Sensory Deficits, Normal Mood/Affect Skin: Normal Color, Warm/Dry Lymphatic: No Adenopathy Results Results/Procedures Labs Laboratory Tests 07/03/20 12:18 07/03/20 17:20 07/04/20 03:25 Patient resulted labs reviewed. Assessment/Plan Admission Diagnosis Assessment: AF RVR Hyperkalemia Acute kidney injury CRI Chronic UTI HTN HLP Plan: EST Cardiology Dr Dave IVF gentle Monitor potassium Admission Status: Observation Diagnosis/Problems Diagnosis/Problems (1) Atrial fibrillation with RVR Status: Acute (2) Hyperkalemia (3) DEVYN (acute kidney injury) (4) Renal insufficiency (5) BPH (benign prostatic hyperplasia) (6) UTI (urinary tract infection) TAYLOR OROZCO DO July 04, 2020 08:43
[2020-07-04] MEDS ORDERED: REGADENOSON 0.4 MG/5 ML SYR (LEXISCAN) IV ONE (08:50)
[2020-07-04] MEDS ORDERED: ASPIRIN 81 MG CHEW (CHILDREN'S ASA) PO SCH (09:00)
--- NOTE | 2020-07-04 10:36 | Progress Note - Cardiology ---
Cardiology SOAP Progress Note Subjective: MPI this morning No c/o CP or SOB States "I feel like I'm doing fine" Objective: I&O/Vital Signs 07/04/20 07/04/20 07/04/20 07/04/20 20:10 20:30 21:00 21:05 Temp 37.4 37.0 Pulse Ox 94 O2 Delivery Room Air Room Air 07/04/20 07/05/20 07/05/20 07/05/20 23:35 00:32 03:01 06:48 Temp 36.0 36.0 Pulse 89 84 74 74 Resp 18 18 B/P (MAP) 102/58 (73) 119/62 (81) Pulse Ox 98 96 O2 Delivery Room Air Room Air 07/05/20 07:41 Temp 35.8 Pulse 74 Resp 18 B/P (MAP) 115/66 (82) Pulse Ox 96 O2 Delivery Room Air 07/05/20 00:00 Intake Total 975 ml Output Total 475 ml Balance 500 ml Weight (Pounds): 150 Weight (Ounces): 4.0 Weight (Calculated Kilograms): 68.492221 Constitutional: AAO x 3, well-developed, well-nourished, other (thin) Respiratory: No accessory muscle use, No respiratory distress; chest expansion is symmetric, chest is bilaterally symmetric, lungs clear to auscultation Cardiovascular: irregularly irregular; No JVD; S1 and S2, systolic murmur Gastrointestional: No tender; soft, audible bowel sounds Extremities: no lower extremity edema bilateral Neurologic/Psychiatric: grossly intact (moves all extremities) Skin: No rash on exposed areas, No ulcerations on exposed areas Results/Procedures: Labs Laboratory Tests 07/05/20 05:40: White Blood Count 4.6, Red Blood Count 3.77L, Hemoglobin 12.2L, Hematocrit 39L, Mean Corpuscular Volume 102H, Mean Corpuscular Hemoglobin 32, Mean Corpuscular Hemoglobin Concent 32, Red Cell Distribution Width 13.0, Platelet Count 100L, Mean Platelet Volume 10.8, Immature Granulocyte % (Auto) 0, Neutrophils (%) (Auto) 60, Lymphocytes (%) (Auto) 25, Monocytes (%) (Auto) 8, Eosinophils (%) (Auto) 6, Basophils (%) (Auto) 1, Neutrophils # (Auto) 2.8, Lymphocytes # (Auto) 1.2, Monocytes # (Auto) 0.4, Eosinophils # (Auto) 0.3, Basophils # (Auto) 0.0, Immature Granulocyte # (Auto) 0.0, Sodium Level 139, Potassium Level 5.0, Chl oride Level 109H, Carbon Dioxide Level 22, Anion Gap 8, Blood Urea Nitrogen 21H, Creatinine 1.21, Estimat Glomerular Filtration Rate 57, BUN/Creatinine Ratio 17, Glucose Level 95, Calcium Level 8.8, Corrected Calcium 9.0, Total Bilirubin 0.8, Aspartate Amino Transf (AST/SGOT) 16, Alanine Aminotransferase (ALT/SGPT) 8, Alkaline Phosphatase 70, Total Protein 7.0, Albumin 3.7 Microbiology 07/03/20 Urine Culture - Preliminary, Resulted Culture In Progress A/P: Assessment: Acute renal insufficiency of undetermined etiology, managed by Dr Orozco Chronic systolic CHF due to dilated cardiomyopathy - clinically compensated Echo of 09/02/18: LVEF 15-20%, biatrial enlargement, mod to sev MR, mod (probably a bioprosthetic valve), RVSP 38 mmHg, markedly dilated IVC Atrial fibrillation, chronic - rate controlled Reported episode of hematuria several months ago for which he is following with Dr. Dave - therefore is not on OAC H/O TURP [place] [address] 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 Non-compliance with cardiac f/u Plan: Currently not taking OAC d/t report of hematuria months ago without reoccurrence per pt report - our rec is that he be on OAC for stroke prophylaxis d/t chronic a-fib, but pt refuses H/O NICM We advise echocardiogram to eval structure and function We adivse MPI to eval perfusion Hyperkalemia likely secondary to ARIF, treat Renal function improving, slowly Stop Entresto d/t hyperkalemia and ARIF Continue BB Monitor lab closely ROLANDO PAGE July 04, 2020 10:36
[2020-07-04] MEDS ORDERED: SOD POLYSTERENE 15 GM/60 ML (KAYEXALATE) UNIT DOSE PO ONE (10:45)
[2020-07-04] MEDS: SENNA W/DOCUSATE (SENOKOT S) TABLET PO SCH ×2 (10:57→20:10)
[2020-07-04] MEDS: NS IV 1000 ML 1,000 ML IV SCH ×2 (11:15→20:12)
[2020-07-04] MEDS ORDERED: PATIENT MAY USE OWN MEDS, ALL MC SCH (12:30)
--- NOTE | 2020-07-04 13:31 | CONSULTATION REPORT ---
DATE OF SERVICE: 07/04/2020 ATTENDING PHYSICIAN: Dr. Orozco. SUMMARY: An 85-year-old white man known to me for BPH, who recently, his PSA doubled up. He was supposed to come to my office the day he was admitted to the hospital to discuss that. He also has history of urinary tract infection and present UTI. He was on Bactrim-DS prior to admission. Now, he is on Cipro. He is doing better. He has no hematuria, gross at all. He was on Eliquis that was held because of the hematuria apparently. IMPRESSION: 1. Elevated PSA may be secondary to urinary tract infection. 2. Hematuria, which may be secondary to urinary tract infection. 3. History of atrial fibrillation. PLAN: Continue the Cipro here. Once discharged, he can go back and finish his Bactrim-DS he has at home, may resume the Eliquis and hold if hematuria. I will see him back in the office in four weeks. We will recheck things at that time. We will obtain a PSA today and see what it is. We will have to take into consideration the age of the patient as well and his medical condition, which was explained to him and his . Explained to him all the plan as above. Job ID: [id number] DocumentID: [id number] Dictated Date: 07/04/2020 11:55:45 Hemp Fiber Taker Off Date: 07/04/2020 13:30:24 Dictated By: ZEKE ANDRES MD
[2020-07-04] MEDS ORDERED: SACU1TAB2 PO (14:17)
[2020-07-04] MEDS ORDERED: LORA10TA7 PO (14:17)
[2020-07-04] MEDS ORDERED: POTA10TA36 PO (14:17)
[2020-07-04] MEDS ORDERED: ASPI-1238 PO (14:17)
[2020-07-04] MEDS ORDERED: SULF1TAB35 PO (14:17)
--- NOTE | 2020-07-04 17:00 | Progress Note - Cardiology ---
Cardiology SOAP Progress Note Subjective: Gen malaise and weakness No cp No palp or syncope or shortness of breath at rest No n/v/d Objective: I&O/Vital Signs 07/04/20 07/04/20 07/04/20 07/04/20 05:00 06:00 06:53 07:46 Temp 36.3 Pulse 82 86 84 Resp 15 12 B/P (MAP) 99/74 (82) Pulse Ox 95 94 O2 Delivery Room Air Room Air 07/04/20 07/04/20 07/04/20 07/04/20 09:10 09:52 12:00 12:44 Temp 36.2 Pulse 84 104 Resp 14 B/P (MAP) 123/74 (90) Pulse Ox 97 96 O2 Delivery Room Air 07/04/20 07/04/20 13:56 15:51 Temp 36.0 36.8 Pulse 109 95 Resp 20 18 B/P (MAP) 124/91 (102) 100/59 (73) Pulse Ox 99 99 O2 Delivery Room Air Room Air 07/03/20 23:59 Intake Total 1600 ml Output Total 900 ml Balance 700 ml Weight (Pounds): 150 Weight (Ounces): 4.0 Weight (Calculated Kilograms): 68.246125 Constitutional: AAO x 3, well-developed, well-nourished, other (thin) Respiratory: No accessory muscle use, No respiratory distress; chest expansion is symmetric, chest is bilaterally symmetric, lungs clear to auscultation Cardiovascular: irregularly irregular; No JVD; S1 and S2, systolic murmur Gastrointestional: No tender; soft, audible bowel sounds Extremities: no lower extremity edema bilateral Neurologic/Psychiatric: grossly intact (moves all extremities) Skin: No rash on exposed areas, No ulcerations on exposed areas Results/Procedures: Labs Laboratory Tests 07/03/20 17:20: Potassium Level 5.8H 07/04/20 03:25: Potassium Level 5.8H, White Blood Count 4.6, Red Blood Count 3.50L, Hemoglobin 11.5L, Hematocrit 36L, Mean Corpuscular Volume 103H, Mean Corpuscular Hemoglobin 33, Mean Corpuscular Hemoglobin Concent 32, Red Cell Distribution Width 13.0, Platelet Count 95L, Mean Platelet Volume 11.0, Immature Granulocyte % (Auto) 0, Neutrophils (%) (Auto) 57, Lymphocytes (%) (Auto) 28, Monocytes (%) (Auto) 10, Eosinophils (%) (Auto) 4, Basophils (%) (Auto) 1, Neutrophils # (Auto) 2.6, Lymphocytes # (Auto) 1.3, Monocytes # (Auto) 0.5, Eosinophils # (Auto) 0.2, Basophils # (Auto) 0.0, Immature Granulocyte # (Auto) 0.0, Sodium Level 136, Chloride Level 108H, Carbon Dioxide Level 20L, Anion Gap 8, Blood Urea Nitrogen 26H, Creatinine 1.36H, Estimat Glomerular Filtration Rate 50, BUN/Creatinine Ratio 19, Glucose Level 83, Calcium Level 8.6, Corrected Calcium 8.9, Total Bilirubin 0.7, Aspartate Amino Transf (AST/SGOT) 14, Alanine Aminotransferase (ALT/SGPT) 8, Alkaline Phosphatase 66, Total Protein 6.8, Albumin 3.6 Microbiology 07/03/20 Urine Culture - Preliminary, Resulted Culture In Progress Laboratory Tests 07/03/20 12:18 07/03/20 17:20 07/04/20 03:25 A/P: Assessment: Acute renal insufficiency of undetermined etiology, managed by Dr Orozco Chronic systolic CHF due to dilated cardiomyopathy - clinically compensated Echo of 09/02/18: LVEF 15-20%, biatrial enlargement, mod to sev MR, mod (probably a bioprosthetic valve), RVSP 38 mmHg, markedly dilated IVC Atrial fibrillation, chronic - rate controlled Reported episode of hematuria several months ago for which he is following with Dr. Dave - therefore is not on OAC H/[place] TURP [place] [address] 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 Non-compliance with cardiac f/u Plan: Currently not taking OAC d/t report of hematuria months ago without reoccurrence per pt report - our rec is that he be on OAC for stroke prophylaxis d/t chronic a-fib, but pt refuses H/O NICM We advise echocardiogram to eval structure and function We adivse MPI to eval perfusion Hyperkalemia likely secondary to ARIF, treat Renal function improving, slowly Stop Entresto d/t hyperkalemia and ARIF Continue BB Monitor lab closely CORINA ISAAC MD FACP FACC CCDS July 04, 2020 17:00
[2020-07-04] MEDS: TRIM/SULFAMETH 160/800 (SEPTRA DS) TAB PO SCH (17:27)
[2020-07-04] MEDS: APIXABAN 5 MG (ELIQUIS) TABLET PO SCH (20:16)
[2020-07-05 03:01] VITALS: BP 119/62
[2020-07-05 05:54] LABS: BASOPHILS % (AUTO) 1 % (0-10); EOSINOPHILS # (AUTO) 0.3 10^3/uL (0.0-0.3); EOSINOPHILS % (AUTO) 6 % (0-10); HEMATOCRIT 39 % (40-54); HEMOGLOBIN 12.2 g/dL (13.3-17.7); LYMPHOCYTES # (AUTO) 1.2 10^3/uL (1.0-4.0); LYMPHOCYTES % (AUTO) 25 % (12-44); MEAN CORPUSCULAR HEMOGLOBIN 32 pg (25-34); MEAN CORPUSCULAR HGB CONC 32 g/dL (32-36); MEAN CORPUSCULAR VOLUME 102 fL (80-99); MEAN PLATELET VOLUME 10.8 fL (9.0-12.2); MONOCYTES # (AUTO) 0.4 10^3/uL (0.0-1.0); MONOCYTES % (AUTO) 8 % (0-12); NEUTROPHILS # (AUTO) 2.8 10^3/uL (1.8-7.8); NEUTROPHILS % (AUTO) 60 % (42-75); PLATELET COUNT 100 10^3/uL (130-400); WHITE BLOOD COUNT 4.6 10^3/uL (4.3-11.0)
[2020-07-05 06:03] LABS: ALBUMIN 3.7 GM/DL (3.2-4.5)
[2020-07-05 06:04] LABS: CALCIUM 8.8 MG/DL (8.5-10.1)
[2020-07-05 06:07] LABS: BILIRUBIN,TOTAL 0.8 MG/DL (0.1-1.0)
[2020-07-05 06:09] LABS: CREATININE SERUM 1.21 MG/DL (0.60-1.30)
[2020-07-05 07:41] VITALS: BP 115/66
[2020-07-05] MEDS: TRIM/SULFAMETH 160/800 (SEPTRA DS) TAB PO SCH (08:36)
[2020-07-05] MEDS: APIXABAN 5 MG (ELIQUIS) TABLET PO SCH (08:36)
[2020-07-05] MEDS ORDERED: TAMSULOSIN 0.4 MG (FLOMAX) CAP PO SCH (09:00)
[2020-07-05] MEDS ORDERED: ASPIRIN E.C. 81 MG (ECOTRIN) TAB PO SCH (09:00)
[2020-07-05] MEDS ORDERED: LORATADINE (CLARITIN) 10 MG TAB PO SCH (09:00)
[2020-07-05] MEDS: SENNA W/DOCUSATE (SENOKOT S) TABLET PO SCH (10:49)
--- NOTE | 2020-07-05 11:21 | Discharge Summary ---
Discharge Summary Hospital Course Problems/Dx: (1) Atrial fibrillation with RVR Status: Acute (2) Hyperkalemia (3) DEVYN (acute kidney injury) (4) Renal insufficiency (5) BPH (benign prostatic hyperplasia) (6) UTI (urinary tract infection) Hospital Course Date of Admission: July 03, 2020 at 13:25 Admission Diagnosis : Family Physician/Provider: Warren Martinez MD Date of Discharge: 07/05/20 Discharge Diagnosis: [ ] Hospital Course: [ ] Labs and Pending Lab Test: Laboratory Tests 07/05/20 05:40: White Blood Count 4.6, Red Blood Count 3.77L, Hemoglobin 12.2L, Hematocrit 39L, Mean Corpuscular Volume 102H, Mean Corpuscular Hemoglobin 32, Mean Corpuscular Hemoglobin Concent 32, Red Cell Distribution Width 13.0, Platelet Count 100L, Mean Platelet Volume 10.8, Immature Granulocyte % (Auto) 0, Neutrophils (%) (Auto) 60, Lymphocytes (%) (Auto) 25, Monocytes (%) (Auto) 8, Eosinophils (%) (Auto) 6, Basophils (%) (Auto) 1, Neutrophils # (Auto) 2.8, Lymphocytes # (Auto) 1.2, Monocytes # (Auto) 0.4, Eosinophils # (Auto) 0.3, Basophils # (Auto) 0.0, Immature Granulocyte # (Auto) 0.0, Sodium Level 139, Potassium Level 5.0, Chloride Level 109H, Carbon Dioxide Level 22, Anion Gap 8, Blood Urea Nitrogen 21H, Creatinine 1.21, Estimat Glomerular Filtration Rate 57, BUN/Creatinine Ratio 17, Glucose Level 95, Calcium Level 8.8, Corrected Calcium 9.0, Total Bilirubin 0.8, Aspartate Amino Transf (AST/SGOT) 16, Alanine Aminotransferase (ALT/SGPT) 8, Alkaline Phosphatase 70, Total Protein 7.0, Albumin 3.7 Microbiology 07/03/20 Urine Culture - Final, Complete Gram Pos Mixed Bacterial [place] Home Meds Active Reported Loratadine 10 Mg Tablet 10 Mg PO DAILY Aspirin EC (Aspirin) 81 Mg Tablet.dr 81 Mg PO DAILY Potassium Chloride 10 Meq Tab.er.prt 10 Meq PO DAILY Entresto 24 mg-26 mg Tablet (Sacubitril/Valsartan) 1 Each Tablet 1 Tab PO BID Bactrim Ds Tablet (Sulfamethoxazole/Trimethoprim) 1 Each Tablet 1 Ea PO BID FILLED 06-27-2020 #20/10 DAY SUPPLY Flomax (Tamsulosin HCl) 0.4 Mg Cap 0.4 Mg PO DAILY Metformin HCl ER (Metformin HCl) 500 Mg Tab.er.24h 500 Mg PO 1800 W/ EVENING MEAL Discharge Physical Examination Vital Signs Vital Signs Date Time Temp Pulse Resp B/P (MAP) Pulse Ox O2 Delivery O2 Flow Rate FiO2 07/05/20 09:33 95 Room Air 07/05/20 07:41 35.8 74 18 115/66 (82) 07/03/20 16:25 21 Allergies: Coded Allergies: No Known Drug Allergies (Unverified , 05/24/18) Discharge Summary Date of Admission July 03, 2020 at 13:25 Date of Discharge Discharge Date: July 05, 2020 Admission Diagnosis Assessment: AF RVR Hyperkalemia Acute kidney injury CRI Chronic UTI HTN HLP Plan: EST Cardiology Dr Dave IVF gentle Monitor potassium Discharge Diagnosis (1) Atrial fibrillation with RVR Status: Acute (2) Hyperkalemia (3) DEVYN (acute kidney injury) (4) Renal insufficiency (5) BPH (benign prostatic hyperplasia) (6) UTI (urinary tract infection) BEN MATTA DO July 05, 2020 11:21
[2020-07-05] MEDS ORDERED: CARV3.122 PO (12:13)
[2020-07-05 12:20] VITALS: BP 113/66
--- NOTE | 2020-07-05 12:26 | Progress Note - Cardiology ---
Cardiology SOAP Progress Note Subjective: Gen malaise and weakness No cp or palp or syncope No shortness of breath at rest No n/v/d Objective: I&O/Vital Signs 07/05/20 07/05/20 07/05/20 07/05/20 00:32 03:01 06:48 07:41 Temp 36.0 35.8 Pulse 84 74 74 74 Resp 18 18 B/P (MAP) 119/62 (81) 115/66 (82) Pulse Ox 96 96 O2 Delivery Room Air Room Air 07/05/20 09:33 Pulse Ox 95 O2 Delivery Room Air 07/04/20 23:59 Intake Total 975 ml Output Total 475 ml Balance 500 ml Weight (Pounds): 150 Weight (Ounces): 4.0 Weight (Calculated Kilograms): 68.039459 Constitutional: AAO x 3, well-developed, well-nourished, other (thin) Respiratory: No accessory muscle use, No respiratory distress; chest expansion is symmetric, chest is bilaterally symmetric, lungs clear to auscultation Cardiovascular: irregularly irregular; No JVD; S1 and S2, systolic murmur Gastrointestional: No tender; soft, audible bowel sounds Extremities: no lower extremity edema bilateral Neurologic/Psychiatric: grossly intact (moves all extremities) Skin: No rash on exposed areas, No ulcerations on exposed areas Results/Procedures: Labs Laboratory Tests 07/05/20 05:40: White Blood Count 4.6, Red Blood Count 3.77L, Hemoglobin 12.2L, Hematocrit 39L, Mean Corpuscular Volume 102H, Mean Corpuscular Hemoglobin 32, Mean Corpuscular Hemoglobin Concent 32, Red Cell Distribution Width 13.0, Platelet Count 100L, Mean Platelet Volume 10.8, Immature Granulocyte % (Auto) 0, Neutrophils (%) (Auto) 60, Lymphocytes (%) (Auto) 25, Monocytes (%) (Auto) 8, Eosinophils (%) (Auto) 6, Basophils (%) (Auto) 1, Neutrophils # (Auto) 2.8, Lymphocytes # (Auto) 1.2, Monocytes # (Auto) 0.4, Eosinophils # (Auto) 0.3, Basophils # (Auto) 0.0, Immature Granulocyte # (Auto) 0.0, Sodium Level 139, Potassium Level 5.0, Chloride Level 109H, Carbon Dioxide Level 22, Anion Gap 8, Blood Urea Nitrogen 21H, Creatinine 1.21, Estimat Glomerular Filtration Rate 57, BUN/Creatinine Ratio 17, Glucose Level 95, Calcium Level 8.8, Corrected Calcium 9.0, Total Bilirubin 0.8, Aspartate Amino Transf (AST/SGOT) 16, Alanine Aminotransferase (ALT/SGPT) 8, Alkaline Phosphatase 70, Total Protein 7.0, Albumin 3.7 Microbiology 07/03/20 Urine Culture - Final, Complete Gram Pos Mixed Bacterial Lorraine Laboratory Tests 07/03/20 17:20 07/04/20 03:25 07/05/20 05:40 A/P: Assessment: Acute renal insufficiency of undetermined etiology, managed by Dr Orozco - Entresto being held because of hyperkalemia (treated with Kayexelate during this hospitalization) Hematuria and elevated PSA, managed by Dr Orozco and Dr Dave Chronic systolic CHF due to dilated cardiomyopathy - clinically compensated - Echo of 09/02/18: LVEF 15-20%, biatrial enlargement, mod to sev MR, mod (probably a bioprosthetic valve), RVSP 38 mmHg, markedly dilated IVC - Echo of 07/04/20: LVEF 45-50%, enlargement of both atria and RV, bioprosthetic AoV with mild to mod and AI, mod MR CAD - MPI of 07/04/20 shows basal inferior infarction with minimal disha-infarct ischemia; LVEF 48% Atrial fibrillation, chronic - rate controlled - Due to hematuria, Dr Orozco has advised against hematuria. Also, pt himself refuses to taken any anticoag H/o TURP in [address] 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 Non-compliance with cardiac f/u Plan: We discussed the result of his cardiac w/u with him and his and answered their CV-related question Close outpt f/u recommended CORINA ISAAC MD FACP [facility] July 05, 2020 12:26
--- NOTE | 2020-07-05 13:29 | Discharge Summary ---
Discharge Summary Hospital Course Was the Problem List Reviewed?: Yes Problems/Dx: (1) Atrial fibrillation with RVR Status: Acute (2) Hyperkalemia (3) DEVYN (acute kidney injury) (4) Renal insufficiency (5) BPH (benign prostatic hyperplasia) (6) UTI (urinary tract infection) Hospital Course Date of Admission: July 03, 2020 at 13:25 Admission Diagnosis : Family Physician/Provider: Warren Martinez MD Date of Discharge: 07/05/20 Discharge Diagnosis: AF, UTI, DEVYN, Hyperkalemia Hospital Course: Hospital course: Pt had an uneventful hospital course, observation for AFIB with RVR, acute kidney injury and UTI with hyperkalemia. Entresto and Potassium and antibiotic were all stopped, gentle IV fluids given with good resolution of potassium at 5.0 and creatinine of 1.3. Pt overall did very well, had no complaints, was able to ambulate and do well and was able to discharge with is with close follow-up with Dr. Chen and Dr. Dave. Labs and Pending Lab Test: Laboratory Tests 07/05/20 05:40: White Blood Count 4.6, Red Blood Count 3.77L, Hemoglobin 12.2L, Hematocrit 39L, Mean Corpuscular Volume 102H, Mean Corpuscular Hemoglobin 32, Mean Corpuscular Hemoglobin Concent 32, Red Cell Distribution Width 13.0, Platelet Count 100L, Mean Platelet Volume 10.8, Immature Granulocyte % (Auto) 0, Neutrophils (%) (Auto) 60, Lymphocytes (%) (Auto) 25, Monocytes (%) (Auto) 8, Eosinophils (%) (Auto) 6, Basophils (%) (Auto) 1, Neutrophils # (Auto) 2.8, Lymphocytes # (Auto) 1.2, Monocytes # (Auto) 0.4, Eosinophils # (Auto) 0.3, Basophils # (Auto) 0.0, Immature Granulocyte # (Auto) 0.0, Sodium Level 139, Potassium Level 5.0, Chloride Level 109H, Carbon Dioxide Level 22, Anion Gap 8, Blood Urea Nitrogen 21H, Creatinine 1.21, Estimat Glomerular Filtration Rate 57, BUN/Creatinine Ratio 17, Glucose Level 95, Calcium Level 8.8, Corrected Calcium 9.0, Total Bilirubin 0.8, Aspartate Amino Transf (AST/SGOT) 16, Alanine Aminotransferase (ALT/SGPT) 8, Alkaline Phosphatase 70, Total Protein 7.0, Albumin 3.7 Microbiology 07/03/20 Urine Culture - Final, Complete Gram Pos Mixed Bacterial Lorraine Home Meds Active Carvedilol 3.125 Mg Tablet 3.125 Mg PO BID Reported Loratadine 10 Mg Tablet 10 Mg PO DAILY Aspirin EC (Aspirin) 81 Mg Tablet.dr 81 Mg PO DAILY Flomax (Tamsulosin HCl) 0.4 Mg Cap 0.4 Mg PO DAILY Metformin HCl ER (Metformin HCl) 500 Mg Tab.er.24h 500 Mg PO 1800 W/ EVENING MEAL Assessment/Pt Instructions PCP 1 week Discharge Planning: <30 minutes discharge planning Discharge Instructions Discharge Diet: No Restrictions Discharge Physical Examination Vital Signs Vital Signs Date Time Temp Pulse Resp B/P (MAP) Pulse Ox O2 Delivery O2 Flow Rate FiO2 07/05/20 12:20 36.2 76 17 113/66 (82) 98 Room Air 07/03/20 16:25 21 General Appearance: No Apparent Distress, WD/WN, Chronically ill Respiratory: Lungs Clear Cardiovascular: Regular Rate, Rhythm Skin: Normal Color, Warm/Dry Neurologic/Psychiatric: Alert, Oriented x3 Allergies: Coded Allergies: No Known Drug Allergies (Unverified , 05/24/18) Discharge Summary Date of Admission July 03, 2020 at 13:25 Date of Discharge Discharge Date: July 05, 2020 Admission Diagnosis Assessment: AF RVR Hyperkalemia Acute kidney injury CRI Chronic UTI HTN HLP Plan: EST Cardiology Dr Dave IVF gentle Monitor potassium Discharge Diagnosis (1) Atrial fibrillation with RVR Status: Acute (2) Hyperkalemia (3) DEVYN (acute kidney injury) (4) Renal insufficiency (5) BPH (benign prostatic hyperplasia) (6) UTI (urinary tract infection) BEN MATTA DO July 05, 2020 13:29
--- NOTE | 2020-07-05 13:57 | STRESS TEST ---
DATE OF SERVICE: 07/04/2020 RESTING AND POST REGADENOSON TECHNETIUM-99M TETROFOSMIN SPECT CT IMAGING ORDERING PHYSICIAN: PETRA Downing PRIMARY PHYSICIAN: Huey Chen MD ATTENDING PHYSICIAN: Dr. Orozco. CLINICAL DIAGNOSES: Atrial fibrillation, shortness of breath Baseline images were carried out after injection of 10.45 mCi of technetium-99m Tetrofosmin. This was followed by 0.4 mg regadenoson and 28.6 mCi of technetium-99m Tetrofosmin for stress imaging. The electrocardiogram showed atrial fibrillation. A few isolated premature ventricular contractions were seen. The patient tolerated the procedure well. Review of images at rest and following stress indicates a basal inferior perfusion defect that appears to be predominantly fixed. Gated images showed basal inferior akinesis. Left ventricular ejection fraction is calculated to be 48%. Left ventricular end diastolic volume is 123 mL. TID is absent (1.04). CONCLUSIONS: 1. Basal inferior myocardial infarction without ischemia. 2. Basal inferior akinesis. 3. Mild impairment of global left ventricular systolic function with ejection fraction of 48%. 4. Mild cardiomegaly. Job ID: [id number] DocumentID: [id number] Dictated Date: 07/05/2020 09:50:09 Forestry Worker Date: 07/05/2020 13:56:27 Dictated By: HUEY CHEN MD, MA, FACP, FACC, [facility]
== END 2020-07-05 13:30 | disposition home or self-care (01) ==
LOC: EDUNIT# 11:51 → ER 11:53 → ICU 13:25 → 4TH 07-04 13:42
PROVIDERS: ADMIT Internal Medicine; ATTEND Internal Medicine
DX: I48.20 Chronic atrial fibrillation, unspecified (principal); I11.0 Hypertensive heart disease with heart failure; I50.22 Chronic systolic (congestive) heart failure; I42.0 Dilated cardiomyopathy; I34.0 Nonrheumatic mitral (valve) insufficiency; I35.0 Nonrheumatic aortic (valve) stenosis; N39.0 Urinary tract infection, site not specified; E87.5 Hyperkalemia; N17.9 Acute kidney failure, unspecified; E78.5 Hyperlipidemia, unspecified; N40.0 Benign prostatic hyperplasia without lower urinary tract symptoms; M19.90 Unspecified osteoarthritis, unspecified site; E11.9 Type 2 diabetes mellitus without complications; N28.9 Disorder of kidney and ureter, unspecified; Z79.899 Other long term (current) drug therapy; Z79.84 Long term (current) use of oral hypoglycemic drugs; Z95.2 Presence of prosthetic heart valve; Z87.891 Personal history of nicotine dependence; Z91.19 Patient's noncompliance with other medical treatment and regimen; Z86.73 Personal history of transient ischemic attack (TIA), and cerebral infarction without residual deficits; Z80.8 Family history of malignant neoplasm of other organs or systems; Z80.1 Family history of malignant neoplasm of trachea, bronchus and lung; Z83.6 Family history of other diseases of the respiratory system
CPT/HCPCS: 71045; 78452; 80053 ×3; 81000; 82947; 83605; 83735; 83874; 83880; 84132; 84484; 85025 ×3; 85610; 85730; 87088; 93005; 93017; 93041; 93306; 99284; A9502; 36415

== ENCOUNTER → 2020-07-14 | Outpatient (CLI) | payer MEDICARE ==
[~2020-07-14] MED LIST changes: +ASPI-1238 PO; +LORA10TA7 PO; +POTA10TA36 PO; +SULF1TAB35 PO
[2020-07-14 14:52] LABS: CHLORIDE 104 MMOL/L (98-107); POTASSIUM 4.3 MMOL/L (3.6-5.0); SODIUM 140 MMOL/L (135-145)
[2020-07-14 14:53] LABS: CALCIUM 9.7 MG/DL (8.5-10.1); GLUCOSE 92 MG/DL (70-105)
[2020-07-14 14:55] LABS: CARBON DIOXIDE 28 MMOL/L (21-32)
[2020-07-14 14:57] LABS: GFR ESTIMATED > 60
[2020-07-14 14:58] LABS: BUN/CREATININE RATIO 22
--- NOTE | 2020-07-14 16:54 | Diagnostic Imaging Report ---
Sacrum and coccyx at 2:44. Indication: Fell, sacral pain. 2 AP views were obtained but laterally was not performed. There are no prior studies available for comparison. There is no fracture, dislocation or acute bony abnormality identified. There is modest symmetrical sclerosis of the sacroiliac joints. There is also at least moderate degenerative disease of the right hip joint and mild degenerative disease of the left hip joint. The soft tissues are unremarkable. Impression: There is no acute bony abnormality identified. However the lateral view is not included on this study. If the patient's symptoms of sacral pain persist, then a lateral view should be obtained. Dictated by: Dictated on workstation # [id number]
--- NOTE | 2020-07-14 16:56 | Diagnostic Imaging Report ---
Lumbar spine. Indication: Fell, back pain AP, lateral and spot lateral views were obtained. There are no prior studies available for comparison. The lateral view shows fairly severe degenerative disc and bone disease at every level of the lumbar spine except L1-L2. Specifically, there is narrowing of the disc spaces and osteophytes along the opposing endplates of L2, L3, L4 and L5. There is no fracture or acute bony abnormality identified. There is no sign of a paraspinal mass. There is mild symmetrical sclerosis of the sacroiliac joints. The lateral view does include much of the sacrum. There is no fracture identified on the lateral view of the sacrum. However the coccyx was not included on this study. Impression: 1. There is no evidence for an acute bony abnormality. If clinical concern regarding an underlying injury persists, MRI would be recommended for further study. 2. 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 Dictated by: Dictated on workstation # [id number]
== END ==
LOC: RAD 14:20
PROVIDERS: ATTEND Internal Medicine
DX: M51.36 Other intervertebral disc degeneration, lumbar region (principal); M25.78 Osteophyte, vertebrae; N17.9 Acute kidney failure, unspecified
CPT/HCPCS: 36415; 72100; 72220; 80048

== ENCOUNTER → 2020-07-28 | Outpatient (CLI) | payer MEDICARE ==
[2020-07-28 08:51] LABS: BUN/CREATININE RATIO 22; CALCIUM 9.3 MG/DL (8.5-10.1); CARBON DIOXIDE 22 MMOL/L (21-32); CHLORIDE 109 MMOL/L (98-107); CREATININE SERUM 0.99 MG/DL (0.60-1.30); GFR ESTIMATED > 60; GLUCOSE 94 MG/DL (70-105); MAGNESIUM 1.9 MG/DL (1.6-2.4); POTASSIUM 4.4 MMOL/L (3.6-5.0); SODIUM 140 MMOL/L (135-145)
== END ==
LOC: LAB 08:17
PROVIDERS: ATTEND Nurse Practitioner Family
DX: I50.22 Chronic systolic (congestive) heart failure (principal)
CPT/HCPCS: 36415; 80048; 83735

== ENCOUNTER → 2020-08-02 | Outpatient (CLI) | payer MEDICARE | LOC: LAB 14:44 | PROVIDERS: ATTEND Urology | DX: N40.1 Benign prostatic hyperplasia with lower urinary tract symptoms (principal) | CPT/HCPCS: 36415; 84153 ==

== ENCOUNTER 2020-09-04 22:03 | Observation (INO) | payer MEDICARE ==
[~2020-09-04] VITALS: Ht 182.9 cm; Wt 74.8 kg
[~2020-09-04 22:03] MED LIST changes: -SULF1TAB35 PO; +SULF1TAB38 PO
[2020-09-04 22:30] LABS: BASOPHILS % (AUTO) 1 % (0-10); EOSINOPHILS # (AUTO) 0.3 10^3/uL (0.0-0.3); EOSINOPHILS % (AUTO) 5 % (0-10); HEMATOCRIT 37 % (40-54); HEMOGLOBIN 11.6 g/dL (13.3-17.7); LYMPHOCYTES # (AUTO) 1.2 10^3/uL (1.0-4.0); LYMPHOCYTES % (AUTO) 21 % (12-44); MEAN CORPUSCULAR HEMOGLOBIN 33 pg (25-34); MEAN CORPUSCULAR HGB CONC 32 g/dL (32-36); MEAN CORPUSCULAR VOLUME 103 fL (80-99); MONOCYTES # (AUTO) 0.7 10^3/uL (0.0-1.0); MONOCYTES % (AUTO) 11 % (0-12); NEUTROPHILS # (AUTO) 3.6 10^3/uL (1.8-7.8); NEUTROPHILS % (AUTO) 62 % (42-75); PLATELET COUNT 134 10^3/uL (130-400); WHITE BLOOD COUNT 5.9 10^3/uL (4.3-11.0)
--- NOTE | 2020-09-04 22:32 | ED Neurological Problem ---
General Chief Complaint: Neurological Problems Stated Complaint: FALL Source: patient, EMS, spouse Exam Limitations: no limitations History of Present Illness Date Seen by Provider: Sep 04, 2020 Time Seen by Provider: 22:17 Initial Comments Patient to ER by EMS with chief complaint that about half an hour prior to arrival she had a thud and he was found in the living room by his chair where he had fallen trying to get up. She says prior to this he was normal but after the fall he was unable to communicate very well or explain what was going on. No known loss of consciousness. He has a history of coronary disease known to Dr. Frazier. Last known well time 1800. EMS reports a blood sugar 124. Fall was at 2129. remarks she saw him at dinner and after that he is been sitting at his computer in his chair playing video games. Chronic systolic congestive heart failure with a dilated cardiomyopathy history of EF 15 to 20% but recovered to 45 to 50% as of 2 months ago. Bioprosthetic aortic valve. MPI in July showed a basal inferior infarction with minimal disha-infarct ischemia. Chronic atrial fibrillation off anticoagulations due to hematuria. [place]UR[place] [address] Dave. Dementia and noncompliant with cardiac follow-up. Allergies and Home Medications Allergies Coded Allergies: No Known Drug Allergies (Unverified , 05/24/18) Home Medications Acetaminophen 325 Mg Tablet, 650 MG PO Q6H PRN for PAIN-MILD (1-4), (Reported) TAKES 2 (325MG) TABLETS Last Action: Reviewed Apixaban 5 Mg Tablet, 5 MG PO BID Prescribed by: YAIMA MASON on 09/06/20 1323 Aspirin 81 Mg Tablet.dr, 81 MG PO HS, (Reported) Last Action: Reviewed Atorvastatin Calcium 80 Mg Tablet, 80 MG PO HS Prescribed by: YAIMA MASON on 09/06/20 1323 Carvedilol 3.125 Mg Tablet, 3.125 MG PO BID, (Reported) Last Action: Reviewed Loratadine 10 Mg Tablet, 10 MG PO DAILY, (Reported) Last Action: Reviewed Metformin HCl 500 Mg Tab.er.24h, 500 MG PO 1800 W/ EVENING MEAL, (Reported) Last Action: Reviewed Tamsulosin HCl 0.4 Mg Cap, 0.4 MG PO DAILY, (Reported) Last Action: Reviewed Patient Home Medication List Home Medication List Reviewed: Yes Review of Systems Review of Systems Constitutional: No chills, No diaphoresis, No fever Eyes: Denies Blindness, Denies Drainage Ears, Nose, Mouth, Throat: denies ear pain, denies nose pain, denies epistaxis Respiratory: No cough, No phlegm Cardiovascular: No chest pain, No edema Gastrointestinal: No abdominal pain, No nausea, No vomiting Genitourinary: No discharge, No dysuria Musculoskeletal: No back pain, No joint pain All Other Systems Reviewed Negative Unless Noted: Yes Past Xjmaufy-Epyymm-Kspocu Hx Patient Social History Tobacco Use?: No Use of E-Cig and/or Vaping dev: No Substance use?: No Alcohol Use?: No Immunizations Up To Date Tetanus Booster (TDap): Unknown Seasonal Allergies Seasonal Allergies: No Past Medical History Surgeries: Yes (aortic valve replacement) Valve Replacement Respiratory: No Currently Using CPAP: No Currently Using BIPAP: No Cardiac: Yes Atrial Fibrillation, Heart Murmur, High Cholesterol, Hypertension Neurological: No Neuropathy, Stroke, TIA Sexually Transmitted Disease: No HIV/AIDS: No Genitourinary: Yes Benign Prostatic Hyperpl, Prostate Problems Gastrointestinal: No Musculoskeletal: Yes Arthritis Endocrine: Yes Diabetes, Non-Insulin dep HEENT: Yes (GLASSES) Loss of Vision: Denies Hearing Impairment: Denies Cancer: No Psychosocial: No Integumentary: No Blood Disorders: No Adverse Reaction/Blood Tranf: No Family Medical History Asthma 19 MOTHER Bone cancer Congenital heart disease 19 MOTHER Hypertension 19 MOTHER Lung cancer Myocardial infarction 19 MOTHER Diabetes, Other Conditions/Hx Physical Exam Vital Signs Vital Signs - First Documented 09/04/20 22:19 Temp 36.9 Pulse 104 Resp 18 B/P (MAP) 160/96 (117) Pulse Ox 95 O2 Delivery Room Air Capillary Refill : Height, Weight, BMI Height: 5'11.00" Weight: 150lbs. 4.0oz. 68.904349ct; 13.01 BMI Method:Stated General Appearance: mild distress, thin HEENT: PERRL/EOMI, normal ENT inspection, other (Oropharynx is dry) Neck: non-tender, full range of motion, normal inspection Respiratory: lungs clear, normal breath sounds, no respiratory distress, no accessory muscle use Cardiovascular: normal peripheral pulses, regular rate, rhythm, no edema Peripheral Pulses: 2+ Dorsalis Pedis (R), 2+ Left Dors-Pedis (L), 2+ Radial Pulses (R), 2+ Radial Pulses (L) Gastrointestinal: normal bowel sounds, non tender, soft Neurologic/Psychiatric: purchase analyst II-XII nml as tested, no motor/sensory deficits, alert, normal mood/affect, other (Oriented to person but not time, place or situation) Crainal Nerves: normal hearing, PERRL, abnormal speech (Mild slurring of speech); No facial asymmetry Skin: normal color, warm/dry Stroke Onset of Symptoms Date of Onset of Symptoms: Sep 04, 2020 Time of Symptom Onset: 21:30 Onset of Symptoms: Yes NIH Stroke Scale Assessment Select: Initial Level of Consciousness: 0=Alert (0), Level of Consciousness- Questions: 1=Answers one question (1), LOC Commands: 1=Performs one task (1), Gaze: Normal (0), Visual Dumont: 0=No visual loss (0), Facial Movement (Facial Paresis): 0=Normal symmetrical mnt (0), Motor Function-Arms Right: 0=No drift (0), Motor Function-Arms Left: 0=No drift (0), Motor Function-Legs Right: 0=No drift (0), Motor Function-Legs Left: 0=No drift (0), Limb Ataxia: 0=Absent (0), Sensory: 0=Normal:no loss (0), Best Language: 1=Mild to moderat aphasia (1), Dysarthria: 1=Mild to moderate loss (1), Extinction & Inattention: 0=No abnormality (0), Total: 4 Stroke Thrombolytic Exclusion Age 18 or Over: No Acute intenal hemorrhage: No History of CVA: No Uncontrolled Coagulation Defec: No Intracranial Hemorrhage: No Severe Hypertension: No GI or Bleed: No Subarachnoid Hemorrhage: No Intracranial Neoplasm/Aneurysm: No Oral Anticoagulants: No Surgery or Trauma: No Puncture of Non-Compressible V: No Recent CPR: No Diabetic Hemorrhagic Retinopat: No Organ Biopsy: No Recent Obstetric Delivery: No Glucose: No (124) Significant Hepatic Dysfunctio: No NIH Stoke Scale >22: No Bacterial Endocarditis: No Pericarditis: No Improving Symptoms: Yes Platelets: No TPA Contraindication: No IV - TPa Received IV - TPa Procedure Performed?: No (Symptoms have resolved.) Progress/Results/Core Measures Results/Orders Lab Results Laboratory Tests Test 09/04/20 00:25 09/04/20 22:20 09/04/20 22:21 Range/Units Urine Color YELLOW Urine Clarity CLEAR Urine pH 8.0 5-9 Urine Specific [place] 1.020 1.016-1.022 Urine Protein NEGATIVE NEGATIVE Urine Glucose (UA) NEGATIVE NEGATIVE Urine Ketones NEGATIVE NEGATIVE Urine Nitrite NEGATIVE NEGATIVE Urine Bilirubin NEGATIVE NEGATIVE Urine Urobilinogen 0.2 < = 1.0 MG/DL Urine Leukocyte Esterase NEGATIVE NEGATIVE Urine RBC (Auto) NEGATIVE NEGATIVE Urine RBC 0-2 /HPF Urine WBC 2-5 /HPF Urine Crystals NONE /LPF Urine Bacteria TRACE /HPF Urine Casts NONE /LPF Urine Mucus NEGATIVE /LPF Urine Culture Indicated NO White Blood Count 5.9 4.3-11.0 10^3/uL Red Blood Count 3.55 L 4.30-5.52 10^6/uL Hemoglobin 11.6 L 13.3-17.7 g/dL Hematocrit 37 L 40-54 % Mean Corpuscular Volume 103 H 80-99 fL Mean Corpuscular Hemoglobin 33 25-34 pg Mean Corpuscular Hemoglobin Concent 32 32-36 g/dL Red Cell Distribution Width 13.1 10.0-14.5 % Platelet Count 134 130-400 10^3/uL Mean Platelet Volume 11.0 9.0-12.2 fL Immature Granulocyte % (Auto) 0 % Neutrophils (%) (Auto) 62 42-75 % Lymphocytes (%) (Auto) 21 12-44 % Monocytes (%) (Auto) 11 0-12 % Eosinophils (%) (Auto) 5 0-10 % Basophils (%) (Auto) 1 0-10 % Neutrophils # (Auto) 3.6 1.8-7.8 10^3/uL Lymphocytes # (Auto) 1.2 1.0-4.0 10^3/uL Monocytes # (Auto) 0.7 0.0-1.0 10^3/uL Eosinophils # (Auto) 0.3 0.0-0.3 10^3/uL Basophils # (Auto) 0.0 0.0-0.1 10^3/uL Immature Granulocyte # (Auto) 0.0 0.0-0.1 10^3/uL Prothrombin Time 14.8 H 12.2-14.7 SEC INR Comment 1.1 0.8-1.4 Activated Partial Thromboplast Time 34 24-35 SEC D-Dimer 1.88 H 0.00-0.49 UG/ML Sodium Level 145 135-145 MMOL/L Potassium Level 4.8 3.6-5.0 MMOL/L Chloride Level 108 H 98-107 MMOL/L Carbon Dioxide Level 26 21-32 MMOL/L Anion Gap 11 5-14 MMOL/L Blood Urea Nitrogen 20 H 7-18 MG/DL Creatinine 1.11 0.60-1.30 MG/DL Estimat Glomerular Filtration Rate > 60 BUN/Creatinine Ratio 18 Glucose Level 132 H 70-105 MG/DL Calcium Level 9.8 8.5-10.1 MG/DL Corrected Calcium 9.9 8.5-10.1 MG/DL Total Bilirubin 0.9 0.1-1.0 MG/DL Aspartate Amino Transf (AST/SGOT) 16 5-34 U/L Alanine Aminotransferase (ALT/SGPT) 7 0-55 U/L Alkaline Phosphatase 84 40-136 U/L Troponin I < 0.028 <0.028 NG/ML Total Protein 7.4 6.4-8.2 GM/DL Albumin 3.9 3.2-4.5 GM/DL Glucometer 160 H 70-110 MG/DL Vital Signs/I&O 09/04/20 22:19 Temp 36.9 Pulse 104 Resp 18 B/P (MAP) 160/96 (117) Pulse Ox 95 O2 Delivery Room Air Initial ECG Impression Date: Sep 04, 2020 Initial ECG Impression Time: 22:19 Initial ECG Rate: 97 Initial ECG Rhythm: Normal Sinus Initial ECG Intervals: Normal Initial ECG Impression: Normal Comment Atrial fibrillation without clinically relevant ST changes. Diagnostic Imaging Diagonstic Imaging: Xray Plain Films/CT/US/NM/MRI: chest Comments [facility], [place] NAME: KAYLA MCKAY MED REC#: [id number] PT STATUS: ADM Sumanth : 1935 PHYSICIAN: JOSHUA VIRK APRN ADMIT DATE: 09/04/20 Signed Date of Exam:09/04/20 CHEST 1 VIEW, AP/PA ONLY EXAMINATION: Chest 1 view HISTORY: stroke COMPARISON: 07/30/2020 FINDINGS: There is increase in mild pulmonary edema. There are coronary artery bypass graft markers. No pleural effusion or pneumothorax. Heart is mildly enlarged. IMPRESSION: 1. Increase in mild pulmonary edema. Dictated by: Dictated on workstation # [id number] Dict: 09/05/20 0817 Trans: 09/05/20 1714 [id number] Interpreted by: MYRNA SULLIVAN MD Electronically signed by: MYRNA SULLIVAN MD 09/05/20 1714 Reviewed: Reviewed by Me Diagonstic Imaging: CT Plain Films/CT/US/NM/MRI: head Comments Negative for intracranial hemorrhage tumor or mass-effect midline shift. Old infarcts noted in the cerebellar hemispheres. [facility], [place] NAME: KAYLA MCKAY [facility] REC#: [id number] PT STATUS: ADM Sumanth : 1935 PHYSICIAN: JOSHUA VIRK APRN ADMIT DATE: 09/04/20 Signed Date of Exam:09/04/20 CT HEAD WO-R/O STROKE PROCEDURE: CT head wo r/o stroke. TECHNIQUE: Multiple contiguous axial images were obtained through the brain without the use of intravenous contrast. Auto Exposure Controls were utilized during the CT exam to meet ALARA standards for radiation dose reduction. INDICATION: Fall. Head injury. Stroke. COMPARISON: None. FINDINGS: No intracranial hemorrhage, mass effect, hydrocephalus or extra-axial fluid collections. No CT evidence of a territorial infarction. 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 Moderate generalized parenchymal volume loss. Moderate leukoaraiosis. Osseous structures are intact. IMPRESSION: 1. No acute intracranial CT findings. 2. 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 Dictated by: Dictated on workstation # [id number] Dict: 09/05/20 0611 Trans: 09/05/20 1204 [id number] Interpreted by: EDVIN BURDICK MD Electronically signed by: EDVIN BURDICK MD 09/05/20 1204 Reviewed: Reviewed Night Chris Study, Reviewed by Me, Discussed w/Radiologist Consults : Consults Notes Dr Whitley: Neurologist on-call at [facility] for ischemic stroke. He recommends an inpatient stroke work-up and aspirin. Can readdress the issue of anticoagulation in the morning. As the patient's symptoms have all resolved at this time he would not recommend TPA. Departure Communication (Admissions) Time/Spoke to Admitting Phy: 23:50 Discussed the case with Dr. Matta and she agrees to observe the patient MRI and aspirin and consult to cardiology. Time/Spoke to Consulting Phy: 23:55 Discussed the case with Dr. Trejo and he agrees to consult on the case Impression Primary Impression: TIA (transient ischemic attack) Disposition: ADMITTED INPATIENT Condition: Stable Admissions Decision to Admit Reason: Admit from ER (General) Decision to Admit/Date: Sep 04, 2020 Time/Decision to Admit Time: 23:26 Departure-Patient Inst. Referrals: BEN MATTA DO (PCP/Family) Primary Care Physician Scripts Apixaban (Eliquis) 5 Mg Tablet 5 MG PO BID for 30 Days, #60 TAB 0 Refills Prov: YAIMA MASON MD 09/06/20 Atorvastatin Calcium (Atorvastatin Calcium) 80 Mg Tablet 80 MG PO HS for 30 Days, #30 TAB 0 Refills Prov: YAIMA MASON MD 09/06/20 MOUNIKA CONTRERAS Sep 04, 2020 22:32
[2020-09-04 22:41] LABS: ALBUMIN 3.9 GM/DL (3.2-4.5); CHLORIDE 108 MMOL/L (98-107); POTASSIUM 4.8 MMOL/L (3.6-5.0); SODIUM 145 MMOL/L (135-145)
[2020-09-04 22:42] LABS: CALCIUM 9.8 MG/DL (8.5-10.1)
[2020-09-04 22:43] LABS: GLUCOSE 132 MG/DL (70-105); TOTAL PROTEIN 7.4 GM/DL (6.4-8.2)
[2020-09-04 22:44] LABS: CARBON DIOXIDE 26 MMOL/L (21-32); FIBRIN DEGRADATION PRODUCTS 1.88 UG/ML (0.00-0.49); INR 1.1 (0.8-1.4); PROTHROMBIN TIME PATIENT 14.8 SEC (12.2-14.7)
[2020-09-04 22:45] LABS: BILIRUBIN,TOTAL 0.9 MG/DL (0.1-1.0)
[2020-09-04 22:47] LABS: ALKALINE PHOSPHATASE 84 U/L (40-136); CREATININE SERUM 1.11 MG/DL (0.60-1.30); GFR ESTIMATED > 60
[2020-09-04 22:48] LABS: BUN/CREATININE RATIO 18
[2020-09-04 22:50] LABS: ALANINE AMINOTRANSFERASE 7 U/L (0-55)
[2020-09-05 00:38] LABS: BILIRUBIN,URINE NEGATIVE (NEGATIVE); CLARITY,URINE CLEAR; COLOR,URINE YELLOW; GLUCOSE, URINE (UA) NEGATIVE (NEGATIVE); KETONES,URINE NEGATIVE (NEGATIVE); LEUKOCYTE ESTERASE ,URINE NEGATIVE (NEGATIVE); NITRITE,URINE NEGATIVE (NEGATIVE); PROTEIN,URINE NEGATIVE (NEGATIVE)
[2020-09-05] MEDS ORDERED: LORazepam INJ 2 MG/ML (ATIVAN) VIAL IVP PRN (01:00)
[2020-09-05] MEDS ORDERED: ANTACID SUSP 30 ML UDC (MYLANTA) PO PRN (01:00)
[2020-09-05] MEDS ORDERED: ONDANSETRON 4 MG/2 ML (SDV) Z0FRAN IVP PRN (01:00)
[2020-09-05 01:12] LABS: BACTERIA,URINE TRACE /HPF; RBC,URINE 0-2 /HPF
[2020-09-05] MEDS: ASPIRIN E.C. 325 MG (ECOTRIN) TABLET PO SCH ×2 (01:34→08:42)
[2020-09-05 01:40] VITALS: BP 151/83
[2020-09-05 04:00] VITALS: BP 145/70
[2020-09-05 05:56] LABS: HEMOGLOBIN 11.3 g/dL (13.3-17.7)
[2020-09-05 05:58] LABS: BASOPHILS % (AUTO) 0 % (0-10); EOSINOPHILS # (AUTO) 0.2 10^3/uL (0.0-0.3); EOSINOPHILS % (AUTO) 3 % (0-10); HEMATOCRIT 35 % (40-54); LYMPHOCYTES # (AUTO) 1.2 10^3/uL (1.0-4.0); LYMPHOCYTES % (AUTO) 15 % (12-44); MEAN CORPUSCULAR HEMOGLOBIN 33 pg (25-34); MEAN CORPUSCULAR HGB CONC 32 g/dL (32-36); MEAN CORPUSCULAR VOLUME 102 fL (80-99); MEAN PLATELET VOLUME 11.1 fL (9.0-12.2); MONOCYTES # (AUTO) 0.7 10^3/uL (0.0-1.0); MONOCYTES % (AUTO) 9 % (0-12); NEUTROPHILS # (AUTO) 5.5 10^3/uL (1.8-7.8); NEUTROPHILS % (AUTO) 72 % (42-75); PLATELET COUNT 116 10^3/uL (130-400); WHITE BLOOD COUNT 7.7 10^3/uL (4.3-11.0)
[2020-09-05 06:12] LABS: CHLORIDE 109 MMOL/L (98-107); POTASSIUM 4.6 MMOL/L (3.6-5.0); SODIUM 143 MMOL/L (135-145)
[2020-09-05 06:13] LABS: CALCIUM 9.3 MG/DL (8.5-10.1)
[2020-09-05 06:14] LABS: GLUCOSE 106 MG/DL (70-105); TRIGLYCERIDES 71 MG/DL (<150); VLDL CHOLESTEROL 14 MG/DL (5-40)
[2020-09-05 06:15] LABS: CARBON DIOXIDE 24 MMOL/L (21-32)
--- NOTE | 2020-09-05 06:15 | Diagnostic Imaging Report ---
PROCEDURE: CT head wo r/o stroke. TECHNIQUE: Multiple contiguous axial images were obtained through the brain without the use of intravenous contrast. Auto Exposure Controls were utilized during the CT exam to meet ALARA standards for radiation dose reduction. INDICATION: Fall. Head injury. Stroke. COMPARISON: None. FINDINGS: No intracranial hemorrhage, mass effect, hydrocephalus or extra-axial fluid collections. No CT evidence of a territorial infarction. 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 Moderate generalized parenchymal volume loss. Moderate leukoaraiosis. Osseous structures are intact. IMPRESSION: 1. No acute intracranial CT findings. 2. 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 Dictated by: Dictated on workstation # [id number]
[2020-09-05 06:18] LABS: CREATININE SERUM 0.93 MG/DL (0.60-1.30); GFR ESTIMATED > 60
[2020-09-05 06:19] LABS: BUN/CREATININE RATIO 19; CHOLESTEROL 147 MG/DL (< 200)
[2020-09-05 06:20] LABS: HDL CHOLESTEROL 41 MG/DL (40-60)
--- NOTE | 2020-09-05 06:36 | History & Physical ---
History of Present Illness HPI/Chief Complaint Chief complaint: Acute onset of dysarthria and confusion now resolved suspect embolic source of CVA History present illness: This is an 85-year-old white male new clinic patient of mine with a past medical history of atrial fibrillation previously on warfarin but discontinued due to severe and gross hematuria managed by Dr. Dave and Dr. Chen who presented to the ER with the abrupt onset of dysarthria and confusio n. He reports that this event came on suddenly and it took several hours to be able to talk normally and have people understand what he was saying. His NIH score was 5 but resolution while in ER precluded TPA administration. He was placed on stroke protocol with cardiology consultation who initiated Eliquis 5 mg twice daily and will need to monitor for hematuria very closely. The rest of his labs look good and his lipid profile was reviewed. Carotid ultrasound shows disease but no critical stenosis. MRI confirmed stroke in the occipital lobe. Source: patient, family, RN/MD, old records Exam Limitations: no limitations Date Seen 09/05/20 Time Seen by a Provider: 09:00 Attending Physician Taylor Matta DO PCP Taylor Matta DO Referring Physician Date of Admission Sep 04, 2020 at 23:55 Home Medications & Allergies Home Medications Reviewed patient Home Medication Reconciliation performed by pharmacy medication reconciliations police service technician and/or nursing. Patients Allergies have been reviewed. Allergies Allergies Coded Allergies No Known Drug Allergies (Unverified05/24/18) Past Dnyijeu-Prsetg-Qoczen Hx Past Med/Social Hx: Reviewed Nursing Past Med/Soc Hx, Reviewed and Corrections made Patient Social History Marrital Status: Employed/Student: retired Alcohol Use: Denies Use Smoking Status: Never a Smoker Former Smoker, Quit: Mar 03, 1959 2nd Hand Smoke Exposure: No Recent Hopitalizations: Yes (sepsis pneumonia August 2018) Immunizations Up To Date Tetanus Booster (TDap): Unknown Date of Pneumonia Vaccine: Aug 31, 2018 Date of Influenza Vaccine: Dec 04, 2019 Seasonal Allergies Seasonal Allergies: No Past Medical History Surgeries: Valve Replacement Currently Using CPAP: No Currently Using BIPAP: No Cardiac: Atrial Fibrillation, Heart Murmur, High Cholesterol, Hypertension Neurological: Neuropathy, Stroke, TIA Sexually Transmitted Disease: No HIV/AIDS: No Genitourinary: Benign Prostatic Hyperpl, Prostate Problems, Renal Failure Musculoskeletal: Arthritis Endocrine: Diabetes, Non-Insulin dep Loss of Vision: Denies Hearing Impairment: Denies History of Blood Disorders: No Adverse Reaction to Blood Winters: No Family History Asthma 19 MOTHER Bone cancer Congenital heart disease 19 MOTHER Hypertension 19 MOTHER Lung cancer Myocardial infarction 19 MOTHER Diabetes, Other Conditions/Hx Review of Systems Constitutional: see HPI, malaise, weakness Psychiatric/Neurological: Numbness, Paresthesia, Weakness Physical Exam Physical Exam Vital Signs Vital Signs - First Documented 09/04/20 22:19 Temp 36.9 Pulse 104 Resp 18 B/P (MAP) 160/96 (117) Pulse Ox 95 O2 Delivery Room Air Capillary Refill : Less Than 3 Seconds Height, Weight, BMI Height: 5'11.00" Weight: 150lbs. 4.0oz. 68.531753md; 22.36 BMI Method:Stated General Appearance: No Apparent Distress, WD/WN, Chronically ill, Thin Eyes: Bilateral Eye Normal Inspection, Bilateral Eye PERRL HEENT: PERRL/EOMI, Normal ENT Inspection, Pharynx Normal Neck: Full Range of Motion, Normal Inspection, Non Tender, Supple, Carotid Bruit Respiratory: Chest Non Tender, Lungs Clear, Normal Breath Sounds, No Accessory Muscle Use, No Respiratory Distress Cardiovascular: Regular Rate, Rhythm, No Edema, No Gallop, No JVD, No Murmur, Normal Peripheral Pulses Gastrointestinal: Normal Bowel Sounds, No Organomegaly, No Pulsatile Mass, Non Tender, Soft Back: Normal Inspection, No CVA Tenderness, No Vertebral Tenderness Extremity: Normal Capillary Refill, Normal Inspection, Normal Range of Motion, Non Tender, No Calf Tenderness, No Pedal Edema Neurologic/Psychiatric: Alert, Oriented x3, No Motor/Sensory Deficits, Normal Mood/Affect Skin: Normal Color, Warm/Dry Lymphatic: No Adenopathy Results Results/Procedures Labs Laboratory Tests 09/04/20 22:20 09/05/20 05:05 Patient resulted labs reviewed. Assessment/Plan Admission Diagnosis Assessment: Acute occipital stroke likely embolic from atrial fibrillation History of gross hematuria preventing continuation of warfarin in the past History of valve replacement Prior strokes on imaging scans Hypertension Plan: Eliquis MRI reviewed PT and OT and speech Cardiology Monitor closely Admission Status: Observation Diagnosis/Problems Diagnosis/Problems (1) TIA (transient ischemic attack) Status: Acute (2) Atrial fibrillation Status: Acute Clinical Quality Measures Stroke: Date of last known well: Sep 04, 2020 Time of last known well: 21:30 ATYLOR MATTA DO Sep 05, 2020 06:36
[2020-09-05] MEDS: ACETAMINOPHEN 325 MG TABLET PO PRN ×2 (06:45→20:18)
--- NOTE | 2020-09-05 08:20 | Diagnostic Imaging Report ---
EXAMINATION: Chest 1 view HISTORY: stroke COMPARISON: 07/30/2020 FINDINGS: There is increase in mild pulmonary edema. There are coronary artery bypass graft markers. No pleural effusion or pneumothorax. Heart is mildly enlarged. IMPRESSION: 1. Increase in mild pulmonary edema. Dictated by: Dictated on workstation # [id number]
--- NOTE | 2020-09-05 08:26 | ST Cognitive Linguistic Eval ---
Speech Evaluation-General Medical Diagnosis TIA Onset Date: Sep 04, 2020 Therapy Diagnosis Therapy Diagnosis: Cognitive-communication Referral Referring Physician: Dr. Orozco Medical History Pertinent Medical History: Atrial Fib, DM, HTN Social History Current Living Status: Spouse Speech PLF-Current Status Prior Level of Function Patient lives in his own home with his where he was independent for his daily needs. Subjective Patient was sitting up in bed eating breakfast with his by his side. He was pleasant and cooperative with the cognitive-communication assessment. Language Eval: Auditory Comprehends Simple Yes/No Ques: Functional Follows 1-Step Commands: Functional Follows General Conversations: Functional Language Eval: Verbal Language Completes Spontaneous Greeting: Functional Produces Auto, Serial Info: Functional Imitates Simple Words/Phrases: Functional Word Finding: Functional Requests Basic Needs: Functional States Basic Personal Info: Functional Expresses Complex Ideas: Functional Objective Cognitive Domain Attention: WNL Memory: WNL Problem Solving: Functional Executive Functions: WNL Visuospatial Skills: WNL Composite Severity Rating: WNL Objective Formal/Standardized Tests Subtests of the SLUMS, general speech tasks related to events, informal speech tasks Results Patient demo ability to answer questions with clarity and intelligibility. Patient's speech appears to be resolved as well as facial droop. Oral Motor/Speech Production Within Normal Limits Impression Patient is a pleasant 85 y/o man who was brought to the hospital by EMS due to stroke like symptoms. At the time of arrival the patient was unable to communicate and had left sided weakness. Patient was referred for a speech evaluation which was completed at bedside this am. Patient was able to participate well with questions answered appropriately and intelligibility at normal range. Patient's speech difficulties appear to be resolved at this time. ST will follow up in the morning to insure no more difficulty is presented. Speech-Plan Patient/Family Goals Patient/Family Goals: Patient plans on returning to his home where he lives with his . Treatment Plan Speech Therapy Treatment Plan: Discontinue ST Treatment Duration: Sep 05, 2020 Frequency: 1 time per week Estimated Hrs Per Day: .25 hour per day Rehab Potential: Good Barriers to Learning: None identified at this time Pt/Family Agrees to Plan: Yes Safety Risks/Education Teaching Recipient: Patient, Significant Other Teaching Methods: Discussion Response to Teaching: Verbalize Understanding Education Topics Provided: Safety within his room and communication of wants/needs Time Speech Therapy Time In: 08:00 Speech Therapy Time Out: 08:20 Total Billed Time: 20 Billed Treatment Time 1, IVONNE CORTEZ [address] ST Sep 05, 2020 08:26
[2020-09-05 08:34] VITALS: BP 122/73
[2020-09-05] MEDS ORDERED: CARV3.122 PO (08:57)
[2020-09-05] MEDS ORDERED: ACET325T38 PO (08:57)
--- NOTE | 2020-09-05 10:38 | Physical Therapy Evaluation ---
PT Evaluation-General Medical Diagnosis Admission Date Sep 04, 2020 at 23:55 Medical Diagnosis: TIA Onset Date: Sep 04, 2020 Therapy Diagnosis Therapy Diagnosis: debility/weakness Height/Weight Height (Feet): 5 Height (Inches): 11.00 Weight (Pounds): 150 Weight (Ounces): 4.0 Precautions Precautions/Isolations: Seizure, Fall Prevention, Standard Precautions Weight Bear Status Right Lower Extremity: Right Weight Bearing/Tolerated Left Lower Extremity: Left Weight Bearing/Tolerated Referral Physician: Ernesto Reason for Referral: Evaluation/Treatment Medical History Pertinent Medical History: Atrial Fib, CVA, DM, Heart Failure, HTN, Neuropathy Current History EMS from home secondary to fall and dysarthria Reviewed History: Yes Social History Home: Single Level Current Living Status: Spouse Entry Into Home: Stairs With Railing PT Steps Into Home: 2 Prior Prior Level of Function SCALE: Activities may be completed with or without assistive devices. 1-Ksdxxuiqjb-fmtyblh completes the activity by him/herself with no assistance from a helper. 5-Set-up or Clean-up Assistance-helper sets up or cleans up; patient completes activity. [place] assists only prior to or following the activity. 4-Supervision or Touching Assistance-helper provides verbal cues and/or touching/steadying and/or contact guard assistance as patient completes activity. Assistance may be provided throughout the activity or intermittently. 3-Partial/Moderate Assistance-helper does LESS THAN HALF the effort. [place] lifts, holds or supports trunk or limbs, but provides less than half the effort. 2-Substantial/Maximal Assistance-helper does MORE THAN HALF the effort. [place] lifts or holds trunk or limbs and provides more than half the effort. 4-Cqlbodolg-nhmqqw does ALL the effort. Patient does none of the effort to complete the activity. Or, the assistance of 2 or more helpers is required for the patient to complete the activity. If activity was not attempted, code reason: 7-Patient Refused. 9-Not Applicable-not attempted and the patient did not perform the activity before the current illness, exacerbation or injury. 10-Not Attempted due to Environmental Limitations-(lack of equipment, weather restraints, etc.). 88-Not Attempted due to Medical Conditions or Safety Concerns. Bed Mobility: 6 Transfers (B,C,W/C): 6 Gait: 6 Stairs: 6 Indoor Mobility (Ambulation): Independent Stairs: Independent "walking stick" PT Evaluation-Current Subjective Patient agrees to PT. Spouse present. Objective Patient Orientation: Normal For Age ROM/Strength ROM Lower Extremities bilateral LE WFL Strength Lower Extremities 4/5 grossly bilateral LE Integumentary/Posture Bowel Incontinence: No Bladder Incontinence: No Posture slightly kyphotic Neuromuscular (Tone, Coordination, Reflexes) grossly intact Sensory Vision: Wears Glasses Hearing: Functional Transfers Sit to Lying (QC): 6 Lying to Sitting/Side of Bed(Q: 6 Sit to Stand (QC): 6 Chair/Hwz-vi-Uqpbn Xfer(QC): 6 Toilet Transfer (QC): 6 Gait Does the Patient Walk?: Yes Mode of Locomotion: Walk Anticipated Mode of Locomotion: Walk Walk 10 feet (QC): 6 Walk 50 ft with 2 Turns(QC): 6 Walk 150 ft (QC): 6 Distance: 700' Gait Assistive Device: None Comments/Gait Description safe and functional with no deviation Balance Sitting Static: Normal Sitting Dynamic: Normal Standing Static: Normal Standing Dynamic: Normal Picking up an Object (QC): 6 Assessment/Needs 85 y.o. male, is currently at [facility] with all gross motor skills safely and does not require skilled therapy intervention. Rehab Potential: Fair PT Plan Treatment/Plan Treatment Plan: Discontinue PT, goals met Treatment Duration: Sep 05, 2020 Frequency: 1 time per week Estimated Hrs Per Day: .25 hour per day Patient and/or Family Agrees t: Yes Discharge Recommendations Therapy Discharge Recommendati: Home & Family Time/GCodes Time In: 945 Time Out: 955 Total Billed Treatment Time: 10 Total Billed Treatment 1 visit EVMod 10 min SUSHIL AYOUB PT Sep 05, 2020 10:38
[2020-09-05 11:24] VITALS: BP 115/63
--- NOTE | 2020-09-05 11:34 | Occupational Therapy Eval ---
OT Evaluation-General/PLF Medical Diagnosis Admission Date Sep 04, 2020 at 23:55 Medical Diagnosis: TIA Onset Date: Sep 04, 2020 Therapy Diagnosis Therapy Diagnosis: Decreased ADL status s/p TIA Height/Weight Height (Feet): 5 Height (Inches): 11.00 Weight (Pounds): 150 Weight (Ounces): 4.0 Precautions Precautions/Isolations: Seizure, Fall Prevention, Standard Precautions Referral Physician: Ernesto Referral Reason: Activity Tolerance, Self Care, Evaluation/Treatment, Strengthening/ROM Medical History Pertinent Medical History: Atrial Fib, CVA, DM, Heart Failure, HTN, Neuropathy Additional Medical History a fib, heart murmur, high cholesterol, HTN, stroke, TIA, arthritis, DM Current History Pt had fall at home, decreased R side abilities and decreased speech. Pt admitted via EMS, resolved sx. Reviewed History: Yes Social History Home: Single Level Current Living Status: Spouse Entry Into Home: Stairs With Railing Steps Into Home: 2 ADL-Prior Level of Function SCALE: Activities may be completed with or without assistive devices. 5-Alflhqtjhb-qznjrmh completes the activity by him/herself with no assistance f rom a helper. 5-Set-up or Clean-up Assistance-helper sets up or cleans up; patient completes activity. [place] assists only prior to or following the activity. 4-Supervision or Touching Assistance-helper provides verbal cues and/or touching/steadying and/or contact guard assistance as patient completes activity. Assistance may be provided throughout the activity or intermittently. 3-Partial/Moderate Assistance-helper does LESS THAN HALF the effort. [place] lifts, holds or supports trunk or limbs, but provides less than half the effort. 2-Substantial/Maximal Assistance-helper does MORE THAN HALF the effort. [place] lifts or holds trunk or limbs and provides more than half the effort. 7-Dtsszeeyo-rqcwlj does ALL the effort. Patient does none of the effort to complete the activity. Or, the assistance of 2 or more helpers is required for the patient to complete the activity. If activity was not attempted, code reason: 7-Patient Refused. 9-Not Applicable-not attempted and the patient did not perform the activity before the current illness, exacerbation or injury. 10-Not Attempted due to Environmental Limitations-(lack of equipment, weather restraints, etc.). 88-Not Attempted due to Medical Conditions or Safety Concerns. ADL PLOF Comments Pt expresses IND, use of walking stick outside intermittently. Self Care: Independent Functional Cognition: Independent Occupation: retired Drive Self: Yes OT Current Status Subjective Pt AxO, agrees to tx. States what sx were last night, states he "feels pretty normal now." at bedside, states similar. Pt expresses has been up/ down to bathroom, expresses no issues. Mental Status/Objective Patient Orientation: Person, Place, Situation Current Glasses/Contacts: Yes Hearing Aids: No Hand Dominance: Right Upper Extremity ROM WFL BUE Upper Extremity Coordination Limited by arthritis, however, this is at PLOF Upper Extremity Sensation WFL BUE Upper Extremity Strength WFL BUE (4/5) Edema: none noted. ADL-Treatment Eating (QC): 6 (per pt/ clinical judgment) Oral Hygiene (QC): 6 (per pt/ clinical judgment) Toileting Hygiene (QC): 6 (per pt/ clinical judgment) Other Treatments Pt completes hx, WFL, states feeling normal. MMT/ ROM screening, visual screen WFL. Pt expresses abilities to complete ADLs with IND and states good ability going to/ from toilet without AD. and pt deny questions, no OT needed at this time as pt is at PLOF. Pt educated on this. D/c at this time. Education OT Patient Education: Disease process, Progress toward Goal/Update tx plan, Purpose of tx/functional activities, Safety issues Teaching Recipient: Patient, Significant Other Teaching Methods: Demonstration, Discussion Response to Teaching: Verbalize Understanding, Return Demonstration OT Molder Labels Goals Molder Labels Goals 1=Demonstrate adherence to instructed precautions during ADL tasks. 2=Patient will verbalize/demonstrate understanding of assistive devices/modifications for ADL. 3=Patient will improve strength/tolerance for activity to enable patient to perform ADL's. OT Education/Plan Problem List/Assessment Assessment: No Skilled OT Needs ID'd Discharge Recommendations Plan/Recommendations: Discharge/Goals Met Therapy Discharge Recommendati: Home & Family Treatment Plan/Plan of Care Treatment,Training & Education: Yes Patient would benefit from OT for education, treatment and training to promote independence in ADL's, mobility, safety and/or upper extremity function for ADL's. Plan of Care: OTHER (eval and d/c.) Treatment Duration: Sep 05, 2020 Frequency: 1 time per week (eval and d/c.) Rehab Potential: Fair Time/GCodes Start Time: 11:00 Stop Time: 11:09 Total Time Billed (hr/min): 9 Billed Treatment Time 1, EVL (d/c) NAHUN ASHLEY OTR Sep 05, 2020 11:34
[2020-09-05 16:00] VITALS: BP 114/56
--- NOTE | 2020-09-05 16:38 | Consultation-Cardiology ---
HPI-Cardiology Cardiology Consultation Date of Consultation 09/05/20 Date of Admission Time Seen by Provider: 08:00 Indication: TIA HPI 85 years old gentleman with history of paroxysmal atrial fibrillation, congestive heart failure, admitted with acute TIA, was found on the floor in his living room, difficulty to get up and slurred speech. Regain most of his abilities. Denied any chest pain. No palpitation. No syncope Home Medications & Allergies Allergies: Coded Allergies: No Known Drug Allergies (Unverified , 05/24/18) Home Medication List Reviewed: Yes MSY-Yyzwdl-Nohhwa Hx Patient Social History Marital Status: Smoking Status: Never a Smoker 2nd Hand Smoke Exposure: No Recent Hopitalizations: Yes (sepsis pneumonia August 2018) Have you traveled recently?: No Alcohol Use?: No Immunizations Up To Date Tetanus Booster (TDap): Unknown Date of Pneumonia Vaccine: Aug 31, 2018 Date of Influenza Vaccine: Dec 04, 2019 Past Medical History Discussed below Family Medical History Significant Family History: Diabetes, Other Conditions/Hx Family History: Asthma 19 MOTHER Bone cancer Congenital heart disease 19 MOTHER Hypertension 19 MOTHER Lung cancer Myocardial infarction 19 MOTHER Review of Systems-General Review of Systems Constitutional: No chills, No diaphoresis, No fever; malaise, weakness EENTM: see HPI, no symptoms reported Respiratory: see HPI; No cough; dyspnea on exertion; No phlegm Cardiovascular: see HPI; No chest pain, No edema Gastrointestinal: see HPI; No abdominal pain, No nausea, No vomiting Genitourinary: No discharge, No dysuria Musculoskeletal: No back pain, No joint pain Skin: no symptoms reported, see HPI Psychiatric/Neurological: See HPI All Other Systems Reviewed Negative Unless Noted: Yes Reviewed Test Results Reviewed Test Results Lab Laboratory Tests Test 09/04/20 22:20 09/04/20 22:21 09/05/20 02:16 09/05/20 05:05 Range/Units White Blood Count 5.9 7.7 4.3-11.0 10^3/uL Red Blood Count 3.55 L 3.41 L 4.30-5.52 10^6/uL Hemoglobin 11.6 L 11.3 L 13.3-17.7 g/dL Hematocrit 37 L 35 L 40-54 % Mean Corpuscular Volume 103 H 102 H 80-99 fL Mean Corpuscular Hemoglobin 33 33 25-34 pg Mean Corpuscular Hemoglobin Concent 32 32 32-36 g/dL Red Cell Distribution Width 13.1 13.1 10.0-14.5 % Platelet Count 134 116 L 130-400 10^3/uL Mean Platelet Volume 11.0 11.1 9.0-12.2 fL Immature Granulocyte % (Auto) 0 0 % Neutrophils (%) (Auto) 62 72 42-75 % Lymphocytes (%) (Auto) 21 15 12-44 % Monocytes (%) (Auto) 11 9 0-12 % Eosinophils (%) (Auto) 5 3 0-10 % Basophils (%) (Auto) 1 0 0-10 % Neutrophils # (Auto) 3.6 5.5 1.8-7.8 10^3/uL Lymphocytes # (Auto) 1.2 1.2 1.0-4.0 10^3/uL Monocytes # (Auto) 0.7 0.7 0.0-1.0 10^3/uL Eosinophils # (Auto) 0.3 0.2 0.0-0.3 10^3/uL Basophils # (Auto) 0.0 0.0 0.0-0.1 10^3/uL Immature Granulocyte # (Auto) 0.0 0.0 0.0-0.1 10^3/uL Prothrombin Time 14.8 H 12.2-14.7 SEC INR Comment 1.1 0.8-1.4 Activated Partial Thromboplast Time 34 24-35 SEC D-Dimer 1.88 H 0.00-0.49 UG/ML Sodium Level 145 143 135-145 MMOL/L Potassium Level 4.8 4.6 3.6-5.0 MMOL/L Chloride Level 108 H 109 H 98-107 MMOL/L Carbon Dioxide Level 26 24 21-32 MMOL/L Anion Gap 11 10 5-14 MMOL/L Blood Urea Nitrogen 20 H 18 7-18 MG/DL Creatinine 1.11 0.93 0.60-1.30 MG/DL Estimat Glomerular Filtration Rate > 60 > 60 BUN/Creatinine Ratio 18 19 Glucose Level 132 H 106 H 70-105 MG/DL Calcium Level 9.8 9.3 8.5-10.1 MG/DL Corrected Calcium 9.9 8.5-10.1 MG/DL Total Bilirubin 0.9 0.1-1.0 MG/DL Aspartate Amino Transf (AST/SGOT) 16 5-34 U/L Alanine Aminotransferase (ALT/SGPT) 7 0-55 U/L Alkaline Phosphatase 84 40-136 U/L Troponin I < 0.028 <0.028 NG/ML Total Protein 7.4 6.4-8.2 GM/DL Albumin 3.9 3.2-4.5 GM/DL Glucometer 160 H 118 H 70-110 MG/DL Percent Immature Platelet Fraction 3.0 0.0-7.6 % Triglycerides Level 71 <150 MG/DL Cholesterol Level 147 < 200 MG/DL LDL Cholesterol Direct 108 1-129 MG/DL VLDL Cholesterol 14 5-40 MG/DL HDL Cholesterol 41 40-60 MG/DL Physical Exam Physical Exam Vital Signs Vital Signs - First Documented 09/04/20 22:19 Temp 36.9 Pulse 104 Resp 18 B/P (MAP) 160/96 (117) Pulse Ox 95 O2 Delivery Room Air Capillary Refill : Less Than 3 Seconds Height, Weight, BMI Height: 5'11.00" Weight: 150lbs. 4.0oz. 68.855592kv; 22.36 BMI Method:Stated General Appearance: No Apparent Distress, WD/WN Eyes: Bilateral Eye Normal Inspection, Bilateral Eye PERRL, Bilateral Eye EOMI HEENT: PERRL/EOMI, TMs Normal, Normal ENT Inspection, Pharynx Normal, Moist Mucous Membranes Neck: Full Range of Motion, Normal Inspection, Non Tender, Supple, Carotid Bruit Respiratory: Chest Non Tender, Normal Breath Sounds, No Accessory Muscle Use, No Respiratory Distress Cardiovascular: Regular Rate, Rhythm, No Edema, No Gallop, No JVD, Normal Peripheral Pulses, Systolic Murmur Gastrointestinal: Normal Bowel Sounds, No Organomegaly, No Pulsatile Mass, Non Tender, Soft Back: Normal Inspection, No CVA Tenderness, No Vertebral Tenderness Extremity: Normal Capillary Refill, Normal Inspection, Normal Range of Motion, Non Tender, No Calf Tenderness, No Pedal Edema Neurologic/Psychiatric: Alert, Oriented x3, No Motor/Sensory Deficits, Normal Mood/Affect Skin: Normal Color, Warm/Dry Lymphatic: No Adenopathy A/P-Cardiology Admission Diagnosis TIA Atrial fibrillation Congestive heart failure Hypertension Assessment/Plan Acute TIA, has been off of anticoagulation due to hematuria, I will restart Eliquis and monitor tolerance and response [id number] score of 6, yearly risk of stroke without oral anticoagulation is 10%, recommend starting oral anticoagulation with Eliquis 5 mg twice daily once the MRI report is back Coronary artery disease, last stress test was done in July 2020 showing basal inferior wall infarction with disha-infarct ischemia Congestive heart failure, at baseline left ventricular systolic dysfunction, improved on the last echo in July 2020 with ejection fraction 45 to 50%, dilated right and left atrium, prosthetic valve in the aortic position with mild to moderate aortic stenosis and moderate mitral regurgitation Chronic permanent atrial fibrillation, has been off anticoagulation due to hematuria. I explained to the patient the importance of taking anticoagulation and the increased risk of stroke. History of porcine aortic valve done by Dr. Matson in the remote past. History of dementia. Clinical Quality Measures Stroke: Date of last known well: Sep 04, 2020 Time of last known well: 21:30 MAICOL PIÑA MD Sep 05, 2020 16:38
--- NOTE | 2020-09-05 16:52 | Diagnostic Imaging Report ---
PROCEDURE: MR imaging of the brain without contrast. TECHNIQUE: Multiplanar, multisequence MR imaging of the brain was performed without contrast. INDICATION: Right-sided weakness. Diffusion-weighted imaging does demonstrate tiny areas of diffusion restriction in the left posterior temporal occipital lobe consistent with acute/subacute infarcts. No other areas of diffusion restriction are identified. The normal expected flow-voids within the carotid siphons are seen. There is extensive periventricular and subcortical white matter signal abnormalities consistent with chronic microvascular ischemia. There appear to be old infarcts in the cerebellar hemispheres bilaterally. No acute intra-axial or extra-axial hemorrhage is detected. Corpus callosum is unremarkable. Sella and parasellar structures are unremarkable. IMPRESSION: Acute/subacute microinfarcts left posterior temporal occipital lobe. No other acute features seen. There is no acute intracranial hemorrhage. There are findings consistent with chronic microvascular ischemia. Dictated by: Dictated on workstation # [id number]
--- NOTE | 2020-09-05 16:53 | Diagnostic Imaging Report ---
PROCEDURE: US carotid duplex, bilateral. TECHNIQUE: Multiple real-time grayscale images were obtained over the carotid arteries in various projections, bilaterally. Additional spectral analysis and color Doppler duplex images were also obtained. INDICATION: Transient ischemic attack. There is moderate plaque in both carotid bulbs extending into the carotid bifurcations bilaterally. Velocities within both carotid systems appear to be normal. No velocity elevation or stenosis is seen. Both vertebral arteries show antegrade flow. IMPRESSION: There is moderate bilateral carotid plaque. There is no evidence of a hemodynamically significant stenosis. Parameters based on the consensus panel Lemos-Scale and Doppler ultrasound criteria published January 2003, Radiology, Volume 229. DOPPLER (peak systolic velocity M/S Right Left CCA .68 .79 ICA Proximal .56 .59 ICA Mid .71 .56 ICA Distal .59 .60 RATIO 1.04 .76 ECA .70 .55 VERT .46 .55 Dictated by: Dictated on workstation # [id number]
[2020-09-05 20:00] VITALS: BP 125/58
[2020-09-06 00:05] VITALS: BP 119/63
[2020-09-06 03:23] VITALS: BP 131/67
[2020-09-06 07:34] LABS: LYMPHOCYTES % (AUTO) 19 % (12-44); MEAN CORPUSCULAR VOLUME 102 fL (80-99)
[2020-09-06 07:36] LABS: BASOPHILS % (AUTO) 1 % (0-10); EOSINOPHILS # (AUTO) 0.3 10^3/uL (0.0-0.3); EOSINOPHILS % (AUTO) 4 % (0-10); HEMATOCRIT 37 % (40-54); LYMPHOCYTES # (AUTO) 1.2 10^3/uL (1.0-4.0); MEAN CORPUSCULAR HEMOGLOBIN 33 pg (25-34); MEAN CORPUSCULAR HGB CONC 32 g/dL (32-36); MEAN PLATELET VOLUME 10.4 fL (9.0-12.2); MONOCYTES # (AUTO) 0.6 10^3/uL (0.0-1.0); MONOCYTES % (AUTO) 10 % (0-12); NEUTROPHILS # (AUTO) 4.2 10^3/uL (1.8-7.8); NEUTROPHILS % (AUTO) 66 % (42-75); PLATELET COUNT 114 10^3/uL (130-400); WHITE BLOOD COUNT 6.4 10^3/uL (4.3-11.0)
[2020-09-06 07:43] LABS: ALBUMIN 3.7 GM/DL (3.2-4.5); CHLORIDE 107 MMOL/L (98-107); POTASSIUM 4.8 MMOL/L (3.6-5.0); SODIUM 140 MMOL/L (135-145)
[2020-09-06 07:44] LABS: CALCIUM 9.7 MG/DL (8.5-10.1)
[2020-09-06 07:45] LABS: GLUCOSE 102 MG/DL (70-105)
[2020-09-06 07:46] LABS: CARBON DIOXIDE 26 MMOL/L (21-32)
[2020-09-06 07:47] LABS: BILIRUBIN,TOTAL 1.4 MG/DL (0.1-1.0)
[2020-09-06 07:49] LABS: ALKALINE PHOSPHATASE 77 U/L (40-136); GFR ESTIMATED > 60
[2020-09-06 07:50] LABS: BUN/CREATININE RATIO 16
[2020-09-06 07:52] LABS: ALANINE AMINOTRANSFERASE 8 U/L (0-55)
[2020-09-06 08:07] VITALS: BP 134/83
[2020-09-06] MEDS: ASPIRIN E.C. 325 MG (ECOTRIN) TABLET PO SCH (08:28)
--- NOTE | 2020-09-06 09:03 | Cardiology Progress Note ---
Subjective Date Seen by Provider: Sep 06, 2020 Time Seen by Provider: 09:00 Subjective/Events-last exam Patient is sitting up in chair, eating breakfast, no new complaints. Still has mild aphasia, but overall improved. Denies any chest pain or dyspnea. Review of Systems General: No Chills, No Night Sweats, No Fatigue, No Malaise, No Appetite, No Other HEENT: No Head Aches, No Visual Changes, No Eye Pain, No Ear Pain, No Dysphasia, No Sinus Congestion, No Post Nasal Drip, No Sore Throat, No Other Pulmonary: No Dyspnea, No Cough, No Pleuritic Chest Pain, No Other Cardiovascular: No: Chest Pain, Palpitations, Orthopnea, Paroxysmal Noc. Dyspnea, Edema, Lt Headedness, Other Objective-Cardiology Exam Last Set of Vital Signs Vital Signs 09/06/20 08:07 Temp 36.4 Pulse 79 Resp 18 B/P (MAP) 134/83 (100) Pulse Ox 97 O2 Delivery Room Air I&O Intake and Output 09/06/20 00:00 Intake Total 1860 ml Output Total 350 ml Balance 1510 ml Intake Oral 1860 ml Output Urine Total 350 ml # Voids 7 # Bowel Movements 3 Daily Weight Change Unsure General: Alert, Oriented X3, Cooperative HEENT: Atraumatic, PERRLA Neck: Supple, No JVD, No Thyromegaly Lungs: Clear to Auscultation, Normal Air Movement Heart: Other (irregularly irregular) Abdomen: Normal Bowel Sounds, Soft Skin: No Rashes, No Significant Lesion Neuro: Cranial Nerves 3-12 NL, Other (mild aphasia) Psych/Mental Status: Mental Status NL, Mood NL Results Lab Laboratory Tests 09/06/20 07:09 A/P-Cardiology Admission Diagnosis TIA Atrial fibrillation Congestive heart failure Hypertension Assessment/Plan Acute/subacute CVA, has been off of anticoagulation due to hematuria, MRI brain on 09/05/20 showing acute/subacute microinfarcts left posterior temporal occipital lobe. 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 I explained to the patient the importance of taking anticoagulation and the increased risk of stroke. He is agreeable with starting OAC History of porcine aortic valve done by Dr. Matson in the remote past. History of dementia. Patient was seen and evaluated, feeling better, no new complaint Had a long discussion with the patient and his family then discussed it with Dr. Orozco Patient has history of recurrent hematuria, cannot tolerate long-term anticoagulation We will arrange for referral for evaluation for watchman Possible discharge today Supervisory-Addendum Brief Supervisory Addendum Participated in pt care: history, MDM, physical Personally performed: exam, history, MDM Care discussed with: DEJUAN ROSENBERG Sep 06, 2020 09:03 MAICOL PIÑA MD Sep 06, 2020 10:17
[2020-09-06] MEDS ORDERED: APIXABAN 5 MG (ELIQUIS) TABLET PO SCH (09:15)
[2020-09-06 11:51] VITALS: BP 112/65
[2020-09-06] MEDS ORDERED: APIX5TAB PO (13:23)
[2020-09-06] MEDS ORDERED: ATOR80TA76 PO (13:23)
--- NOTE | 2020-09-08 14:29 | Physician Query-Final Dx ---
CAMRON HEMPHILL 09/08/20 1429: Final Diagnosis Give Final Diagnosis Please give Final Diagnosis YAIMA MASON MD 09/26/20 1025: Final Diagnosis Give Final Diagnosis Acute ishcemic stroke CAMRON HEMPHILL Sep 08, 2020 14:29 YAMIA MASON MD Sep 26, 2020 10:25
== END 2020-09-06 13:22 | disposition home or self-care (01) ==
LOC: EDUNIT# 22:03 → ER 22:04 → 4TH 23:55
PROVIDERS: ADMIT Internal Medicine; ATTEND Internal Medicine
DX: I63.89 Other cerebral infarction (principal); G45.9 Transient cerebral ischemic attack, unspecified; I11.0 Hypertensive heart disease with heart failure; I50.22 Chronic systolic (congestive) heart failure; I42.0 Dilated cardiomyopathy; I25.10 Atherosclerotic heart disease of native coronary artery without angina pectoris; I48.20 Chronic atrial fibrillation, unspecified; E78.00 Pure hypercholesterolemia, unspecified; E11.40 Type 2 diabetes mellitus with diabetic neuropathy, unspecified; M19.90 Unspecified osteoarthritis, unspecified site; Z79.01 Long term (current) use of anticoagulants; Z79.84 Long term (current) use of oral hypoglycemic drugs; Z79.899 Other long term (current) drug therapy; Z95.2 Presence of prosthetic heart valve; Z87.891 Personal history of nicotine dependence; Z80.8 Family history of malignant neoplasm of other organs or systems; Z80.1 Family history of malignant neoplasm of trachea, bronchus and lung
CPT/HCPCS: 70450; 70551; 71045; 80048; 80053 ×2; 80061; 81000; 82947 ×2; 84484; 85025 ×3; 85379; 85610; 85730; 92507; 92523; 93005; 93041; 93880; 97162; 97165; 99284; G0378; 36415

== ENCOUNTER 2020-12-17 08:47 | Emergency (ER) | payer MEDICARE ==
[~2020-12-17] VITALS: Ht 172.7 cm; Wt 70.7 kg
[~2020-12-17 08:47] MED LIST changes: +ACET325T38 PO; +APIX5TAB PO; +ATOR80TA76 PO
[2020-12-17 09:55] LABS: BASOPHILS % (AUTO) 0 % (0-10); EOSINOPHILS # (AUTO) 0.3 10^3/uL (0.0-0.3); EOSINOPHILS % (AUTO) 4 % (0-10); HEMATOCRIT 34 % (40-54); HEMOGLOBIN 10.9 g/dL (13.3-17.7); LYMPHOCYTES # (AUTO) 1.1 10^3/uL (1.0-4.0); LYMPHOCYTES % (AUTO) 17 % (12-44); MEAN CORPUSCULAR HEMOGLOBIN 32 pg (25-34); MEAN CORPUSCULAR HGB CONC 32 g/dL (32-36); MEAN CORPUSCULAR VOLUME 101 fL (80-99); MEAN PLATELET VOLUME 10.6 fL (9.0-12.2); MONOCYTES # (AUTO) 0.6 10^3/uL (0.0-1.0); MONOCYTES % (AUTO) 9 % (0-12); NEUTROPHILS # (AUTO) 4.6 10^3/uL (1.8-7.8); NEUTROPHILS % (AUTO) 69 % (42-75); PLATELET COUNT 144 10^3/uL (130-400); WHITE BLOOD COUNT 6.7 10^3/uL (4.3-11.0)
[2020-12-17 10:10] LABS: ALBUMIN 3.5 GM/DL (3.2-4.5)
[2020-12-17 10:11] LABS: CALCIUM 9.4 MG/DL (8.5-10.1)
[2020-12-17 10:14] LABS: BILIRUBIN,TOTAL 2.1 MG/DL (0.1-1.0)
[2020-12-17 10:16] LABS: CREATININE SERUM 0.84 MG/DL (0.60-1.30)
--- NOTE | 2020-12-17 10:38 | Diagnostic Imaging Report ---
EXAMINATION: CHEST (PA AND LATERAL) CLINICAL INDICATION: 85-year-old male, chest pain. COMPARISON: June 01, 2018. FINDINGS: There are median sternotomy wires. There is valvular hardware. Heart size and mediastinal contours are unchanged. There is no identified pneumothorax. There is no large pleural effusion. There are multifocal bilateral interstitial and/or alveolar opacities which are increased since the comparison study. IMPRESSION: Multifocal bilateral interstitial and/or alveolar opacities which may relate to multifocal pneumonia and pneumonitis which can be seen with COVID 19 infection. Other infectious etiologies also considered. Pulmonary edema and causes of pneumonitis are also in the differential diagnosis. Report was faxed to [facility] by mendoza at 10:37AM. Dictated by: Dictated on workstation # [id number]
[2020-12-17] MEDS ORDERED: AZIT250T12 PO (11:14)
--- NOTE | 2020-12-17 11:14 | ED General ---
General Chief Complaint: General Problems/Pain Stated Complaint: WHEEZING Nursing Triage Note: PT TO RM 6 BY WHEELCHAIR WITH COMPLAINT OF BREATHING LOUDER DURING THE NIGHT. STATES HE WAS BREATHING DIFFERENTLY DURING THE NIGHT. PT STATES HE IS NOT CURRENTLY DOING THAT AND FEELS OKAY. PER , SHE STATES PT HAS A COUGH AT BASELINE, BUT COUGH IS WORSE. STATES HE NORMALLY WAKES UP IN THE MORNING AND GETS RIGHT INTO THE SHOWER, BUT THIS MORNING HE WANTED TO LAY IN BED. PT DENIES PAIN. Source of Information: Patient Exam Limitations: No Limitations History of Present Illness Date Seen by Provider: Dec 17, 2020 Time Seen by Provider: 09:07 Initial Comments This 85-year-old gentleman presents to the emergency room accompanied by his with concerns about some mild coughing and shortness of breath since approximately December 11. Sometimes he coughs hard enough that he vomits. Today he did not feel like getting up in the morning as usual which concerned his . He is in no distress at this time and he is afebrile. He has not yet been vaccinated for COVID-19 or influenza. He denies chest pain. Allergies and Home Medications Allergies Coded Allergies: No Known Drug Allergies (Unverified , 05/24/18) Patient Home Medication List Home Medication List Reviewed: Yes Acetaminophen (Tylenol) 325 Mg Tablet, 650 MG PO Q6H PRN for PAIN-MILD (1-4), (Reported) Entered as Reported by: LEANNE GARRIDO on 09/05/20 0857 Apixaban (Eliquis) 5 Mg Tablet, 5 MG PO BID Prescribed by: YAIMA MASON on 09/06/20 1323 Aspirin (Aspirin EC) 81 Mg Tablet.dr, 81 MG PO HS, (Reported) Entered as Reported by: JARRED FREY on 07/04/20 1417 Atorvastatin Calcium (Atorvastatin Calcium) 80 Mg Tablet, 80 MG PO HS Prescribed by: YAIMA MASON on 09/06/20 1323 Azithromycin (Azithromycin) 250 Mg Tablet, 250 MG PO UD Prescribed by: ROBER BARAJAS on 12/17/20 1114 Carvedilol (Carvedilol) 3.125 Mg Tablet, 3.125 MG PO BID, (Reported) Entered as Reported by: LEANNE GARRIDO on 09/05/20 0857 Loratadine (Loratadine) 10 Mg Tablet, 10 MG PO DAILY, (Reported) Entered as Reported by: JARRED FREY on 07/04/20 1417 Metformin HCl (Metformin HCl ER) 500 Mg Tab.er.24h, 500 MG PO 1800 W/ EVENING MEAL, (Reported) Entered as Reported by: DOMINGA EARL on 09/01/18 1159 Ondansetron (Ondansetron Odt) 4 Mg Tab.rapdis, 4 MG SL Q4H PRN for NAUSEA/VOMITING Prescribed by: ROBER BARAJAS on 12/17/20 1115 Tamsulosin HCl (Flomax) 0.4 Mg Cap, 0.4 MG PO DAILY, (Reported) Entered as Reported by: ANGELICA FLOWERS on 11/23/19 0012 Review of Systems Review of Systems Constitutional: see HPI, malaise EENTM: no symptoms reported Respiratory: see HPI Cardiovascular: no symptoms reported Gastrointestinal: no symptoms reported Genitourinary: no symptoms reported Musculoskeletal: no symptoms reported Skin: no symptoms reported Psychiatric/Neurological: No Symptoms Reported Hematologic/Lymphatic: No Symptoms Reported Past Nlpbxse-Gqivue-Evgdcf Hx Patient Social History Tobacco Use?: No Use of E-Cig and/or Vaping dev: No Substance use?: No Alcohol Use?: No Pt feels they are or have been: No Immunizations Up To Date Tetanus Booster (TDap): Unknown Influenza Vaccine Up-to-Date: Yes; Up-to-Date First/Initial COVID19 Vaccinat: none Second COVID19 Vaccination Ras: none Seasonal Allergies Seasonal Allergies: No Past Medical History Surgeries: Yes (aortic valve replacement) Valve Replacement (Porcine) Respiratory: No Currently Using CPAP: No Currently Using BIPAP: No Cardiac: Yes Atrial Fibrillation (Anticoagulated with Eliquis), Heart Murmur, High Cholesterol, Hypertension, Valvular Heart Disease Neurological: Yes Neuropathy, Stroke, TIA Sexually Transmitted Disease: No HIV/AIDS: No Genitourinary: Yes Benign Prostatic Hyperpl, Prostate Problems, Renal Failure Gastrointestinal: No Musculoskeletal: Yes Arthritis Endocrine: Yes Diabetes, Non-Insulin dep HEENT: Yes (GLASSES) Loss of Vision: Denies Hearing Impairment: Denies Cancer: No Psychosocial: No Integumentary: No Blood Disorders: No Adverse Reaction/Blood Tranf: No Family Medical History Asthma 19 MOTHER Bone cancer Congenital heart disease 19 MOTHER Hypertension 19 MOTHER Lung cancer Myocardial infarction 19 MOTHER Diabetes, Other Conditions/Hx Physical Exam Vital Signs Vital Signs - First Documented 12/17/20 09:01 Temp 36.5 Pulse 53 Resp 16 B/P (MAP) 141/97 (112) Pulse Ox 95 O2 Delivery Room Air Capillary Refill : Less Than 3 Seconds Height, Weight, BMI Height: 5'11.00" Weight: 150lbs. 4.0oz. [id number]; 23.00 BMI Method:Stated General Appearance: No Apparent Distress, WD/WN, Thin HEENT: PERRL/EOMI, Normal ENT Inspection Neck: Normal Inspection; No JVD Respiratory: No Accessory Muscle Use, No Respiratory Distress, Crackles (Left lower chest) Cardiovascular: Regular Rate, Rhythm, No Edema, No Murmur Gastrointestinal: Non Tender, Soft Extremity: Normal Inspection, Non Tender, No Calf Tenderness, No Pedal Edema Neurologic/Psychiatric: Alert, Oriented x3, No Motor/Sensory Deficits, Normal Mood/Affect, wrapper caser II-XII Norm as Tested Skin: Normal Color, Warm/Dry Progress/Results/Core Measures Suspected Sepsis SIRS Temperature: Pulse: 53 Respiratory Rate: 16 Laboratory Tests 12/17/20 09:47: White Blood Count 6.7 Blood Pressure 141 /97 Mean: 112 Laboratory Tests 12/17/20 09:47: Creatinine 0.84, Platelet Count 144, Total Bilirubin 2.1H Results/Orders Lab Results Laboratory Tests Test 12/17/20 09:22 12/17/20 09:47 Range/Units Influenza Type A (RT-PCR) Not Detected Not Detecte Influenza Type B (RT-PCR) Not Detected Not Detecte SARS-CoV-2 RNA (RT-PCR) Not Detected Not Detecte White Blood Count 6.7 4.3-11.0 10^3/uL Red Blood Count 3.36 L 4.30-5.52 10^6/uL Hemoglobin 10.9 L 13.3-17.7 g/dL Hematocrit 34 L 40-54 % Mean Corpuscular Volume 101 H 80-99 fL Mean Corpuscular Hemoglobin 32 25-34 pg Mean Corpuscular Hemoglobin Concent 32 32-36 g/dL Red Cell Distribution Width 13.7 10.0-14.5 % Platelet Count 144 130-400 10^3/uL Mean Platelet Volume 10.6 9.0-12.2 fL Immature Granulocyte % (Auto) 0 % Neutrophils (%) (Auto) 69 42-75 % Lymphocytes (%) (Auto) 17 12-44 % Monocytes (%) (Auto) 9 0-12 % Eosinophils (%) (Auto) 4 0-10 % Basophils (%) (Auto) 0 0-10 % Neutrophils # (Auto) 4.6 1.8-7.8 10^3/uL Lymphocytes # (Auto) 1.1 1.0-4.0 10^3/uL Monocytes # (Auto) 0.6 0.0-1.0 10^3/uL Eosinophils # (Auto) 0.3 0.0-0.3 10^3/uL Basophils # (Auto) 0.0 0.0-0.1 10^3/uL Immature Granulocyte # (Auto) 0.0 0.0-0.1 10^3/uL Sodium Level 142 135-145 MMOL/L Potassium Level 4.0 3.6-5.0 MMOL/L Chloride Level 106 98-107 MMOL/L Carbon Dioxide Level 23 21-32 MMOL/L Anion Gap 13 5-14 MMOL/L Blood Urea Nitrogen 12 7-18 MG/DL Creatinine 0.84 0.60-1.30 MG/DL Estimat Glomerular Filtration Rate 87 BUN/Creatinine Ratio 14 Glucose Level 120 H 70-105 MG/DL Calcium Level 9.4 8.5-10.1 MG/DL Corrected Calcium 9.8 8.5-10.1 MG/DL Total Bilirubin 2.1 H 0.1-1.0 MG/DL Aspartate Amino Transf (AST/SGOT) 48 H 5-34 U/L Alanine Aminotransferase (ALT/SGPT) 40 0-55 U/L Alkaline Phosphatase 310 H 40-136 U/L C-Reactive Protein High Sensitivity 1.53 H 0.00-0.50 MG/DL B-Type Natriuretic Peptide 697.9 H <100.0 PG/ML Total Protein 7.0 6.4-8.2 GM/DL Albumin 3.5 3.2-4.5 GM/DL My Orders Orders - ROBER APPIAH MD BNP (12/17/20 09:26) Cbc With Automated Diff (12/17/20 09:26) Comprehensive Metabolic Panel (12/17/20 09:26) Hs C Reactive Protein (12/17/20 09:26) Chest Pa/Lat (2 View) (12/17/20 09:26) Influenza A And B By Pcr (12/17/20 09:26) Covid 19 Inhouse Test (12/17/20 09:26) Monitor-Rhythm Ecg Trace Only (12/17/20 09:26) Ceftriaxone (Rocephin) (12/17/20 11:15) Vital Signs/I&O 12/17/20 12/17/20 09:01 11:31 Temp 36.5 Pulse 53 88 Resp 16 16 B/P (MAP) 141/97 (112) 133/83 Pulse Ox 95 95 O2 Delivery Room Air Capillary Refill : Less Than 3 Seconds Blood Pressure Mean: 112 Progress Note : Progress Note Infiltrates were noted on chest x-ray. Work-up was otherwise fairly unremarkable. Covid and influenza screens were negative. Vital signs are stable. Patient was started on antibiotic therapy and discharged home. Diagnostic Imaging Diagonstic Imaging: Xray Plain Films/CT/US/NM/MRI: chest Comments NAME: KAYLA MCKAY MED REC#: [id number] PT STATUS: REG ER : 1935 PHYSICIAN: ROBER APPIAH MD ADMIT DATE: 12/17/20/ER Signed Date of Exam:12/17/20 CHEST PA/LAT (2 VIEW) EXAMINATION: CHEST (PA AND LATERAL) CLINICAL INDICATION: 85-year-old male, chest pain. COMPARISON: June 01, 2018. FINDINGS: There are median sternotomy wires. There is valvular hardware. Heart size and mediastinal contours are unchanged. There is no identified pneumothorax. There is no large pleural effusion. There are multifocal bilateral interstitial and/or alveolar opacities which are increased since the comparison study. IMPRESSION: Multifocal bilateral interstitial and/or alveolar opacities which may relate to multifocal pneumonia and pneumonitis which can be seen with COVID 19 infection. Other infectious etiologies also considered. Pulmonary edema and causes of pneumonitis are also in the differential diagnosis. Report was faxed to [facility] by mendoza at 10:37AM. Dictated by: Dictated on workstation # [id number] Dict: 12/17/20 1029 Trans: 12/17/20 105 [facility] [id number] Interpreted by: DOMO PETIT MD Electronically signed by: DOMO PETIT MD 12/17/20 1054 Departure Impression Primary Impression: Pulmonary infiltrate Additional Impression: Cough Disposition: 01 HOME, SELF-CARE Condition: Stable Departure-Patient Inst. Decision time for Depature: 11:09 Referrals: BEN MATTA DO (PCP/Family) Primary Care Physician Patient Instructions: Pneumonia, Adult ED Add. Discharge Instructions: You had some infiltrate noted on your chest x-ray which may represent pneumonia. Please complete your antibiotic as directed. The appearance of your chest x-ray may also relate to some fluid on your lungs related to heart failure. If you are not improving with antibiotic therapy, please contact your director vaccine to be evaluated for possible heart failure. Return to the ER if you have worsening symptoms or if you develop new symptoms such as fevers over 100 degrees. It may be beneficial to obtain a pulse oximeter and check your oxygen levels a couple times a day. If you have oxygen measurements less than 90% or repeated measurements under 92%, consider returning to the ER for further evaluation. Call with questions or concerns. All discharge instructions reviewed with patient and/or family. Voiced understanding. Scripts Ondansetron (Ondansetron Odt) 4 Mg Tab.rapdis 4 MG SL Q4H PRN for NAUSEA/VOMITING, #10 TAB Prov: ROBER APPIAH MD 12/17/20 Azithromycin (Azithromycin) 250 Mg Tablet 250 MG PO UD, #6 TAB TAKE 2 TABLETS ON DAY ONE THEN TAKE 1 TABLET DAILY FOR FOUR MORE DAYS Prov: ROBER APPIAH MD 12/17/20 Copy Copies To 1: BEN MATTA JOSHUA T MD Dec 17, 2020 11:14
[2020-12-17] MEDS ORDERED: ONDA4TAB11 SL (11:15)
[2020-12-17] MEDS ORDERED: cefTRIAXone 1,000 MG in WATER (STERILE) FOR INJECTION 10 ML IV ONE (11:15)
[2020-12-17 11:31] VITALS: BP 133/83
== END 2020-12-17 11:31 | disposition home or self-care (01) ==
LOC: EDUNIT# 08:47 → ER 08:49
DX: R91.8 Other nonspecific abnormal finding of lung field (principal); R05.9 Cough, unspecified; I10 Essential (primary) hypertension; E78.00 Pure hypercholesterolemia, unspecified; I48.91 Unspecified atrial fibrillation; N40.0 Benign prostatic hyperplasia without lower urinary tract symptoms; E11.9 Type 2 diabetes mellitus without complications; Z20.822 Contact with and (suspected) exposure to COVID-19; Z86.73 Personal history of transient ischemic attack (TIA), and cerebral infarction without residual deficits; Z79.01 Long term (current) use of anticoagulants; Z79.82 Long term (current) use of aspirin; Z79.899 Other long term (current) drug therapy; Z79.84 Long term (current) use of oral hypoglycemic drugs
CPT/HCPCS: 36415; 71046; 80053; 83880; 85025; 86141; 87636; 93041

== ENCOUNTER → 2020-12-25 | Outpatient (CLI) | payer MEDICARE ==
[~2020-12-25] MED LIST changes: +AZIT250T12 PO; +ONDA4TAB11 SL
[2020-12-25 13:46] LABS: BASOPHILS % (AUTO) 0 % (0-10); EOSINOPHILS # (AUTO) 0.2 10^3/uL (0.0-0.3); EOSINOPHILS % (AUTO) 5 % (0-10); HEMATOCRIT 37 % (40-54); HEMOGLOBIN 11.6 g/dL (13.3-17.7); LYMPHOCYTES % (AUTO) 21 % (12-44); MEAN CORPUSCULAR HEMOGLOBIN 32 pg (25-34); MEAN CORPUSCULAR HGB CONC 31 g/dL (32-36); MEAN CORPUSCULAR VOLUME 102 fL (80-99); MEAN PLATELET VOLUME 9.9 fL (9.0-12.2); MONOCYTES # (AUTO) 0.6 10^3/uL (0.0-1.0); MONOCYTES % (AUTO) 12 % (0-12); NEUTROPHILS % (AUTO) 62 % (42-75); PLATELET COUNT 139 10^3/uL (130-400); WHITE BLOOD COUNT 4.7 10^3/uL (4.3-11.0)
[2020-12-25 14:10] LABS: ALBUMIN 3.7 GM/DL (3.2-4.5); CALCIUM 9.8 MG/DL (8.5-10.1); CREATININE SERUM 1.06 MG/DL (0.60-1.30); TOTAL PROTEIN 7.8 GM/DL (6.4-8.2)
--- NOTE | 2020-12-25 14:14 | Diagnostic Imaging Report ---
INDICATION: Pneumonia. TIME OF EXAM: 1:55 PM Correlation is made with prior chest 12/17/2020. The changes of median sternotomy noted. Heart size is stable. There has been improved aeration of both lungs when compared with examination from 8 days earlier. No parenchymal consolidation is identified. There is no effusion. No pneumothorax identified. IMPRESSION: Significantly improved aeration of both lungs when compared to examination one week earlier. Dictated by: Dictated on workstation # [id number]
== END ==
LOC: RAD 13:27
PROVIDERS: ATTEND Internal Medicine
DX: J18.9 Pneumonia, unspecified organism (principal); E11.65 Type 2 diabetes mellitus with hyperglycemia
CPT/HCPCS: 36415; 71046; 80053; 83880; 85025

== ENCOUNTER → 2021-02-08 | Outpatient (CLI) | payer MEDICARE ==
[~2021-02-08] MED LIST changes: -POTA10TA36 PO; +POTA10TA37 PO
--- NOTE | 2021-02-08 15:12 | Diagnostic Imaging Report ---
INDICATION: Shortness of breath. TIME OF EXAM: 2:55 PM. COMPARISON: Correlation is made with prior chest from 12/25/2020. FINDINGS: Changes of median sternotomy are noted. Lungs appear clear of acute infiltrate. There is no failure. No effusion or pneumothorax is detected. IMPRESSION: No acute cardiopulmonary process is detected. Dictated by: Dictated on workstation # [id number]
== END ==
LOC: RAD 14:25
PROVIDERS: ATTEND Internal Medicine
DX: R06.02 Shortness of breath (principal); R09.89 Other specified symptoms and signs involving the circulatory and respiratory systems
CPT/HCPCS: 71046

== ENCOUNTER 2021-06-08 17:58 | Observation (INO) | payer MEDICARE ==
[~2021-06-08] VITALS: Ht 177 cm; Wt 73.5 kg
--- NOTE | 2021-06-08 18:14 | ED GI ---
General Chief Complaint: Abdominal/GI Problems Stated Complaint: N/V/D Source of Information: Patient, Family Exam Limitations: Intoxication (JOSHUA VIRK APRN) History of Present Illness Date Seen by Provider: Jun 08, 2021 Time Seen by Provider: 18:12 Initial Comments To ER by private vehicle accompanied by his with reports of general fatigue. Yesterday he had some nausea and several episodes of watery diarrhea. No abdominal pain. He does report some pain in his chest intermittently whenever he takes a big deep breath. No cough no shortness of breath no fevers. is healthy without similar symptoms. Today the diarrhea seems to have resolved but he has ongoing weakness and was referred here to the emergency room. States hes only had enough water today to swallow his pills and a few cups of coffee. Timing/Duration: 1-2 Days Severity/Quality: Moderate Location: Generalized Abdomen Radiation: No Radiation Activities at Onset: None Associated Symptoms: Weakness (JOSHUA VIRK APRN) Allergies and Home Medications Allergies Coded Allergies: No Known Drug Allergies (Unverified , 05/24/18) Patient Home Medication List Home Medication List Reviewed: Yes (JOSHUA VIRK APRN) Acetaminophen (Tylenol) 325 Mg Tablet, 650 MG PO Q6H PRN for PAIN-MILD (1-4), (Reported) Entered as Reported by: LEANNE GARRIDO on 09/05/20 0857 Apixaban (Eliquis) 5 Mg Tablet, 5 MG PO BID Prescribed by: YAIMA MASON on 09/06/20 1323 Aspirin (Aspirin EC) 81 Mg Tablet.dr, 81 MG PO HS, (Reported) Entered as Reported by: JARRED FREY on 07/04/20 1417 Atorvastatin Calcium (Atorvastatin Calcium) 80 Mg Tablet, 80 MG PO HS Prescribed by: YAIMA MASON on 09/06/20 1323 Azithromycin (Azithromycin) 250 Mg Tablet, 250 MG PO UD Prescribed by: ROBER BARAJAS on 12/17/20 1114 Carvedilol (Carvedilol) 3.125 Mg Tablet, 3.125 MG PO BID, (Reported) Entered as Reported by: LEANNE GARRIDO on 09/05/20 0857 Loratadine (Loratadine) 10 Mg Tablet, 10 MG PO DAILY, (Reported) Entered as Reported by: JARRED FREY on 07/04/20 1417 Metformin HCl (Metformin HCl ER) 500 Mg Tab.er.24h, 500 MG PO 1800 W/ EVENING MEAL, (Reported) Entered as Reported by: DOMINGA EARL on 09/01/18 1159 Ondansetron (Ondansetron Odt) 4 Mg Tab.rapdis, 4 MG SL Q4H PRN for NAUSEA/VOMITING Prescribed by: ROBER BARAJAS on 12/17/20 1115 Tamsulosin HCl (Flomax) 0.4 Mg Cap, 0.4 MG PO DAILY, (Reported) Entered as Reported by: ANGELICA FLOWERS on 11/23/19 0012 Review of Systems Review of Systems Constitutional: see HPI EENTM: No Symptoms Reported Respiratory: No Symptoms Reported Cardiovascular: No Symptoms Reported Gastrointestinal: See HPI, Diarrhea Genitourinary: No Symptoms Reported Musculoskeletal: no symptoms reported Skin: no symptoms reported Psychiatric/Neurological: No Symptoms Reported Endocrine: No Symptoms Reported Hematologic/Lymphatic: No Symptoms Reported (JOSHUA VIRK APRN) Past Yidqqmg-Gvtthp-Mwnalz Hx Patient Social History Tobacco Use?: No Use of E-Cig and/or Vaping dev: No Substance use?: No Alcohol Use?: No Pt feels they are or have been: No (JOSHUA VIRK APRN) Immunizations Up To Date Tetanus Booster (TDap): Unknown First/Initial COVID19 Vaccinat: RECEIVED, UNK WHEN Second COVID19 Vaccination Ras: RECEIVED, UNK WHEN Third COVID19 Vaccination Date: none (JOSHUA VIRK APRN) Seasonal Allergies Seasonal Allergies: No (JOSHUA VIRK APRN) Past Medical History Surgeries: Yes (aortic valve replacement) Valve Replacement Respiratory: No Currently Using CPAP: No Currently Using BIPAP: No Cardiac: Yes Atrial Fibrillation, Heart Murmur, High Cholesterol, Hypertension, Valvular Heart Disease Neurological: Yes Neuropathy, Stroke, TIA Sexually Transmitted Disease: No HIV/AIDS: No Genitourinary: Yes Benign Prostatic Hyperpl, Prostate Problems, Renal Failure Gastrointestinal: No Musculoskeletal: Yes Arthritis Endocrine: Yes Diabetes, Non-Insulin dep HEENT: Yes (GLASSES) Loss of Vision: Denies Hearing Impairment: Denies Cancer: No Psychosocial: No Integumentary: No Blood Disorders: No Adverse Reaction/Blood Tranf: No (JOSHUA VIRK APRN) Family Medical History Asthma 19 MOTHER Bone cancer Congenital heart disease 19 MOTHER Hypertension 19 MOTHER Lung cancer Myocardial infarction 19 MOTHER Diabetes, Other Conditions/Hx (JOSHUA VIRK APRN) Physical Exam Vital Signs Vital Signs - First Documented 06/08/21 18:03 Temp 36.5 Pulse 112 Resp 18 B/P (MAP) 122/72 (89) Pulse Ox 97 O2 Delivery Room Air (DONNA TORO MD) Vital Signs Capillary Refill : (JOSHUA VIRK APRN) Height/Weight/BMI Height: 5'11.00" Weight: 150lbs. 4.0oz. [id number]; 23.00 BMI Method:Stated General Appearance: WD/WN, no apparent distress, thin (Alert and oriented talkative pleasant. Abdomen is flat soft and nontender to palpation.) HEENT: PERRL/EOMI, normal ENT inspection Respiratory: no respiratory distress, no accessory muscle use Cardiovascular: irregularly irregular, other (A. fib rate of about 100-110) Gastrointestinal: normal bowel sounds, non tender, soft Extremities: normal range of motion, non-tender Neurologic/Psychiatric: alert, normal mood/affect, oriented x 3 Skin: normal color, warm/dry (JOSHUA VIRK APRN) Progress/Results/Core Measures Results/Orders Lab Results Laboratory Tests Test 06/08/21 18:10 Range/Units White Blood Count 7.6 4.3-11.0 10^3/uL Red Blood Count 3.24 L 4.30-5.52 10^6/uL Hemoglobin 10.3 L 13.3-17.7 g/dL Hematocrit 33 L 40-54 % Mean Corpuscular Volume 101 H 80-99 fL Mean Corpuscular Hemoglobin 32 25-34 pg Mean Corpuscular Hemoglobin Concent 32 32-36 g/dL Red Cell Distribution Width 14.4 10.0-14.5 % Platelet Count 116 L 130-400 10^3/uL Mean Platelet Volume 10.9 9.0-12.2 fL Immature Granulocyte % (Auto) 0 % Neutrophils (%) (Auto) 77 H 42-75 % Lymphocytes (%) (Auto) 14 12-44 % Monocytes (%) (Auto) 8 0-12 % Eosinophils (%) (Auto) 1 0-10 % Basophils (%) (Auto) 0 0-10 % Neutrophils # (Auto) 5.8 1.8-7.8 10^3/uL Lymphocytes # (Auto) 1.1 1.0-4.0 10^3/uL Monocytes # (Auto) 0.6 0.0-1.0 10^3/uL Eosinophils # (Auto) 0.1 0.0-0.3 10^3/uL Basophils # (Auto) 0.0 0.0-0.1 10^3/uL Immature Granulocyte # (Auto) 0.0 0.0-0.1 10^3/uL Percent Immature Platelet Fraction 4.4 0.0-7.6 % Sodium Level 143 135-145 MMOL/L Potassium Level 3.4 L 3.6-5.0 MMOL/L Chloride Level 108 H 98-107 MMOL/L Carbon Dioxide Level 22 21-32 MMOL/L Anion Gap 13 5-14 MMOL/L Blood Urea Nitrogen 19 H 7-18 MG/DL Creatinine 0.97 0.60-1.30 MG/DL Estimat Glomerular Filtration Rate 76 BUN/Creatinine Ratio 20 Glucose Level 133 H 70-105 MG/DL Calcium Level 9.2 8.5-10.1 MG/DL Corrected Calcium 9.4 8.5-10.1 MG/DL Magnesium Level 1.5 L 1.6-2.4 MG/DL Total Bilirubin 3.3 H 0.1-1.0 MG/DL Aspartate Amino Transf (AST/SGOT) 20 5-34 U/L Alanine Aminotransferase (ALT/SGPT) 18 0-55 U/L Alkaline Phosphatase 87 40-136 U/L Troponin I 0.061 H <0.028 NG/ML B-Type Natriuretic Peptide 1775.6 H <100.0 PG/ML Total Protein 7.2 6.4-8.2 GM/DL Albumin 3.7 3.2-4.5 GM/DL Lipase 20 8-78 U/L (DONNA TORO MD) Vital Signs/I&O 06/08/21 06/08/21 18:03 18:41 Temp 36.5 Pulse 112 96 Resp 18 18 B/P (MAP) 122/72 (89) 124/78 Pulse Ox 97 94 O2 Delivery Room Air Room Air 06/09/21 00:00 Intake Total 1000 ml Balance 1000 ml (DONNA TORO MD) Departure Communication (Admissions) 2002-Spoke with Dr. Matta, will admit observation status. The patient denies feeling short of breath though his BNP is at 1700 and chest x-ray shows cardiomegaly with interstitial edema. Spoke with Dr. Frazier, would like Lasix 80 mg twice daily. I will supplement his potassium and magnesium. Dr. Matta will do queued orders. Respiratory rate is normal at 20. Oxygen saturation 90 to 93% room air. (JOSHUA VIRK APRN) Impression Primary Impression: Acute systolic congestive heart failure Additional Impression: Atrial fibrillation Disposition: ADMITTED INPATIENT Condition: Stable Admissions Decision to Admit Reason: Admit from ER (General) (JOSHUA VIRK APRN) Departure-Patient Inst. Referrals: BEN MATTA DO (PCP/Family) Primary Care Physician PHYSICIAN ATTESTATION NOTE: I was present in the ER while CONCRETE MIXER TRUCK DRIVER / PA saw the patient, but I was not involved in the care, exam, or management of the patient. (DONNA TORO MD) JOSHUA VIKR APRN Jun 08, 2021 18:14 DONNA TORO MD Jun 09, 2021 06:24
[2021-06-08] MEDS ORDERED: LACTATED RINGERS 1,000 ML IV SCH (18:15)
[2021-06-08 18:20] LABS: BASOPHILS % (AUTO) 0 % (0-10); EOSINOPHILS # (AUTO) 0.1 10^3/uL (0.0-0.3); EOSINOPHILS % (AUTO) 1 % (0-10); HEMOGLOBIN 10.3 g/dL (13.3-17.7); LYMPHOCYTES % (AUTO) 14 % (12-44); MEAN CORPUSCULAR HEMOGLOBIN 32 pg (25-34)
[2021-06-08 18:22] LABS: HEMATOCRIT 33 % (40-54); LYMPHOCYTES # (AUTO) 1.1 10^3/uL (1.0-4.0); MEAN CORPUSCULAR HGB CONC 32 g/dL (32-36); MEAN CORPUSCULAR VOLUME 101 fL (80-99); MEAN PLATELET VOLUME 10.9 fL (9.0-12.2); MONOCYTES # (AUTO) 0.6 10^3/uL (0.0-1.0); MONOCYTES % (AUTO) 8 % (0-12); NEUTROPHILS # (AUTO) 5.8 10^3/uL (1.8-7.8); NEUTROPHILS % (AUTO) 77 % (42-75); PLATELET COUNT 116 10^3/uL (130-400); WHITE BLOOD COUNT 7.6 10^3/uL (4.3-11.0)
[2021-06-08 18:25] LABS: ALBUMIN 3.7 GM/DL (3.2-4.5); POTASSIUM 3.4 MMOL/L (3.6-5.0)
[2021-06-08 18:26] LABS: CALCIUM 9.2 MG/DL (8.5-10.1)
[2021-06-08 18:27] LABS: TOTAL PROTEIN 7.2 GM/DL (6.4-8.2)
[2021-06-08 18:29] LABS: BILIRUBIN,TOTAL 3.3 MG/DL (0.1-1.0)
[2021-06-08 18:31] LABS: CREATININE SERUM 0.97 MG/DL (0.60-1.30)
[2021-06-08 18:34] LABS: MAGNESIUM 1.5 MG/DL (1.6-2.4)
--- NOTE | 2021-06-08 18:44 | Diagnostic Imaging Report ---
INDICATION: Nausea and vomiting, coronary artery disease. COMPARISON: 09/04/2020. EXAMINATION: Single view of the chest. FINDINGS: New small bilateral pleural effusions. The heart is enlarged with interstitial edema. There is no pneumothorax. Sternal wires are midline. IMPRESSION: CHF. Dictated by: Dictated on workstation # [id number]
[2021-06-08] MEDS ORDERED: FUROSEMIDE 40 MG/4 ML INJ (LASIX) IVP ONE (20:00)
[2021-06-08] MEDS ORDERED: KCL 20 MEQ TAB (K-DUR) PO ONE (20:00)
[2021-06-08] MEDS ORDERED: MAGNESIUM OXIDE (MAG-OX)400 MG TAB PO ONE (20:00)
[2021-06-08] MEDS ORDERED: ONDANSETRON 4 MG (ZOFRAN) ORAL DISSOLVE TAB PO PRN (20:30)
[2021-06-08] MEDS ORDERED: diphenhydrAMINE 50 MG/ML INJ (BENADRYL) IVP PRN (20:30)
[2021-06-08] MEDS ORDERED: MILK OF MAGNESIA 400 MG/5 ML 30 ML UDC PO PRN (20:30)
[2021-06-08] MEDS ORDERED: ONDANSETRON 4 MG/2 ML (SDV) Z0FRAN IV PRN (20:30)
[2021-06-08] MEDS ORDERED: LACTULOSE SYRUP 10GM/15ML (ENULOSE) 30ML UDC PO PRN (20:30)
[2021-06-08] MEDS ORDERED: ANTACID SUSP 30 ML UDC (MYLANTA) PO PRN (20:30)
[2021-06-08] MEDS ORDERED: ACETAMINOPHEN 325 MG TABLET PO PRN (20:30)
[2021-06-08] MEDS ORDERED: MELATONIN 3 MG TABLET PO PRN (20:30)
[2021-06-08] MEDS ORDERED: CALCIUM CARBONATE 500 MG (TUMS) TAB.CHEW PO PRN (20:30)
[2021-06-08] MEDS ORDERED: BISACODYL 10 MG SUPP (DULCOLAX) PR PRN (20:30)
[2021-06-08] MEDS ORDERED: morphine INJ 4 MG/ML 1 ML (VIAL/SYRINGE) IV PRN (20:30)
[2021-06-08] MEDS ORDERED: polyethylene glycoL POWDER 17 GM (MIRALAX) PACK PO PRN (20:30)
[2021-06-08] MEDS ORDERED: ALPRAZolam 0.25 MG (XANAX) TAB PO PRN (20:30)
[2021-06-08] MEDS ORDERED: PATIENT MAY USE OWN MEDS, ALL PO SCH (20:30)
[2021-06-08] MEDS ORDERED: diphenhydrAMINE 25 MG TAB (BENADRYL) PO PRN (20:30)
[2021-06-08 20:59] VITALS: BP 127/77
[2021-06-08 21:35] LABS: BILIRUBIN,URINE NEGATIVE (NEGATIVE); CLARITY,URINE CLEAR; COLOR,URINE YELLOW; GLUCOSE, URINE (UA) NEGATIVE (NEGATIVE); KETONES,URINE NEGATIVE (NEGATIVE); LEUKOCYTE ESTERASE ,URINE NEGATIVE (NEGATIVE); NITRITE,URINE NEGATIVE (NEGATIVE); PROTEIN,URINE TRACE (NEGATIVE)
[2021-06-08 21:45] LABS: BACTERIA,URINE NEGATIVE /HPF; RBC,URINE 0-2 /HPF; SQUAMOUS EPITHELIAL CELL,UR 0-2 /HPF
[2021-06-08] MEDS ORDERED: NS IV 500 ML 500 ML ONE (22:29)
[2021-06-08] MEDS: ASPIRIN 81 MG CHEW (CHILDREN'S ASA) PO SCH (22:36)
[2021-06-08] MEDS: DOCUSATE SODIUM 100 MG (COLACE) CAP PO SCH (22:36)
[2021-06-08] MEDS: APIXABAN 5 MG (ELIQUIS) TABLET PO SCH (22:36)
[2021-06-08] MEDS: SENNOSIDES 8.6 MG (SENOKOT) TAB PO SCH (22:36)
[2021-06-08] MEDS: POTASSIUM CL 10MEQ/50ML IVPB 50 ML IV SCH ×2 (22:36→23:41)
[2021-06-08] MEDS ORDERED: NS IV 500 ML 500 ML IV ONE (22:45)
[2021-06-08] MEDS ORDERED: ENOXAPARIN 100 MG/1 ML (LOVENOX) SYR SC SCH (23:00)
[2021-06-08 23:43] VITALS: BP 125/75
[2021-06-09] VITALS (10 sets, daily range): BP systolic 102–146; BP diastolic 53–85
[2021-06-09] MEDS ORDERED: RT-ALBUTEROL/IPRATROPIUM 3 ML (DUONEB) VIAL INH PRN (00:30)
[2021-06-09 05:17] LABS: BASOPHILS % (AUTO) 0 % (0-10); EOSINOPHILS # (AUTO) 0.1 10^3/uL (0.0-0.3); EOSINOPHILS % (AUTO) 1 % (0-10); HEMATOCRIT 31 % (40-54); HEMOGLOBIN 9.9 g/dL (13.3-17.7); LYMPHOCYTES # (AUTO) 0.9 10^3/uL (1.0-4.0); LYMPHOCYTES % (AUTO) 13 % (12-44); MEAN CORPUSCULAR HEMOGLOBIN 32 pg (25-34); MEAN CORPUSCULAR HGB CONC 32 g/dL (32-36); MEAN CORPUSCULAR VOLUME 99 fL (80-99); MEAN PLATELET VOLUME 11.3 fL (9.0-12.2); MONOCYTES # (AUTO) 0.8 10^3/uL (0.0-1.0); MONOCYTES % (AUTO) 11 % (0-12); NEUTROPHILS # (AUTO) 5.2 10^3/uL (1.8-7.8); NEUTROPHILS % (AUTO) 74 % (42-75); PLATELET COUNT 127 10^3/uL (130-400)
[2021-06-09 05:30] LABS: ALBUMIN 3.4 GM/DL (3.2-4.5); POTASSIUM 3.6 MMOL/L (3.6-5.0)
[2021-06-09 05:31] LABS: CALCIUM 9.2 MG/DL (8.5-10.1)
[2021-06-09 05:32] LABS: TOTAL PROTEIN 6.7 GM/DL (6.4-8.2)
[2021-06-09 05:34] LABS: BILIRUBIN,TOTAL 2.8 MG/DL (0.1-1.0)
[2021-06-09 05:36] LABS: CREATININE SERUM 0.89 MG/DL (0.60-1.30)
--- NOTE | 2021-06-09 05:59 | Short Stay Summary ---
HPI History of Present Illness: Date Seen 06/09/21 Attending Physician Taylor Orozco DO PCP Taylor Orozco DO Referring Physician Date of Admission Jun 08, 2021 at 19:58 Home Medications & Allergies Home Medications Reviewed patient Home Medication Reconciliation performed by pharmacy medication reconciliations technical maintenance technician and/or nursing. Patients Allergies have been reviewed. Allergies Allergies Coded Allergies No Known Drug Allergies (Unverified05/24/18) Past Medical/Social/Family Hx Patient Social History Tobacco Use?: No Use of E-Cig and/or Vaping dev: No Substance use?: No Alcohol Use?: No Pt stated abuse/neglect: No Immunizations Up To Date First/Initial COVID19 Vaccinat: RECEIVED, UNK WHEN Second COVID19 Vaccination Ras: RECEIVED, UNK WHEN Tetanus Booster (TDap): Unknown Date of Pneumonia Vaccine: Aug 31, 2018 Current Status Advance Directives: No Communicates: Verbally Primary Language: Nepalese Preferred Spoken Language: Nepalese Is interpretation needed?: No Sensory deficits: Vision impairment Implanted or Applied Medical D: None Past Medical History AF CRI HTN HLP UTI's BPH Physical Exam Physical Exam Vital Signs Vital Signs - First Documented 06/08/21 06/08/21 06/09/21 18:03 23:46 07:24 Temp 36.5 Pulse 112 Resp 18 B/P (MAP) 122/72 (89) Pulse Ox 97 O2 Delivery Room Air O2 Flow Rate 2.00 FiO2 94 Capillary Refill : Height, Weight, BMI Height: 5'11.00" Weight: 150lbs. 4.0oz. 68.802464qq; 23.58 BMI Method:Stated TAYLOR OROZCO DO Jun 09, 2021 05:59
[2021-06-09] MEDS: FUROSEMIDE 40 MG/4 ML INJ (LASIX) IVP SCH ×2 (06:35→18:01)
[2021-06-09] MEDS: RT-ALBUTEROL/IPRATROPIUM 3 ML (DUONEB) VIAL INH SCH ×2 (07:24→22:16)
[2021-06-09] MEDS: ASPIRIN 81 MG CHEW (CHILDREN'S ASA) PO SCH (07:49)
[2021-06-09] MEDS: APIXABAN 5 MG (ELIQUIS) TABLET PO SCH (07:50)
[2021-06-09] MEDS: DOCUSATE SODIUM 100 MG (COLACE) CAP PO SCH ×2 (07:51→20:11)
[2021-06-09] MEDS: SENNOSIDES 8.6 MG (SENOKOT) TAB PO SCH ×2 (07:51→20:11)
[2021-06-09] MEDS ORDERED: fentaNYL INJ 100 MCG/2 ML AMP ONE (08:45)
[2021-06-09] MEDS ORDERED: VERAPAMIL 5 MG/2 ML (CALAN) VIAL IV ONE (08:45)
[2021-06-09] MEDS ORDERED: NITRO DRIP 25000 MCG/D5W 0 ML IV ONE (08:46)
[2021-06-09] MEDS ORDERED: MIDAZOLAM 5 MG/5 ML (VERSED) VIAL ONE (08:46)
[2021-06-09] MEDS ORDERED: HEParin 1000 UNIT/ML (10ML VIAL) FOR BOLUS ONE (08:46)
[2021-06-09] MEDS ORDERED: HEParin (CATH LAB) 2,000 ML IV ONE (08:48)
[2021-06-09] MEDS ORDERED: LIDOCAINE 2% 20 ML (XYLOCAINE) VIAL ONE (08:48)
[2021-06-09] MEDS ORDERED: NS IV 1000 ML 1,000 ML ONE (08:48)
--- NOTE | 2021-06-09 08:54 | Consultation-Cardiology ---
HPI-Cardiology Cardiology Consultation Date of Consultation 06/09/21 Date of Admission Time Seen by Provider: 08:48 Indication: Congestive heart failure HPI 86 years old gentleman with history of aortic valve replacement, came into the emergency room complaining of generalized fatigue and loss of energy, reporting episodes of chest pain described it as dull in nature in the retrosternal area on and off. Has been having dyspnea on exertion which has been worsening. Reporting cough followed by vomiting. Loss of appetite. His weakness became worse and came into the emergency room. Patient was noted to have elevation in troponin level. Had baseline abnormal stress test. Has history of aortic valve replacement. 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 Recent Hopitalizations: Yes (sepsis pneumonia August 2018) Have you traveled recently?: No Alcohol Use?: No Immunizations Up To Date Tetanus Booster (TDap): Unknown Date of Pneumonia Vaccine: Aug 31, 2018 Date of Influenza Vaccine: Dec 04, 2019 Past Medical History Discussed below Family Medical History Significant Family History: Diabetes, Other Conditions/Hx Family History: Asthma 19 MOTHER Bone cancer Congenital heart disease 19 MOTHER Hypertension 19 MOTHER Lung cancer Myocardial infarction 19 MOTHER Review of Systems-General Review of Systems Constitutional: see HPI, malaise, weakness EENTM: see HPI, no symptoms reported Respiratory: see HPI, cough, dyspnea on exertion; No hemoptysis, No orthopnea, No phlegm, No short of breath, No stridor, No wheezing, No other Cardiovascular: see HPI, chest pain; No edema, No Hx of Intervention, No palpitations, No syncope, No vascular heart diseas, No other Gastrointestinal: see HPI, nausea, vomiting Genitourinary: no symptoms reported, see HPI Musculoskeletal: no symptoms reported, see HPI Skin: no symptoms reported, see HPI Psychiatric/Neurological: No Symptoms Reported Reviewed Test Results Reviewed Test Results Lab Laboratory Tests Test 06/08/21 18:10 06/08/21 20:33 06/09/21 05:10 Range/Units White Blood Count 7.6 7.0 4.3-11.0 10^3/uL Red Blood Count 3.24 L 3.09 L 4.30-5.52 10^6/uL Hemoglobin 10.3 L 9.9 L 13.3-17.7 g/dL Hematocrit 33 L 31 L 40-54 % Mean Corpuscular Volume 101 H 99 80-99 fL Mean Corpuscular Hemoglobin 32 32 25-34 pg Mean Corpuscular Hemoglobin Concent 32 32 32-36 g/dL Red Cell Distribution Width 14.4 14.4 10.0-14.5 % Platelet Count 116 L 127 L 130-400 10^3/uL Mean Platelet Volume 10.9 11.3 9.0-12.2 fL Immature Granulocyte % (Auto) 0 0 % Neutrophils (%) (Auto) 77 H 74 42-75 % Lymphocytes (%) (Auto) 14 13 12-44 % Monocytes (%) (Auto) 8 11 0-12 % Eosinophils (%) (Auto) 1 1 0-10 % Basophils (%) (Auto) 0 0 0-10 % Neutrophils # (Auto) 5.8 5.2 1.8-7.8 10^3/uL Lymphocytes # (Auto) 1.1 0.9 L 1.0-4.0 10^3/uL Monocytes # (Auto) 0.6 0.8 0.0-1.0 10^3/uL Eosinophils # (Auto) 0.1 0.1 0.0-0.3 10^3/uL Basophils # (Auto) 0.0 0.0 0.0-0.1 10^3/uL Immature Granulocyte # (Auto) 0.0 0.0 0.0-0.1 10^3/uL Percent Immature Platelet Fraction 4.4 0.0-7.6 % Sodium Level 143 141 135-145 MMOL/L Potassium Level 3.4 L 3.6 3.6-5.0 MMOL/L Chloride Level 108 H 105 98-107 MMOL/L Carbon Dioxide Level 22 23 21-32 MMOL/L Anion Gap 13 13 5-14 MMOL/L Blood Urea Nitrogen 19 H 18 7-18 MG/DL Creatinine 0.97 0.89 0.60-1.30 MG/DL Estimat Glomerular Filtration Rate 76 83 BUN/Creatinine Ratio 20 20 Glucose Level 133 H 132 H 70-105 MG/DL Calcium Level 9.2 9.2 8.5-10.1 MG/DL Corrected Calcium 9.4 9.7 8.5-10.1 MG/DL Magnesium Level 1.5 L 1.6-2.4 MG/DL Total Bilirubin 3.3 H 2.8 H 0.1-1.0 MG/DL Aspartate Amino Transf (AST/SGOT) 20 19 5-34 U/L Alanine Aminotransferase (ALT/SGPT) 18 14 0-55 U/L Alkaline Phosphatase 87 80 40-136 U/L Troponin I 0.061 H <0.028 NG/ML B-Type Natriuretic Peptide 1775.6 H <100.0 PG/ML Total Protein 7.2 6.7 6.4-8.2 GM/DL Albumin 3.7 3.4 3.2-4.5 GM/DL Lipase 20 8-78 U/L Urine Color YELLOW Urine Clarity CLEAR Urine pH 6.0 5-9 Urine Specific [place] 1.015 L 1.016-1.022 Urine Protein TRACE H NEGATIVE Urine Glucose (UA) NEGATIVE NEGATIVE Urine Ketones NEGATIVE NEGATIVE Urine Nitrite NEGATIVE NEGATIVE Urine Bilirubin NEGATIVE NEGATIVE Urine Urobilinogen 0.2 < = 1.0 MG/DL Urine Leukocyte Esterase NEGATIVE NEGATIVE Urine RBC (Auto) TRACE-I H NEGATIVE Urine RBC 0-2 /HPF Urine WBC 2-5 /HPF Urine Squamous Epithelial Cells 0-2 /HPF Urine Renal Epithelial Cells NONE /HPF Urine Crystals NONE /LPF Urine Bacteria NEGATIVE /HPF Urine Casts NONE /LPF Urine Mucus NEGATIVE /LPF Urine Culture Indicated NO Triglycerides Level 67 <150 MG/DL Cholesterol Level 87 < 200 MG/DL LDL Cholesterol Direct 51 1-129 MG/DL VLDL Cholesterol 13 5-40 MG/DL HDL Cholesterol 29 L 40-60 MG/DL Physical Exam Physical Exam Vital Signs Vital Signs - First Documented 06/08/21 06/08/21 06/09/21 18:03 23:46 07:24 Temp 36.5 Pulse 112 Resp 18 B/P (MAP) 122/72 (89) Pulse Ox 97 O2 Delivery Room Air O2 Flow Rate 2.00 FiO2 94 Capillary Refill : Height, Weight, BMI Height: 5'11.00" Weight: 150lbs. 4.0oz. 68.460899hr; 23.58 BMI Method:Stated General Appearance: No Apparent Distress, WD/WN Eyes: Bilateral Eye Normal Inspection, Bilateral Eye PERRL, Bilateral Eye EOMI HEENT: PERRL/EOMI, TMs Normal, Normal ENT Inspection, Pharynx Normal, Moist Mucous Membranes Neck: Full Range of Motion, Normal Inspection, Non Tender, Supple, Carotid Bruit Respiratory: Chest Non Tender, Normal Breath Sounds, No Accessory Muscle Use, No Respiratory Distress Cardiovascular: No Edema, No Gallop, No JVD, Normal Peripheral Pulses, Systolic Murmur, Gallop/S3, Irregularly Irregular Gastrointestinal: Normal Bowel Sounds, No Organomegaly, No Pulsatile Mass, Non Tender, Soft Back: Normal Inspection, No CVA Tenderness, No Vertebral Tenderness Extremity: Normal Capillary Refill, Normal Inspection, Normal Range of Motion, Non Tender, No Calf Tenderness, No Pedal Edema Neurologic/Psychiatric: Alert, Oriented x3, No Motor/Sensory Deficits, Normal Mood/Affect Skin: Normal Color, Warm/Dry Lymphatic: No Adenopathy A/P-Cardiology Admission Diagnosis Non-ST elevation myocardial infarction Coronary artery disease Aortic valve replacement Permanent atrial fibrillation Assessment/Plan Chest pain resembling angina, mild elevation in troponin. Patient had an abnormal stress test in July 2020 showing basal inferior wall infarction with disha-infarct ischemia. I discussed with the patient the management plan recommended cardiac catheterization possible PTCA. Congestive heart failure, last echocardiogram in July 2020 reported ejection fraction 45 to 50% with dilated right and left atrium, prosthetic valve in the aortic position with mild to moderate aortic stenosis and moderate mitral regurgitation. Had elevation in BNP, acute on chronic left ventricular systolic dysfunction, combined ischemic and nonischemic cardiomyopathy Started on aggressive diuresis and responding well. Shortness of breath, pulmonary edema Responding well to diuretics. Continue to monitor History of CVA in August 2020, had MRI reported as acute/subacute microinfarcts at the left posterior temporal occipital lobe, has been on Eliquis since then. Chronic permanent atrial fibrillation, rate is controlled. Continue on home medications. [id number] score of 6, has been maintained on Eliquis as an outpatient. History of aortic valve replacement had a porcine valve done by Dr. Matson in the remote past. History of dementia MAICOL PIÑA MD Jun 09, 2021 08:54
--- NOTE | 2021-06-09 08:55 | Conscious Sedation/ASA ---
Conscious Sedation Pre-Proced Time 08:54 ASA Score 3 For ASA 3 and 4: Consider anesthesia and medical clearance. Also, for patients with a history of failed moderate sedation consider anesthesia. Airway Lungs Heart ASA score ASA 1: a normal healthy patient ASA 2: a patient with a mild systemic disease (mid diabetes, controlled hypertension, obesity x ASA 3: a patient with a severe systemic disease that limits activity (angina, COPD, prior Myocardial infarction) ASA 4: a patient with an incapacitating disease that is a constant threat to life (CHF, renal failure) ASA 5: a moribund patient not expected to survive 24 hrs. (ruptured aneurysm) ASA 6: a declared brain- patient whose organs are being harvested. For emergent operations, add the letter E after the classification Mallampati Classification Grade 3 Sedation Plan Analgesia, Amnesia, Plan communicated to team members, Discussed options with patient/fam, Discussed risks with patient/fam The patient is an appropriate candidate to undergo the planned procedure, sedation, and anesthesia. The patient immediately re-assessed prior to indication. MAICOL PIÑA MD Jun 09, 2021 08:55
--- NOTE | 2021-06-09 09:21 | Physical Therapy Progress Note ---
Therapy Progress Note Patient in bed upon PT arrival. Attempted PT evaluation however surgery came to the room to take patient for a heart cath. Will attempt PT evaluation at next available time. MYRNA RIDER PT Jun 09, 2021 09:21
[2021-06-09] MEDS ORDERED: PATIENT MAY USE OWN MEDS, ALL PO SCH (09:30)
--- NOTE | 2021-06-09 09:34 | Cardiac Cath Report ---
Cardiac Cath Report Physician (s)/Aviation Tactical Readiness Officer (s) Physician MAICOL PIÑA MD Pre-Procedure Diagnosis Pre-Procedure Diagnosis: Coronary artery disease Post-Procedure Note Procedure Start Date: Jun 09, 2021 Name of Procedure: Coronary angiogram Fluoroscopy of prosthetic valve Findings/Procedure Note PROCEDURE NOTE: 86 years old gentleman admitted with chest pain, mild elevation in troponin, had baseline abnormal stress test, scheduled for cardiac catheterization possible PTCA. After explaining the procedure to the patient, all pros and cons were explained, all questions were answered. The patient signed the consent and then he was placed on the cardiac catheterization laboratory. Groin was prepped SL fashion local anesthesia was used. Sheath placed in the right femoral artery. Burak right and left catheter were used to access the coronary system. At the end of the procedure the sheath was removed. Closure device was deployed FINDINGS: Hemodynamics LV aortic valve was not crossed Aorta 103/51 mean of 71 ANATOMY: Left Main is free of obstructive disease Left Anterior Descending mild disease was noted at the proximal and mid LAD nonobstructive disease Left Circumflex has mild disease nonobstructive disease Right Coronary Artery is dominant artery with mild disease nonobstructive disease Fluoroscopy showed struts of porcine valve in the aortic position and valve appeared to be functioning normally CONCLUSION: 1. Mild coronary artery disease nonobstructive disease DISCUSSION AND RECOMMENDATION: Medical therapy is recommended, elevation in troponin is probably type II myocardial infarction Anesthesia Type: Conscious Sedation Estimated blood loss (mL): 15 ml Contrast Amount: 32 ml Total Radiation Dose: 369 mGy Post-Procedure Diagnosis Post-operative diagnosis: Chest pain Coronary artery disease Aortic valve replacement Hypertension MAICOL PIÑA MD Jun 09, 2021 09:34
[2021-06-09] MEDS: NS IV 1000 ML 1,000 ML IV SCH ×2 (09:54→20:39)
--- NOTE | 2021-06-09 11:08 | Occ Therapy Progress Note ---
Therapy Progress Note OT orders received, pt is having heart cath today followed by bed rest. OT will attempt evaluation on next available date. RICK HODGSON OT Jun 09, 2021 11:08
--- NOTE | 2021-06-09 11:48 | History & Physical ---
History of Present Illness HPI/Chief Complaint Chief complaint: Shortness of breath History of present illness: This is an 86-year-old white male who had been having diarrhea for the past 3 days who presented to the ER with shortness of breath and overall weakness and was found to have heart failure but he was dehydrated also so he received IV fluids then diuresis per cardiology. His troponin was elevated so he underwent cardiac catheterization which showed only mild disease. Currently he is doing much better and less short of breath and has no other concerns. He has very weak and we will work with him to discharge tomorrow. Source: patient, family, RN/MD, old records Exam Limitations: no limitations Date Seen 06/09/21 Time Seen by a Provider: 11:30 Attending Physician Taylor Orozco DO PCP Taylor Orozco DO Referring Physician Date of Admission Jun 08, 2021 at 19:58 Home Medications & Allergies Home Medications Reviewed patient Home Medication Reconciliation performed by pharmacy medication reconciliations certified endoscopy technician and/or nursing. Patients Allergies have been reviewed. Allergies Allergies Coded Allergies No Known Drug Allergies (Unverified05/24/18) Past [id number] Hx Past Med/Social Hx: Reviewed Nursing Past Med/Soc Hx, Reviewed and Corrections made Patient Social History Marrital Status: Employed/Student: retired Former Smoker, Quit: Mar 03, 1959 2nd Hand Smoke Exposure: No Recent Foreign Travel: No Contact w/other who traveled: No Recent Hopitalizations: Yes (sepsis pneumonia August 2018) Immunizations Up To Date Tetanus Booster (TDap): Unknown Date of Pneumonia Vaccine: Aug 31, 2018 Date of Influenza Vaccine: Dec 04, 2019 Seasonal Allergies Seasonal Allergies: No Past Medical History Surgeries: Valve Replacement Currently Using CPAP: No Currently Using BIPAP: No Cardiac: Atrial Fibrillation, Heart Murmur, High Cholesterol, Hypertension, Valvular Heart Disease Neurological: Neuropathy, Stroke, TIA Sexually Transmitted Disease: No HIV/AIDS: No Genitourinary: Benign Prostatic Hyperpl, Prostate Problems, Renal Failure Musculoskeletal: Arthritis Endocrine: Diabetes, Non-Insulin dep Loss of Vision: Denies Hearing Impairment: Denies History of Blood Disorders: No Adverse Reaction to Blood Winters: No Family History Asthma 19 MOTHER Bone cancer Congenital heart disease 19 MOTHER Hypertension 19 MOTHER Lung cancer Myocardial infarction 19 MOTHER Diabetes, Other Conditions/Hx Review of Systems Constitutional: see HPI, dizziness, malaise, weakness EENTM: no symptoms reported Respiratory: dyspnea on exertion Cardiovascular: no symptoms reported Gastrointestinal: no symptoms reported Genitourinary: no symptoms reported Musculoskeletal: no symptoms reported Skin: no symptoms reported Psychiatric/Neurological: No Symptoms Reported All Other Systems Reviewed Negative Unless Noted: Yes Physical Exam Physical Exam Vital Signs Vital Signs - First Documented 06/08/21 06/08/21 06/09/21 18:03 23:46 07:24 Temp 36.5 Pulse 112 Resp 18 B/P (MAP) 122/72 (89) Pulse Ox 97 O2 Delivery Room Air O2 Flow Rate 2.00 FiO2 94 Capillary Refill : Less Than 3 Seconds Height, Weight, BMI Height: 5'11.00" Weight: 150lbs. 4.0oz. [id number]; 23.58 BMI Method:Stated General Appearance: No Apparent Distress, WD/WN, Chronically ill, Thin Eyes: Bilateral Eye Normal Inspection, Bilateral Eye PERRL, Bilateral Eye EOMI HEENT: PERRL/EOMI, Normal ENT Inspection, Pharynx Normal, Moist Mucous Membranes Neck: Full Range of Motion, Normal Inspection, Non Tender, Supple, Carotid Bruit Respiratory: Chest Non Tender, Normal Breath Sounds, No Accessory Muscle Use, No Respiratory Distress Cardiovascular: No Edema, No Gallop, No JVD, Normal Peripheral Pulses, Systolic Murmur, Gallop/S3, Irregularly Irregular Gastrointestinal: Normal Bowel Sounds, No Organomegaly, No Pulsatile Mass, Non Tender, Soft Back: Normal Inspection, No CVA Tenderness, No Vertebral Tenderness Extremity: Normal Capillary Refill, Normal Inspection, Normal Range of Motion, Non Tender, No Calf Tenderness, No Pedal Edema Neurologic/Psychiatric: Alert, Oriented x3, No Motor/Sensory Deficits, Normal Mood/Affect Skin: Normal Color, Warm/Dry Lymphatic: No Adenopathy Results Results/Procedures Labs Laboratory Tests 06/08/21 18:10 06/09/21 05:10 06/10/21 04:15 Patient resulted labs reviewed. Assessment/Plan Admission Diagnosis Assessment: Generalized weakness Acute self-limited diarrheal illness Volume depletion but overloaded simultaneously Type II VT Atrial fibrillation Oral anticoagulant CHF Hypertension Hyperlipidemia BPH Prior stroke Chronic kidney disease Plan: Appreciate cardiology Diuresis Cardiac cath Admission Status: Observation TAYLOR OROZCO DO Jun 09, 2021 11:48
[2021-06-09] MEDS ORDERED: TAMSULOSIN 0.4 MG (FLOMAX) CAP PO SCH (18:00)
[2021-06-10] VITALS: BP 118/72
[2021-06-10 04:00] VITALS: BP 92/82
[2021-06-10 04:25] LABS: BASOPHILS % (AUTO) 0 % (0-10); EOSINOPHILS # (AUTO) 0.1 10^3/uL (0.0-0.3); EOSINOPHILS % (AUTO) 1 % (0-10); HEMATOCRIT 33 % (40-54); HEMOGLOBIN 10.7 g/dL (13.3-17.7); LYMPHOCYTES # (AUTO) 1.1 10^3/uL (1.0-4.0); LYMPHOCYTES % (AUTO) 12 % (12-44); MEAN CORPUSCULAR HEMOGLOBIN 32 pg (25-34); MEAN CORPUSCULAR HGB CONC 32 g/dL (32-36); MEAN CORPUSCULAR VOLUME 98 fL (80-99); MEAN PLATELET VOLUME 10.7 fL (9.0-12.2); MONOCYTES # (AUTO) 0.9 10^3/uL (0.0-1.0); MONOCYTES % (AUTO) 10 % (0-12); NEUTROPHILS % (AUTO) 77 % (42-75); PLATELET COUNT 143 10^3/uL (130-400)
[2021-06-10 04:35] LABS: ALBUMIN 3.5 GM/DL (3.2-4.5)
[2021-06-10 04:36] LABS: POTASSIUM 3.3 MMOL/L (3.6-5.0)
[2021-06-10 04:37] LABS: CALCIUM 9.3 MG/DL (8.5-10.1)
[2021-06-10 04:38] LABS: TOTAL PROTEIN 7.2 GM/DL (6.4-8.2)
[2021-06-10 04:40] LABS: BILIRUBIN,TOTAL 2.5 MG/DL (0.1-1.0)
[2021-06-10 04:42] LABS: CREATININE SERUM 1.14 MG/DL (0.60-1.30)
[2021-06-10] MEDS: NS IV 1000 ML 1,000 ML IV SCH (05:12)
[2021-06-10] MEDS ORDERED: KCL 20 MEQ TAB (K-DUR) PO SCH (07:00)
[2021-06-10 07:46] VITALS: BP 112/69
[2021-06-10] MEDS: RT-ALBUTEROL/IPRATROPIUM 3 ML (DUONEB) VIAL INH SCH (08:39)
[2021-06-10] MEDS: APIXABAN 5 MG (ELIQUIS) TABLET PO SCH (08:48)
[2021-06-10] MEDS: ASPIRIN 81 MG CHEW (CHILDREN'S ASA) PO SCH (08:50)
[2021-06-10] MEDS ORDERED: FUROSEMIDE 40 MG (LASIX) TAB PO SCH (09:00)
[2021-06-10] MEDS: SENNOSIDES 8.6 MG (SENOKOT) TAB PO SCH (09:10)
[2021-06-10] MEDS: DOCUSATE SODIUM 100 MG (COLACE) CAP PO SCH (09:10)
[2021-06-10 11:49] VITALS: BP 100/58
[2021-06-10] MEDS ORDERED: FURO40TA4 PO (12:13)
[2021-06-10] MEDS ORDERED: POTA10CA43 PO (12:13)
--- NOTE | 2021-06-10 12:14 | Discharge Summary ---
Diagnosis/Chief Complaint Date of Admission Jun 08, 2021 at 19:58 Date of Discharge Discharge Date: Jun 10, 2021 Discharge Diagnosis Assessment: Generalized weakness Acute self-limited diarrheal illness Volume depletion but overloaded simultaneously Type II VT Atrial fibrillation Oral anticoagulant CHF Hypertension Hyperlipidemia BPH Prior stroke Chronic kidney disease Status post cardiac cath revealing no evidence of significant coronary artery disease Plan: Appreciate cardiology Diuresis Cardiac cath Discharge Summary Discharge Physical Examination Allergies: Coded Allergies: No Known Drug Allergies (Unverified , 05/24/18) Vitals & I&Os Vital Signs Date Time Temp Pulse Resp B/P (MAP) Pulse Ox O2 Delivery O2 Flow Rate FiO2 06/10/21 13:45 06/10/21 12:49 107 06/10/21 12:35 98 Nasal Cannula 3.00 06/10/21 11:49 36.3 16 06/09/21 22:16 93 General Appearance: Alert, Oriented X3, Cooperative Respiratory: Clear to Auscultation Cardiovascular: Regular Rate Neuro: Normal Gait, Normal Speech, Strength at 5/5 X4 Ext Psych/Mental Status: Mental Status NL Hospital Course Was the Problem List Reviewed?: Yes Patient had a brief hospital course after he was admitted following a diarrhea illness with shortness of breath and generalized weakness. He was found to have acute on chronic congestive heart failure with elevated troponin prompting cardiac catheterization no significant coronary artery disease. Dr. Karin barrera nitiated diuresis with good results and patient was back to baseline activity and felt good enough to go home. Labs (last 24 hrs) Laboratory Tests 06/08/21 18:10: White Blood Count 7.6, Red Blood Count 3.24L, Hemoglobin 10.3L, Hematocrit 33L, Mean Corpuscular Volume 101H, Mean Corpuscular Hemoglobin 32, Mean Corpuscular Hemoglobin Concent 32, Red Cell Distribution Width 14.4, Platelet Count 116L, Mean Platelet Volume 10.9, Immature Granulocyte % (Auto) 0, Neutrophils (%) (Auto) 77H, Lymphocytes (%) (Auto) 14, Monocytes (%) (Auto) 8, Eosinophils (%) (Auto) 1, Basophils (%) (Auto) 0, Neutrophils # (Auto) 5.8, Lymphocytes # (Auto) 1.1, Monocytes # (Auto) 0.6, Eosinophils # (Auto) 0.1, Basophils # (Auto) 0.0, Immature Granulocyte # (Auto) 0.0, Percent Immature Platelet Fraction 4.4, Sodium Level 143, Potassium Level 3.4L, Chloride Level 108H, Carbon Dioxide Level 22, Anion Gap 13, Blood Urea Nitrogen 19H, Creatinine 0.97, Estimat Kaye merular Filtration Rate 76, BUN/Creatinine Ratio 20, Glucose Level 133H, Calcium Level 9.2, Corrected Calcium 9.4, Magnesium Level 1.5L, Total Bilirubin 3.3H, Aspartate Amino Transf (AST/SGOT) 20, Alanine Aminotransferase (ALT/SGPT) 18, Alkaline Phosphatase 87, Troponin I 0.061H, B-Type Natriuretic Peptide 1775.6H, Total Protein 7.2, Albumin 3.7, Lipase 20 06/08/21 20:33: Urine Color YELLOW, Urine Clarity CLEAR, Urine pH 6.0, Urine Specific [place] 1.015L, Urine Protein TRACEH, Urine Glucose (UA) NEGATIVE, Urine Ketones NEGATIVE, Urine Nitrite NEGATIVE, Urine Bilirubin NEGATIVE, Urine Urobilinogen 0.2, Urine Leukocyte Esterase NEGATIVE, Urine RBC (Auto) TRACE-IH, Urine RBC 0- 2, Urine WBC 2-5, Urine Squamous Epithelial Cells 0-2, Urine Renal Epithelial Cells NONE, Urine Crystals NONE, Urine Bacteria NEGATIVE, Urine Casts NONE, Urine Mucus NEGATIVE, Urine Culture Indicated NO 06/09/21 05:10: White Blood Count 7.0, Red Blood Count 3.09L, Hemoglobin 9.9L, Hematocrit 31L, Mean Corpuscular Volume 99, Mean Corpuscular Hemoglobin 32, Mean Corpuscular Hemoglobin Concent 32, Red Cell Distribution Width 14.4, Platelet Count 127L, Mean Platelet Volume 11.3, Immature Granulocyte % (Auto) 0, Neutrophils (%) (Auto) 74, Lymphocytes (%) (Auto) 13, Monocytes (%) (Auto) 11, Eosinophils (%) (Auto) 1, Basophils (%) (Auto) 0, Neutrophils # (Auto) 5.2, Lymphocytes # (Auto) 0.9L, Monocytes # (Auto) 0.8, Eosinophils # (Auto) 0.1, Basophils # (Auto) 0.0, Immature Granulocyte # (Auto) 0.0, Sodium Level 141, Potassium Level 3.6, Chloride Level 105, Carbon Dioxide Level 23, Anion Gap 13, Blood Urea Nitrogen 1 8, Creatinine 0.89, Estimat Glomerular Filtration Rate 83, BUN/Creatinine Ratio 20, Glucose Level 132H, Calcium Level 9.2, Corrected Calcium 9.7, Total Bilirubin 2.8H, Aspartate Amino Transf (AST/SGOT) 19, Alanine Aminotransferase (ALT/SGPT) 14, Alkaline Phosphatase 80, Total Protein 6.7, Albumin 3.4, Triglycerides Level 67, Cholesterol Level 87, LDL Cholesterol Direct 51, VLDL Cholesterol 13, HDL Cholesterol 29L 06/10/21 04:15: White Blood Count 9.0, Red Blood Count 3.38L, Hemoglobin 10.7L, Hematocrit 33L, Mean Corpuscular Volume 98, Mean Corpuscular Hemoglobin 32, Mean Corpuscular Hemoglobin Concent 32, Red Cell Distribution Width 13.9, Platelet Count 143, Mean Platelet Volume 10.7, Immature Granulocyte % (Auto) 0, Neutrophils (%) (Auto) 77H, Lymphocytes (%) (Auto) 12, Monocytes (%) (Auto) 10, Eosinophils (%) (Auto) 1, Basophils (%) (Auto) 0, Neutrophils # (Auto) 7.0, Lymphocytes # (Auto) 1.1, Monocytes # (Auto) 0.9, Eosinophils # (Auto) 0.1, Basophils # (Auto) 0.0, Immature Granulocyte # (Auto) 0.0, Sodium Level 138, Potassium Level 3.3L, Chloride Level 97L, Carbon Dioxide Level 25, Anion Gap 16H, Blood Urea Nitrogen 22H, Creatinine 1.14, Estimat Glomerular Filtration Rate 62, BUN/Creatinine Ratio 19, Glucose Level 132H, Calcium Level 9.3, Corrected Calcium 9.7, Total Bilirubin 2.5H, Aspartate Amino Transf (AST/SGOT) 23, Alanine Aminotransferase (ALT/SGPT) 15, Alkaline Phosphatase 81, Total Protein 7.2, Albumin 3.5 Pending Labs Laboratory Tests 06/08/21 18:10: White Blood Count 7.6, Red Blood Count 3.24, Hemoglobin 10.3, Hematocrit 33, Mean Corpuscular Volume 101, Mean Corpuscular Hemoglobin 32, Mean Corpuscular Hemoglobin Concent 32, Red Cell Distribution Width 14.4, Platelet Count 116, Mean Platelet Volume 10.9, Immature Granulocyte % (Auto) 0, Neutrophils (%) (Auto) 77, Lymphocytes (%) (Auto) 14, Monocytes (%) (Auto) 8, Eosinophils (%) (Auto) 1, Basophils (%) (Auto) 0, Neutrophils # (Auto) 5.8, Lymphocytes # (Auto) 1.1, Monocytes # (Auto) 0.6, Eosinophils # (Auto) 0.1, Basophils # (Auto) 0.0, Immature Granulocyte # (Auto) 0.0, Percent Immature Platelet Fraction 4.4, Sodium Level 143, Potassium Level 3.4, Chloride Level 108, Carbon Dioxide Level 22, Anion Gap 13, Blood Urea Nitrogen 19, Creatinine 0.97, Estimat Glomerular Filtration Rate 76, BUN/Creatinine Ratio 20, Glucose Level 133, Calcium Level 9.2, Corrected Calcium 9.4, Magnesium Level 1.5, Total Bilirubin 3.3, Aspartate Amino Transf (AST/SGOT) 20, Alanine Aminotransferase (ALT/SGPT) 18, Alkaline Phosphatase 87, Troponin I 0.061, B-Type Natriuretic Peptide 1775.6, Total Protein 7.2, Albumin 3.7, Lipase 20 06/08/21 20:33: Urine Color YELLOW, Urine Clarity CLEAR, Urine pH 6.0, Urine Specific [place] 1.015, Urine Protein TRACE, Urine Glucose (UA) NEGATIVE, Urine Ketones NEGATIVE, Urine Nitrite NEGATIVE, Urine Bilirubin NEGATIVE, Urine Urobilinogen 0.2, Urine Leukocyte Esterase NEGATIVE, Urine RBC (Auto) TRACE-I, Urine RBC 0-2, Urine WBC 2-5, Urine Squamous Epithelial Cells 0-2, Urine Renal Epithelial Cells NONE, Urine Crystals NONE, Urine Bacteria NEGATIVE, Urine Casts NONE, Urine Mucus NEGATIVE, Urine Culture Indicated NO 06/09/21 05:10: White Blood Count 7.0, Red Blood Count 3.09, Hemoglobin 9.9, Hematocrit 31, Mean Corpuscular Volume 99, Mean Corpuscular Hemoglobin 32, Mean Corpuscular Hemoglobin Concent 32, Red Cell Distribution Width 14.4, Platelet Count 127, Mean Platelet Volume 11.3, Immature Granulocyte % (Auto) 0, Neutrophils (%) (Auto) 74, Lymphocytes (%) (Auto) 13, Monocytes (%) (Auto) 11, Eosinophils (%) (Auto) 1, Basophils (%) (Auto) 0, Neutrophils # (Auto) 5.2, Lymphocytes # (Auto) 0.9, Monocytes # (Auto) 0.8, Eosinophils # (Auto) 0.1, Basophils # (Auto) 0.0, Immature Granulocyte # (Auto) 0.0, Sodium Level 141, Potassium Level 3.6, Chloride Level 105, Carbon Dioxide Level 23, Anion Gap 13, Blood Urea Nitrogen 18, Creatinine 0.89, Estimat Glomerular Filtration Rate 83, BUN/Creatinine Ratio 20, Glucose Level 132, Calcium Level 9.2, Corrected Calcium 9.7, Total Bilirubin 2.8, Aspartate Amino Transf (AST/SGOT) 19, Alanine Aminotransferase (ALT/SGPT) 14, Alkaline Phosphatase 80, Total Protein 6.7, Albumin 3.4, Triglycerides Level 67, Cholesterol Level 87, LDL Cholesterol Direct 51, VLDL Cholesterol 13, HDL C holesterol 29 06/10/21 04:15: White Blood Count 9.0, Red Blood Count 3.38, Hemoglobin 10.7, Hematocrit 33, Mean Corpuscular Volume 98, Mean Corpuscular Hemoglobin 32, Mean Corpuscular Hemoglobin Concent 32, Red Cell Distribution Width 13.9, Platelet Count 143, Mean Platelet Volume 10.7, Immature Granulocyte % (Auto) 0, Neutrophils (%) (Auto) 77, Lymphocytes (%) (Auto) 12, Monocytes (%) (Auto) 10, Eosinophils (%) (Auto) 1, Basophils (%) (Auto) 0, Neutrophils # (Auto) 7.0, Lymphocytes # (Auto) 1.1, Monocytes # (Auto) 0.9, Eosinophils # (Auto) 0.1, Basophils # (Auto) 0.0, Immature Granulocyte # (Auto) 0.0, Sodium Level 138, Potassium Level 3.3, Chloride Level 97, Carbon Dioxide Level 25, Anion Gap 16, Blood Urea Nitrogen 22, Creatinine 1.14, Estimat Glomerular Filtration Rate 62, BUN/Creatinine Ratio 19, Glucose Level 132, Calcium Level 9.3, Corrected Calcium 9.7, Total Bilirubin 2.5, Aspartate Amino Transf (AST/SGOT) 23, Alanine Aminotransferase (ALT/SGPT) 15, Alkaline Phosphatase 81, Total Protein 7.2, Albumin 3.5 Discharge Home Medications: Active Scripts Active Potassium Chloride 10 Meq Capsule.er 10 Meq PO Q48H take with lasix Furosemide 40 Mg Tablet 40 Mg PO Q48H Ondansetron Odt (Ondansetron) 4 Mg Tab.rapdis 4 Mg SL Q4H PRN Eliquis (Apixaban) 5 Mg Tablet 5 Mg PO BID 30 Days Atorvastatin Calcium 80 Mg Tablet 80 Mg PO HS 30 Days Reported Tylenol (Acetaminophen) 325 Mg Tablet 650 Mg PO Q6H PRN TAKES 2 (325MG) TABLETS Carvedilol 3.125 Mg Tablet 3.125 Mg PO BID Loratadine 10 Mg Tablet 10 Mg PO DAILY Aspirin EC (Aspirin) 81 Mg Tablet.dr 81 Mg PO HS Flomax (Tamsulosin HCl) 0.4 Mg Cap 0.4 Mg PO DAILY Metformin HCl ER (Metformin HCl) 500 Mg Tab.er.24h 500 Mg PO 1800 W/ EVENING MEAL Instructions to patient/family Please see electronic discharge instructions given to patient. BEN MATTA DO Jun 10, 2021 12:14
== END 2021-06-10 13:45 | disposition home or self-care (01) ==
LOC: EDUNIT# 17:58 → ER 17:59 → CSD 19:58
PROVIDERS: ADMIT Internal Medicine; ATTEND Internal Medicine
DX: R53.1 Weakness (principal); R19.7 Diarrhea, unspecified; E86.9 Volume depletion, unspecified; I21.A1 Myocardial infarction type 2; I48.91 Unspecified atrial fibrillation; I12.9 Hypertensive chronic kidney disease with stage 1 through stage 4 chronic kidney disease, or unspecified chronic kidney disease; I50.9 Heart failure, unspecified; N18.9 Chronic kidney disease, unspecified; E78.5 Hyperlipidemia, unspecified; N40.0 Benign prostatic hyperplasia without lower urinary tract symptoms; E86.0 Dehydration; I63.9 Cerebral infarction, unspecified; Z79.01 Long term (current) use of anticoagulants; Z87.891 Personal history of nicotine dependence
CPT/HCPCS: 71045; 80053 ×3; 80061; 81000; 83690; 83735; 83880; 84484; 85025 ×3; 93005; 93306; 93454; 94640 ×2; 94664; 94760; 96374; 96376; 99284; C1760; C1894; G0378; 36415

== ENCOUNTER → 2021-10-24 | Outpatient (CLI) | payer MEDICARE | LOC: WOUNDCARE 12:43 | PROVIDERS: ATTEND Family Medicine | DX: L89.153 Pressure ulcer of sacral region, stage 3 (principal); E11.622 Type 2 diabetes mellitus with other skin ulcer; E11.22 Type 2 diabetes mellitus with diabetic chronic kidney disease; N18.9 Chronic kidney disease, unspecified | CPT/HCPCS: A6212; G0463; 99213 ==

== ENCOUNTER → 2021-10-30 | Outpatient (CLI) | payer MEDICARE | LOC: WOUNDCARE 13:53 | PROVIDERS: ATTEND Family Medicine | DX: I96 Gangrene, not elsewhere classified (principal); L89.153 Pressure ulcer of sacral region, stage 3; E11.622 Type 2 diabetes mellitus with other skin ulcer; E11.22 Type 2 diabetes mellitus with diabetic chronic kidney disease; N18.9 Chronic kidney disease, unspecified; E11.52 Type 2 diabetes mellitus with diabetic peripheral angiopathy with gangrene | CPT/HCPCS: 11042; A6212; G0463 ==

== ENCOUNTER → 2021-11-06 | Outpatient (CLI) | payer MEDICARE ==
[~2021-11-06] MED LIST changes: +POTA-177 PO; -POTA10TA37 PO
== END ==
LOC: WOUNDCARE 13:50
PROVIDERS: ATTEND Family Medicine
DX: I96 Gangrene, not elsewhere classified (principal); L89.153 Pressure ulcer of sacral region, stage 3; E11.622 Type 2 diabetes mellitus with other skin ulcer; N18.9 Chronic kidney disease, unspecified; I95.0 Idiopathic hypotension; E11.52 Type 2 diabetes mellitus with diabetic peripheral angiopathy with gangrene
CPT/HCPCS: 99212

== ENCOUNTER 2022-02-18 11:43 | Inpatient (IN) | payer MEDICARE ==
[~2022-02-18] VITALS: Ht 170.8 cm; Wt 70.7 kg
--- NOTE | 2022-02-18 12:37 | ED Respiratory ---
General Chief Complaint: Respiratory Problems Stated Complaint: FLUID BUILD UP IN LUNGS | SOB Nursing Triage Note: PT TO ED BY POV IN WC WITH C/O SOB. STATES THAT DR. CHEN DOUBLED PT DOSE OF FUROSEMIDE TO 80MG ON FRIDAY AND INSTRUCTED PT TO COME TO ED IF STILL SOB TODAY. PT DENIES CP. REPORTS INCREASED EDEMA IN BILAT LE FOR THE LAST 2 WEEKS. Source: patient, old records, spouse Exam Limitations: no limitations History of Present Illness Date Seen by Provider: Feb 18, 2022 Time Seen by Provider: 12:20 Initial Comments This is a 86 yo male with history of congestive heart failure who presented to the ER via POV with spouse for c/o progressive SOA. Over the past few weeks he h as been having worsening SOA with activity and daily cares. He was seen by his industrial staff nurse on Friday (4 days ago) and had dosage change of his Lasix from 40mg to 80mg. New dose was started on Friday. Has had worsening of SOA and swelling in his lower extremities despite starting new dose of Lasix. Spouse reports he had recent colonoscopy per Dr. Valenzuela and was told he had colon cancer with poor prognosis. No fever, chills, nausea, vomiting, diarrhea, chest pain, dysuria. Allergies and Home Medications Allergies Coded Allergies: No Known Drug Allergies (Unverified , 05/24/18) Patient Home Medication List Home Medication List Reviewed: Yes Acetaminophen (Tylenol) 325 Mg Tablet, 650 MG PO Q6H PRN for PAIN-MILD (1-4), (Reported) Entered as Reported by: LEANNE GARRIDO on 09/05/20856 Apixaban (Eliquis) 5 Mg Tablet, 5 MG PO BID Prescribed by: YAIMA MASON on 09/06/20 132 Aspirin (Aspirin EC) 81 Mg Tablet.dr, 81 MG PO HS, (Reported) Entered as Reported by: JARRED FREY on 07/04/20 1417 Atorvastatin Calcium (Atorvastatin Calcium) 80 Mg Tablet, 80 MG PO HS Prescribed by: YAIMA MASON on 09/06/20 132 Last Action: Reviewed Carvedilol (Carvedilol) 3.125 Mg Tablet, 3.125 MG PO BID, (Reported) Entered as Reported by: LEANNE GARRIDO on 09/05/20856 Last Action: Reviewed Furosemide (Furosemide) 40 Mg Tablet, 40 MG PO Q48H Prescribed by: BEN MATTA on 06/10/21 1213 Last Action: Reviewed Loratadine (Loratadine) 10 Mg Tablet, 10 MG PO DAILY, (Reported) Entered as Reported by: JARRED FREY on 07/04/20 1417 Metformin HCl (Metformin HCl ER) 500 Mg Tab.er.24h, 500 MG PO 1800 W/ EVENING MEAL, (Reported) Entered as Reported by: DOMINGA EARL on 09/01/18 1159 Omeprazole (Omeprazole) 40 Mg Capsule.dr, 40 MG PO DAILY, (Reported) Entered as Reported by: PARISH GALLEGO on 02/18/22 1736 Last Action: New Order Ondansetron (Ondansetron Odt) 4 Mg Tab.rapdis, 4 MG SL Q4H PRN for NAUSEA/VOMITING Prescribed by: ROBER BARAJAS on 12/17/20 1115 Potassium Chloride (Potassium Chloride) 10 Meq Capsule.er, 10 MEQ PO Q48H Prescribed by: BEN MATTA on 06/10/21 1213 Tamsulosin HCl (Flomax) 0.4 Mg Cap, 0.4 MG PO DAILY, (Reported) Entered as Reported by: ANGELICA FLOWERS on 11/23/19 0012 Last Action: Reviewed Review of Systems Review of Systems Constitutional: see HPI Past Adhcdmq-Apbzzf-Hsoelj Hx Patient Social History Tobacco Use?: No Substance use?: No Pt feels they are or have been: No Immunizations Up To Date Tetanus Booster (TDap): Unknown Influenza Vaccine Up-to-Date: No; Not Current First/Initial COVID19 Vaccinat: RECEIVED, UNK WHEN Second COVID19 Vaccination Ras: RECEIVED, UNK WHEN Third COVID19 Vaccination Date: RECEIVED, UNK WHEN Seasonal Allergies Seasonal Allergies: No Past Medical History Surgery/Hospitalization HX: COLON CA, A FIB, CHF OPEN HEART Surgeries: Yes (aortic valve replacement) Valve Replacement Respiratory: No Currently Using CPAP: No Currently Using BIPAP: No Cardiac: Yes Atrial Fibrillation, Heart Murmur, High Cholesterol, Hypertension, Valvular Heart Disease Neurological: Yes Neuropathy, Stroke, TIA Sexually Transmitted Disease: No HIV/AIDS: No Genitourinary: Yes Benign Prostatic Hyperpl, Prostate Problems, Renal Failure Gastrointestinal: No Musculoskeletal: Yes Arthritis Endocrine: Yes Diabetes, Non-Insulin dep HEENT: Yes (GLASSES) Loss of Vision: Denies Hearing Impairment: Denies Cancer: No Psychosocial: No Integumentary: No Blood Disorders: No Adverse Reaction/Blood Tranf: No Family Medical History Asthma 19 MOTHER Bone cancer Congenital heart disease 19 MOTHER Hypertension 19 MOTHER Lung cancer Myocardial infarction 19 MOTHER Diabetes, Other Conditions/Hx Physical Exam Vital Signs - First Documented 02/18/22 11:48 Temp 36.0 Pulse 104 Resp 22 B/P (MAP) 89/60 (70) Pulse Ox 97 O2 Delivery Room Air Capillary Refill : Height: 5'11.00" Weight: 150lbs. 4.0oz. 68.051155sa; 23.00 BMI Method:Stated General Appearance: WD/WN, no apparent distress, other (chronically ill ) Eyes: Bilateral Eye Normal Inspection, Bilateral Eye PERRL, Bilateral Eye EOMI HEENT: PERRL/EOMI, normal ENT inspection, pharynx normal Neck: full range of motion, normal inspection Respiratory: no respiratory distress, decreased breath sounds (RLL), crackles (LLL) Cardiovascular: normal peripheral pulses, irregularly irregular, other (BLE edema ) Gastrointestinal: normal bowel sounds, non tender, soft Extremities: normal range of motion, normal inspection Neurologic/Psychiatric: no motor/sensory deficits, alert, normal mood/affect, oriented x 3 Skin: normal color, warm/dry Focused Exam Lactic Acid Level Laboratory Tests Test 02/18/22 15:17 Lactic Acid Level 2.17 MMOL/L (0.50-2.00) *H Progress/Results/Core Measures Suspected Sepsis SIRS Temperature: Pulse: 104 Respiratory Rate: 22 Laboratory Tests 02/18/22 11:55: White Blood Count 5.3 Blood Pressure 89 /60 Mean: 70 Laboratory Tests 02/18/22 11:55: Creatinine 2.36H, INR Comment 1.6H, Platelet Count 80L, Total Bilirubin 3.3H Results/Orders Lab Results Laboratory Tests Test 02/18/22 11:55 02/18/22 12:51 02/18/22 15:17 02/18/22 15:44 Range/Units White Blood Count 5.3 4.3-11.0 10^3/uL Red Blood Count 3.65 L 4.30-5.52 10^6/uL Hemoglobin 11.0 L 13.3-17.7 g/dL Hematocrit 36 L 40-54 % Mean Corpuscular Volume 98 80-99 fL Mean Corpuscular Hemoglobin 30 25-34 pg Mean Corpuscular Hemoglobin Concent 31 L 32-36 g/dL Red Cell Distribution Width 16.9 H 10.0-14.5 % Platelet Count 80 L 130-400 10^3/uL Mean Platelet Volume 13.7 H 9.0-12.2 fL Immature Granulocyte % (Auto) 0 % Neutrophils (%) (Auto) 68 42-75 % Lymphocytes (%) (Auto) 20 12-44 % Monocytes (%) (Auto) 10 0-12 % Eosinophils (%) (Auto) 1 0-10 % Basophils (%) (Auto) 0 0-10 % Neutrophils # (Auto) 3.6 1.8-7.8 10^3/uL Lymphocytes # (Auto) 1.1 1.0-4.0 10^3/uL Monocytes # (Auto) 0.6 0.0-1.0 10^3/uL Eosinophils # (Auto) 0.0 0.0-0.3 10^3/uL Basophils # (Auto) 0.0 0.0-0.1 10^3/uL Immature Granulocyte # (Auto) 0.0 0.0-0.1 10^3/uL Percent Immature Platelet Fraction 11.9 H 0.0-7.6 % Prothrombin Time 19.9 H 12.2-14.7 SEC INR Comment 1.6 H 0.8-1.4 Activated Partial Thromboplast Time 39 H 24-35 SEC Sodium Level 137 135-145 MMOL/L Potassium Level 4.4 3.6-5.0 MMOL/L Chloride Level 99 98-107 MMOL/L Carbon Dioxide Level 26 21-32 MMOL/L Anion Gap 12 5-14 MMOL/L Blood Urea Nitrogen 39 H 7-18 MG/DL Creatinine 2.36 H 0.60-1.30 MG/DL Estimat Glomerular Filtration Rate 26 BUN/Creatinine Ratio 17 Glucose Level 121 H 70-105 MG/DL Calcium Level 9.2 8.5-10.1 MG/DL Corrected Calcium 9.8 8.5-10.1 MG/DL Magnesium Level 2.0 1.6-2.4 MG/DL Total Bilirubin 3.3 H 0.1-1.0 MG/DL Aspartate Amino Transf (AST/SGOT) 197 H 5-34 U/L Alanine Aminotransferase (ALT/SGPT) 113 H 0-55 U/L Alkaline Phosphatase 148 H 40-136 U/L Total Creatine Kinase 385 H 30-200 U/L Creatine Kinase MB 6.8 *H <6.6 NG/ML Myoglobin 1558.9 H 10.0-92.0 NG/ML Troponin I 0.252 H <0.028 NG/ML B-Type Natriuretic Peptide 3501.5 H <100.0 PG/ML Total Protein 7.1 6.4-8.2 GM/DL Albumin 3.3 3.2-4.5 GM/DL Lipase 95 H 8-78 U/L Procalcitonin 0.10 H <0.10 NG/ML Influenza Type A (RT-PCR) Not Detected Not Detecte Influenza Type B (RT-PCR) Not Detected Not Detecte SARS-CoV-2 RNA (RT-PCR) Not Detected Not Detecte Lactic Acid Level 2.17 *H 0.50-2.00 MMOL/L Blood Gas Puncture Site L BRACH Blood Gas Patient Temperature 35.4 Arterial Blood pH 7.47 H 7.37-7.43 Arterial Blood Partial Pressure CO2 37 35-45 MMHG Arterial Blood Partial Pressure O2 83 79-93 MMHG Arterial Blood HCO3 27 23-27 MMOL/L Arterial Blood Total CO2 28.4 21.0-31.0 MMOL/L Arterial Blood Oxygen Saturation 98 94-100 % Arterial Blood Base Excess 3.3 H -2.5-2.5 MMOL/L Sandor Test YES-POS Blood Gas Ventilator Setting NO Blood Gas Inspired Oxygen ROOM AIR My Orders Orders - MARGIE ZACARIAS [employer] Cbc With Automated Diff (02/18/22 12:27) Magnesium (02/18/22 12:27) Chest 1 View, Ap/Pa Only (02/18/22 12:27) Ekg Tracing (02/18/22 12:27) Comprehensive Metabolic Panel (02/18/22 12:27) Myoglobin Serum (02/18/22 12:27) Protime With Inr (02/18/22 12:27) Partial Thromboplastin Time (02/18/22 12:27) O2 (02/18/22 12:27) Monitor-Rhythm Ecg Trace Only (02/18/22 12:27) Ed Iv/Invasive Line Start (02/18/22 12:27) Creatine Kinase (02/18/22 12:27) Creatine Kinase Mb (02/18/22 12:27) Lipase (02/18/22 12:27) Bnp Donnie (02/18/22 12:27) Troponin I Donnie (02/18/22 12:27) Covid 19 Inhouse Test (02/18/22 12:33) Influenza A And B By Pcr (02/18/22 12:33) Blood Culture (02/18/22 15:06) Sputum Culture (02/18/22 15:06) Vital Signs Adult Sepsis Patie Q15M (02/18/22 15:06) Lactic Acid Analyzer (02/18/22 15:06) Procalcitonin (Pct) (02/18/22 15:06) Arterial Blood Gas (02/18/22 15:45) Furosemide Injection (Lasix Injection) (02/18/22 15:45) Ed Admission (Communication) (02/18/22 15:56) Medications Given in ED Current Medications Medications Dose Ordered Sig/John Route Start Time Stop Time Status Last Admin Dose Admin Furosemide 80 mg ONCE ONCE IVP 02/18/22 15:45 02/18/22 15:46 DC 02/18/22 15:50 80 MG Vital Signs/I&O 02/18/22 11:48 Temp 36.0 Pulse 104 Resp 22 B/P (MAP) 89/60 (70) Pulse Ox 97 O2 Delivery Room Air Capillary Refill : Blood Pressure Mean: 70 ECG Initial ECG Impression Date: Feb 18, 2022 Initial ECG Impression Time: 11:57 Initial ECG Rate: 99 Initial ECG Rhythm: A Fib/Flutter Initial ECG Impression: Atrial Fibrillation Initial ECG Comparisson: Unchanged Diagnostic Imaging Diagonstic Imaging: Xray Plain Films/CT/US/NM/MRI: chest Comments [facility] [place], [place] NAME: KAYLA MCKAY MED REC#: [id number] PT STATUS: REG ER : 1935 PHYSICIAN: MARGIE ZACARIAS [employer] ADMIT DATE: 02/18/22/ER Draft Date of Exam:02/18/22 CHEST 1 VIEW, AP/PA ONLY INDICATION: Shortness of air. COMPARISON: 06/08/2021. FINDINGS: A single frontal radiographic view of the chest was obtained and demonstrates moderate cardiomegaly. The pulmonary vasculature and interstitium are also slightly prominent although improved compared to 06/08/2021. There is mild right basilar effusion which has slightly increased in size. There is no pneumothorax. Sternotomy wires are noted. IMPRESSION: 1. Cardiomegaly with mild vascular congestion and probable mild interstitial pulmonary edema. 2. Small right basilar effusion. Dictated on workstation # [id number] Dict: 02/18/22 1338 Trans: 02/18/22 1408 [id number] Interpreted by: ECHO FRAGOSO MD Electronically signed by: Reviewed: Reviewed by Me Departure Communication (Admissions) Time/Spoke to Admitting Phy: 14:06 Dr. Matta Time/Spoke to Consulting Phy: 15:30 Dr. Chen Impression Primary Impression: Acute on chronic congestive heart failure Additional Impressions: DEVYN (acute kidney injury) H/O malignant neoplasm of colon Disposition: ADMITTED INPATIENT Condition: Stable Admissions Decision to Admit Reason: Admit from ER (General) Decision to Admit/Date: Feb 18, 2022 Time/Decision to Admit Time: 14:01 Departure-Patient Inst. Referrals: BEN MATTA DO (PCP/Family) Primary Care Physician Copy Copies To 1: BEN MATTA STORMY D APRN Feb 18, 2022 12:37
[2022-02-18 12:42] LABS: BASOPHILS % (AUTO) 0 % (0-10); EOSINOPHILS % (AUTO) 1 % (0-10); HEMATOCRIT 36 % (40-54); LYMPHOCYTES # (AUTO) 1.1 10^3/uL (1.0-4.0); LYMPHOCYTES % (AUTO) 20 % (12-44); MEAN CORPUSCULAR HEMOGLOBIN 30 pg (25-34); MEAN CORPUSCULAR HGB CONC 31 g/dL (32-36); MEAN CORPUSCULAR VOLUME 98 fL (80-99); MEAN PLATELET VOLUME 13.7 fL (9.0-12.2); MONOCYTES # (AUTO) 0.6 10^3/uL (0.0-1.0); MONOCYTES % (AUTO) 10 % (0-12); NEUTROPHILS # (AUTO) 3.6 10^3/uL (1.8-7.8); NEUTROPHILS % (AUTO) 68 % (42-75); PLATELET COUNT 80 10^3/uL (130-400); WHITE BLOOD COUNT 5.3 10^3/uL (4.3-11.0)
[2022-02-18 12:47] LABS: ALBUMIN 3.3 GM/DL (3.2-4.5); POTASSIUM 4.4 MMOL/L (3.6-5.0)
[2022-02-18 12:48] LABS: INR 1.6 (0.8-1.4); PROTHROMBIN TIME PATIENT 19.9 SEC (12.2-14.7)
[2022-02-18 12:49] LABS: CALCIUM 9.2 MG/DL (8.5-10.1)
[2022-02-18 12:50] LABS: TOTAL PROTEIN 7.1 GM/DL (6.4-8.2)
[2022-02-18 12:52] LABS: BILIRUBIN,TOTAL 3.3 MG/DL (0.1-1.0)
[2022-02-18 12:54] LABS: CREATININE SERUM 2.36 MG/DL (0.60-1.30)
[2022-02-18 13:47] LABS: CREATINE KINASE MB 6.8 NG/ML (<6.6)
--- NOTE | 2022-02-18 14:09 | Diagnostic Imaging Report ---
INDICATION: Shortness of air. COMPARISON: 06/08/2021. FINDINGS: A single frontal radiographic view of the chest was obtained and demonstrates moderate cardiomegaly. The pulmonary vasculature and interstitium are also slightly prominent although improved compared to 06/08/2021. There is mild right basilar effusion which has slightly increased in size. There is no pneumothorax. Sternotomy wires are noted. IMPRESSION: 1. Cardiomegaly with mild vascular congestion and probable mild interstitial pulmonary edema. 2. Small right basilar effusion. Dictated by: Dictated on workstation # [id number]
--- NOTE | 2022-02-18 15:43 | Consultation-Cardiology ---
HPI-Cardiology Cardiology Consultation: Date of Consultation 02/18/22 Time Seen by a Provider: 16:00 Date of Admission 02-18-22 Attending Physician eBn Orozco DO Admitting Physician Admitting Physician: Attending Physician: Consulting Physician Huey Chen MD HPI: Chief Complaint: Progressive dyspnea Acute on chronic systolic CHF Mr. Shannon is an 86 yr old male whom I have seen in the ED. He reports he has had progressive bilat LE swelling and increasing SOB with gen weakness for several weeks. He reports his Lasix was increased to 80mg daily, but it has not improved his LE swelling or SOB. 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 He states he does not wish to have chemo or radiation and states he is not a surgical candidate. He denies any CP or palpitations. No syncope or near syncope. Review of Systems-Cardiology Review of Systems Constitutional: No chills, No fever; malaise Eyes: No vision change Ears/Nose/Throat: No epistaxis, No recent hearing loss Respiratory: As described under HPI Cardiovascular: As described under HPI Gastrointestinal: As described under HPI Genitourinary: No dysuria, No hematuria Musculoskeletal: no symptoms reported Skin: other (redness to LLE); No rash on exposed areas, No ulcerations on exposed areas Psychiatric/Neurological: No anxiety, No depression, No seizure, No focal weakness, No syncope Hematologic: No bleeding abnormalities END-Bzsygx-Xnktun Hx Patient Social History 2nd Hand Smoke Exposure: No Have you traveled recently?: No Pt feels they are or have been: No Immunizations Up To Date Tetanus Booster (TDap): Unknown Date of Pneumonia Vaccine: Aug 31, 2018 Date of Influenza Vaccine: Dec 04, 2019 Past Medical History PMH As described under Assessment. Family Medical History Family Medical History: He does not report fam h/o early CAD He quit smoking in the 1960s Family History: Asthma 19 MOTHER Bone cancer Congenital heart disease 19 MOTHER Hypertension 19 MOTHER Lung cancer Myocardial infarction 19 MOTHER Allergies and Home Medications Allergies Coded Allergies: No Known Drug Allergies (Unverified , 05/24/18) Patient Home Medication List Acetaminophen (Tylenol) 325 Mg Tablet, 650 MG PO Q6H PRN for PAIN-MILD (1-4), (Reported) Entered as Reported by: LEANNE GARRIDO on 09/05/20 0857 Apixaban (Eliquis) 5 Mg Tablet, 5 MG PO BID Prescribed by: YAIMA MASON on 09/06/20 1323 Aspirin (Aspirin EC) 81 Mg Tablet.dr, 81 MG PO HS, (Reported) Entered as Reported by: JARRED FREY on 07/04/20 1417 Atorvastatin Calcium (Atorvastatin Calcium) 80 Mg Tablet, 80 MG PO HS Prescribed by: YAIMA MASON on 09/06/20 1323 Last Action: Reviewed Carvedilol (Carvedilol) 3.125 Mg Tablet, 3.125 MG PO BID, (Reported) Entered as Reported by: LEANNE GARRIDO on 09/05/20 0857 Last Action: Reviewed Furosemide (Furosemide) 40 Mg Tablet, 40 MG PO Q48H Prescribed by: BEN OROZCO on 06/10/21 1213 Last Action: Reviewed Loratadine (Loratadine) 10 Mg Tablet, 10 MG PO DAILY, (Reported) Entered as Reported by: JARRED FREY on 07/04/20 1417 Metformin HCl (Metformin HCl ER) 500 Mg Tab.er.24h, 500 MG PO 1800 W/ EVENING MEAL, (Reported) Entered as Reported by: DOMINGA EARL on 09/01/18 1159 Omeprazole (Omeprazole) 40 Mg Capsule.dr, 40 MG PO DAILY, (Reported) Entered as Reported by: PARISH GALLEGO on 02/18/22 1736 Last Action: New Order Ondansetron (Ondansetron Odt) 4 Mg Tab.rapdis, 4 MG SL Q4H PRN for NAUSEA/V OMITING Prescribed by: ROBER BARAJAS on 12/17/20 1115 Potassium Chloride (Potassium Chloride) 10 Meq Capsule.er, 10 MEQ PO Q48H Prescribed by: BEN OROZCO on 06/10/21 1213 Tamsulosin HCl (Flomax) 0.4 Mg Cap, 0.4 MG PO DAILY, (Reported) Entered as Reported by: ANGELICA FLOWERS on 11/23/19 0012 Last Action: Reviewed Physical Exam-Cardiology Physical Exam Vital Signs/I&O 02/18/22 02/18/22 02/18/22 02/18/22 21:00 22:15 23:00 23:34 Temp 36.6 Pulse 98 102 97 Resp 13 23 11 B/P (MAP) 101/66 (78) 100/75 (83) 107/45 (65) Pulse Ox 100 94 94 O2 Delivery Nasal Cannula Nasal Cannula Nasal Cannula Nasal Cannula O2 Flow Rate 2.00 2.00 2.00 2.00 02/18/22 02/19/22 02/19/22 02/19/22 23:35 00:00 01:00 01:00 Pulse 107 107 96 Resp 14 14 B/P (MAP) 95/69 (78) 95/60 (72) Pulse Ox 100 94 O2 Delivery Nasal Cannula Nasal Cannula Nasal Cannula O2 Flow Rate 2.00 2.00 2.00 02/19/22 02/19/22 02/19/22 02/19/22 02:00 02:28 03:00 04:00 Temp 36.5 Pulse 91 103 Resp 11 12 B/P (MAP) 85/54 (64) 103/72 (82) Pulse Ox 94 92 O2 Delivery Nasal Cannula Nasal Cannula Nasal Cannula Nasal Cannula O2 Flow Rate 2.00 3.00 3.00 3.00 02/19/22 02/19/22 02/19/22 02/19/22 04:16 05:00 06:00 07:00 Pulse 100 106 103 111 Resp 23 17 9 13 B/P (MAP) 96/67 (77) 88/68 (75) 97/64 (75) 99/68 (78) Pulse Ox 91 92 O2 Delivery Nasal Cannula Nasal Cannula Nasal Cannula Nasal Cannula O2 Flow Rate 3.00 3.00 3.00 3.00 02/19/22 02/19/22 02/19/22 07:32 07:39 08:00 Temp 37.0 Pulse 103 101 Resp 16 B/P (MAP) 96/67 (77) Pulse Ox 99 O2 Delivery Nasal Cannula O2 Flow Rate 3.00 02/19/22 00:00 Intake Total 280 ml Output Total 1100 ml Balance -820 ml Capillary Refill : Constitutional: AAO x 3, well-developed, well-nourished HEENT: PERRL, hearing is well preserved, oral hygience is good Neck: No carotid bruit; carotid pulses are 2 + bilaterally Respiratory: No accessory muscle use, No respiratory distress, No chest expansion is symmetric, No chest is bilaterally symmetric; other (diminished lower lobes bilat) Cardiovascular: irregularly irregular; No JVD; S1 and S2, systolic murmur Gastrointestinal: No tender; soft; No guarding; audible bowel sounds Extremities: other (bilat LE pitting edema) Neurologic/Psychiatric: grossly intact (moves all extremities) Skin: No rash on exposed areas, No ulcerations on exposed areas Data Review Labs Laboratory Tests 02/18/22 11:55: White Blood Count 5.3, Red Blood Count 3.65L, Hemoglobin 11.0L, Hematocrit 36L, Mean Corpuscular Volume 98, Mean Corpuscular Hemoglobin 30, Mean Corpuscular Hemoglobin Concent 31L, Red Cell Distribution Width 16.9H, Platelet Count 80L, Mean Platelet Volume 13.7H, Immature Granulocyte % (Auto) 0, Neutrophils (%) (Auto) 68, Lymphocytes (%) (Auto) 20, Monocytes (%) (Auto) 10, Eosinophils (%) (Auto) 1, Basophils (%) (Auto) 0, Neutrophils # (Auto) 3.6, Lymphocytes # (Auto) 1.1, Monocytes # (Auto) 0.6, Eosinophils # (Auto) 0.0, Basophils # (Auto) 0.0, Immature Granulocyte # (Auto) 0.0, Percent Immature Platelet Fraction 11.9H, Prothrombin Time 19.9H, INR Comment 1.6H, Activated Partial Thromboplast Time 39H, Sodium Level 137, Potassium Level 4.4, Chloride Level 99, Carbon Dioxide Level 26, Anion Gap 12, Blood Urea Nitrogen 39H, Creatinine 2.36H, Estimat Glomerular Filtration Rate 26, BUN/Creatinine Ratio 17, Glucose Level 121H, Calcium Level 9.2, Corrected Calcium 9.8, Magnesium Level 2.0, Total Bilirubin 3.3H, Aspartate Amino Transf (AST/SGOT) 197H, Alanine Aminotransferase (ALT/SGPT) 113H, Alkaline Phosphatase 148H, Total Creatine Kinase 385H, Creatine Kinase MB 6.8*H, Myoglobin 1558.9H, Troponin I 0.252H, B-Type Natriuretic Pept olamide 3501.5H, Total Protein 7.1, Albumin 3.3, Lipase 95H, Procalcitonin 0.10H 02/18/22 12:51: Influenza Type A (RT-PCR) Not Detected, Influenza Type B (RT-PCR) Not Detected, SARS-CoV-2 RNA (RT-PCR) Not Detected 02/18/22 15:17: Lactic Acid Level 2.17*H 02/18/22 15:44: Blood Gas Puncture Site L BRACH, Blood Gas Patient Temperature 35.4, Arterial Blood pH 7.47H, Arterial Blood Partial Pressure CO2 37, Arterial Blood Partial Pressure O2 83, Arterial Blood HCO3 27, Arterial Blood Total CO2 28.4, Arterial Blood Oxygen Saturation 98, Arterial Blood Base Excess 3.3H, Sandor Test YES-POS, Blood Gas Ventilator Setting NO, Blood Gas Inspired Oxygen ROOM AIR 02/18/22 17:30: Lactic Acid Level 2.23*H 02/18/22 19:27: Lactic Acid Level 2.97*H 02/18/22 20:57: Glucometer 172H 02/18/22 21:25: Lactic Acid Level 2.69*H 02/19/22 03:40: White Blood Count 6.1, Red Blood Count 3.45L, Hemoglobin 10.5L, Hematocrit 33L, Mean Corpuscular Volume 96, Mean Corpuscular Hemoglobin 30, Mean Corpuscular Hemoglobin Concent 32, Red Cell Distribution Width 16.9H, Platelet Count 67L, Mean Platelet Volume 13.8H, Immature Granulocyte % (Auto) 0, Neutrophils (%) (Auto) 73, Lymphocytes (%) (Auto) 16, Monocytes (%) (Auto) 10, Eosinophils (%) (Auto) 1, Basophils (%) (Auto) 1, Neutrophils # (Auto) 4.5, Lymphocytes # (Auto) 1.0, Monocytes # (Auto) 0.6, Eosinophils # (Auto) 0.1, Basophils # (Auto) 0.0, Immature Granulocyte # (Auto) 0.0, Percent Immature Platelet Fraction 13.1H, Sodium Level 136, Potassium Level 3.5L, Chloride Level 99, Carbon Dioxide Level 25, Anion Gap 12, Blood Urea Nitrogen 40H, Creatinine 2.32H, Estimat Glomerular Filtration Rate 27, BUN/Creatinine Ratio 17, Glucose Level 176H, Calcium Level 8.9, Corrected Calcium 9.8, Phosphorus Level 4.0, Magnesium Level 2.0, Total Bilirubin 2.7H, Aspartate Amino Transf (AST/SGOT) 184H, Alanine Aminotransferase (ALT/SGPT) 115H, Alkaline Phosphatase 150H, Total Protein 6.1L, Albumin 2.9L, Smear Scan YES Radiology NAME: KAYLA SHANNON [facility] REC#: [id number] PT STATUS: REG ER : 1935 PHYSICIAN: MARGIE ZACARIAS APRN ADMIT DATE: 02/18/22/ER Draft Date of Exam:02/18/22 CHEST 1 VIEW, AP/PA ONLY INDICATION: Shortness of air. COMPARISON: 06/08/2021. FINDINGS: A single frontal radiographic view of the chest was obtained and demonstrates moderate cardiomegaly. The pulmonary vasculature and interstitium are also slightly prominent although improved compared to 06/08/2021. There is mild right basilar effusion which has slightly increased in size. There is no pneumothorax. Sternotomy wires are noted. IMPRESSION: 1. Cardiomegaly with mild vascular congestion and probable mild interstitial pulmonary edema. 2. Small right basilar effusion. Dictated on workstation # [id number] Dict: 02/18/22 1338 Trans: 02/18/22 1408 [id number] Interpreted by: ECHO FRAGOSO MD Electronically signed by: A/P-Cardiology Assessment/Admission Diagnosis Acute on Chronic systolic CHF due to dilated cardiomyopathy - intolerant to LELAND-inhib/ARB due to hyperkalemia and low bp on these agents - Echo of 07/04/20: LVEF 45-50%, enlargement of both atria and RV, bioprosthetic AoV with mild to mod and AI, mod MR - Echocardiogram of 06-09-[address] Frazier showed LVEF 30-35%. Severe diffuse hypokinesis. Mod MR. Porcine bioprosthetic nikolas with mod stenosis and trivial regurg Dilated cardiomyopathy - MPI of 07/04/20 shows basal inferior infarction with minimal disha-infarct ischemia; LVEF 48% - Cardiac cath of 06-09-[address] Frazier showed: Mild coronary artery disease nonobstructive disease Colon mass - per pt report - managed by Dr. Valenzuela - pt reports he does not wish to pursue tx Acute on chronic renal insufficiency - renal insufficiency in July 2020, etiology undetermined - Entresto stoped because of hyperkalemia at that time and (treated with Kayexelate) Thrombocytopenia - management per medical services Elevated liver enzymes - possibly in some part d/t hepatobiliary congestion H/O Hematuria and elevated PSA, managed by Dr Jolie - Due to hematuria, Dr Orozco has advised against OAC. Also, pt himself refuses to taken any anticoag - H/o [place]UR[place] [address] 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 Discussion and Recomendations Complex management Acute on chronic systolic CHF - treat with diuretics Acute on chronic renal insufficiency - treat with IVF Elevated liver enzymes - possibly secondary to hepato-biliary congestion Thrombocytopenia - undetermined etiology Monitor lab closely Replace electrolytes as indicated Further recs will be based on his hospital course We would like to thank medical services for this consult ROLANDO PAGE Feb 18, 2022 15:43
[2022-02-18] MEDS ORDERED: FUROSEMIDE 40 MG/4 ML INJ (LASIX) IVP ONE (15:45)
[2022-02-18 15:56] LABS: ABG BASE EXCESS 3.3 MMOL/L (-2.5-2.5); ABG OXYGEN SATURATION 98 % (94-100); ABG PCO2 37 MMHG (35-45); ABG PH 7.47 (7.37-7.43); ABG PO2 83 MMHG (79-93); ABG TCO2 28.4 MMOL/L (21.0-31.0); ALLENS TEST YES-POS; INSPIRED O2 ROOM AIR; PATIENT TEMP 35.4; VENTILATOR NO
[2022-02-18] MEDS ORDERED: CALCIUM CARBONATE 500 MG (TUMS) TAB.CHEW PO PRN (17:00)
[2022-02-18] MEDS ORDERED: HYDROmorphone 2 MG/ML VIAL (DILAUDID) IV PRN (17:00)
[2022-02-18] MEDS ORDERED: ONDANSETRON 4 MG/2 ML (SDV) Z0FRAN IV PRN (17:00)
[2022-02-18] MEDS ORDERED: MELATONIN 3 MG TABLET PO PRN (17:00)
[2022-02-18] MEDS ORDERED: LACTULOSE SYRUP 10GM/15ML (ENULOSE) 30ML UDC PO PRN (17:00)
[2022-02-18] MEDS ORDERED: diphenhydrAMINE 50 MG/ML INJ (BENADRYL) IVP PRN (17:00)
[2022-02-18] MEDS ORDERED: NS IV 500 ML 500 ML IV PRN (17:00)
[2022-02-18] MEDS ORDERED: ACETAMINOPHEN 325 MG TABLET PO PRN (17:00)
[2022-02-18] MEDS ORDERED: BISACODYL 10 MG SUPP (DULCOLAX) PR PRN (17:00)
[2022-02-18] MEDS ORDERED: diphenhydrAMINE 25 MG TAB (BENADRYL) PO PRN (17:00)
[2022-02-18] MEDS ORDERED: MILK OF MAGNESIA 400 MG/5 ML 30 ML UDC PO PRN (17:00)
[2022-02-18] MEDS ORDERED: ONDANSETRON 4 MG (ZOFRAN) ORAL DISSOLVE TAB PO PRN (17:00)
[2022-02-18] MEDS ORDERED: ANTACID SUSP 30 ML UDC (MYLANTA) PO PRN (17:00)
[2022-02-18] MEDS ORDERED: polyethylene glycoL POWDER 17 GM (MIRALAX) PACK PO PRN (17:00)
[2022-02-18 17:12] VITALS: BP 125/94
[2022-02-18] MEDS ORDERED: DOPamine DRIP 250 ML IV SCH (17:15)
--- NOTE | 2022-02-18 17:21 | Consultation-Cardiology ---
HPI-Cardiology Cardiology Consultation: Date of Consultation 02/18/22 Time Seen by a Provider: 17:00 Date of Admission Attending Physician Taylor Matta DO Admitting Physician Admitting Physician: Taylor Matta DO Attending Physician: Taylor Matta DO Consulting Physician CORINA ISAAC MD, MA, FACP, FACC, FSCAI, CCDS HPI: Chief Complaint: Progressive dyspnea Acute on chronic systolic CHF Mr. Shannon is an 86 yr old male whom I have seen in the ED. He reports he has had progressive bilat LE swelling and increasing SOB with gen weakness for several weeks. He reports his Lasix was increased to 80mg daily, but it has not improved his LE swelling or SOB. 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 He states he does not wish to have chemo or radiation and states he is not a surgical candidate. He denies any CP or palpitations. No syncope or near syncope. Review of Systems-Cardiology Review of Systems Constitutional: No chills, No fever; malaise Eyes: No vision change Ears/Nose/Throat: No epistaxis, No recent hearing loss Respiratory: As described under HPI Cardiovascular: As described under HPI Gastrointestinal: As described under HPI Genitourinary: No dysuria, No hematuria Musculoskeletal: no symptoms reported Skin: other (redness to LLE); No rash on exposed areas, No ulcerations on exposed areas Psychiatric/Neurological: No anxiety, No depression, No seizure, No focal weakness, No syncope Hematologic: No bleeding abnormalities XJH-Xxxbix-Xiczvi Hx Patient Social History 2nd Hand Smoke Exposure: No Have you traveled recently?: No Pt feels they are or have been: No Immunizations Up To Date Tetanus Booster (TDap): Unknown Date of Pneumonia Vaccine: Aug 31, 2018 Date of Influenza Vaccine: Dec 04, 2019 Past Medical History PMH As described under Assessment. Family Medical History Family Medical History: He does not report fam h/o early CAD He quit smoking in the 1960s Family History: Asthma 19 MOTHER Bone cancer Congenital heart disease 19 MOTHER Hypertension 19 MOTHER Lung cancer Myocardial infarction 19 MOTHER Allergies and Home Medications Allergies Coded Allergies: No Known Drug Allergies (Unverified , 05/24/18) Patient Home Medication List Home Medication List Reviewed: Yes Acetaminophen (Tylenol) 325 Mg Tablet, 650 MG PO Q6H PRN for PAIN-MILD (1-4), (Reported) Entered as Reported by: LEANNE GARRIDO on 09/05/20 0857 Apixaban (Eliquis) 5 Mg Tablet, 5 MG PO BID Prescribed by: YAIMA MASNO on 09/06/20 1323 Aspirin (Aspirin EC) 81 Mg Tablet.dr, 81 MG PO HS, (Reported) Entered as Reported by: JARRED FREY on 07/04/20 1417 Atorvastatin Calcium (Atorvastatin Calcium) 80 Mg Tablet, 80 MG PO HS Prescribed by: YAIMA MASON on 09/06/20 1323 Carvedilol (Carvedilol) 3.125 Mg Tablet, 3.125 MG PO BID, (Reported) Entered as Reported by: LEANNE GARRIDO on 09/05/20 0857 Furosemide (Furosemide) 40 Mg Tablet, 40 MG PO Q48H Prescribed by: TAYLOR MATTA on 06/10/21 1213 Loratadine (Loratadine) 10 Mg Tablet, 10 MG PO DAILY, (Reported) Entered as Reported by: JARRED FREY on 07/04/20 1417 Metformin HCl (Metformin HCl ER) 500 Mg Tab.er.24h, 500 MG PO 1800 W/ EVENING MEAL, (Reported) Entered as Reported by: DOMINGA EARL on 09/01/18 1159 Ondansetron (Ondansetron Odt) 4 Mg Tab.rapdis, 4 MG SL Q4H PRN for NAUSEA/VOMITING Prescribed by: ROBER BARAJAS on 12/17/20 1115 Potassium Chloride (Potassium Chloride) 10 Meq Capsule.er, 10 MEQ PO Q48H Prescribed by: TAYLOR MATTA on 06/10/21 1213 Tamsulosin HCl (Flomax) 0.4 Mg Cap, 0.4 MG PO DAILY, (Reported) Entered as Reported by: ANGELICA FLOWERS on 11/23/19 0012 Physical Exam-Cardiology Physical Exam Vital Signs/I&O 02/18/22 02/18/22 02/18/22 02/18/22 11:48 16:23 16:30 16:45 Temp 36.0 Pulse 104 107 106 Resp 22 18 46 B/P (MAP) 89/60 (70) 134/86 125/94 (104) Pulse Ox 97 98 O2 Delivery Room Air Room Air 02/18/22 17:12 Temp 36.0 Pulse 106 Pulse Ox 98 FiO2 21 Capillary Refill : Constitutional: AAO x 3, well-developed, well-nourished HEENT: PERRL, hearing is well preserved, oral hygience is good Neck: No carotid bruit; carotid pulses are 2 + bilaterally Respiratory: No accessory muscle use, No respiratory distress, No chest expansion is symmetric, No chest is bilaterally symmetric; other (diminished lower lobes bilat) Cardiovascular: irregularly irregular; No JVD; S1 and S2, systolic murmur Gastrointestinal: No tender; soft; No guarding; audible bowel sounds Extremities: other (bilat LE pitting edema) Neurologic/Psychiatric: grossly intact (moves all extremities) Skin: No rash on exposed areas, No ulcerations on exposed areas Data Review Labs Laboratory Tests 02/18/22 11:55: White Blood Count 5.3, Red Blood Count 3.65L, Hemoglobin 11.0L, Hematocrit 36L, Mean Corpuscular Volume 98, Mean Corpuscular Hemoglobin 30, Mean Corpuscular Hemoglobin Concent 31L, Red Cell Distribution Width 16.9H, Platelet Count 80L, Mean Platelet Volume 13.7H, Immature Granulocyte % (Auto) 0, Neutrophils (%) (Auto) 68, Lymphocytes (%) (Auto) 20, Monocytes (%) (Auto) 10, Eosinophils (%) (Auto) 1, Basophils (%) (Auto) 0, Neutrophils # (Auto) 3.6, Lymphocytes # (Auto) 1.1, Monocytes # (Auto) 0.6, Eosinophils # (Auto) 0.0, Basophils # (Auto) 0.0, Immature Granulocyte # (Auto) 0.0, Percent Immature Platelet Fraction 11.9H, Prothrombin Time 19.9H, INR Comment 1.6H, Activated Partial Thromboplast Time 39 H, Sodium Level 137, Potassium Level 4.4, Chloride Level 99, Carbon Dioxide Level 26, Anion Gap 12, Blood Urea Nitrogen 39H, Creatinine 2.36H, Estimat Glomerular Filtration Rate 26, BUN/Creatinine Ratio 17, Glucose Level 121H, Calcium Level 9.2, Corrected Calcium 9.8, Magnesium Level 2.0, Total Bilirubin 3.3H, Aspartate Amino Transf (AST/SGOT) 197H, Alanine Aminotransferase (ALT/SGPT ) 113H, Alkaline Phosphatase 148H, Total Creatine Kinase 385H, Creatine Kinase MB 6.8*H, Myoglobin 1558.9H, Troponin I 0.252H, B-Type Natriuretic Peptide 3501.5H, Total Protein 7.1, Albumin 3.3, Lipase 95H, Procalcitonin 0.10H 02/18/22 12:51: Influenza Type A (RT-PCR) Not Detected, Influenza Type B (RT-PCR) Not Detected, SARS-CoV-2 RNA (RT-PCR) Not Detected 02/18/22 15:17: Lactic Acid Level 2.17*H 02/18/22 15:44: Blood Gas Puncture Site L BRACH, Blood Gas Patient Temperature 35.4, Arterial Blood pH 7.47H, Arterial Blood Partial Pressure CO2 37, Arterial Blood Partial Pressure O2 83, Arterial Blood HCO3 27, Arterial Blood Total CO2 28.4, Arterial Blood Oxygen Saturation 98, Arterial Blood Base Excess 3.3H, Sandor Test YES-POS, Blood Gas Ventilator Setting NO, Blood Gas Inspired Oxygen ROOM AIR A/P-Cardiology Assessment/Admission Diagnosis Acute on Chronic systolic CHF due to dilated cardiomyopathy - intolerant to LELAND-inhib/ARB due to hyperkalemia and low bp on these agents - Echo of 07/04/20: LVEF 45-50%, enlargement of both atria and RV, bioprosthetic AoV with mild to mod and AI, mod MR - Echocardiogram of 06-09-[address] Frazier showed LVEF 30-35%. Severe diffuse hypokinesis. Mod MR. Porcine bioprosthetic nikolas with mod stenosis and trivial regurg Dilated cardiomyopathy - MPI of 07/04/20 shows basal inferior infarction with minimal disha-infarct ischemia; LVEF 48% - Cardiac cath of 06-09-[address] Frazier showed: Mild coronary artery disease nonobstructive disease Colon mass - per pt report - managed by Dr. Valenzuela - pt reports he does not wish to pursue tx Acute on chronic renal insufficiency - renal insufficiency in July 2020, etiology undetermined - Entresto stoped because of hyperkalemia at that time and (treated with Kayexelate) Thrombocytopenia - management per medical services Elevated liver enzymes - possibly in some part d/t hepatobiliary congestion H/O Hematuria and elevated PSA, managed by Dr Dave - Due to hematuria, Dr Matta has advised against OAC. Also, pt himself refuses to taken any anticoag - H/o TURP [place] [address] 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 Discussion and Recomendations Complex management Acute on chronic systolic CHF - treat with diuretics Acute on chronic renal insufficiency - treat with IVF - renal perfusion dose dopamine Elevated liver enzymes - possibly secondary to hepato-biliary congestion Thrombocytopenia - undetermined etiology Monitor lab closely Replace electrolytes as indicated Discussed with Dr Rojas of the eICU svce Further recs will be based on his hospital course We would like to thank medical services for this consult CORINA ISAAC MD FACP FAC CCDS Feb 18, 2022 17:21
--- NOTE | 2022-02-18 17:21 | Tele-ICU Progress Note ---
Subjective Date Seen by a Provider: Feb 18, 2022 Time Seen by a Provider: 17:18 Subjective/Events-last exam (Tele-ICU Physician , consultation) Available chart/ vitals / labs / Images reviewed H&P is from ER notes Patient's information available about PMH, allergy reviewed in EMR. ROS as per chart and RN report Video assessment done using teleICU camera, rest of exam as per RN Discussed with RN. This gentleman is a 86-year-old male with past medical history of for chronic kidney disease, chronic systolic congestive heart failure presented with bilateral leg swelling and worsening shortness of breath for the last several weeks. No fever present. No chest pain present. Reportedly he was diagnosed with a mass in the colon that is cancerous but he does not want any surgery chemo or radiation therapy. Chest x-ray showed right-sided pleural effusion and cardiomegaly. His BUN is 39 and creatinine is 2.36. BNP is 3501. His liver enzymes are also elevated. He is already seen by dressmaker helper Dr. Miller with whom I have discussed and he is agreeable with the low-dose dopamine. Impression 1. Acute and chronic systolic congestive heart failure 2. Acute on chronic kidney disease 3. 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 Elevated liver enzymes could be due to metastasis. 5. History of chronic atrial fibrillation. Recommendations 1. Will give low-dose of dopamine to optimize blood pressure as well as to increase the inotropic function of the heart. 2. Diuretic therapy per Dr. Miller 3. He does not want any treatment for his colon cancer. 4. He mostly wants to have a comfort care. 5. He is started on aphixaban for DVT prophylaxis as well as stroke prevention Sepsis Event Evaluation Height, Weight, BMI Height: 5'11.00" Weight: 150lbs. 4.0oz. 68.119708an; 23.00 BMI Method:Stated Focused Exam Lactate Level 02/18/22 15:17: Lactic Acid Level 2.17*H Lactic Acid Level Laboratory Tests Test 02/18/22 15:17 Lactic Acid Level 2.17 MMOL/L (0.50-2.00) *H Exam Exam Patient acknowledged, consented, and participated in this virtual visit which was conducted using real time audio/video Vital Signs Date Time Temp Pulse Resp B/P (MAP) Pulse Ox O2 Delivery O2 Flow Rate FiO2 02/18/22 16:45 106 02/18/22 16:30 107 46 125/94 (104) Room Air 02/18/22 16:23 18 134/86 98 02/18/22 11:48 36.0 104 22 89/60 (70) 97 Room Air Height & Weight Height: 5'11.00" Weight: 150lbs. 4.0oz. 68.790040bh; 23.00 BMI Method:Stated General Appearance: Mild Distress Results Lab Laboratory Tests 02/18/22 11:55 Assessment/Plan Assessment/Plan as above Critical Care: Critically Ill Patient Time spent with patient (mins): 25 WILLAM NUNES MD Feb 18, 2022 17:21
[2022-02-18] MEDS: NS IV 1000 ML 1,000 ML IV SCH ×2 (17:22→20:19)
[2022-02-18] MEDS ORDERED: RT-ALBUTEROL SULF 2.5 MG/3 ML PRE-MIX VIAL INH PRN (17:30)
[2022-02-18] MEDS ORDERED: OMEP40CA6 PO (17:36)
[2022-02-18] MEDS ORDERED: FLU QUAD HIGH DOSE 240 MCG/0.7 ML 2022-23 (FLUZONE) IM ONE (17:45)
[2022-02-18] MEDS ORDERED: meTOprolol 5 MG/5 ML (LOPRESSOR) VIAL ONE (17:54)
[2022-02-18] MEDS ORDERED: meTOprolol 5 MG/5 ML (LOPRESSOR) VIAL IV ONE (18:00)
[2022-02-18] MEDS: DOCUSATE SODIUM 100 MG (COLACE) CAP PO SCH (20:30)
[2022-02-18] MEDS: SENNOSIDES 8.6 MG (SENOKOT) TAB PO SCH (20:30)
[2022-02-18] MEDS: APIXABAN 2.5 MG (ELIQUIS) TABLET PO SCH (20:44)
--- NOTE | 2022-02-18 20:45 | History & Physical ---
History of Present Illness HPI/Chief Complaint CC: Dyspnea with edema and CHF HPI: This is an 86yoWM clinic patient of mine who presented to the ER with lower extremity edema and increased dyspnea c/w CHF. He has a long hx of AF and is on OAC. He has become very debilitated and thin and I pursued colonoscopy to be performed to evaluate where the neoplasm was located due to overall clinical status decline and Dr Valenzuel[place] [facility] [place] polyp and pathology showed tubular adenoma with severe dysplasia. Patient is not a good surgical candidate but will speak to Dr Valenzuela about options. Dr Chen recommended Lasix 80mg IVP x 1 and initiate gentle IVF of NS at 50cc/hr and ICU admit in case dobutamine and pressors are needed. Source: patient, RN/MD, old records Date Seen 02/18/22 Time Seen by a Provider: 18:15 Attending Physician Taylor Matta DO PCP Admitting Physician: Taylor Matta DO Attending Physician: Taylor Matta DO Referring Physician Date of Admission Feb 18, 2022 at 15:57 Home Medications & Allergies Home Medications Reviewed patient Home Medication Reconciliation performed by pharmacy medication reconciliations blow mold technician and/or nursing. Patients Allergies have been reviewed. Allergies Allergies Coded Allergies No Known Drug Allergies (Unverified05/24/18) Past Mjgwhqp-Dgvxsx-Bezkci Hx Past Med/Social Hx: Reviewed Nursing Past Med/Soc Hx, Reviewed and Corrections made Patient Social History Marrital Status: cohabiting Employed/Student: retired Alcohol Use: Denies Use Smoking Status: Former Smoker Former Smoker, Quit: Mar 03, 1959 2nd Hand Smoke Exposure: No Recent Hopitalizations: Yes (sepsis pneumonia August 2018) Recent Infectious Disease Expo: No Immunizations Up To Date Tetanus Booster (TDap): Unknown Date of Pneumonia Vaccine: Aug 31, 2018 Date of Influenza Vaccine: Dec 04, 2019 Seasonal Allergies Seasonal Allergies: No Past Medical History Surgeries: Valve Replacement Respiratory: COPD, Pneumonia Currently Using CPAP: No Currently Using BIPAP: No Cardiac: Atrial Fibrillation, Heart Murmur, High Cholesterol, Hypertension, Valvular Heart Disease Neurological: Neuropathy, Stroke, TIA Sexually Transmitted Disease: No HIV/AIDS: No Genitourinary: Benign Prostatic Hyperpl, Prostate Problems, Renal Failure Musculoskeletal: Arthritis Endocrine: Diabetes, Non-Insulin dep Loss of Vision: Denies Hearing Impairment: Denies History of Blood Disorders: No Adverse Reaction to Blood Winters: No Family History Asthma 19 MOTHER Bone cancer Congenital heart disease 19 MOTHER Hypertension 19 MOTHER Lung cancer Myocardial infarction 19 MOTHER Diabetes, Other Conditions/Hx Review of Systems Constitutional: see HPI, malaise, weakness EENTM: no symptoms reported Respiratory: dyspnea on exertion Cardiovascular: no symptoms reported, edema Gastrointestinal: no symptoms reported Genitourinary: decreased output Musculoskeletal: back pain Skin: no symptoms reported Psychiatric/Neurological: Depressed All Other Systems Reviewed Negative Unless Noted: Yes Physical Exam Physical Exam Vital Signs Vital Signs - First Documented 02/18/22 02/18/22 02/18/22 11:48 17:00 17:12 Temp 36.0 Pulse 104 Resp 22 B/P (MAP) 89/60 (70) Pulse Ox 97 O2 Delivery Room Air O2 Flow Rate 2.00 FiO2 21 Capillary Refill : Greater Than 3 Seconds Height, Weight, BMI Height: 5'11.00" Weight: 150lbs. 4.0oz. 68.548390ls; 24.23 BMI Method:Stated General Appearance: No Apparent Distress, Chronically ill, Thin Eyes: Bilateral Eye Normal Inspection, Bilateral Eye PERRL HEENT: PERRL/EOMI, TMs Normal, Normal ENT Inspection, Pharynx Normal Neck: Full Range of Motion, Normal Inspection, Non Tender, Supple, Carotid Bruit Respiratory: Chest Non Tender, Lungs Clear, Normal Breath Sounds, No Accessory Muscle Use, No Respiratory Distress Cardiovascular: No Gallop, No JVD, No Murmur, Normal Peripheral Pulses, Irregularly Irregular, Tachycardia Gastrointestinal: Normal Bowel Sounds, No Organomegaly, No Pulsatile Mass, Non Tender, Soft Back: Normal Inspection, No CVA Tenderness, No Vertebral Tenderness Extremity: Normal Capillary Refill, Normal Inspection, Normal Range of Motion, Non Tender, No Calf Tenderness, Pedal Edema Neurologic/Psychiatric: Alert, Oriented x3, No Motor/Sensory Deficits, 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
[2022-02-18] MEDS: inSUlin ASPART (NovoLOG) 1 UNIT/0.01 ML (CHARGE PER UNIT) SC SCH (21:30)
[2022-02-19 03:59] LABS: HEMOGLOBIN 10.5 g/dL (13.3-17.7); MONOCYTES % (AUTO) 10 % (0-12)
[2022-02-19 04:01] LABS: BASOPHILS % (AUTO) 1 % (0-10); EOSINOPHILS # (AUTO) 0.1 10^3/uL (0.0-0.3); EOSINOPHILS % (AUTO) 1 % (0-10); HEMATOCRIT 33 % (40-54); LYMPHOCYTES % (AUTO) 16 % (12-44); MEAN CORPUSCULAR HEMOGLOBIN 30 pg (25-34); MEAN CORPUSCULAR HGB CONC 32 g/dL (32-36); MEAN CORPUSCULAR VOLUME 96 fL (80-99); MEAN PLATELET VOLUME 13.8 fL (9.0-12.2); MONOCYTES # (AUTO) 0.6 10^3/uL (0.0-1.0); NEUTROPHILS # (AUTO) 4.5 10^3/uL (1.8-7.8); NEUTROPHILS % (AUTO) 73 % (42-75); PLATELET COUNT 67 10^3/uL (130-400); WHITE BLOOD COUNT 6.1 10^3/uL (4.3-11.0)
[2022-02-19 04:18] LABS: ALBUMIN 2.9 GM/DL (3.2-4.5); POTASSIUM 3.5 MMOL/L (3.6-5.0)
[2022-02-19 04:19] LABS: CALCIUM 8.9 MG/DL (8.5-10.1)
[2022-02-19 04:21] LABS: TOTAL PROTEIN 6.1 GM/DL (6.4-8.2)
[2022-02-19 04:22] LABS: BILIRUBIN,TOTAL 2.7 MG/DL (0.1-1.0)
[2022-02-19 04:24] LABS: CREATININE SERUM 2.32 MG/DL (0.60-1.30)
[2022-02-19] MEDS: POTASSIUM CL 10MEQ/50ML IVPB 50 ML IV SCH (04:32)
[2022-02-19] MEDS: KCL 20 MEQ TAB (K-DUR) PO SCH (04:33)
[2022-02-19] MEDS: MAGNESIUM 1 GM/100 ML IVPB 100 ML IV SCH (04:33)
[2022-02-19 04:49] LABS: SMEAR SCAN COMMENT YES
[2022-02-19] MEDS: inSUlin ASPART (NovoLOG) 1 UNIT/0.01 ML (CHARGE PER UNIT) SC SCH ×4 (05:47→20:09)
[2022-02-19] MEDS: DOCUSATE SODIUM 100 MG (COLACE) CAP PO SCH ×2 (08:34→20:08)
[2022-02-19] MEDS: FUROSEMIDE 40 MG/4 ML INJ (LASIX) IVP SCH (08:34)
[2022-02-19] MEDS: SENNOSIDES 8.6 MG (SENOKOT) TAB PO SCH ×2 (08:34→20:08)
--- NOTE | 2022-02-19 08:38 | Diagnostic Imaging Report ---
INDICATION: Hypoxia, ICU care management. COMPARISON: 02/18/2022. TECHNIQUE: Single radiograph of the chest dated 02/19/2022. FINDINGS: The cardiac silhouette is enlarged though stable. Stable mild central pulmonary vascular congestion. Post surgical changes from median sternotomy. Small right basilar pleural-parenchymal opacity is again identified, appearing relatively stable from prior examination. Diffuse interstitial opacities throughout the lungs are again identified though minimally improved since the prior examination. No new focal pulmonary opacity. No large-volume left pleural effusion. No pneumothorax. No acute osseous abnormality. IMPRESSION: Minimally improved though persisting mild interstitial opacities are felt to relate to improving interstitial edema. This is associated with stable small right basilar pleural effusion and cardiomegaly with minimal central pulmonary vascular congestion. Dictated by: Dictated on workstation # [id number]
--- NOTE | 2022-02-19 08:39 | Progress Note - Cardiology ---
Cardiology SOAP Progress Note Subjective: Sitting up in bed No c/o CP, palpitations Feels SOB is somewhat better than yesterday Objective: I&O/Vital Signs 02/19/22 02/19/22 02/19/22 02/19/22 04:00 04:16 05:00 06:00 Pulse 100 106 103 Resp 23 17 9 B/P (MAP) 96/67 (77) 88/68 (75) 97/64 (75) Pulse Ox 91 O2 Delivery Nasal Cannula Nasal Cannula Nasal Cannula Nasal Cannula O2 Flow Rate 3.00 3.00 3.00 3.00 02/19/22 02/19/22 02/19/22 02/19/22 07:00 07:32 07:39 08:00 Temp 37.0 Pulse 111 103 101 Resp 13 16 B/P (MAP) 99/68 (78) 96/67 (77) Pulse Ox 92 99 O2 Delivery Nasal Cannula Nasal Cannula O2 Flow Rate 3.00 3.00 02/19/22 02/19/22 02/19/22 02/19/22 08:27 09:00 10:00 11:00 Pulse 105 104 104 Resp 46 18 23 B/P (MAP) 94/49 (64) 88/50 (63) 96/61 (73) Pulse Ox 93 100 94 O2 Delivery Nasal Cannula Nasal Cannula Nasal Cannula Nasal Cannula O2 Flow Rate 1.00 3.00 3.00 3.00 02/19/22 02/19/22 02/19/22 02/19/22 11:56 12:00 12:00 13:00 Temp 37.3 Pulse 96 96 Resp 23 14 B/P (MAP) 94/64 (74) 96/60 (72) Pulse Ox 99 99 O2 Delivery Nasal Cannula Nasal Cannula Nasal Cannula O2 Flow Rate 1.00 3.00 3.00 02/19/22 13:13 Pulse 98 02/19/22 00:00 Intake Total 280 ml Output Total 1100 ml Balance -820 ml Weight (Pounds): 150 Weight (Ounces): 4.0 Weight (Calculated Kilograms): 68.975952 Constitutional: AAO x 3, well-developed, well-nourished Respiratory: No accessory muscle use, No respiratory distress, No chest expansion is symmetric, No chest is bilaterally symmetric; other (diminished lower lobes bilat) Cardiovascular: irregularly irregular; No JVD; S1 and S2, systolic murmur Gastrointestional: No tender; soft; No guarding; audible bowel sounds Extremities: other (Bilat LE edema - improved from yesterday) Neurologic/Psychiatric: grossly intact (moves all extremities) Skin: No rash on exposed areas, No ulcerations on exposed areas Results/Procedures: Labs Laboratory Tests 02/18/22 15:44: Blood Gas Puncture Site L BRACH, Blood Gas Patient Temperature 35.4, Arterial Blood pH 7.47H, Arterial Blood Partial Pressure CO2 37, Arterial Blood Partial Pressure O2 83, Arterial Blood HCO3 27, Arterial Blood Total CO2 28.4, Arterial Blood Oxygen Saturation 98, Arterial Blood Base Excess 3.3H, Sandor Test YES-POS, Blood Gas Ventilator Setting NO, Blood Gas Inspired Oxygen ROOM AIR 02/18/22 17:30: Lactic Acid Level 2.23*H 02/18/22 19:27: Lactic Acid Level 2.97*H 02/18/22 20:57: Glucometer 172H 02/18/22 21:25: Lactic Acid Level 2.69*H 02/19/22 03:40: White Blood Count 6.1, Red Blood Count 3.45L, Hemoglobin 10.5L, Hematocrit 33L, Mean Corpuscular Volume 96, Mean Corpuscular Hemoglobin 30, Mean Corpuscular Hemoglobin Concent 32, Red Cell Distribution Width 16.9H, Platelet Count 67L, Mean Platelet Volume 13.8H, Immature Granulocyte % (Auto) 0, Neutrophils (%) (Auto) 73, Lymphocytes (%) (Auto) 16, Monocytes (%) (Auto) 10, Eosinophils (%) (Auto) 1, Basophils (%) (Auto) 1, Neutrophils # (Auto) 4.5, Lymphocytes # (Auto) 1.0, Monocytes # (Auto) 0.6, Eosinophils # (Auto) 0.1, Basophils # (Auto) 0.0, Immature Granulocyte # (Auto) 0.0, Percent Immature Platelet Fraction 13.1H, Sodium Level 136, Potassium Level 3.5L, Chloride Level 99, Carbon Dioxide Level 25, Anion Gap 12, Blood Urea Nitrogen 40H, Creatinine 2.32H, Estimat Glomerular Filtration Rate 27, BUN/Creatinine Ratio 17, Glucose Level 176H, Calcium Level 8.9, Corrected Calcium 9.8, Phosphorus Level 4.0, Magnesium Level 2.0, Total Bilirubin 2.7H, Aspartate Amino Transf (AST/SGOT) 184H, Alanine Aminotransferase (ALT/SGPT) 115H, Alkaline Phosphatase 150H, Total Protein 6.1L, Albumin 2.9L, Smear Scan YES 02/19/22 10:26: Glucometer 278H Microbiology 02/18/22 MRSA Screen - Final, Complete MRSA not isolated A/P: Assessment: Acute on Chronic systolic CHF due to dilated cardiomyopathy - intolerant to LELAND-inhib/ARB due to hyperkalemia and low bp on these agents - Echo of 07/04/20: LVEF 45-50%, enlargement of both atria and RV, bioprosthetic AoV with mild to mod and AI, mod MR - Echocardiogram of 06-09-[address] Frazier showed LVEF 30-35%. Severe diffuse hypokinesis. Mod MR. Porcine bioprosthetic nikolas with mod stenosis and trivial regurg Dilated cardiomyopathy - MPI of 07/04/20 shows basal inferior infarction with minimal disha-infarct ischemia; LVEF 48% - Cardiac cath of 06-09-[address] Frazier showed: Mild coronary artery disease nonobstructive disease Colon mass - per pt report - managed by Dr. Valenzuela - pt reports he does not wish to pursue tx Acute on chronic renal insufficiency - renal insufficiency in July 2020, etiology undetermined - Entresto stoped because of hyperkalemia at that time and (treated with Kayexelate) Thrombocytopenia - management per medical services Elevated liver enzymes - possibly in some part d/t hepatobiliary congestion H/O Hematuria and elevated PSA, managed by Dr Dave - Due to hematuria, Dr Orozco has advised against OAC. Also, pt himself refuses to taken any anticoag - H/o [place]URP [place] [address] Dave Atrial fibrillation,chronic - rate controlled - refuses OAC H/O AoV replacement - bioprosthetic cardiac valve (porcine per pt report) by Dr Matson at [place], [place], several years ago. 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 Plan: Complex management Acute on chronic systolic CHF - treat with diuretics Acute on chronic renal insufficiency - treat with IVF Elevated liver enzymes - possibly secondary to hepato-biliary congestion Thrombocytopenia - undetermined etiology Monitor lab closely Replace electrolytes as indicated ROLNADO PAGE [facility] Feb 19, 2022 08:39
[2022-02-19] MEDS: APIXABAN 2.5 MG (ELIQUIS) TABLET PO SCH ×2 (08:44→20:02)
[2022-02-19] MEDS: NS IV 1000 ML 1,000 ML IV SCH ×4 (08:48→20:03)
[2022-02-19] MEDS ORDERED: KCL 20 MEQ TAB (K-DUR) PO NR (09:00)
[2022-02-19] MEDS: meTOprolol TARTRATE 25 MG (LOPRESSOR) TABLET PO SCH ×2 (09:20→20:03)
--- NOTE | 2022-02-19 10:46 | Tele-ICU Progress Note ---
Subjective Date Seen by a Provider: Feb 19, 2022 Time Seen by a Provider: 08:22 Subjective/Events-last exam (Tele-ICU Physician , Progress Note ) Service provided via interactive audio and video telecommunications E-CARE system to a patient admitted to ICU bed in [facility]. Available chart/ vitals / labs / Images reviewed Video assessment done using teleICU camera, rest of exam as per RN Discussed with RN Events overnight : Afebrile hemodynamically stable Respiratory - I/O = Drips: Pressors- no Consultants: thong Hospital course: (02/18) 86yM admitted from the ED with increasing shortness of breath despite increasee in home lasix dose. Acute on chronic CHF. 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 etiology to be establish Bilat LE edema - most likely VO and low albumin , but will check US to r/o DVT Elevated LFT Lines : , (Central Line Necessity Reviewed) Romero: 02/18 OG: Nutrition: po Analgesia: Anxiety/ delirium VTE Prophylaxis: Eliquis Stress Ulcer Prophylaxis: Plans in collaboration with bedside consultants and IM MDs. Discussed with RN to reach out if any questions or concerns A total of 31 minutes of critical care time was devoted to this patient today, required to treat and/or prevent further deterioration of critical care condition ( as above ) . I am remotely monitoring this patient from another state. I am unable to do the bedside exam, and history/physical and pertinent information is taken from other notes in the computer and bedside staff. Sepsis Event Evaluation Height, Weight, BMI Height: 5'11.00" Weight: 150lbs. 4.0oz. 68.960484mu; 24.23 BMI Method:Stated Focused Exam Lactate Level 02/18/22 17:30: Lactic Acid Level 2.23*H 02/18/22 19:27: Lactic Acid Level 2.97*H 02/18/22 21:25: Lactic Acid Level 2.69*H Exam Exam Patient acknowledged, consented, and participated in this virtual visit which was conducted using real time audio/video Vital Signs Date Time Temp Pulse Resp B/P (MAP) Pulse Ox O2 Delivery O2 Flow Rate FiO2 02/19/22 08:27 Nasal Cannula 1.00 02/19/22 08:00 101 16 96/67 (77) 99 Nasal Cannula 3.00 02/19/22 07:39 37.0 02/19/22 07:32 103 02/19/22 07:00 111 13 99/68 (78) 92 Nasal Cannula 3.00 02/19/22 06:00 103 9 97/64 (75) 91 Nasal Cannula 3.00 02/19/22 05:00 106 17 88/68 (75) Nasal Cannula 3.00 02/19/22 04:16 100 23 96/67 (77) Nasal Cannula 3.00 02/19/22 04:00 Nasal Cannula 3.00 02/19/22 03:00 103 12 103/72 (82) 92 Nasal Cannula 3.00 02/19/22 02:28 36.5 Nasal Cannula 3.00 02/19/22 02:00 91 11 85/54 (64) 94 Nasal Cannula 2.00 02/19/22 01:00 96 02/19/22 01:00 107 14 95/60 (72) 94 Nasal Cannula 2.00 02/19/22 00:00 107 14 95/69 (78) 100 Nasal Cannula 2.00 02/18/22 23:35 Nasal Cannula 2.00 02/18/22 23:34 36.6 Nasal Cannula 2.00 02/18/22 23:00 97 11 107/45 (65) 94 Nasal Cannula 2.00 02/18/22 22:15 102 23 100/75 (83) 94 Nasal Cannula 2.00 02/18/22 21:00 98 13 101/66 (78) 100 Nasal Cannula 2.00 02/18/22 20:16 Nasal Cannula 2.00 02/18/22 20:15 104 19 102/67 (79) 98 Nasal Cannula 2.00 02/18/22 20:00 36.3 02/18/22 19:54 Nasal Cannula 2.00 02/18/22 19:00 108 02/18/22 19:00 108 20 108/70 (83) Nasal Cannula 2.00 02/18/22 18:00 128 23 93/63 (73) 89 Nasal Cannula 2.00 02/18/22 17:45 142 17 106/54 (71) 99 Nasal Cannula 2.00 02/18/22 17:30 105 17 96/69 (78) 98 Nasal Cannula 2.00 02/18/22 17:25 110 106/87 02/18/22 17:15 110 13 106/87 (93) 98 Nasal Cannula 2.00 02/18/22 17:12 36.0 106 98 21 02/18/22 17:00 Nasal Cannula 2.00 02/18/22 17:00 103 19 97/74 (82) 83 Room Air 02/18/22 16:45 106 02/18/22 16:45 102 46 101/20 (47) Room Air 02/18/22 16:30 107 46 125/94 (104) Room Air 02/18/22 16:23 18 134/86 98 02/18/22 11:48 36.0 104 22 89/60 (70) 97 Room Air I & O 02/19/22 07:00 Intake Total 800 ml Output Total 1675 ml Balance -875 ml Height & Weight Height: 5'11.00" Weight: 150lbs. 4.0oz. 68.360200vt; 24.23 BMI Method:Stated General Appearance: No Apparent Distress, Chronically ill, Thin HEENT: PERRL/EOMI, TMs Normal, Normal ENT Inspection, Pharynx Normal Neck: Full Range of Motion, Normal Inspection, Non Tender, Supple, Carotid Bruit Respiratory: Chest Non Tender, Lungs Clear, Normal Breath Sounds, No Accessory Muscle Use, No Respiratory Distress Cardiovascular: No Gallop, No JVD, No Murmur, Normal Peripheral Pulses, Irregularly Irregular, Tachycardia Capillary Refill: Greater Than 3 Seconds Gastrointestinal: normal bowel sounds, non tender, soft Extremity: Normal Capillary Refill, Normal Inspection, Normal Range of Motion, Non Tender, No Calf Tenderness, Pedal Edema Neurologic/Psychiatric: Alert, Oriented x3, No Motor/Sensory Deficits, 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
--- NOTE | 2022-02-19 10:53 | Consultation - Surgery ---
KENYMALINI 02/19/22 1053: History of Present Illness History of Present Illness Patient Consulted On(jennifer/time) 02/19/22 10:52 Date Seen by Provider: Feb 19, 2022 Time Seen by Provider: 10:47 History of Present Illness 86 yo M with h/o Dilated cardiomyopathy, afib, AoV replacement, Chronic Renal Insufficiency, and CHF was admitted for acute on chronic CHF after presenting to the ED with worsening BALTAZAR and leg swelling. Pt states that he has experienced worsening BALTAZAR, leg swelling, and weakness for the past few weeks. Pt states that his leg swelling had concerned him and yesterday he noticed that they were "turning red" prompting him to go to the ED. In ED, CXR on 02/18 showed a small right basilar effusion as well as cardiomegaly with mild vascular congestion and probable mild interstitial pulmonary edema. Pt was admitted for acute on chronic CHF to ICU. In room today, pt is sitting up in bed comfortably eating meal. Pt states that he feels better today, noting that his SOB is not present at rest and that he has not been walking so he is unsure if his BALTAZAR has improved. states that pt does seem more SOB than normal rest. Repeat CXR today was read as having a small stable R basilar effusion. Pt states that he feels like his leg swelling has improved today as well, though notes no change to the redness. Pt has red patches located on B/L anterior shins that resemble hematomas. Pt states that he was recently told by Dr. Nichols that he had colon cancer and had 2 years to live. He also stated that it was inoperable because it "would explode and get cancer everywhere". Pt had a colonoscopy with Dr. Nichols that found a large polyp that was not cancerous. Pt was told that polyp was not currently cancerous but could become cancerous in 2 years. Pt and states that since the "cancer diagnosis" that the pt has had decreased appetite and dark stools. Pt denies any grossly bloody stools. Pt has no other complaints at this time. Pt denies CP, abd pain, hematuria, nausea, vomiting, cough, ALAMO, and lightheadedness. Allergies and Home Medications Allergies Coded Allergies: No Known Drug Allergies (Unverified , 05/24/18) Patient Home Medication List Home Medication List Reviewed: Yes Acetaminophen (Acetaminophen) 500 Mg Tablet, 1,000 MG PO Q8H PRN for PAIN-MILD (1-4), (Reported) Entered as Reported by: JARRED FREY on 02/19/221117 Last Action: Reviewed Atorvastatin Calcium (Atorvastatin Calcium) 80 Mg Tablet, 80 MG PO DAILY, (Reported) Entered as Reported by: JARRED FREY on 02/19/221117 Last Action: Reviewed Carvedilol (Carvedilol) 3.125 Mg Tablet, 3.125 MG PO BID, (Reported) Entered as Reported by: LEANNE GARRIDO on 09/05/20856 Last Action: Reviewed Furosemide (Furosemide) 40 Mg Tablet, 40 MG PO BID, (Reported) Entered as Reported by: JARRED FREY on 02/19/221117 Last Action: Reviewed Omeprazole (Omeprazole) 40 Mg Capsule.dr, 40 MG PO DAILY, (Reported) Entered as Reported by: JARRED FREY on 02/19/221118 Last Action: Reviewed Potassium Chloride (Potassium Chloride) 20 Meq Tablet.er, 20 MEQ PO DAILY, (Reported) Entered as Reported by: JARRED FREY on 02/19/221117 Last Action: Reviewed Tamsulosin HCl (Flomax) 0.4 Mg Cap, 0.4 MG PO DAILY, (Reported) Entered as Reported by: JARRED FREY on 02/19/221118 Last Action: Reviewed Discontinued Medications Acetaminophen (Tylenol) 325 Mg Tablet, 650 MG PO Q6H PRN for PAIN-MILD (1-4), (Reported) Discontinued Reason: Prescription changed Entered as Reported by: LEANNE GARRIDO on 09/05/20856 Apixaban (Eliquis) 5 Mg Tablet, 5 MG PO BID Discontinued Reason: No Longer Taking Prescribed by: YAIMA MASON on 09/06/20 1323 Last Action: Discontinued Aspirin (Aspirin EC) 81 Mg Tablet.dr, 81 MG PO HS, (Reported) Discontinued Reason: No Longer Taking Entered as Reported by: JARRED FREY on 07/04/20 2857 Last Action: Discontinued Atorvastatin Calcium (Atorvastatin Calcium) 80 Mg Tablet, 80 MG PO HS Discontinued Reason: No Longer Taking Prescribed by: YAIMA MASON on 09/06/20 1323 Last Action: Discontinued Furosemide (Furosemide) 40 Mg Tablet, 40 MG PO Q48H Discontinued Reason: No Longer Taking Prescribed by: BEN MATTA on 06/10/21 1213 Last Action: Discontinued Loratadine (Loratadine) 10 Mg Tablet, 10 MG PO DAILY, (Reported) Discontinued Reason: No Longer Taking Entered as Reported by: JARRED FREY on 07/04/20 1417 Last Action: Discontinued Metformin HCl (Metformin HCl ER) 500 Mg Tab.er.24h, 500 MG PO 1800 W/ EVENING MEAL, (Reported) Discontinued Reason: No Longer Taking Entered as Reported by: DOMINGA EARL on 09/01/18 1159 Last Action: Discontinued Omeprazole (Omeprazole) 40 Mg Capsule.dr, 40 MG PO DAILY, (Reported) Discontinued Reason: No Longer Taking Entered as Reported by: PARISH GALLEGO on 02/18/22 1736 Last Action: Discontinued Ondansetron (Ondansetron Odt) 4 Mg Tab.rapdis, 4 MG SL Q4H PRN for NAUSEA/VOMITING Discontinued Reason: No Longer Taking Prescribed by: ROBER BARAJAS on 12/17/20 1115 Last Action: Discontinued Potassium Chloride (Potassium Chloride) 10 Meq Capsule.er, 10 MEQ PO Q48H Discontinued Reason: No Longer Taking Prescribed by: BEN MATTA on 06/10/21 1213 Last Action: Discontinued Tamsulosin HCl (Flomax) 0.4 Mg Cap, 0.4 MG PO DAILY, (Reported) Discontinued Reason: No Longer Taking Entered as Reported by: ANGELICA FLOWERS on 11/23/19 0012 Last Action: Discontinued Past Whidkjc-Qoblib-Phmtby Hx Patient Social History Smoking Status: Former Smoker (3 packs a day for ~30yrs; quit in the 50's) Former Smoker, Quit: Mar 03, 1959 2nd Hand Smoke Exposure: No Recent Hopitalizations: Yes (sepsis pneumonia August 2018) Alcohol Use?: No Have you traveled recently?: No Immunizations Up To Date Tetanus Booster (TDap): Unknown Date of Pneumonia Vaccine: Aug 31, 2018 Date of Influenza Vaccine: Dec 04, 2019 Seasonal Allergies Seasonal Allergies: No Surgeries History of Surgeries: Yes (aortic valve replacement) Surgeries: Eye Surgery (cataracts), Valve Replacement (AoV) Respiratory History of Respiratory Disorde: No Cardiovascular History of Cardiac Disorders: Yes Cardiac Disorders: Atrial Fibrillation, Heart Murmur, High Cholesterol, Hypertension, Valvular Heart Disease Neurological History of Neurological Disord: No Reproductive System Sexually Transmitted Disease: No HIV/AIDS: No Genitourinary History of Genitourinary Disor: Yes Genitourinary Disorders: Benign Prostatic Hyperpl, Prostate Problems, Renal Failure Gastrointestinal History of Gastrointestinal Di: No Musculoskeletal History of Musculoskeletal Dis: Yes Musculoskeletal Disorders: Arthritis, Chronic Back Pain Endocrine History of Endocrine Disorders: Yes Endocrine Disorders: Diabetes, Non-Insulin dep HEENT History of HEENT Disorders: Yes (GLASSES) HEENT Disorders: Cataract Loss of Vision: Denies Hearing Impairment: Hard of Hearing Cancer History of Cancer: No Psychosocial History of Psychiatric Problem: Yes Behavioral Health Disorders: Anxiety Integumentary History of Skin or Integumenta: No Blood Transfusions History of Blood Disorders: No Adverse Reaction to a Blood Tr: No Family Medical History Significant Family History: Heart Disease (Brother: CHF (family history limited, pt states that he was adopted and does not know family medical conditions)) Family Medial History: Asthma 19 MOTHER Bone cancer Congenital heart disease 19 MOTHER Hypertension 19 MOTHER Lung cancer Myocardial infarction 19 MOTHER Review of Systems-General Constitutional: No chills, No diaphoresis; weakness EENTM: No ear discharge, No ear pain Respiratory: dyspnea on exertion, short of breath Cardiovascular: No chest pain; edema (b/l LE) Gastrointestinal: No abdominal pain, No hematemesis, No nausea, No vomiting; other (notes "dark stools") Genitourinary: No dysuria, No hematuria Musculoskeletal: back pain (chronic), joint pain (arthritis) Skin: No change in hair/nails; other (B/L LE red hematoma like lesions on anterior shins) Psychiatric/Neurological: Denies Anxiety, Denies Depressed Physical Exam-General Problems Physical Exam Vital Signs Vital Signs - First Documented 02/18/22 02/18/22 02/18/22 11:48 17:00 17:12 Temp 36.0 Pulse 104 Resp 22 B/P (MAP) 89/60 (70) Pulse Ox 97 O2 Delivery Room Air O2 Flow Rate 2.00 FiO2 21 Capillary Refill : Greater Than 3 Seconds General Appearance: mild distress (d/t SOB), thin HEENT: PERRL/EOMI Respiratory: accessory muscle use, crackles (diffuse B/L ) Cardiovascular: systolic murmur, irregularly irregular, other (distant heart sounds) Gastrointestinal: normal bowel sounds, non tender, soft Extremities: pedal edema (b/l 1+ to 2+ on dorsum of L foot pitting edema) Neurologic/Psychiatric: alert, oriented x 3 Skin: warm/dry, other (multiple red lesions that resemble hematomas on L anterior garzon, One large red lesion on R anterior garzon; dry scaly skin and scabs noted on scalp) Data Review Labs Laboratory Tests 02/18/22 11:55: White Blood Count 5.3, Red Blood Count 3.65L, Hemoglobin 11.0L, Hematocrit 36L, Mean Corpuscular Volume 98, Mean Corpuscular Hemoglobin 30, Mean Corpuscular Hemoglobin Concent 31L, Red Cell Distribution Width 16.9H, Platelet Count 80L, Mean Platelet Volume 13.7H, Immature Granulocyte % (Auto) 0, Neutrophils (%) (Auto) 68, Lymphocytes (%) (Auto) 20, Monocytes (%) (Auto) 10, Eosinophils (%) (Auto) 1, Basophils (%) (Auto) 0, Neutrophils # (Auto) 3.6, Lymphocytes # (Auto) 1.1, Monocytes # (Auto) 0.6, Eosinophils # (Auto) 0.0, Basophils # (Auto) 0.0, Immature Granulocyte # (Auto) 0.0, Percent Immature Platelet Fraction 11.9H, Prothrombin Time 19.9H, INR Comment 1.6H, Activated Partial Thromboplast Time 39H, Sodium Level 137, Potassium Level 4.4, Chloride Level 99, Carbon Dioxide Level 26, Anion Gap 12, Blood Urea Nitrogen 39H, Creatinine 2.36H, Estimat Glomerular Filtration Rate 26, BUN/Creatinine Ratio 17, Glucose Level 121H, Calcium Level 9.2, Corrected Calcium 9.8, Magnesium Level 2.0, Total Bilirubin 3.3H, Aspartate Amino Transf (AST/SGOT) 197H, Alanine Aminotransferase (ALT/SGPT) 113H, Alkaline Phosphatase 148H, Total Creatine Kinase 385H, Creatine Kinase MB 6.8*H, Myoglobin 1558.9H, Troponin I 0.252H, B-Type Natriuretic Peptide 3501.5H, Total Protein 7.1, Albumin 3.3, Lipase 95H, Procalcitonin 0.10H 02/18/22 12:51: Influenza Type A (RT-PCR) Not Detected, Influenza Type B (RT-PCR) Not Detected, SARS-CoV-2 RNA (RT-PCR) Not Detected 02/18/22 15:17: Lactic Acid Level 2.17*H 02/18/22 15:44: Blood Gas Puncture Site L BRACH, Blood Gas Patient Temperature 35.4, Arterial Blood pH 7.47H, Arterial Blood Partial Pressure CO2 37, Arterial Blood Partial Pressure O2 83, Arterial Blood HCO3 27, Arterial Blood Total CO2 28.4, Arterial Blood Oxygen Saturation 98, Arterial Blood Base Excess 3.3H, Sandor Test YES-POS, Blood Gas Ventilator Setting NO, Blood Gas Inspired Oxygen ROOM AIR 02/18/22 17:30: Lactic Acid Level 2.23*H 02/18/22 19:27: Lactic Acid Level 2.97*H 02/18/22 20:57: Glucometer 172H 02/18/22 21:25: Lactic Acid Level 2.69*H 02/19/22 03:40: White Blood Count 6.1, Red Blood Count 3.45L, Hemoglobin 10.5L, Hematocrit 33L, Mean Corpuscular Volume 96, Mean Corpuscular Hemoglobin 30, Mean Corpuscular Hemoglobin Concent 32, Red Cell Distribution Width 16.9H, Platelet Count 67L, Mean Platelet Volume 13.8H, Immature Granulocyte % (Auto) 0, Neutrophils (%) (Auto) 73, Lymphocytes (%) (Auto) 16, Monocytes (%) (Auto) 10, Eosinophils (%) ( Auto) 1, Basophils (%) (Auto) 1, Neutrophils # (Auto) 4.5, Lymphocytes # (Auto) 1.0, Monocytes # (Auto) 0.6, Eosinophils # (Auto) 0.1, Basophils # (Auto) 0.0, Immature Granulocyte # (Auto) 0.0, Percent Immature Platelet Fraction 13.1H, Sodium Level 136, Potassium Level 3.5L, Chloride Level 99, Carbon Dioxide Level 25, Anion Gap 12, Blood Urea Nitrogen 40H, Creatinine 2.32H, Estimat Glomerular Filtration Rate 27, BUN/Creatinine Ratio 17, Glucose Level 176H, Calcium Level 8.9, Corrected Calcium 9.8, Phosphorus Level 4.0, Magnesium Level 2.0, Total Bilirubin 2.7H, Aspartate Amino Transf (AST/SGOT) 184H, Alanine Aminotransferase (ALT/SGPT) 115H, Alkaline Phosphatase 150H, Total Protein 6.1L, Albumin 2.9L, Smear Scan YES 02/19/22 10:26: Glucometer 278H Radiology Date of Exam:02/18/22 CHEST 1 VIEW, AP/PA ONLY INDICATION: Shortness of air. COMPARISON: 06/08/2021. FINDINGS: A single frontal radiographic view of the chest was obtained and demonstrates moderate cardiomegaly. The pulmonary vasculature and interstitium are also slightly prominent although improved compared to 06/08/2021. There is mild right basilar effusion which has slightly increased in size. There is no pneumothorax. Sternotomy wires are noted. IMPRESSION: 1. Cardiomegaly with mild vascular congestion and probable mild interstitial pulmonary edema. 2. Small right basilar effusion. Dictated by: Dictated on workstation # [id number] Dict: 02/18/228 Trans: 02/18/222111 TIMOTHY [id number] Interpreted by: ECHO FRAGOSO MD Electronically signed by: ECHO FRAGOSO MD 02/18/222111 Date of Exam:02/19/22 CHEST 1 VIEW, AP/PA ONLY INDICATION: Hypoxia, ICU care management. COMPARISON: 02/18/2022. TECHNIQUE: Single radiograph of the chest dated 02/19/2022. FINDINGS: The cardiac silhouette is enlarged though stable. Stable mild central pulmonary vascular congestion. Post surgical changes from median sternotomy. Small right basilar pleural-parenchymal opacity is again identified, appearing relatively stable from prior examination. Diffuse interstitial opacities throughout the lungs are again identified though minimally improved since the prior examination. No new focal pulmonary opacity. No large-volume left pleural effusion. No pneumothorax. No acute osseous abnormality. IMPRESSION: Minimally improved though persisting mild interstitial opacities are felt to relate to improving interstitial edema. This is associated with stable small right basilar pleural effusion and cardiomegaly with minimal central pulmonary vascular congestion. Dictated on workstation # [id number] Dict: 02/19/22814 Trans: 02/19/22837 [id number] Interpreted by: SEB CASH MD Electronically signed by: Assessment/Plan Assessment/Plan Assessment/Plan 1. Acute on Chronic CHF 2. Small R pleural effusion 3. Chronic Renal Insufficiency Pt is resting in bed eating breakfast. Dr. Nichols spoke to the pt and his regarding his colonoscopy results and that he does not currently have cancer. When spoken to later this afternoon, pt and seemed to still be confused about diagnosis and wanted to speak to Dr. Nichols about "the cancer surgery". Explained to pt and about his polyp in room again and they seem to understand but request to speak again with Dr. Nichols. Pt's right pleural effusion is small and stable, likely secondary to his CHF exacerbation. Pt does not need surgical intervention at this time. SHASHI NICHOLS DO 02/19/22 1404: History of Present Illness History of Present Illness Time Seen by Provider: 10:42 History of Present Illness Surgery asked to consult regarding recent colonoscopy and next step in treatment. When I spoke to nurse, she was relaying that pt thought I told him he had colon cancer and was dying in 2 years. This is not what I told the pt and his , when I last saw them in the office. He denies abdominal pain. Allergies and Home Medications Allergies Coded Allergies: No Known Drug Allergies (Unverified , 05/24/18) Patient Home Medication List Home Medication List Reviewed: Yes Acetaminophen (Acetaminophen) 500 Mg Tablet, 1,000 MG PO Q8H PRN for PAIN-MILD (1-4), (Reported) Entered as Reported by: JARRED FREY on 02/19/221117 Last Action: Reviewed Atorvastatin Calcium (Atorvastatin Calcium) 80 Mg Tablet, 80 MG PO DAILY, (Reported) Entered as Reported by: JARRED FREY on 02/19/221117 Last Action: Reviewed Carvedilol (Carvedilol) 3.125 Mg Tablet, 3.125 MG PO BID, (Reported) Entered as Reported by: LEANNE GARRIDO on 09/05/20 0857 Last Action: Reviewed Furosemide (Furosemide) 40 Mg Tablet, 40 MG PO BID, (Reported) Entered as Reported by: JARRED FREY on 02/19/221117 Last Action: Reviewed Omeprazole (Omeprazole) 40 Mg Capsule.dr, 40 MG PO DAILY, (Reported) Entered as Reported by: JARRED FREY on 02/19/221118 Last Action: Reviewed Potassium Chloride (Potassium Chloride) 20 Meq Tablet.er, 20 MEQ PO DAILY, (Reported) Entered as Reported by: JARRED FREY on 02/19/221117 Last Action: Reviewed Tamsulosin HCl (Flomax) 0.4 Mg Cap, 0.4 MG PO DAILY, (Reported) Entered as Reported by: JARRED FREY on 02/19/22 1119 Last Action: Reviewed Discontinued Medications Acetaminophen (Tylenol) 325 Mg Tablet, 650 MG PO Q6H PRN for PAIN-MILD (1-4), (Reported) Discontinued Reason: Prescription changed Entered as Reported by: LEANNE GARRIDO on 09/05/20 0857 Apixaban (Eliquis) 5 Mg Tablet, 5 MG PO BID Discontinued Reason: No Longer Taking Prescribed by: YAIMA MASON on 09/06/20 1323 Last Action: Discontinued Aspirin (Aspirin EC) 81 Mg Tablet.dr, 81 MG PO HS, (Reported) Discontinued Reason: No Longer Taking Entered as Reported by: JARRED FREY on 07/04/20 1417 Last Action: Discontinued Atorvastatin Calcium (Atorvastatin Calcium) 80 Mg Tablet, 80 MG PO HS Discontinued Reason: No Longer Taking Prescribed by: YAIMA MASON on 09/06/20 1323 Last Action: Discontinued Furosemide (Furosemide) 40 Mg Tablet, 40 MG PO Q48H Discontinued Reason: No Longer Taking Prescribed by: BEN MATTA on 06/10/21 1213 Last Action: Discontinued Loratadine (Loratadine) 10 Mg Tablet, 10 MG PO DAILY, (Reported) Discontinued Reason: No Longer Taking Entered as Reported by: JARRED FREY on 07/04/20 1417 Last Action: Discontinued Metformin HCl (Metformin HCl ER) 500 Mg Tab.er.24h, 500 MG PO 1800 W/ EVENING MEAL, (Reported) Discontinued Reason: No Longer Taking Entered as Reported by: DOMINGA EARL on 09/01/18 1159 Last Action: Discontinued Omeprazole (Omeprazole) 40 Mg Capsule.dr, 40 MG PO DAILY, (Reported) Discontinued Reason: No Longer Taking Entered as Reported by: PARISH GALLEGO on 02/18/22 1736 Last Action: Discontinued Ondansetron (Ondansetron Odt) 4 Mg Tab.rapdis, 4 MG SL Q4H PRN for NAUSEA/VOMITING Discontinued Reason: No Longer Taking Prescribed by: ROBER BARAJAS on 12/17/20 1115 Last Action: Discontinued Potassium Chloride (Potassium Chloride) 10 Meq Capsule.er, 10 MEQ PO Q48H Discontinued Reason: No Longer Taking Prescribed by: BEN MATTA on 06/10/21 1213 Last Action: Discontinued Tamsulosin HCl (Flomax) 0.4 Mg Cap, 0.4 MG PO DAILY, (Reported) Discontinued Reason: No Longer Taking Entered as Reported by: ANGELICA FLOWERS on 11/23/19 0012 Last Action: Discontinued Past Uguofpx-Znkzwe-Ymugui Hx Patient Social History Smoking Status: Former Smoker (3 packs a day for ~30yrs; quit in the 50's) Surgeries History of Surgeries: Yes Surgeries: Eye Surgery (cataracts), Valve Replacement (AoV) Respiratory History of Respiratory Disorde: Yes (pleural fluid) Respiratory Disorders: COPD Neurological History of Neurological Disord: No Genitourinary History of Genitourinary Disor: Yes Genitourinary Disorders: Benign Prostatic Hyperpl Gastrointestinal History of Gastrointestinal Di: Yes Gastrointestinal Disorders: Diverticulosis, Polyps Musculoskeletal History of Musculoskeletal Dis: Yes Musculoskeletal Disorders: Arthritis, Chronic Back Pain Endocrine History of Endocrine Disorders: No HEENT History of HEENT Disorders: Yes HEENT Disorders: Cataract Loss of Vision: Bilateral Hearing Impairment: Hard of Hearing Cancer History of Cancer: No Psychosocial History of Psychiatric Problem: Yes Behavioral Health Disorders: Anxiety Integumentary History of Skin or Integumenta: No Family Medical History Significant Family History: Asthma, Heart Disease (Brother: CHF (family history limited, pt states that he was adopted and does not know family medical conditions)), Hypertension Family Medial History: Asthma 19 MOTHER Bone cancer Congenital heart disease 19 MOTHER Hypertension 19 MOTHER Lung cancer Myocardial infarction 19 MOTHER Review of Systems-General Constitutional: No chills, No diaphoresis; weakness EENTM: No ear discharge, No ear pain Respiratory: dyspnea on exertion, short of breath Cardiovascular: No chest pain; edema (b/l LE) Gastrointestinal: No abdominal pain, No hematemesis, No nausea, No vomiting; other (notes "dark stools") Genitourinary: No dysuria, No hematuria Musculoskeletal: back pain (chronic), joint pain (arthritis), joint swelling, muscle stiffness Skin: No change in hair/nails; other (B/L LE red hematoma like lesions on anterior shins) Psychiatric/Neurological: Anxiety; Denies Depressed, Denies Seizure Physical Exam-General Problems Physical Exam General Appearance: mild distress (d/t SOB), thin Eyes: Bilateral Eye PERRL, Bilateral Eye EOMI HEENT: pharynx normal; No scleral icterus (R), No scleral icterus (L) Neck: non-tender, supple Respiratory: no respiratory distress, no accessory muscle use, decreased breath sounds, accessory muscle use, crackles (diffuse B/L ) Cardiovascular: systolic murmur, irregularly irregular, other (distant heart sounds) Gastrointestinal: normal bowel sounds, non tender, soft, no organomegaly Extremities: no calf tenderness, pedal edema (b/l 1+ to 2+ on dorsum of L foot pitting edema) Neurologic/Psychiatric: alert, oriented x 3 Skin: normal color, warm/dry, other (multiple red lesions that resemble hematomas on L anterior garzon, One large red lesion on R anterior garzon; dry scaly skin and scabs noted on scalp) Lymphatic: no adenopathy (neck, axilla or groin) Assessment/Plan Assessment/Plan Assessment/Plan 1. Multiple Large Colon polyps 2. Acute on Chronic CHF 3. Small R pleural effusion 4. Chronic Renal Insufficiency Pt is resting in bed eating breakfast. Dr. Nichols spoke to the pt and his regarding his colonoscopy results and that he does not currently have cancer. When spoken to later this afternoon, pt and seemed to still be confused about diagnosis and wanted to speak to Dr. Nichols about "the cancer surgery". Explained to pt and about his polyp in room again and they seem to understand but request to speak again with Dr. Nichols. Pt's right pleural effusion is small and stable, likely secondary to his CHF exacerbation. Pt does not need surgical intervention at this time. Pt has multiple large polyps, that will turn into cancer in next two years. In addition, it is possible at the base of these polyps there is already a focus of cancer. However, I did not say he would be dying in 2 years. I would be happy to write this down for pt and talk to family; either in person or over the phone. Trying to give the pt and family all the information so he can make an informed decision. He is not a great surgical candidate. I reviewed the films myself and spoke with Dr. Matta, regarding this case. Supervisory-Addendum Brief Verification & Attestation Participated in pt care: history, MDM, physical Personally performed: exam, history, MDM, supervision of care Care discussed with: Medical Student Procedures: n/a Verification and Attestation of Medical Student E/M Service A medical student performed and documented this service. I then reviewed and verified all information documented by the medical student and made modifications to such information, when appropriate. I personally performed a physical exam, medical decision making and then discussed any differences between the notes and made revisions as necessary to create one note. Shashi Nichols , 02/19/22 , 15:00 MALINI BUSTILLO Feb 19, 2022 10:53 SHASHI NICHOLS DO Feb 19, 2022 14:04
[2022-02-19] MEDS ORDERED: ATOR80TA76 PO (11:18)
[2022-02-19] MEDS ORDERED: ACET-93 PO (11:18)
[2022-02-19] MEDS ORDERED: FURO40TA4 PO (11:18)
[2022-02-19] MEDS ORDERED: POTA-51 PO (11:18)
[2022-02-19] MEDS ORDERED: TMSL.4C PO (11:19)
[2022-02-19] MEDS ORDERED: OMEP40CA6 PO (11:19)
--- NOTE | 2022-02-19 11:48 | Progress Note ---
[facility] 1148: Subjective Date Seen by a Provider: Feb 19, 2022 Time Seen by a Provider: 09:00 Subjective/Events-last exam Nate is an 86y M with PMH of colon mass, DEVYN, AFib, dilated cardiomyopathy, AoV replacement who was admitted for acute on chronic CHF. Today he reports feeling about the same with SOB especially on exertion. He does complain of dry mouth. He is up eating this morning. Reports his last BM was before he came to the hospital and he usually has difficulty with feeling like he needs to have a BM but cannot have one. He is passing gas and has a shanks draining urine. Review of Systems General: Fatigue, Appetite HEENT: No Head Aches Pulmonary: Dyspnea Cardiovascular: No: Chest Pain Gastrointestinal: No: Nausea, Vomiting, Abdominal Pain Focused Exam Lactate Level 02/18/22 17:30: Lactic Acid Level 2.23*H 02/18/22 19:27: Lactic Acid Level 2.97*H 02/18/22 21:25: Lactic Acid Level 2.69*H Objective Exam Last Set of Vital Signs Vital Signs Date Time Temp Pulse Resp B/P (MAP) Pulse Ox O2 Delivery O2 Flow Rate FiO2 02/19/22 08:27 Nasal Cannula 1.00 02/19/22 08:00 101 16 96/67 (77) 99 02/19/22 07:39 37.0 02/18/22 17:12 21 Capillary Refill : Greater Than 3 Seconds I&O Intake and Output 02/19/22 00:00 Intake Total 280 ml Output Total 1100 ml Balance -820 ml Intake Oral 280 ml Output Urine Total 1100 ml Daily Weight Change Unsure General: Alert, Oriented X3, Cooperative, No Acute Distress HEENT: Atraumatic, PERRLA, EOMI, Mucous Memb Moist/[place] Neck: Supple Lungs: Normal Air Movement, Other (diffuse crackles bilaterally) Heart: Normal S1, Normal S2, Other (irregularly iregular, tachycardia) Abdomen: Soft, No Tenderness Extremities: Normal Pulses, Other (b/l ) Skin: No Rashes, No Significant Lesion Neuro: Normal Speech Psych/Mental Status: Mental Status NL, Other (depressed affect) Results Lab Laboratory Tests 02/18/22 11:55: White Blood Count 5.3, Red Blood Count 3.65L, Hemoglobin 11.0L, Hematocrit 36L, Mean Corpuscular Volume 98, Mean Corpuscular Hemoglobin 30, Mean Corpuscular Hemoglobin Concent 31L, Red Cell Distribution Width 16.9H, Platelet Count 80L, Mean Platelet Volume 13.7H, Immature Granulocyte % (Auto) 0, Neutrophils (%) (Auto) 68, Lymphocytes (%) (Auto) 20, Monocytes (%) (Auto) 10, Eosinophils (%) (Auto) 1, Basophils (%) (Auto) 0, Neutrophils # (Auto) 3.6, Lymphocytes # (Auto) 1.1, Monocytes # (Auto) 0.6, Eosinophils # (Auto) 0.0, Basophils # (Auto) 0.0, Immature Granulocyte # (Auto) 0.0, Percent Immature Platelet Fraction 11.9H, Prothrombin Time 19.9H, INR Comment 1.6H, Activated Partial Thromboplast Time 39H, Sodium Level 137, Potassium Level 4.4, Chloride Level 99, Carbon Dioxide Level 26, Anion Gap 12, Blood Urea Nitrogen 39H, Creatinine 2.36H, Estimat Glomerular Filtration Rate 26, BUN/Creatinine Ratio 17, Glucose Level 121H, Calcium Level 9.2, Corrected Calcium 9.8, Magnesium Level 2.0, Total Bilirubin 3.3H, Aspartate Amino Transf (AST/SGOT) 197H, Alanine Aminotransferase (ALT/SGPT) 113H, Alkaline Phosphatase 148H, Total Creatine Kinase 385H, Creatine Kinase MB 6.8*H, Myoglobin 1558.9H, Troponin I 0.252H, B-Type Natriuretic Peptide 3501.5H, Total Protein 7.1, Albumin 3.3, Lipase 95H, Procalcitonin 0.10H 02/18/22 12:51: Influenza Type A (RT-PCR) Not Detected, Influenza Type B (RT-PCR) Not Detected, SARS-CoV-2 RNA (RT-PCR) Not Detected 02/18/22 15:17: Lactic Acid Level 2.17*H 02/18/22 15:44: Blood Gas Puncture Site L BRACH, Blood Gas Patient Temperature 35.4, Arterial Blood pH 7.47H, Arterial Blood Partial Pressure CO2 37, Arterial Blood Partial Pressure O2 83, Arterial Blood HCO3 27, Arterial Blood Total CO2 28.4, Arterial Blood Oxygen Saturation 98, Arterial Blood Base Excess 3.3H, Sandor Test YES-POS, Blood Gas Ventilator Setting NO, Blood Gas Inspired Oxygen ROOM AIR 02/18/22 17:30: Lactic Acid Level 2.23*H 02/18/22 19:27: Lactic Acid Level 2.97*H 02/18/22 20:57: Glucometer 172H 02/18/22 21:25: Lactic Acid Level 2.69*H 02/19/22 03:40: White Blood Count 6.1, Red Blood Count 3.45L, Hemoglobin 10.5L, Hematocrit 33L, Mean Corpuscular Volume 96, Mean Corpuscular Hemoglobin 30, Mean Corpuscular Hemoglobin Concent 32, Red Cell Distribution Width 16.9H, Platelet Count 67L, Mean Platelet Volume 13.8H, Immature Granulocyte % (Auto) 0, Neutrophils (%) (Auto) 73, Lymphocytes (%) (Auto) 16, Monocytes (%) (Auto) 10, Eosinophils (%) (Auto) 1, Basophils (%) (Auto) 1, Neutrophils # (Auto) 4.5, Lymphocytes # (Auto) 1.0, Monocytes # (Auto) 0.6, Eosinophils # (Auto) 0.1, Basophils # (Auto) 0.0, Immature Granulocyte # (Auto) 0.0, Percent Immature Platelet Fraction 13.1H, Sodium Level 136, Potassium Level 3.5L, Chloride Level 99, Carbon Dioxide Level 25, Anion Gap 12, Blood Urea Nitrogen 40H, Creatinine 2.32H, Estimat Glomerular Filtration Rate 27, BUN/Creatinine Ratio 17, Glucose Level 176H, Calcium Level 8.9, Corrected Calcium 9.8, Phosphorus Level 4.0, Magnesium Level 2.0, Total Bilirubin 2.7H, Aspartate Amino Transf (AST/SGOT) 184H, Alanine Aminotransferase (ALT/SGPT) 115H, Alkaline Phosphatase 150H, Total Protein 6.1L, Albumin 2.9L, Smear Scan YES 02/19/22 10:26: Glucometer 278H Assessment/Plan Assessment/Plan Assess & Plan/Chief Complaint Assessment: Acute respiratory failure Acute volume overload with CHF PAF on OAC 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 I reviewed and verified all information documented by the medical student and made modifications to such information, when appropriate. I personally performed the physical exam and medical decision making. Taylor Matta, Feb 20, 2022,04:59 SHANICE BOURNE Feb 19, 2022 11:48 TAYLOR MATTA DO Feb 20, 2022 04:59
[2022-02-19] MEDS ORDERED: FUROSEMIDE 40 MG/4 ML INJ (LASIX) IVP NR (12:00)
--- NOTE | 2022-02-19 12:17 | Diagnostic Imaging Report ---
PROCEDURE: US Venous Lower Ext Musa. TECHNIQUE: Multiple real-time grayscale images were obtained over the lower extremities in various projections, bilaterally. Additional duplex Doppler and color Doppler images were also obtained. INDICATION: Pain Bilateral lower extremity venous system showed normal color flow, compressibility and waveforms. No deep or superficial thrombus identified. No fluid collection. There is however some bilateral lower extremity subcutaneous edema. IMPRESSION: Negative for venous thrombus. Dictated by: Dictated on workstation # [id number]
--- NOTE | 2022-02-19 15:27 | Progress Note - Cardiology ---
Cardiology SOAP Progress Note Subjective: Poorly communicative Feels unwell but does not specify Does not report cp or palp or syncope or shortness of breath at rest Does not report n/v Has gen weakness and malaise Does not report fever/chills Objective: I&O/Vital Signs 02/19/22 02/19/22 02/19/22 02/19/22 04:00 04:16 05:00 06:00 Pulse 100 106 103 Resp 23 17 9 B/P (MAP) 96/67 (77) 88/68 (75) 97/64 (75) Pulse Ox 91 O2 Delivery Nasal Cannula Nasal Cannula Nasal Cannula Nasal Cannula O2 Flow Rate 3.00 3.00 3.00 3.00 02/19/22 02/19/22 02/19/22 02/19/22 07:00 07:32 07:39 08:00 Temp 37.0 Pulse 111 103 101 Resp 13 16 B/P (MAP) 99/68 (78) 96/67 (77) Pulse Ox 92 99 O2 Delivery Nasal Cannula Nasal Cannula O2 Flow Rate 3.00 3.00 02/19/22 02/19/22 02/19/22 02/19/22 08:27 09:00 10:00 11:00 Pulse 105 104 104 Resp 46 18 23 B/P (MAP) 94/49 (64) 88/50 (63) 96/61 (73) Pulse Ox 93 100 94 O2 Delivery Nasal Cannula Nasal Cannula Nasal Cannula Nasal Cannula O2 Flow Rate 1.00 3.00 3.00 3.00 02/19/22 02/19/22 02/19/22 02/19/22 11:56 12:00 12:00 13:00 Temp 37.3 Pulse 96 96 Resp 23 14 B/P (MAP) 94/64 (74) 96/60 (72) Pulse Ox 99 99 O2 Delivery Nasal Cannula Nasal Cannula Nasal Cannula O2 Flow Rate 1.00 3.00 3.00 02/19/22 13:13 Pulse 98 02/19/22 00:00 Intake Total 280 ml Output Total 1100 ml Balance -820 ml Weight (Pounds): 150 Weight (Ounces): 4.0 Weight (Calculated Kilograms): [id number] Constitutional: AAO x 3, well-developed, well-nourished, other (poorly communicative, orientation difficult to assess) Respiratory: No accessory muscle use, No respiratory distress, No chest expansion is symmetric, No chest is bilaterally symmetric; other (diminished lower lobes bilat) Cardiovascular: irregularly irregular; No JVD; S1 and S2, systolic murmur Gastrointestional: No tender; soft; No guarding; audible bowel sounds Extremities: other (Bilat LE edema - improved from yesterday) Neurologic/Psychiatric: other (moves all limbs equally) Skin: No rash on exposed areas, No ulcerations on exposed areas Results/Procedures: Labs Laboratory Tests 02/18/22 15:44: Blood Gas Puncture Site L BRACH, Blood Gas Patient Temperature 35.4, Arterial Blood pH 7.47H, Arterial Blood Partial Pressure CO2 37, Arterial Blood Partial Pressure O2 83, Arterial Blood HCO3 27, Arterial Blood Total CO2 28.4, Arterial Blood Oxygen Saturation 98, Arterial Blood Base Excess 3.3H, Sandor Test YES-POS, Blood Gas Ventilator Setting NO, Blood Gas Inspired Oxygen ROOM AIR 02/18/22 17:30: Lactic Acid Level 2.23*H 02/18/22 19:27: Lactic Acid Level 2.97*H 02/18/22 20:57: Glucometer 172H 02/18/22 21:25: Lactic Acid Level 2.69*H 02/19/22 03:40: White Blood Count 6.1, Red Blood Count 3.45L, Hemoglobin 10.5L, Hematocrit 33L, Mean Corpuscular Volume 96, Mean Corpuscular Hemoglobin 30, Mean Corpuscular Hemoglobin Concent 32, Red Cell Distribution Width 16.9H, Platelet Count 67L, Mean Platelet Volume 13.8H, Immature Granulocyte % (Auto) 0, Neutrophils (%) (Auto) 73, Lymphocytes (%) (Auto) 16, Monocytes (%) (Auto) 10, Eosinophils (%) (Auto) 1, Basophils (%) (Auto) 1, Neutrophils # (Auto) 4.5, Lymphocytes # (Auto) 1.0, Monocytes # (Auto) 0.6, Eosinophils # (Auto) 0.1, Basophils # (Auto) 0.0, Immature Granulocyte # (Auto) 0.0, Percent Immature Platelet Fraction 13.1H, Sodium Level 136, Potassium Level 3.5L, Chloride Level 99, Carbon Dioxide Level 25, Anion Gap 12, Blood Urea Nitrogen 40H, Creatinine 2.32H, Estimat Glomerular Filtration Rate 27, BUN/Creatinine Ratio 17, Glucose Level 176H, Calcium Level 8.9, Corrected Calcium 9.8, Phosphorus Level 4.0, Magnesium Level 2.0, Total Bilirubin 2.7H, Aspartate Amino Transf (AST/SGOT) 184H, Alanine Aminotransferase (ALT/SGPT) 115H, Alkaline Phosphatase 150H, Total Protein 6.1L, Albumin 2.9L, Smear Scan YES 02/19/22 10:26: Glucometer 278H Laboratory Tests 02/18/22 11:55 02/19/22 03:40 A/P: Assessment: Acute on Chronic systolic CHF due to dilated cardiomyopathy - intolerant to LELAND-inhib/ARB due to hyperkalemia and low bp on these agents - Echo of 07/04/20: LVEF 45-50%, enlargement of both atria and RV, bioprosthetic AoV with mild to mod and AI, mod MR - Echocardiogram of 06-09-[address] Frazier showed LVEF 30-35%. Severe diffuse hypokinesis. Mod MR. Porcine bioprosthetic nikolas with mod stenosis and trivial regurg Dilated cardiomyopathy - MPI of 07/04/20 shows basal inferior infarction with minimal disha-infarct ischemia; LVEF 48% - Cardiac cath of 06-09-[address] Frazier showed: Mild coronary artery disease nonobstructive disease Colon mass - per pt report - managed by Dr. Valenzuela - pt reports he does not wish to pursue tx Acute on chronic renal insufficiency - renal insufficiency in July 2020, etiology undetermined - Entresto stopped because of hyperkalemia at that time and (treated with Kayexelate) Thrombocytopenia - management per Medical services Elevated liver enzymes - possibly in some part d/t hepatobiliary congestion H/O Hematuria and elevated PSA, managed by Dr Dave - Due to hematuria, Dr Orozco has advised against OAC. Also, pt himself refuses to taken any anticoag - H/o [place]URP [place] [address] Dave Atrial fibrillation,chronic - rate controlled - refuses OAC H/O AoV replacement - bioprosthetic cardiac valve (porcine per pt report) by Dr Matson at [place], [place], several years ago. 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
[2022-02-20 04:54] LABS: BASOPHILS % (AUTO) 0 % (0-10); EOSINOPHILS % (AUTO) 0 % (0-10); HEMATOCRIT 35 % (40-54); HEMOGLOBIN 10.8 g/dL (13.3-17.7); LYMPHOCYTES # (AUTO) 0.9 10^3/uL (1.0-4.0); LYMPHOCYTES % (AUTO) 12 % (12-44); MEAN CORPUSCULAR HEMOGLOBIN 30 pg (25-34); MEAN CORPUSCULAR HGB CONC 31 g/dL (32-36); MEAN CORPUSCULAR VOLUME 98 fL (80-99); MEAN PLATELET VOLUME 14.3 fL (9.0-12.2); MONOCYTES # (AUTO) 0.8 10^3/uL (0.0-1.0); MONOCYTES % (AUTO) 11 % (0-12); NEUTROPHILS % (AUTO) 76 % (42-75); PLATELET COUNT 75 10^3/uL (130-400); WHITE BLOOD COUNT 7.9 10^3/uL (4.3-11.0)
[2022-02-20 05:21] LABS: ALBUMIN 2.9 GM/DL (3.2-4.5); BILIRUBIN,TOTAL 2.4 MG/DL (0.1-1.0); CALCIUM 8.9 MG/DL (8.5-10.1); CREATININE SERUM 2.51 MG/DL (0.60-1.30); MAGNESIUM 1.9 MG/DL (1.6-2.4); PHOSPHORUS 4.5 MG/DL (2.3-4.7); POTASSIUM 4.4 MMOL/L (3.6-5.0); TOTAL PROTEIN 6.3 GM/DL (6.4-8.2)
[2022-02-20] MEDS: MAGNESIUM 1 GM/100 ML IVPB 100 ML IV SCH (05:29)
[2022-02-20] MEDS: inSUlin ASPART (NovoLOG) 1 UNIT/0.01 ML (CHARGE PER UNIT) SC SCH ×2 (05:29→11:30)
[2022-02-20] MEDS: POTASSIUM CL 10MEQ/50ML IVPB 50 ML IV SCH (05:29)
[2022-02-20] MEDS: KCL 20 MEQ TAB (K-DUR) PO SCH (05:29)
[2022-02-20] MEDS: SENNOSIDES 8.6 MG (SENOKOT) TAB PO SCH (08:14)
[2022-02-20] MEDS: DOCUSATE SODIUM 100 MG (COLACE) CAP PO SCH (08:14)
[2022-02-20] MEDS: APIXABAN 2.5 MG (ELIQUIS) TABLET PO SCH (08:14)
--- NOTE | 2022-02-20 09:00 | Progress Note - Surgery ---
[facility] 02/20/22 0900: Subjective Date Seen by a Provider: Feb 20, 2022 Time Seen by a Provider: 05:50 Subjective/Events-last exam Pt is sleeping in bed. Pt seems groggy this morning and states that he does not feel well today. When asked what doesn't feel well, he just keeps repeating I don't know. Pt is visibly icteric on face and hands and lips have slight blue tinge. Per nurse, pt's demeanor seems changed from yesterday, stating that he looks more ill today and quiet. Nurse states that pt continues to eat as normal, though his normal is just a glucerna shake at mealtime. Nurse also notes decreased urine output of 50mls over 4 hours. Pt is unable denies nausea, vomiting, chills, ALAMO, lightheadedness, and CP. Review of Systems General: No Chills, No Appetite HEENT: No Head Aches, No Ear Pain Pulmonary: Dyspnea (unchanged); No Cough Cardiovascular: No: Chest Pain, Lt Headedness Gastrointestinal: No: Nausea, Vomiting Genitourinary: No Dysuria, No Hematuria Musculoskeletal: No: neck pain, shoulder pain Neurological: No: Weakness, Numbness Focused Exam Lactate Level 02/18/22 17:30: Lactic Acid Level 2.23*H 02/18/22 19:27: Lactic Acid Level 2.97*H 02/18/22 21:25: Lactic Acid Level 2.69*H Objective Exam Vital Signs Date Time Temp Pulse Resp B/P (MAP) Pulse Ox O2 Delivery O2 Flow Rate FiO2 02/20/22 08:16 OxyMask 2.00 02/20/22 07:34 36.0 02/20/22 07:31 83 02/20/22 06:00 95 16 98/78 (85) 99 OxyMask 2.00 02/20/22 05:00 93 16 102/72 (82) 100 OxyMask 2.00 02/20/22 04:05 OxyMask 2.00 02/20/22 04:00 101 16 90/66 (74) 100 OxyMask 2.00 02/20/22 03:34 36.4 02/20/22 03:00 89 23 89/67 (74) 85 OxyMask 2.00 02/20/22 02:00 91 17 83/58 (66) 100 OxyMask 2.00 02/20/22 01:00 90 02/20/22 01:00 96 17 91/71 (78) 100 OxyMask 2.00 02/20/22 00:51 OxyMask 2.00 02/20/22 00:46 OxyMask 2.00 02/20/22 00:00 88 16 87/52 (64) 92 OxyMask 2.00 02/19/22 23:58 36.8 02/19/22 23:00 85 16 96/62 (73) 92 OxyMask 2.00 02/19/22 22:00 105 16 93/68 (76) 100 OxyMask 2.00 02/19/22 22:00 OxyMask 2.00 02/19/22 21:11 OxyMask 4.00 02/19/22 21:00 95 17 97/69 (78) 90 Nasal Cannula 2.00 02/19/22 20:09 36.5 02/19/22 20:07 Nasal Cannula 2.00 02/19/22 20:00 102 15 108/62 (77) 99 Nasal Cannula 2.00 02/19/22 19:00 107 14 97/68 (78) 100 Nasal Cannula 2.00 02/19/22 19:00 Nasal Cannula 2.00 02/19/22 19:00 114 02/19/22 18:00 100 17 98/61 (73) 100 Nasal Cannula 3.00 02/19/22 17:00 97 21 99/65 (76) 90 Nasal Cannula 3.00 02/19/22 16:27 Nasal Cannula 1.00 02/19/22 16:00 36.5 02/19/22 16:00 91 25 91/68 (76) 91 Nasal Cannula 3.00 02/19/22 15:00 101 20 106/90 (95) 100 Nasal Cannula 3.00 02/19/22 14:00 86 18 95/62 (73) 94 Nasal Cannula 3.00 02/19/22 13:13 98 02/19/22 13:00 96 14 96/60 (72) 99 Nasal Cannula 3.00 02/19/22 12:00 96 23 94/64 (74) 99 Nasal Cannula 3.00 02/19/22 12:00 Nasal Cannula 1.00 02/19/22 11:56 37.3 02/19/22 11:00 104 23 96/61 (73) 94 Nasal Cannula 3.00 02/19/22 10:00 104 18 88/50 (63) 100 Nasal Cannula 3.00 02/19/22 09:00 105 46 94/49 (64) 93 Nasal Cannula 3.00 I & O 02/20/22 07:00 Intake Total 2755 ml Output Total 575 ml Balance 2180 ml Capillary Refill : Greater Than 3 Seconds General Appearance: No Apparent Distress, Chronically ill, Thin HEENT: PERRL/EOMI Respiratory: No Accessory Muscle Use, No Respiratory Distress, Crackles (B/l diffuse), Decreased Breath Sounds (diminished breath sounds in b/l bases) Cardiovascular: Irregularly Irregular, Other (distant heart sounds) Gastrointestinal: normal bowel sounds, distended (slight distention), tenderness (RUQ ) Extremity: No Calf Tenderness, Pedal Edema (3+ pitting b/l ) Neurologic/Psychiatric: Alert, Depressed Affect Skin: Warm/Dry, Cyanosis (slight blue hue to lips), Jaundice, Rash (B/L LLE above foot, improved, may have been purpura) Results Lab Laboratory Tests 02/19/22 10:26: Glucometer 278H 02/19/22 15:35: Glucometer 176H 02/19/22 19:57: Glucometer 117H 02/20/22 04:24: White Blood Count 7.9, Red Blood Count 3.57L, Hemoglobin 10.8L, Hematocrit 35L, Mean Corpuscular Volume 98, Mean Corpuscular Hemoglobin 30, Mean Corpuscular Hemoglobin Concent 31L, Red Cell Distribution Width 16.7H, Platelet Count 75L, Mean Platelet Volume 14.3H, Immature Granulocyte % (Auto) 0, Neutrophils (%) (Auto) 76H, Lymphocytes (%) (Auto) 12, Monocytes (%) (Auto) 11, Eosinophils (%) (Auto) 0, Basophils (%) (Auto) 0, Neutrophils # (Auto) 6.0, Lymphocytes # (Auto) 0.9L, Monocytes # (Auto) 0.8, Eosinophils # (Auto) 0.0, Basophils # (Auto) 0.0, Immature Granulocyte # (Auto) 0.0, Sodium Level 135, Potassium Level 4.4, Chloride Level 101, Carbon Dioxide Level 19L, Anion Gap 15H, Blood Urea Nitrogen 46H, Creatinine 2.51H, Estimat Glomerular Filtration Rate 24, BUN/Creatinine Ratio 18, Glucose Level 109H, Calcium Level 8.9, Corrected Calcium 9.8, Phosphorus Level 4.5, Magnesium Level 1.9, Total Bilirubin 2.4H, Aspartate Amino Transf (AST/SGOT) 432H, Alanine Aminotransferase (ALT/SGPT) 238H, Alkaline Phosphatase 214H, Total Protein 6.3L, Albumin 2.9L 02/20/22 05:42: Glucometer 105 Microbiology 02/18/22 MRSA Screen - Final, Complete MRSA not isolated Assessment/Plan Assessment/Plan Assessment/Plan 1. Multiple Large Colon polyps 2. Acute on Chronic CHF 3. Small R pleural effusion 4. Chronic Renal Insufficiency Pt is resting in bed, seems visibly more ill today. Skin is slightly icteric. Liver enzymes are elevated today and pt has some RUQ tenderness. Most likely due liver response to fluid overload secondary to CHF. Can also consider imaging to further evaluate for possible gallbladder disease. Breathing seems worse today but pleural effusion looks stable on repeat CXR but will wait for radiologist read. No surgical intervention indicated at this time. CHENG NICHOLS DO 02/20/22 1502: Subjective Time Seen by a Provider: 11:51 Subjective/Events-last exam Pt seen and examined, he looks sicker than yesterday with less strength. Review of Systems General: No Chills; Fatigue, Malaise Pulmonary: Dyspnea (unchanged); No Cough Cardiovascular: No: Chest Pain Gastrointestinal: No: Nausea, Vomiting Objective Exam General Appearance: No Apparent Distress, Chronically ill, Thin HEENT: PERRL/EOMI Respiratory: No Accessory Muscle Use, No Respiratory Distress, Crackles (B/l diffuse), Decreased Breath Sounds (diminished breath sounds in b/l bases) Cardiovascular: Irregularly Irregular, Other (distant heart sounds) Gastrointestinal: soft, distended (slight distention), tenderness (RUQ ) Extremity: Pedal Edema (3+ pitting b/l ) Assessment/Plan Assessment/Plan Assessment/Plan 1. Multiple Large Colon polyps 2. Acute on Chronic CHF 3. Small R pleural effusion 4. Acute on Chronic Renal Insufficiency 5. Elevated Liver function - per lab Pt is resting in bed, seems visibly more ill today. Skin is slightly icteric. Liver enzymes are elevated today and pt has some RUQ tenderness. Most likely due liver response to fluid overload secondary to CHF. Breathing seems worse today but pleural effusion looks stable on repeat CXR but will wait for radiologist read. Pt may have hepato-renal syndrome, nothing surgical at this time. I will sign off and reconsult if needed. Supervisory-Addendum Brief Verification & Attestation Participated in pt care: history, MDM, physical Personally performed: exam, history, MDM, supervision of care Care discussed with: Medical Student Procedures: n/a Verification and Attestation of Medical Student E/M Service A medical student performed and documented this service. I then reviewed and verified all information documented by the medical student and made modifications to such information, when appropriate. I personally performed a physical exam, medical decision making and then discussed any differences between the notes and made revisions as necessary to create one note. Cheng Nichols , 02/20/22 , 15:02 MALINI BUSTILLO Feb 20, 2022 09:00 CHENG NICHOLS DO Feb 20, 2022 15:02
--- NOTE | 2022-02-20 09:17 | Progress Note - Cardiology ---
Cardiology SOAP Progress Note Subjective: Sitting in bed Tearful this morning No c/o CP C/O legs feeling cold C/O SOB Objective: I&O/Vital Signs 02/19/22 02/19/22 02/19/22 02/19/22 22:00 22:00 23:00 23:58 Temp 36.8 Pulse 105 85 Resp 16 16 B/P (MAP) 93/68 (76) 96/62 (73) Pulse Ox 100 92 O2 Delivery OxyMask OxyMask OxyMask O2 Flow Rate 2.00 2.00 2.00 02/20/22 02/20/22 02/20/22 02/20/22 00:00 00:46 00:51 01:00 Pulse 88 96 Resp 16 17 B/P (MAP) 87/52 (64) 91/71 (78) Pulse Ox 92 100 O2 Delivery OxyMask OxyMask OxyMask OxyMask O2 Flow Rate 2.00 2.00 2.00 2.00 02/20/22 02/20/22 02/20/22 02/20/22 01:00 02:00 03:00 03:34 Temp 36.4 Pulse 90 91 89 Resp 17 23 B/P (MAP) 83/58 (66) 89/67 (74) Pulse Ox 100 85 O2 Delivery OxyMask OxyMask O2 Flow Rate 2.00 2.00 02/20/22 02/20/22 02/20/22 02/20/22 04:00 04:05 05:00 06:00 Pulse 101 93 95 Resp 16 16 16 B/P (MAP) 90/66 (74) 102/72 (82) 98/78 (85) Pulse Ox 100 100 99 O2 Delivery OxyMask OxyMask OxyMask OxyMask O2 Flow Rate 2.00 2.00 2.00 2.00 02/20/22 02/20/22 02/20/22 02/20/22 07:00 07:31 07:34 08:00 Temp 36.0 Pulse 97 83 92 Resp 16 14 B/P (MAP) 93/65 (74) 87/63 (71) Pulse Ox 98 100 O2 Delivery OxyMask OxyMask O2 Flow Rate 2.00 2.00 02/20/22 02/20/22 08:16 09:00 Pulse 89 Resp 19 B/P (MAP) 87/70 (76) O2 Delivery OxyMask OxyMask O2 Flow Rate 2.00 2.00 02/19/22 23:59 Intake Total 2170 ml Output Total 325 ml Balance 1845 ml Weight (Pounds): 150 Weight (Ounces): 4.0 Weight (Calculated Kilograms): 68.552466 Constitutional: AAO x 3, well-developed, well-nourished, other (poorly communicative, orientation difficult to assess) Respiratory: No accessory muscle use, No respiratory distress, No chest expansion is symmetric, No chest is bilaterally symmetric; other (diminished lower lobes bilat) Cardiovascular: irregularly irregular; No JVD; S1 and S2, systolic murmur Gastrointestional: No tender; soft; No guarding; audible bowel sounds Extremities: other (Bilat LE swelling, pitting) Neurologic/Psychiatric: other (moves all limbs equally) Skin: jaundice; No rash on exposed areas, No ulcerations on exposed areas Results/Procedures: Labs Laboratory Tests 02/19/22 10:26: Glucometer 278H 02/19/22 15:35: Glucometer 176H 02/19/22 19:57: Glucometer 117H 02/20/22 04:24: White Blood Count 7.9, Red Blood Count 3.57L, Hemoglobin 10.8L, Hematocrit 35L, Mean Corpuscular Volume 98, Mean Corpuscular Hemoglobin 30, Mean Corpuscular Hemoglobin Concent 31L, Red Cell Distribution Width 16.7H, Platelet Count 75L, Mean Platelet Volume 14.3H, Immature Granulocyte % (Auto) 0, Neutrophils (%) (Auto) 76H, Lymphocytes (%) (Auto) 12, Monocytes (%) (Auto) 11, Eosinophils (%) (Auto) 0, Basophils (%) (Auto) 0, Neutrophils # (Auto) 6.0, Lymphocytes # (Auto) 0.9L, Monocytes # (Auto) 0.8, Eosinophils # (Auto) 0.0, Basophils # (Auto) 0.0, Immature Granulocyte # (Auto) 0.0, Sodium Level 135, Potassium Level 4.4, Chloride Level 101, Carbon Dioxide Level 19L, Anion Gap 15H, Blood Urea Nitrogen 46H, Creatinine 2.51H, Estimat Glomerular Filtration Rate 24, BUN/Creatinine Ratio 18, Glucose Level 109H, Calcium Level 8.9, Corrected Calcium 9.8, Phosphorus Level 4.5, Magnesium Level 1.9, Total Bilirubin 2.4H, Aspartate Amino Transf (AST/SGOT) 432H, Alanine Aminotransferase (ALT/SGPT) 238H, Alkaline Phosphatase 214H, Total Protein 6.3L, Albumin 2.9L 02/20/22 05:42: Glucometer 105 Microbiology 02/18/22 MRSA Screen - Final, Complete MRSA not isolated A/P: Assessment: Acute on Chronic systolic CHF due to dilated cardiomyopathy - intolerant to LELAND-inhib/ARB due to hyperkalemia and low bp on these agents - Echo of 07/04/20: LVEF 45-50%, enlargement of both atria and RV, bioprosthetic AoV with mild to mod and AI, mod MR - Echocardiogram of 06-09-[address] Frazier showed LVEF 30-35%. Severe diffuse hypokinesis. Mod MR. Porcine bioprosthetic nikolas with mod stenosis and trivial regurg Dilated cardiomyopathy - MPI of 07/04/20 shows basal inferior infarction with minimal disha-infarct ischemia; LVEF 48% - Cardiac cath of 06-09-[address] Frazier showed: Mild coronary artery disease nonobstructive disease Colon mass - per pt report - managed by Dr. Valenzuela - pt reports he does not wish to pursue tx Acute on chronic renal insufficiency - renal insufficiency in July 2020, etiology undetermined - Entresto stopped because of hyperkalemia at that time and (treated with Kayexelate) Thrombocytopenia - management per Medical services Worsening elevated liver enzymes - possibly in some part d/t hepatobiliary congestion H/O Hematuria and elevated PSA, managed by Dr Dave - Due to hematuria, Dr Orozco has advised against OAC. Also, pt himself refuses to taken any anticoag - H/o [place]URP [place] [address] 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 Plan: Complex management Progressive decline with multi-system involvement including ac on chronic systo lic CHF with has been resistant to treatment. Worsening renal and hepatic failure Start Dobutaime gtt Decreased urine out put over the last 24 hrs despite IVF and diuretics Worsening liver enzymes with jaundice Worsening thrombocytopenia Monitor labs Replenish lytes nursing home prognosis guarded due to multiple concurrently-running morbidities Palliative consult per conversation with Dr. Orozco this morning ROLANDO PAGE Feb 20, 2022 09:17
--- NOTE | 2022-02-20 09:31 | Diagnostic Imaging Report ---
INDICATION: Hypoxia Frontal chest obtained at 0531 a.m. COMPARISON: 02/19/2022 There is post sternotomy change and cardiomegaly. There is central vascular congestion. There is no change in right pleural effusion. IMPRESSION: Cardiomegaly. No change in central vascular congestion and stable right pleural effusion. Dictated by: Dictated on workstation # [id number]
[2022-02-20] MEDS: NS IV 1000 ML 1,000 ML IV SCH (09:41)
[2022-02-20] MEDS: meTOprolol TARTRATE 25 MG (LOPRESSOR) TABLET PO SCH (09:42)
[2022-02-20] MEDS ORDERED: DOBUTamine DRIP 250 ML IV SCH (09:45)
[2022-02-20] MEDS: FUROSEMIDE 40 MG/4 ML INJ (LASIX) IVP SCH (09:46)
--- NOTE | 2022-02-20 10:19 | Tele-ICU Progress Note ---
Subjective Date Seen by a Provider: Feb 20, 2022 Time Seen by a Provider: 10:19 Subjective/Events-last exam (Tele-ICU Physician , Progress Note ) Service provided via interactive audio and video telecommunications E-CARE system to a patient admitted to ICU bed in [facility]. Available chart/ vitals / labs / Images reviewed Video assessment done using teleICU camera, rest of exam as per RN Discussed with RN Events overnight : Afebrile hemodynamically stable Respiratory - 2L I/O = pos 2 L Drips: Pressors- no Consultants: thong Hospital course: (02/18) 86yM admitted from the ED with increasing shortness of breath despite increasee in home lasix dose. Acute on chronic CHF. 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 pressors + lasix as per cards COPD - CPM Right sided effusion - seems chronic by shape - ? etiology to be establish. no need for thora Bilat LE edema - most likely VO and low albumin , US neg for DVT Elevated LFT - suspected venous conjestion with CHF Lines : , (Central Line Necessity Reviewed) Romero: 02/18 OG: Nutrition: po Analgesia: Anxiety/ delirium VTE Prophylaxis: Eliquis Stress Ulcer Prophylaxis: Plans in collaboration with bedside consultants and IM MDs. Discussed with RN to reach out if any questions or concerns A total of 31 minutes of critical care time was devoted to this patient today, required to treat and/or prevent further deterioration of critical care condition ( as above ) . I am remotely monitoring this patient from another state. I am unable to do the bedside exam, and history/physical and pertinent information is taken from other notes in the computer and bedside staff. Sepsis Event Evaluation Height, Weight, BMI Height: 5'11.00" Weight: 150lbs. 4.0oz. 68.914136dt; 24.23 BMI Method:Stated Focused Exam Lactate Level 02/18/22 17:30: Lactic Acid Level 2.23*H 02/18/22 19:27: Lactic Acid Level 2.97*H 02/18/22 21:25: Lactic Acid Level 2.69*H Exam Exam Patient acknowledged, consented, and participated in this virtual visit which was conducted using real time audio/video Vital Signs Date Time Temp Pulse Resp B/P (MAP) Pulse Ox O2 Delivery O2 Flow Rate FiO2 02/20/22 09:00 89 19 87/70 (76) OxyMask 2.00 02/20/22 08:16 OxyMask 2.00 02/20/22 08:00 92 14 87/63 (71) 100 OxyMask 2.00 02/20/22 07:34 36.0 02/20/22 07:31 83 02/20/22 07:00 97 16 93/65 (74) 98 OxyMask 2.00 02/20/22 06:00 95 16 98/78 (85) 99 OxyMask 2.00 02/20/22 05:00 93 16 102/72 (82) 100 OxyMask 2.00 02/20/22 04:05 OxyMask 2.00 02/20/22 04:00 101 16 90/66 (74) 100 OxyMask 2.00 02/20/22 03:34 36.4 02/20/22 03:00 89 23 89/67 (74) 85 OxyMask 2.00 02/20/22 02:00 91 17 83/58 (66) 100 OxyMask 2.00 02/20/22 01:00 90 02/20/22 01:00 96 17 91/71 (78) 100 OxyMask 2.00 02/20/22 00:51 OxyMask 2.00 02/20/22 00:46 OxyMask 2.00 02/20/22 00:00 88 16 87/52 (64) 92 OxyMask 2.00 02/19/22 23:58 36.8 02/19/22 23:00 85 16 96/62 (73) 92 OxyMask 2.00 02/19/22 22:00 105 16 93/68 (76) 100 OxyMask 2.00 02/19/22 22:00 OxyMask 2.00 02/19/22 21:11 OxyMask 4.00 02/19/22 21:00 95 17 97/69 (78) 90 Nasal Cannula 2.00 02/19/22 20:09 36.5 02/19/22 20:07 Nasal Cannula 2.00 02/19/22 20:00 102 15 108/62 (77) 99 Nasal Cannula 2.00 02/19/22 19:00 107 14 97/68 (78) 100 Nasal Cannula 2.00 02/19/22 19:00 Nasal Cannula 2.00 02/19/22 19:00 114 02/19/22 18:00 100 17 98/61 (73) 100 Nasal Cannula 3.00 02/19/22 17:00 97 21 99/65 (76) 90 Nasal Cannula 3.00 02/19/22 16:27 Nasal Cannula 1.00 02/19/22 16:00 36.5 02/19/22 16:00 91 25 91/68 (76) 91 Nasal Cannula 3.00 02/19/22 15:00 101 20 106/90 (95) 100 Nasal Cannula 3.00 02/19/22 14:00 86 18 95/62 (73) 94 Nasal Cannula 3.00 02/19/22 13:13 98 02/19/22 13:00 96 14 96/60 (72) 99 Nasal Cannula 3.00 02/19/22 12:00 96 23 94/64 (74) 99 Nasal Cannula 3.00 02/19/22 12:00 Nasal Cannula 1.00 02/19/22 11:56 37.3 02/19/22 11:00 104 23 96/61 (73) 94 Nasal Cannula 3.00 I & O 02/20/22 07:00 Intake Total 2755 ml Output Total 575 ml Balance 2180 ml Height & Weight Height: 5'11.00" Weight: 150lbs. 4.0oz. 68.244891ck; 24.23 BMI Method:Stated General Appearance: No Apparent Distress, Chronically ill, Thin HEENT: PERRL/EOMI Respiratory: No Accessory Muscle Use, No Respiratory Distress, Crackles (B/l diffuse), Decreased Breath Sounds (diminished breath sounds in b/l bases) Cardiovascular: Irregularly Irregular, Other (distant heart sounds) Capillary Refill: Greater Than 3 Seconds Gastrointestinal: normal bowel sounds, distended (slight distention), tenderness (RUQ ) Extremity: No Calf Tenderness, Pedal Edema (3+ pitting b/l ) Neurologic/Psychiatric: Alert, Depressed Affect Skin: Warm/Dry, Cyanosis (slight blue hue to lips), Jaundice, Rash (B/L LLE above foot, improved, may have been purpura) Results Lab Laboratory Tests 02/18/22 11:55 02/19/22 03:40 02/20/22 04:24 Assessment/Plan Assessment/Plan 1 BING PUTNAM MD Feb 20, 2022 10:19
--- NOTE | 2022-02-20 11:05 | Progress Note ---
TAYLASHANICE 02/20/22 1105: Subjective Date Seen by a Provider: Feb 20, 2022 Time Seen by a Provider: 08:30 Subjective/Events-last exam This is an 86yoWM clinic patient of Dr. Matta who presented to the ER on 02/18 with lower extremity edema and increased dyspnea c/w CHF. He has a long hx of AF and is on OAC. Dr Chen recommended Lasix 80mg IVP x 1 and initiate gentle IVF of NS at 50cc/hr and ICU admit in case dobutamine and pressors were needed. He was placed on low dose dopamine to optimize BP but HR elevated with PVCs so dopamine was stopped. He has become very debilitated and thin. Dr Valenzuela [place] [facility] [place] revealed a large polyp and pathology showed tubular adenoma with severe dysplasia. Patient is not a good surgical candidate but has spoken to Dr Valenzuela about options. He continues to have SOB throughout his stay that is now worsening. He has not had a BM since entering hospital but is passing gas. He has a shanks catheter draining urine. Chest x-ray showed right-sided pleural effusion and cardiomegaly. LE U/S 02/19 was negative for DVT and showed subcutaneous edema bilaterally. His BUN and creatinine are trending up. BNP was 3501 on admission. Liver enzymes are also elevated. Patient is feeling worse today and is very tired as well as SOB. His code status has been updated to DNR. Dr. Chen started him on dobutamine today. Review of Systems General: No Chills; Fatigue, Malaise Pulmonary: Dyspnea, Cough Cardiovascular: Edema; No: Chest Pain Gastrointestinal: Other (passing flatus); No: Abdominal Pain Focused Exam Lactate Level 02/18/22 17:30: Lactic Acid Level 2.23*H 02/18/22 19:27: Lactic Acid Level 2.97*H 02/18/22 21:25: Lactic Acid Level 2.69*H Objective Exam Last Set of Vital Signs Vital Signs Date Time Temp Pulse Resp B/P (MAP) Pulse Ox O2 Delivery O2 Flow Rate FiO2 02/20/22 10:38 94 89/68 02/20/22 09:00 19 OxyMask 2.00 02/20/22 08:00 100 02/20/22 07:34 36.0 02/18/22 17:12 21 Capillary Refill : Greater Than 3 Seconds I&O Intake and Output 02/20/22 00:00 Intake Total 3080 ml Output Total 1050 ml Balance 2030 ml Intake Oral 2230 ml IV Total 850 ml Output Urine Total 1050 ml # Bowel Movements 1 General: Alert, Oriented X3, Mild Distress HEENT: Atraumatic, PERRLA, EOMI, Mucous Memb Moist/[place] Neck: Supple Lungs: Normal Air Movement, Other (diffuse crackles bilaterally, diminished breath sounds at lung bases) Heart: Normal S1, Normal S2, Other (irregularly irregular, tachycardia) Abdomen: Normal Bowel Sounds, Soft, No Tenderness Extremities: Other (b/l LE swelling) Skin: No Significant Lesion Psych/Mental Status: Mental Status NL, Other (depressed affect) Results Lab Laboratory Tests 02/19/22 15:35: Glucometer 176H 02/19/22 19:57: Glucometer 117H 02/20/22 04:24: White Blood Count 7.9, Red Blood Count 3.57L, Hemoglobin 10.8L, Hematocrit 35L, Mean Corpuscular Volume 98, Mean Corpuscular Hemoglobin 30, Mean Corpuscular Hemoglobin Concent 31L, Red Cell Distribution Width 16.7H, Platelet Count 75L, Mean Platelet Volume 14.3H, Immature Granulocyte % (Auto) 0, Neutrophils (%) (Auto) 76H, Lymphocytes (%) (Auto) 12, Monocytes (%) (Auto) 11, Eosinophils (%) (Auto) 0, Basophils (%) (Auto) 0, Neutrophils # (Auto) 6.0, Lymphocytes # (Auto) 0.9L, Monocytes # (Auto) 0.8, Eosinophils # (Auto) 0.0, Basophils # (Auto) 0.0, Immature Granulocyte # (Auto) 0.0, Sodium Level 135, Potassium Level 4.4, Chloride Level 101, Carbon Dioxide Level 19L, Anion Gap 15H, Blood Urea Nitrogen 46H, Creatinine 2.51H, Estimat Glomerular Filtration Rate 24, BUN/Creatinine Ratio 18, Glucose Level 109H, Calcium Level 8.9, Corrected Calcium 9.8, Phosphorus Level 4.5, Magnesium Level 1.9, Total Bilirubin 2.4H, Aspartate Amino Transf (AST/SGOT) 432H, Alanine Aminotransferase (ALT/SGPT) 238H, Alkaline Phosphatase 214H, Total Protein 6.3L, Albumin 2.9L 02/20/22 05:42: Glucometer 105 02/20/22 10:46: Glucometer 78 Microbiology 02/18/22 MRSA Screen - Final, Complete MRSA not isolated 02/18/22 Blood Culture - Preliminary, Resulted No growth Assessment/Plan Assessment/Plan Assess & Plan/Chief Complaint Assessment: Acute respiratory failure Acute volume overload with CHF PAF on OAC 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 DEVYN on CKD COPD h/o PNA Weight loss Plan: Gentle IVF Lasix as tolerated ICU Dr Valenzuela has consulted regarding colon mass DNR obtained and possible hospice Started on Dobutamine per TAYLOR Mack DO 02/21/22 0440: Assessment/Plan Assessment/Plan Assess & Plan/Chief Complaint CC Supervisory-Addendum Brief Verification & Attestation Participated in pt care: history, MDM, physical Personally performed: exam, history, MDM, supervision of care Care discussed with: Medical Student Procedures: n/a Results interpretation: Verified all documentation Verification and Attestation of Medical Student E/M Service A medical student performed and documented this service in my presence. I reviewed and verified all information documented by the medical student and made modifications to such information, when appropriate. I personally performed the physical exam and medical decision making. Taylro Matat, Feb 21, 2022,04:39 SHANICE BOURNE Feb 20, 2022 11:05 TAYLOR MATTA DO Feb 21, 2022 04:40
--- NOTE | 2022-02-20 12:40 | Progress Note - Cardiology ---
Cardiology SOAP Progress Note Subjective: Does not answer questions in any detail Feels unwell, but does not specify it any further Objective: I&O/Vital Signs 02/20/22 02/20/22 02/20/22 02/20/22 00:46 00:51 01:00 01:00 Pulse 96 90 Resp 17 B/P (MAP) 91/71 (78) Pulse Ox 100 O2 Delivery OxyMask OxyMask OxyMask O2 Flow Rate 2.00 2.00 2.00 02/20/22 02/20/22 02/20/22 02/20/22 02:00 03:00 03:34 04:00 Temp 36.4 Pulse 91 89 101 Resp 17 23 16 B/P (MAP) 83/58 (66) 89/67 (74) 90/66 (74) Pulse Ox 100 85 100 O2 Delivery OxyMask OxyMask OxyMask O2 Flow Rate 2.00 2.00 2.00 02/20/22 02/20/22 02/20/22 02/20/22 04:05 05:00 06:00 07:00 Pulse 93 95 97 Resp 16 16 16 B/P (MAP) 102/72 (82) 98/78 (85) 93/65 (74) Pulse Ox 100 99 98 O2 Delivery OxyMask OxyMask OxyMask OxyMask O2 Flow Rate 2.00 2.00 2.00 2.00 02/20/22 02/20/22 02/20/22 02/20/22 07:31 07:34 08:00 08:16 Temp 36.0 Pulse 83 92 Resp 14 B/P (MAP) 87/63 (71) Pulse Ox 100 O2 Delivery OxyMask OxyMask O2 Flow Rate 2.00 2.00 02/20/22 02/20/22 02/20/22 02/20/22 09:00 10:00 10:38 11:00 Pulse 89 83 94 90 Resp 19 20 37 B/P (MAP) 87/70 (76) 89/68 (75) 89/68 83/41 (55) O2 Delivery OxyMask OxyMask OxyMask O2 Flow Rate 2.00 2.00 2.00 02/20/22 02/20/22 02/20/22 11:15 11:30 12:00 Pulse 93 104 89 Resp 19 16 23 B/P (MAP) 106/69 (81) 110/67 (81) 102/87 (92) O2 Delivery OxyMask OxyMask OxyMask O2 Flow Rate 2.00 2.00 2.00 02/20/22 00:00 Intake Total 2170 ml Output Total 325 ml Balance 1845 ml Weight (Pounds): 150 Weight (Ounces): 4.0 Weight (Calculated Kilograms): 68.545123 Constitutional: AAO x 3, well-developed, well-nourished, other (poorly communicative, orientation difficult to assess) Respiratory: No accessory muscle use, No respiratory distress, No chest expansion is symmetric, No chest is bilaterally symmetric; other (diminished lower lobes bilat) Cardiovascular: irregularly irregular; No JVD; S1 and S2, systolic murmur Gastrointestional: No tender; soft; No guarding; audible bowel sounds Extremities: other (Bilat LE swelling, pitting) Neurologic/Psychiatric: other (moves all limbs equally) Skin: jaundice; No rash on exposed areas, No ulcerations on exposed areas Results/Procedures: Labs Laboratory Tests 02/19/22 15:35: Glucometer 176H 02/19/22 19:57: Glucometer 117H 02/20/22 04:24: White Blood Count 7.9, Red Blood Count 3.57L, Hemoglobin 10.8L, Hematocrit 35L, Mean Corpuscular Volume 98, Mean Corpuscular Hemoglobin 30, Mean Corpuscular Hemoglobin Concent 31L, Red Cell Distribution Width 16.7H, Platelet Count 75L, Mean Platelet Volume 14.3H, Immature Granulocyte % (Auto) 0, Neutrophils (%) (Auto) 76H, Lymphocytes (%) (Auto) 12, Monocytes (%) (Auto) 11, Eosinophils (%) (Auto) 0, Basophils (%) (Auto) 0, Neutrophils # (Auto) 6.0, Lymphocytes # (Auto) 0.9L, Monocytes # (Auto) 0.8, Eosinophils # (Auto) 0.0, Basophils # (Auto) 0.0, Immature Granulocyte # (Auto) 0.0, Sodium Level 135, Potassium Level 4.4, Chloride Level 101, Carbon Dioxide Level 19L, Anion Gap 15H, Blood Urea Nitrogen 46H, Creatinine 2.51H, Estimat Glomerular Filtration Rate 24, BUN/Creatinine Ratio 18, Glucose Level 109H, Calcium Level 8.9, Corrected Calcium 9.8, Brayan sphorus Level 4.5, Magnesium Level 1.9, Total Bilirubin 2.4H, Aspartate Amino Transf (AST/SGOT) 432H, Alanine Aminotransferase (ALT/SGPT) 238H, Alkaline Phosphatase 214H, Total Protein 6.3L, Albumin 2.9L 02/20/22 05:42: Glucometer 105 02/20/22 10:46: Glucometer 78 Microbiology 02/18/22 MRSA Screen - Final, Complete MRSA not isolated 02/18/22 Blood Culture - Preliminary, Resulted No growth Laboratory Tests 02/19/22 03:40 02/20/22 04:24 A/P: Assessment: Acute on Chronic systolic CHF due to dilated cardiomyopathy - intolerant to LELAND-inhib/ARB due to hyperkalemia and low bp on these agents - Echo of 07/04/20: LVEF 45-50%, enlargement of both atria and RV, bioprosthetic AoV with mild to mod and AI, mod MR - Echocardiogram of 06-09-[address] Frazier showed LVEF 30-35%. Severe diffuse hypokinesis. Mod MR. Porcine bioprosthetic nikolas with mod stenosis and trivial regurg Dilated cardiomyopathy - MPI of 07/04/20 shows basal inferior infarction with minimal disha-infarct ischemia; LVEF 48% - Cardiac cath of 06-09-[address] Frazier showed: Mild coronary artery disease nonobstructive disease Colon mass - per pt report - managed by Dr. Valenzuela - pt reports he does not wish to pursue tx Acute on chronic renal insufficiency - renal insufficiency in July 2020, etiology undetermined - Entresto stopped because of hyperkalemia at that time and (treated with Kayexelate) - currently in oliguric renal failure (02/20/22) Thrombocytopenia - management per Medical services Worsening elevated liver enzymes and hyperbilirubinemia H/O Hematuria and elevated PSA, managed by Dr Dave - Due to hematuria, Dr Orozco has advised against OAC. Also, pt himself refuses to taken any anticoag - H/[place]UR[place] [address] 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 Orozco this morning CORINA ISAAC MD FACP FACC CCDS Feb 20, 2022 12:40
[2022-02-20] MEDS ORDERED: ACETAMINOPHEN 650 MG SUPP (TYLENOL) PR PRN (18:00)
[2022-02-20] MEDS ORDERED: ONDANSETRON 4 MG/2 ML (SDV) Z0FRAN IVP PRN (18:00)
[2022-02-20] MEDS ORDERED: ARTIFICAL TEARS 0.4 ML UNIT DOSE (REFRESH PLUS) OU PRN (18:00)
[2022-02-20] MEDS ORDERED: RT-ALBUTEROL/IPRATROPIUM 3 ML (DUONEB) VIAL INH PRN (18:00)
[2022-02-20] MEDS ORDERED: GLYCOPYRROLATE 0.2 MG/ML (ROBINUL) 2 ML VIAL IV PRN (18:00)
[2022-02-20] MEDS ORDERED: SCOPOLAMINE 1.5 MG (TRANSDERM-SCOP) PATCH TOP SCH (18:00)
[2022-02-20] MEDS ORDERED: LORazepam 1 MG (ATIVAN) TAB SL PRN (18:00)
[2022-02-20] MEDS ORDERED: LORazepam ORAL CONCENTRATE 2 MG/ML 30 ML (ATIVAN) PO PRN (18:00)
[2022-02-20] MEDS ORDERED: PROMETHAZINE INJ 25 MG/ML (PHENERGAN) AMP IVP PRN (18:00)
[2022-02-20] MEDS ORDERED: LORazepam INJ 2 MG/ML (ATIVAN) VIAL IVP PRN (18:00)
[2022-02-20] MEDS ORDERED: BISACODYL 10 MG SUPP (DULCOLAX) PR PRN (18:00)
[2022-02-20] MEDS ORDERED: ATROPINE 1% OPHTHALMIC SOLN 2 ML SL PRN (18:00)
[2022-02-20] MEDS ORDERED: SALIVA SUBSTITUTE 60 ML SPRAY(MOUTHKOTE) MM PRN (18:00)
[2022-02-20 23:35] VITALS: BP 86/51
[2022-02-20] MEDS: morphine INJ 4 MG/ML 1 ML (VIAL/SYRINGE) IV PRN (23:47)
--- NOTE | 2022-02-21 06:08 | Progress Note ---
Subjective Date Seen by a Provider: Feb 21, 2022 Time Seen by a Provider: 11:00 Subjective/Events-last exam Comatose Appears to be very close to Focused Exam Lactate Level 02/18/22 17:30: Lactic Acid Level 2.23*H 02/18/22 19:27: Lactic Acid Level 2.97*H 02/18/22 21:25: Lactic Acid Level 2.69*H Objective Exam Last Set of Vital Signs Vital Signs Date Time Temp Pulse Resp B/P (MAP) Pulse Ox O2 Delivery O2 Flow Rate FiO2 02/20/22 23:35 36.4 73 16 86/51 (63) 94 Nasal Cannula 2.00 02/18/22 17:12 21 Capillary Refill : Greater Than 3 Seconds I&O Intake and Output 02/21/22 00:00 Intake Total 1395 ml Output Total 625 ml Balance 770 ml Intake Oral 395 ml IV Total 1000 ml Output Urine Total 625 ml # Bowel Movements 1 General: Other (comatose, pale) Results Lab Laboratory Tests 02/20/22 10:46: Glucometer 78 02/20/22 16:23: Glucometer 126H Microbiology 02/18/22 MRSA Screen - Final, Complete MRSA not isolated 02/18/22 Blood Culture - Preliminary, Resulted No growth Assessment/Plan Assessment/Plan Assess & Plan/Chief Complaint CC Diagnosis/Problems Diagnosis/Problems (1) Acute on chronic congestive heart failure Status: Acute (2) H/O malignant neoplasm of colon Status: Acute (3) DEVYN (acute kidney injury) (4) Acute systolic congestive heart failure Status: Acute (5) Atrial fibrillation Status: Acute (6) Diarrhea BEN MATTA DO Feb 21, 2022 06:08
[2022-02-21] MEDS: morphine INJ 4 MG/ML 1 ML (VIAL/SYRINGE) IV PRN ×2 (17:49→20:19)
--- NOTE | 2022-02-22 04:58 | Discharge Summary ---
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 He required dobutamine. Kidney function worsened. Tubular adenoma with severe dysplasia discussed. Cardiology and surgery consulted. Overall his condition worsened and in-depth discussions regarding comfort care discussed he was placed DNR and comfort care and . [id number]05192655802661 [id number]8661813324032 [id number]57173730232188002538166726500820677258609 503338066834328891667591881465834160205202294771 [id number]2694184258142919196087037150302697788318518004665 853383990847877471505314382557835521304853476144 39462289204345172259872605123174878309676071392572380157701727951754809767805732 298107161528520454792070155531877677144091969600 78220408119085478848416653745424774865092820852531910377162519033728705732378840 702536412405657987470446958881692605281374919978 81744337755238576235450817117343540031509625042523341332276748764238956603960532 056635811818136248027558798139598826562540134630 91481304843590719161243509773690318173059030014486668497115053658172236226354916 736472648445671829900259764487307046102760175315 75081408881425005956253148983647523512341083258089467401682485814329440859570716 571815388744178768578367499651107799399871276423 94691672316697514456613672042111534582354561944142020002360373081265030602323541 047992583215183370757927177848066516424783728169 11926200901033320134495755961324292609284613742472756864327398009794640026813878 486778430896722273715396960075661731367235676412 48963844450355473799304216614439279592074048094998577317040974746696234916980271 246110149268148070509051799419050877981852781065 51989774140043084113913850344208925905163362264086372653099777611371136358235035 033248460945185196590046267570529609988098990951 26410079279904685611700260831463723143985795492267883128299922124712532865303812 507858981958637041293725761014930363136987207704 38345894151030449397177701405013689126992329523150784093035878209386747489612441 338579166409367747775960823334086958194006102741 69429432504648344618345871835954695487825783230314956356944108576988446509153473 563590791068856974722368573431807702581000737755 94001705542576309530129743388827068044238238388465439313421928811953963824586092 250731625059996565071080936503932140196288097188 54276252999785637579422362653124104776498510390990819384013648753358819259901413 009139821803207929308739147160106333963937769942 88216599221859042313199409742889651754020077850680444232315030467647012405894044 580506502934805598761745121774588572405501950782 66937789588363238720033305640176917371365692270333489503229469543845284044258242 137634872355937421798829776078944554183269869461 08003297171415190377771075258672832901713196577021174191764840960652105182330648 474076587907933674254881006335917493162651225399 06105934028860535555984131273682121592216708976530851931233028617446281197425689 079247082284211584816921285286587201771004506845 69849301632090466832757026109524728729515572780165274749939299182902710590856215 166070830850864635590396446800148245492866833706 89883253610320018589636343864766517647929452248118302395334585096264979107531937 430841683880705550928160960780469509769685003756 44980067829328873397311160409774485962063017071943510260382545820920944477639072 967328175378306739186350053052065723597116394651 94720184761656364081252363294002977850648529501859408310091153430047658451302370 986389400149789133568724557567647038912451278540 72748233633815336497805664222513830801156374611234890602805999545036956854876983 031689408039271587992938435889427341129367803390 08206625906520258694921737055925182952694602770091783923989940902031803829986586 176500843866407422045989492536661172048491202800 22902664891531640346497661473224934528823550012328553402383990843810263227077085 019442320300387757707586290248962800000736779581 07900449635734263823748881485925453843839387445584730636017015166288205037188782 745476759288997619463169211599946068928418927543 11881427840342840947662485611371041428793888593618371707694343492822187982534184 669583216931490385942857774575071378322092059986 96593020215248957914311312203963663228138248734343553884631736151976580160806775 483923355683154772584990330835622229238727277687 33433758863955185989190577421187384011153997315032926799352224794807804695415713 950545547010567493402933057464687957346589480911 02843734793467451679482471765159172315652457902809051138637795965793677365511743 564165844064485877915539965568097400526025527352 30644064502050200945626842165981898673468599149968374842581673953767950700961474 015718504099161469052054115139646754230208866002 56560742291655297354975554539912677920897597717006385764976611048769043637905697 309224637874889452001347999916721319534272395005 41881615848984493371193848454922405038433361798265890214362606909069664100908665 567817325850921496065621996156630312368754317814 50741779563077591027552407325419973048749887197682730543914793041708819013758002 211545828955148548434063666105324824773160504954 77876464157043727788646314787484386985818003954028923501941807792370676304093727 857045769300916727643741948904634169900558980975 76998119704433847564245055155918309709184260826229046426467693160240563687960789 130224364159898700651248865206652687644853990445 90833176618596001004968793922461970208035441026140224991320592176443075766441281 983950118919908396693007458770548225458598909309 89560151556078051852990663954899750032293675399894243958528536164527997926973643 008824426194812610058544099185219655542183944039 44281969150220472548823291283745504847301647731688014796506506947083893050962501 747271663349079798303195465583970055652499663385 53470884539335191254810648790081937199975117367164652107536259450420568444267072 245342848601301254911740002775348707404611248812 94870110472945503783945132652392447772184775081749347633971446642146859435280673 292547620260705794302001516857093601250276807008 94418199924436049963981586270905687889066339885028375037299469428453825904091584 422551450184508431777113869031561289736286192235 81909837111723216560127231737940365064433295047804380053073341957149871299141956 555160057305308447656149281713450719172077364046 58699163640560491749300750890320196083578457897243012634415244414196473285771892 600623933940617837539908770662287096675370036760 14619464215836347671236200293448885806837635916076130299671819285301170663849886 478084607397156163709663575712567399344508540233 07536317444193807782554926741289638412045582750996451935880884358566407042537651 578454344973032105740835583062161355629546756526 98882478657001024573630924802536480891801926270500227053558785448386472190412907 712418881839166751342994298656827495899698072501 12122775119666548045067269349226011842513726674212538602133144862973688078263854 583939337717152024947639642626781808275322594355 60689676342477880936066730131296744156686450377365903867952952011769320815076024 400714505718642605153394775874904929097831111495 95935230089980082411300551441222710089400212635204222059824670666180811128707745 914521259524972723830301600138479714518250941537 79807812944037361494563018219982916613290597141458022859906291569399624241734670 172069677432365222599072064139610428074609287946 60318734570050762410274665850557530443108239155853655646457746226889641598964582 062822638095587982313168327363644690254912443373 89931635082388166208330620827723410391389319219559790441690558625217169957136299 399568760730205286274180548508995297974445771752 19882223710711977104064917475456003138419471386409026856467442925252246671470142 312351177517218869928471536892883059307805340811 62968212685832499722053404257754759374652753464601669954421332868960554032136366 680046252105504638080091585208002084948005020331 79815374165780103006842604322039030356691861966501086061960382564256011488540127 070594287576870530663107063173749679361945670886 54520299707822448100889782925952236817459701444992959539009565819375926481983798 902911051934779895105870110422969054301572907466 71355575894792920147062769934228794500294911943370172034589583754012374533324153 709376885933860145020022744603978048003665579610 47863174025369892883323085182457875541257269570772559901807237215053248591841764 537815150671787871191450947689810553265411436875 17821095443374145687252810718433641923776461218676755059840884584101010438222555 988062879582387878429215475683241441799483554959 81565326023224428095245336424614753139516213564766482113689901738050253061314780 207860057920699467306513044764308908828507420645 03767951562605642619440487566814736466209699378267913594194528809823087604023105 128097993384501234020298629582522973134763727381 15351566912239341064398708294064995620510459292920445440305111683855281613251065 688108007586738544689394041379198702878744576069 04022000135397174494809447139464206562174133261992372514188716560512934997439390 006542787713257348190228036616151014085391247517 45472409314000234575039720352302998633292938867128190194049928790657874777766278 745523172178629926158629959157028617491939556315 91847769064841033267807874968566206192946012698403763567523014397956392258225465 112141650139504023936313772070125822219065146585 97469963393631965334183019874333881777592064211302206843572608582114405174384618 358868894082490111547340695433434376952395189783 24219057230006508849820389623224863141400112105195389490897030863280003653742053 122846339778371250522515962014713766118207495651 93078755173421035914936110876298208045537832658982296564493074932667481055176311 536043355453072655692084451631557514017338193059 65814263673845119624479199499473135901704743659708234800013855989422362821503766 125228381656609510455069362506219829463685703901 33022977958692219911522763168817312565208703215381240120409062922332883463755232 295346785426479078950766776057564299182756591267 90700436933539448018463437115324832107552476955986113799152311348673758833339710 868259107241664691591184978422091001395415866397 17447778660079330484895025365149394225133570906614808409156448535437532167877126 355384884183405527971565536627320267447437158995 87180898459580781258758026517939223040579372452606187774888246106279247238263768 672362676074442204968197936971326810265834581435 95852036387554608350739346835301272090523439445843931999056069985084739492207575 566503448954840923739835725430088009563731832598 13834685156421910228451510962516929386204135496246305656041854952311164091957182 729300291040022895961819539982517281961958815002 60962437527783422011960152507005153813059712080361440156950512341716890538326408 664735919791459893072874327378613368332647383750 42284102745949396592626928946788860721859713386780677685007153349903898410025394 695538145753846077946422584792716723743667847964 37475951648379698502357095125731732972488828174130025746154734164764970247273742 707823391056689676430527574843908429758052642005 61966732774928034322745444317889768769562177769456937437878390466572908814645215 251166897784530921126718501601147633781613458198 44411185456346829206248272250605242715858593005095374876887604217907142156577836 671057453135239549373170334521224812713347589599 13633719991338121221762549341891178865706223732852478021529865638517768120998437 705129738271809928048350139120319268911664857582 85928900355574441688671829048483564838208949816547295467989472693469616739745432 308490203964363468955917549328310712173979147446 85511245379026518010373263851477109461682742347123103297440970523024271010721732 531623071545624883382928792815327048810124694291 21715930879787231235550381079209506046061221151041338676412287496186624562885669 661390422152383148323442982478020752115242146553 02309823853213746547945601075775597516106723425281028676189642848095795827247066 150993754603718499752260653167996463865978220047 65932630625847875778827233446287850308653680633477684603854912366516935655066187 169832155447738180264589897421344091765851810688 07738938614964314681263830624425169568326920487087924522437092179365241789501564 770276635428633213285216808960151173393655858965 47048783938194460220665338403586057497725418641816813433666276851987310211442669 934635101018578432763971218578131412454798953813 75167008012054718862731403238548466957399203888345301861110485946603556095990766 2295973201417600216403343194954 Labs (last 24 hrs) Laboratory Tests 02/18/22 11:55: White Blood Count 5.3, Red Blood Count 3.65L, Hemoglobin 11.0L, Hematocrit 36L, Mean Corpuscular Volume 98, Mean Corpuscular Hemoglobin 30, Mean Corpuscular Hemoglobin Concent 31L, Red Cell Distribution Width 16.9H, Platelet Count 80L, Mean Platelet Volume 13.7H, Immature Granulocyte % (Auto) 0, Neutrophils (%) (Auto) 68, Lymphocytes (%) (Auto) 20, Monocytes (%) (Auto) 10, Eosinophils (%) (Auto) 1, Basophils (%) (Auto) 0, Neutrophils # (Auto) 3.6, Lymphocytes # (Auto) 1.1, Monocytes # (Auto) 0.6, Eosinophils # (Auto) 0.0, Basophils # (Auto) 0.0, Immature Granulocyte # (Auto) 0.0, Percent Immature Platelet Fraction 11.9H, Prothrombin Time 19.9H, INR Comment 1.6H, Activated Partial Thromboplast Time 39H, Sodium Level 137, Potassium Level 4.4, Chloride Level 99, Carbon Dioxide Level 26, Anion Gap 12, Blood Urea Nitrogen 39H, Creatinine 2.36H, Estimat Glomerular Filtration Rate 26, BUN/Creatinine Ratio 17, Glucose Level 121H, Calcium Level 9.2, Corrected Calcium 9.8, Magnesium Level 2.0, Total Bilirubin 3.3H, Aspartate Amino Transf (AST/SGOT) 197H, Alanine Aminotransferase (ALT/SGPT) 113H, Alkaline Phosphatase 148H, Total Creatine Kinase 385H, Creatine Kinase MB 6.8*H, Myoglobin 1558.9H, Troponin I 0.252H, B-Type Natriuretic Peptide 3501.5H, Total Protein 7.1, Albumin 3.3, Lipase 95H, Procalcitonin 0.10H 02/18/22 12:51: Influenza Type A (RT-PCR) Not Detected, Influenza Type B (RT-PCR) Not Detected, SARS-CoV-2 RNA (RT-PCR) Not Detected 02/18/22 15:17: Lactic Acid Level 2.17*H 02/18/22 15:44: Blood Gas Puncture Site L BRACH, Blood Gas Patient Temperature 35.4, Arterial Blood pH 7.47H, Arterial Blood Partial Pressure CO2 37, Arterial Blood Partial Pressure O2 83, Arterial Blood HCO3 27, Arterial Blood Total CO2 28.4, Arterial Blood Oxygen Saturation 98, Arterial Blood Base Excess 3.3H, Sandor Test YES-POS, Blood Gas Ventilator Setting NO, Blood Gas Inspired Oxygen ROOM AIR 02/18/22 17:30: Lactic Acid Level 2.23*H 02/18/22 19:27: Lactic Acid Level 2.97*H 02/18/22 20:57: Glucometer 172H 02/18/22 21:25: Lactic Acid Level 2.69*H 02/19/22 03:40: White Blood Count 6.1, Red Blood Count 3.45L, Hemoglobin 10.5L, Hematocrit 33L, Mean Corpuscular Volume 96, Mean Corpuscular Hemoglobin 30, Mean Corpuscular Hemoglobin Concent 32, Red Cell Distribution Width 16.9H, Platelet Count 67L, Mean Platelet Volume 13.8H, Immature Granulocyte % (Auto) 0, Neutrophils (%) (Auto) 73, Lymphocytes (%) (Auto) 16, Monocytes (%) (Auto) 10, Eosinophils (%) (Auto) 1, Basophils (%) (Auto) 1, Neutrophils # (Auto) 4.5, Lymphocytes # (Auto) 1.0, Monocytes # (Auto) 0.6, Eosinophils # (Auto) 0.1, Basophils # (Auto) 0.0, Immature Granulocyte # (Auto) 0.0, Percent Immature Platelet Fraction 13.1H, Sodium Level 136, Potassium Level 3.5L, Chloride Level 99, Carbon Dioxide Level 25, Anion Gap 12, Blood Urea Nitrogen 40H, Creatinine 2.32H, Estimat Glomerular Filtration Rate 27, BUN/Creatinine Ratio 17, Glucose Level 176H, Calcium Level 8.9, Corrected Calcium 9.8, Phosphorus Level 4.0, Magnesium Level 2.0, Total Bilirubin 2.7H, Aspartate Amino Transf (AST/SGOT) 184H, Alanine Aminotransferase (ALT/SGPT) 115H, Alkaline Phosphatase 150H, Total Protein 6.1L, Albumin 2.9L, Smear Scan YES 02/19/22 10:26: Glucometer 278H 02/19/22 15:35: Glucometer 176H 02/19/22 19:57: Glucometer 117H 02/20/22 04:24: White Blood Count 7.9, Red Blood Count 3.57L, Hemoglobin 10.8L, Hematocrit 35L, Mean Corpuscular Volume 98, Mean Corpuscular Hemoglobin 30, Mean Corpuscular Hemoglobin Concent 31L, Red Cell Distribution Width 16.7H, Platelet Count 75L, Mean Platelet Volume 14.3H, Immature Granulocyte % (Auto) 0, Neutrophils (%) (Auto) 76H, Lymphocytes (%) (Auto) 12, Monocytes (%) (Auto) 11, Eosinophils (%) (Auto) 0, Basophils (%) (Auto) 0, Neutrophils # (Auto) 6.0, Lymphocytes # (Auto) 0.9L, Monocytes # (Auto) 0.8, Eosinophils # (Auto) 0.0, Basophils # (Auto) 0.0, Immature Granulocyte # (Auto) 0.0, Sodium Level 135, Potassium Level 4.4, Chloride Level 101, Carbon Dioxide Level 19L, Anion Gap 15H, Blood Urea Nitrogen 46H, Creatinine 2.51H, Estimat Glomerular Filtration Rate 24, BUN/Creatinine Ratio 18, Glucose Level 109H, Calcium Level 8.9, Corrected Calcium 9.8, Phos phorus Level 4.5, Magnesium Level 1.9, Total Bilirubin 2.4H, Aspartate Amino Transf (AST/SGOT) 432H, Alanine Aminotransferase (ALT/SGPT) 238H, Alkaline Phosphatase 214H, Total Protein 6.3L, Albumin 2.9L 02/20/22 05:42: Glucometer 105 02/20/22 10:46: Glucometer 78 02/20/22 16:23: Glucometer 126H Microbiology 02/18/22 MRSA Screen - Final, Complete MRSA not isolated 02/18/22 Blood Culture - Preliminary, Resulted No growth Pending Labs Microbiology Date/Time Source Procedure Growth Status 02/18/22 17:45 Nasal MRSA Screen - Final MRSA not isolated Complete 02/18/22 15:58 Peripheral Lt Ac Blood Culture - Preliminary No growth Resulted 02/18/22 15:17 Peripheral Rt Ac Blood Culture - Preliminary Staph, Coag Neg (MEDICAL ASST) Viridans streptococcus Resulted Laboratory Tests 02/18/22 11:55: White Blood Count 5.3, Red Blood Count 3.65, Hemoglobin 11.0, Hematocrit 36, Mean Corpuscular Volume 98, Mean Corpuscular Hemoglobin 30, Mean Corpuscular Hemoglobin Concent 31, Red Cell Distribution Width 16.9, Platelet Count 80, Mean Platelet Volume 13.7, Immature Granulocyte % (Auto) 0, Neutrophils (%) (Auto) 68, Lymphocytes (%) (Auto) 20, Monocytes (%) (Auto) 10, Eosinophils (%) (Auto) 1, Basophils (%) (Auto) 0, Neutrophils # (Auto) 3.6, Lymphocytes # (Auto) 1.1, Monocytes # (Auto) 0.6, Eosinophils # (Auto) 0.0, Basophils # (Auto) 0.0, Immature Granulocyte # (Auto) 0.0, Percent Immature Platelet Fraction 11.9, Prothrombin Time 19.9, INR Comment 1.6, Activated Partial Thromboplast Time 39, Sodium Level 137, Potassium Level 4.4, Chloride Level 99, Carbon Dioxide Level 26, Anion Gap 12, Blood Urea Nitrogen 39, Creatinine 2.36, Estimat Glomerular Filtration Rate 26, BUN/Creatinine Ratio 17, Glucose Level 121, Calcium Level 9.2, Corrected Calcium 9.8, Magnesium Level 2.0, Total Bilirubin 3.3, Aspartate Amino Transf (AST/SGOT) 197, Alanine Aminotransferase (ALT/SGPT) 113, Alkaline Phosphatase 148, Total Creatine Kinase 385, Creatine Kinase MB 6.8, Myoglobin 1558.9, Troponin I 0.252, B-Type Natriuretic Peptide 3501.5, Total Protein 7.1, Albumin 3.3, Lipase 95, Procalcitonin 0.10 02/18/22 12:51: Influenza Type A (RT-PCR) Not Detected, Influenza Type B (RT-PCR) Not Detected, SARS-CoV-2 RNA (RT-PCR) Not Detected 02/18/22 15:17: Lactic Acid Level 2.17 02/18/22 15:44: Blood Gas Puncture Site L BRACH, Blood Gas Patient Temperature 35.4, Arterial Blood pH 7.47, Arterial Blood Partial Pressure CO2 37, Arterial Blood Partial Pressure O2 83, Arterial Blood HCO3 27, Arterial Blood Total CO2 28.4, Arterial Blood Oxygen Saturation 98, Arterial Blood Base Excess 3.3, Sandor Test YES-POS, Blood Gas Ventilator Setting NO, Blood Gas Inspired Oxygen ROOM AIR 02/18/22 17:30: Lactic Acid Level 2.23 02/18/22 19:27: Lactic Acid Level 2.97 02/18/22 20:57: Glucometer 172 02/18/22 21:25: Lactic Acid Level 2.69 02/19/22 03:40: White Blood Count 6.1, Red Blood Count 3.45, Hemoglobin 10.5, Hematocrit 33, Mean Corpuscular Volume 96, Mean Corpuscular Hemoglobin 30, Mean Corpuscular Hemoglobin Concent 32, Red Cell Distribution Width 16.9, Platelet Count 67, Mean Platelet Volume 13.8, Immature Granulocyte % (Auto) 0, Neutrophils (%) (Auto) 73, Lymphocytes (%) (Auto) 16, Monocytes (%) (Auto) 10, Eosinophils (%) (Auto) 1, Basophils (%) (Auto) 1, Neutrophils # (Auto) 4.5, Lymphocytes # (Auto) 1.0, Monocytes # (Auto) 0.6, Eosinophils # (Auto) 0.1, Basophils # (Auto) 0.0, Immature Granulocyte # (Auto) 0.0, Percent Immature Platelet Fraction 13.1, Sodium Level 136, Potassium Level 3.5, Chloride Level 99, Carbon Dioxide Level 25, Anion Gap 12, Blood Urea Nitrogen 40, Creatinine 2.32, Estimat Glomerular Filtration Rate 27, BUN/Creatinine Ratio 17, Glucose Level 176, Calcium Level 8.9, Corrected Calcium 9.8, Phosphorus Level 4.0, Magnesium Level 2.0, Total Bilirubin 2.7, Aspartate Amino Transf (AST/SGOT) 184, Alanine Aminotransferase (ALT/SGPT) 115, Alkaline Phosphatase 150, Total Protein 6.1, Albumin 2.9, Smear Scan YES 02/19/22 10:26: Glucometer 278 02/19/22 15:35: Glucometer 176 02/19/22 19:57: Glucometer 117 02/20/22 04:24: White Blood Count 7.9, Red Blood Count 3.57, Hemoglobin 10.8, Hematocrit 35, Mean Corpuscular Volume 98, Mean Corpuscular Hemoglobin 30, Mean Corpuscular Hemoglobin Concent 31, Red Cell Distribution Width 16.7, Platelet Count 75, Mean Platelet Volume 14.3, Immature Granulocyte % (Auto) 0, Neutrophils (%) (Auto) 76, Lymphocytes (%) (Auto) 12, Monocytes (%) (Auto) 11, Eosinophils (%) (Auto) 0, Basophils (%) (Auto) 0, Neutrophils # (Auto) 6.0, Lymphocytes # (Auto) 0.9, Monocytes # (Auto) 0.8, Eosinophils # (Auto) 0.0, Basophils # (Auto) 0.0, I mmature Granulocyte # (Auto) 0.0, Sodium Level 135, Potassium Level 4.4, Chloride Level 101, Carbon Dioxide Level 19, Anion Gap 15, Blood Urea Nitrogen 46, Creatinine 2.51, Estimat Glomerular Filtration Rate 24, BUN/Creatinine Ratio 18, Glucose Level 109, Calcium Level 8.9, Corrected Calcium 9.8, Phosphorus Level 4.5, Magnesium Level 1.9, Total Bilirubin 2.4, Aspartate Amino Transf (AST/SGOT) 432, Alanine Aminotransferase (ALT/SGPT) 238, Alkaline Phosphatase 214, Total Protein 6.3, Albumin 2.9 02/20/22 05:42: Glucometer 105 02/20/22 10:46: Glucometer 78 02/20/22 16:23: Glucometer 126 Discharge Home Medications: Active Scripts Active Reported Omeprazole 40 Mg Capsule.dr 40 Mg PO DAILY Flomax (Tamsulosin HCl) 0.4 Mg Cap 0.4 Mg PO DAILY Atorvastatin Calcium 80 Mg Tablet 80 Mg PO DAILY Furosemide 40 Mg Tablet 40 Mg PO BID Potassium Chloride 20 Meq Tablet.er 20 Meq PO DAILY Acetaminophen 500 Mg Tablet 1,000 Mg PO Q8H PRN Carvedilol 3.125 Mg Tablet 3.125 Mg PO BID Instructions to patient/family Please see electronic discharge instructions given to patient. Diagnosis/Problems Diagnosis/Problems (1) Acute on chronic congestive heart failure Status: Acute (2) H/O malignant neoplasm of colon Status: Acute (3) DEVYN (acute kidney injury) (4) Acute systolic congestive heart failure Status: Acute (5) Atrial fibrillation Status: Acute (6) Diarrhea BEN MATTA DO Feb 22, 2022 04:58
[2022-02-23] MEDS ORDERED: SCOPOLAMINE PATCH REMOVAL TP SCH (17:59)
== END 2022-02-22 03:23 | disposition expired | DRG 291 ==
LOC: EDUNIT# 11:43 → ER 11:45 → INTOOBSV 15:57 → ICU 15:57 → OBSVTOIN 02-20 12:21 → 4TH 02-20 20:48
PROVIDERS: ADMIT Internal Medicine; ATTEND Internal Medicine
DX: I13.0 Hypertensive heart and chronic kidney disease with heart failure and stage 1 through stage 4 chronic kidney disease, or unspecified chronic kidney disease (principal); I50.23 Acute on chronic systolic (congestive) heart failure; J96.00 Acute respiratory failure, unspecified whether with hypoxia or hypercapnia; N17.9 Acute kidney failure, unspecified; I48.20 Chronic atrial fibrillation, unspecified; J90 Pleural effusion, not elsewhere classified; I42.0 Dilated cardiomyopathy; D69.6 Thrombocytopenia, unspecified; Z95.2 Presence of prosthetic heart valve; F03.90 Unspecified dementia, unspecified severity, without behavioral disturbance, psychotic disturbance, mood disturbance, and anxiety; K72.90 Hepatic failure, unspecified without coma; K63.89 Other specified diseases of intestine; Z79.82 Long term (current) use of aspirin; Z79.84 Long term (current) use of oral hypoglycemic drugs; Z79.899 Other long term (current) drug therapy; N18.9 Chronic kidney disease, unspecified; Z66 Do not resuscitate; Z51.5 Encounter for palliative care; E78.00 Pure hypercholesterolemia, unspecified; N40.0 Benign prostatic hyperplasia without lower urinary tract symptoms; G89.29 Other chronic pain; M54.9 Dorsalgia, unspecified; F41.9 Anxiety disorder, unspecified; Z20.822 Contact with and (suspected) exposure to COVID-19; Z85.038 Personal history of other malignant neoplasm of large intestine; Z79.01 Long term (current) use of anticoagulants; J44.9 Chronic obstructive pulmonary disease, unspecified; R63.4 Abnormal weight loss; D12.3 Benign neoplasm of transverse colon; I95.9 Hypotension, unspecified; Z87.891 Personal history of nicotine dependence
CPT/HCPCS: 36415; 36600; 71045; 80053; 82550; 82553; 82805; 82947; 83605; 83690; 83735; 83874; 83880; 84100; 84145; 84484; 85025; 85610; 85730; 87040; 87081; 87636; 93005; 93041; 93970; G0378